=== PATIENT | female | born 1950 | race Caucasian/White ===

== ENCOUNTER → 2016-08-12 | Outpatient (CLI) | payer OTHER, BC ==
[~2016-08-12] MED LIST: APIX1TAB3 PO; ATOR10TA82 PO; CEPH500C2 PO; FLUO20CA35 PO; LEVO88TA3 PO; METO25TA56 PO; MOME50SP5 NAE; MOME6000 NAE; MULT-190 PO; MULT-845 PO; ROSU20TA22 PO; TMB100 PO
--- NOTE | 2016-08-12 16:39 | MAMMOGRAPHY REPORT ---
BILATERAL DIGITAL SCREENING MAMMOGRAM WITH CAD: 08/12/2016 CLINICAL HISTORY: Routine screening. Patient has no complaints. TECHNIQUE: Bilateral CC, MLO and repeat left cc views were obtained. Current study was also evaluate d with a Computer Aided Detection (CAD) system. COMPARISON: Comparison is made to exams dated: 08/12/2015 mammogram, 08/08/2014 mammogram, 08/07/2013 ma mmogram, 08/04/2012 mammogram, 08/04/2011 mammogram, and 07/25/2010 mammogram - [facility] er. BREAST COMPOSITION: There are scattered areas of fibroglandular density in both breasts. FINDINGS: There are a few benign-appearing calcifications in the breasts. The parenchymal pattern is similar to prior exams. No suspicious mass, architectural distortion or cluster of suspicious micro calcifications is seen. IMPRESSION: ACR BI-RADS CATEGORY 1: NEGATIVE There is no mammographic evidence of malignancy. A 1 year screening mammogram is recommended. The pa tient will receive written notification of the results. Approximately 10% of breast cancers are not detected with mammography. A negative mammographic report should not delay biopsy if a clinically suggestive mass is present. Briana Lang M.D. ay/:08/12/2016 14:16:03 Instructional Support Specialist: Sandi HIDALGO(R)(M), [facility] letter sent: Normal 1/2 BI-RADS Code: ACR BI-RADS Category 1: Negative
== END | disposition home or self-care (01) ==
LOC: C.MAMM 12:22
PROVIDERS: ATTEND Family Medicine
DX: Z12.31 Encounter for screening mammogram for malignant neoplasm of breast (principal)

== ENCOUNTER 2016-11-25 07:58 | Inpatient (IN) | payer OTHER, BC ==
[~2016-11-25] VITALS: Ht 165.1 cm; Wt 97.3 kg
[~2016-11-25 07:58] MED LIST changes: -ATOR10TA82 PO; +ATOR10TA88 PO; -CEPH500C2 PO; -LEVO88TA3 PO; -MOME6000 NAE; -ROSU20TA22 PO; -TMB100 PO
[2016-11-25] MEDS ORDERED: ROSU20TA22 PO (08:30)
[2016-11-25] MEDS ORDERED: MOME6000 NAE (08:30)
[2016-11-25] MEDS ORDERED: LEVO88TA3 PO (08:30)
[2016-11-25] MEDS ORDERED: TMB100 PO (08:30)
[2016-11-25] MEDS ORDERED: CEPH500C2 PO (08:30)
--- NOTE | 2016-11-25 08:38 | DIAGNOSTIC IMAGING REPORT ---
CHEST ONE VIEW PORTABLE HISTORY: 66 years-old Female Evaluate Fever/Sepsis acute fever and sepsis. COMPARISON: Chest radiograph 05/02/2013 TECHNIQUE: Portable upright AP view of the chest FINDINGS: Cardiac silhouette is again enlarged. There is atherosclerosis of the aorta. There is no pneumothorax, pleural effusion or focal airspace consolidation. No overt pulmonary edema. Multilevel endplate osteophytosis of the thoracic spine is noted. There is mild convex right curvature of the thoracic spine. IMPRESSION: Cardiomegaly without acute cardiopulmonary process. The above report was generated using voice recognition software. It may contain grammatical, syntax or spelling errors. Electronically signed by: Ricky Zhou M.D. 11/25/2016 8:36 AM Dictated Date/Time: 11/25/2016 8:35 AM
[2016-11-25 08:47] LABS: BASO % 0.2 %; BASO ABS # 0.02 K/uL (0-0.2); COMPLETE YES; EOS % 2.2 %; HEMATOCRIT 39.9 % (37-47); IG% 0.2 %; LYMPH % 20.7 %; LYMPH ABS # 1.88 K/uL (1.2-3.4); MEAN CELL VOLUME 88.1 fL (80-100); MEAN CORPUSCULAR HGB CONC 34.1 g/dl (32-36); MEAN PLATELET VOLUME 9.2 fL (7.4-10.4); MONO % 7.5 %; NEUT % 69.2 %; PLATELET COUNT 238 K/uL (130-400); RED BLOOD COUNT 4.53 M/uL (4.2-5.4); WHITE BLOOD COUNT 9.08 K/uL (4.8-10.8)
[2016-11-25 08:56] LABS: PARTIAL THROMBOPLASTIN RATIO 1.2; PROTHROMBIN TIME (PATIENT) 11.1 SECONDS (9.0-12.0)
[2016-11-25 09:06] LABS: ALT/SGPT 29 U/L (12-78); BLOOD UREA NITROGEN 17 mg/dl (7-18); BUN/CREATININE RATIO 19.2 (10-20); CALCIUM 9.2 mg/dl (8.5-10.1); CARBON DIOXIDE 26 mmol/L (21-32); CHLORIDE 103 mmol/L (98-107); CREATININE 0.88 mg/dl (0.60-1.20); GLUCOSE 170 mg/dl (70-99); POTASSIUM 3.3 mmol/L (3.5-5.1); SODIUM 139 mmol/L (136-145)
[2016-11-25 09:12] LABS: ALKALINE PHOSPHATASE 112 U/L (45-117); AST/SGOT 27 U/L (15-37); CKMB/CK RATIO 1.2 (0-3.0)
[2016-11-25 09:20] VITALS: O2SAT 97; Ht 165.1 cm; Wt 97.3 kg
--- NOTE | 2016-11-25 10:04 | EMERGENCY ROOM VISIT NOTE ---
History Report prepared by Valentine: Nadeem Rousseau Under the Supervision of: Dr. Minh Reina D.O. First contact with patient: 08:06 Chief Complaint: BRADYCARDIA Stated Complaint: A-FIB, SLOW HEART RATE Nursing Triage Summary: Pt reports hx of a.fib. Holter monitor x [address] Morgan last night, called today and told to come in because heart rate is low and stops. Told to come in "to start the procedure for a pacemaker." Denies cp, lightheaded/dizziness. History of Present Illness The patient is a 66 year old female who presents to the Emergency Room with complaints of intermittent bradycardia occurring over the past week. The patient 's husbands states that the patient has a history of A-fib and was put on a halter monitor for the past seven days. The patient has been having issues of a slow heart rate, an her heart was stopping for around 2-3 seconds at a time, and her heart would slow down. She states that she never feels these symptoms. She denies any dizziness or light headedness. The patient has been more tired than usual recently. The patient additionally has a history of a stroke. Cardiology sent the patient in for evaluation. Source of History: patient, spouse/significant other Onset: the past week Position: other (heart) Quality: other (bradycardia) Timing: intermittent Note: Associated symptoms: Tiredness Review of Systems See HPI for pertinent positives & negatives. A total of 10 systems reviewed and were otherwise negative. Past Medical & Surgical Medical Problems: (1) Allergic rhinitis (2) Benign hypertension (3) History of - hysterectomy (4) Radionuclide therapy for hyperthyroidism (5) Rosacea Family History Diabetes mellitus FH: cancer FH: heart disease Hypertension Social History Smoking Status: Never Smoker Alcohol Use: none Drug Use: none Marital Status: Housing Status: lives with family Current/Historical Medications Scheduled Apixaban (Eliquis), 5 MG PO BID Cephalexin Monohydrate (Keflex), 500 MG PO QID Flecainide Acetate (Flecainide Acetate), 50 MG PO BID Fluoxetine (Prozac), 20 MG PO DAILY Levothyroxine Sodium (Levothyroxine Sodium), 88 MCG PO DAILY Metoprolol Tartrate (Lopressor) (Lopressor), 12.5 MG PO BID Mometasone Furoate (Nasal) (Mometasone Furoate), 1 SPRAY ANOOP BID Ocuvite Preservision (Ocuvite Preservision), 1 TAB PO BID Rosuvastatin Calcium (Rosuvastatin Calcium), 20 MG PO DAILY Allergies Coded Allergies: No Known Allergies (Verified , 12/05/12) Physical Exam Vital Signs Date Time Temp Pulse Resp B/P (MAP) Pulse Ox O2 Delivery O2 Flow Rate FiO2 11/25/16 09:20 97 Room Air 11/25/16 09:02 55 18 144/54 97 11/25/16 08:25 60 11/25/16 08:01 37.1 64 18 144/72 96 Room Air Physical Exam CONSTITUTIONAL/VITAL SIGNS: Reviewed / noted above. GENERAL: Non-toxic in appearance. INTEGUMENTARY: Warm, dry, and [place]. HEAD: Normocephalic. EYES: without scleral icterus or trauma. ENT/OROPHARYNX: clear and moist. LYMPHADENOPATHY/NECK: Is supple without lymphadenopathy or meningismus. RESPIRATORY: Lungs clear and equal. CARDIOVASCULAR: Regular rate and rhythm. GI/ABDOMEN: Soft and nontender. No organomegaly or pulsatile mass. No rebound or guarding. Normal bowel sounds. EXTREMITIES: Warm and well perfused. BACK: No CVA tenderness. NEUROLOGICAL: Intact without focal deficits. PSYCHIATRIC: normal affect. MUSCULOSKELETAL: Normally developed with good muscle tone. Medical Decision & Procedures ER Provider Diagnostic Interpretation: Radiology results as stated below per my review and radiologist interpretation: CHEST ONE VIEW PORTABLE HISTORY: 66 years-old Female Evaluate Fever/Sepsis acute fever and sepsis. COMPARISON: Chest radiograph 05/02/2013 TECHNIQUE: Portable upright AP view of the chest FINDINGS: Cardiac silhouette is again enlarged. There is atherosclerosis of the aorta. There is no pneumothorax, pleural effusion or focal airspace consolidation. No overt pulmonary edema. Multilevel endplate osteophytosis of the thoracic spine is noted. There is mild convex right curvature of the thoracic spine. IMPRESSION: Cardiomegaly without acute cardiopulmonary process. The above report was generated using voice recognition software. It may contain grammatical, syntax or spelling errors. Electronically signed by: Ricky Zhou M.D. 11/25/2016 8:36 AM Dictated Date/Time: 11/25/2016 8:35 AM Laboratory Results 11/25/16 08:20 Red Blood Count 4.53, Mean Corpuscular Volume 88.1, Mean Corpuscular Hemoglobin 30.0, Mean Corpuscular Hemoglobin Concent 34.1, Mean Platelet Volume 9.2, Neutrophils (%) (Auto) 69.2, Lymphocytes (%) (Auto) 20.7, Monocytes (%) (Auto) 7.5, Eosinophils (%) (Auto) 2.2, Basophils (%) (Auto) 0.2, Neutrophils # (Auto) 6.28, Lymphocytes # (Auto) 1.88, Monocytes # (Auto) 0.68, Eosinophils # (Auto) 0.20, Basophils # (Auto) 0.02 11/25/16 08:20 Test 11/25/16 08:20 White Blood Count 9.08 K/uL (4.8-10.8) Red Blood Count 4.53 M/uL (4.2-5.4) Hemoglobin 13.6 g/dL (12.0-16.0) Hematocrit 39.9 % (37-47) Mean Corpuscular Volume 88.1 fL (80-100) Mean Corpuscular Hemoglobin 30.0 pg (25-34) Mean Corpuscular Hemoglobin Concent 34.1 g/dl (32-36) Platelet Count 238 K/uL (130-400) Mean Platelet Volume 9.2 fL (7.4-10.4) Neutrophils (%) (Auto) 69.2 % Lymphocytes (%) (Auto) 20.7 % Monocytes (%) (Auto) 7.5 % Eosinophils (%) (Auto) 2.2 % Basophils (%) (Auto) 0.2 % Neutrophils # (Auto) 6.28 K/uL (1.4-6.5) Lymphocytes # (Auto) 1.88 K/uL (1.2-3.4) Monocytes # (Auto) 0.68 K/uL (0.11-0.59) Eosinophils # (Auto) 0.20 K/uL (0-0.5) Basophils # (Auto) 0.02 K/uL (0-0.2) RDW Standard Deviation 45.3 fL (36.4-46.3) RDW Coefficient of Variation 13.9 % (11.5-14.5) Immature Granulocyte % (Auto) 0.2 % Immature Granulocyte # (Auto) 0.02 K/uL (0.00-0.02) Prothrombin Time 11.1 SECONDS (9.0-12.0) Prothromb Time International Ratio 1.0 (0.9-1.1) Activated Partial Thromboplast Time 30.0 SECONDS (21.0-31.0) Partial Thromboplastin Ratio 1.2 Anion Gap 10.0 mmol/L (3-11) Est Creatinine Clear Calc Drug Dose 73.7 ml/min Estimated GFR () 79.9 Estimated GFR (Non- 68.9 BUN/Creatinine Ratio 19.2 (10-20) Calcium Level 9.2 mg/dl (8.5-10.1) Total Bilirubin 0.3 mg/dl (0.2-1) Direct Bilirubin 0.1 mg/dl (0-0.2) Aspartate Amino Transf (AST/SGOT) 27 U/L (15-37) Alanine Aminotransferase (ALT/SGPT) 29 U/L (12-78) Alkaline Phosphatase 112 U/L (45-117) Total Creatine Kinase 85 U/L (26-192) Creatine Kinase MB 1.0 ng/ml (0.5-3.6) Creatine Kinase MB Ratio 1.2 (0-3.0) Troponin I < 0.015 ng/ml (0-0.045) Total Protein 7.9 gm/dl (6.4-8.2) Albumin 3.5 gm/dl (3.4-5.0) Laboratory results as stated above per my review. ECG Indication: bradycardia Rate (beats per minute): 60 Rhythm: normal sinus Findings: no ectopy, other (No acute injury) ED Course 0812: Previous medical records were reviewed. The patient was evaluated in room B3. A complete history and physical examination was performed. 0908: Discussed the patient's case with Ofe Giraldo. The patient will be evaluated for further treatment and disposition. Medical Decision the differential was considered includes acute myocardial infarction, acute coronary syndrome, myocarditis, pericarditis, pericardial effusions /tamponade, esophageal perforation, thoracic aortic dissection, pulmonary embolism, pneumonia, pneumothorax, pancreatitis, shingles, acute cholecystitis, perforated abdominal viscus. This is a 66-year-old female who presents to the ED with a chief complaint of needing a pacemaker. The patient was sent by Dr. Landin. She had an outpatient Holter monitor that showed multiple positives up to 4 seconds. The patient was symptomatically with this. The patient is currently symptomatically. Her vital signs are stable. An EKG shows a normal sinus rhythm. Blood work was unremarkable including normal CBC and chemistry panel. Chest x-ray was negative for acute disease. The patient will be seen by the hospital service for further inpatient evaluation and care. Medication Reconcilliation Current Medication List: was personally reviewed by me Blood Pressure Screening Patient's blood pressure: Elevated blood pressure Managed by the hospitalist Consults Time Called: [id number] Consulting Physician: Ofe Giraldo Returned Call: [phone] Discussed the patient's case with Ofe Giraldo. The patient will be evaluated for further treatment and disposition. Impression Primary Impression: Symptomatic bradycardia Scribe Attestation The scribe's documentation has been prepared under my direction and personally reviewed by me in its entirety. I confirm that the note above accurately reflects all work, treatment, procedures, and medical decision making performed by me. Departure Information Dispostion Being Evaluated By Hospitalist Jos eAngel Guzman M.D. (PCP) Patient Instructions My [facility]
[2016-11-25 11:25] VITALS: O2SAT 97
[2016-11-25 11:28] VITALS: BP 179/84; PULSE 53; TEMP 36.8; O2SAT 97
[2016-11-25] MEDS ORDERED: PNEUMOCOCCAL ADMINISTRATION CHARGE ONE (11:30)
[2016-11-25] MEDS ORDERED: INFLUENZA ADMINISTRATION CHARGE ONE (11:30)
[2016-11-25] MEDS ORDERED: INFLUENZA VACCINE HIGH DOSE 65+ 0.5 ML SYR IM. ONE (11:30)
[2016-11-25] MEDS ORDERED: PNEUMOCOCCAL POLYSACCHARIDES 25 MCG/0.5 ML VIAL/SYR IM. ONE (11:30)
[2016-11-25] MEDS ORDERED: NSS + 20MEQ KCL 1000ML 1,000 ML IV SCH (11:30)
--- NOTE | 2016-11-25 11:42 | HISTORY & PHYSICAL EXAMINATION ---
DATE OF ADMISSION: 11/25/2016 PRIMARY CARE PHYSICIAN: Jose Angel Elizabeth MD CHIEF COMPLAINT: Sent in with an abnormal Holter reading. HISTORY OF PRESENT COMPLAINT: She is a 66-year-old female with significant past medical history including paroxysmal atrial fibrillation, on Eliquis; history of cerebrovascular accident secondary to AFib; hypertension; hyperlipidemia; history of breast disease, status post surgery; and apparently has been complaining of tiredness and fatigue for a while. She was seen by the receivable executive last week and she was put on a Holter to find out bradyarrhythmias that could be the cause for her problem, and Holter reading came back positive for pauses of more than 4 seconds on multiple occasions. From that point, she was sent into the Emergency Room for further evaluation and pacemaker placement. When asking questions, she denies to have any other symptoms except feeling tired and weak all the time. No history of loss of consciousness. No history of fall. No chest pain, palpitations. No fever, chills or rigors. No numbness or tingling in the extremities, and no weakness involving any side of the body. In the ER, she was hemodynamically stable and she was noted to have an EKG that did show sinus rhythm with a rate of 60 per minute and no significant ST-T wave changes, and her labs were unremarkable. PAST MEDICAL HISTORY: Significant for paroxysmal atrial fibrillation, on Eliquis; history of cerebrovascular accident, secondary to atrial fibrillation; hypertension; hyperlipidemia; history of Graves' disease status post surgery, now hypothyroidism; anxiety; nonspecific back pain. PAST SURGICAL HISTORY: Significant for benign breast biopsy, thyroid gland removal in 2013, laminectomy, and also vaginal hysterectomy. FAMILY HISTORY: Significant that mother had esophageal cancer. Father diabetes and heart disorder. Brother had hypertension. SOCIAL HISTORY: She is . She lives with her . She has 2 children. She does not smoke, but she uses alcohol occasionally. ALLERGIES: NKDA. MEDICATIONS: She has been on flecainide 50 mg twice daily, metoprolol 25 mg twice daily, Eliquis 5 mg b.i.d., Keflex 500 mg 4 times daily as directed, Prozac 20 mg daily, Levothyroxine 88 mcg daily, Flonase nasal spray as directed, Ocuvite 1 tablet daily and Crestor 20 mg daily. REVIEW OF SYSTEMS: Other systemic review unremarkable except those mentioned in the history of present complaint. PHYSICAL EXAMINATION: GENERAL: On examination in the Emergency Room, she was not having any acute distress. VITAL SIGNS: Temperature 37.1, pulse of 55 and regular, blood pressure 144/54, saturation 97% on room air. HEENT: Unremarkable. NECK: Supple. No JVD, no bruit. CHEST: Clear to auscultate bilaterally. HEART: S1, S2 regular. ABDOMEN: Soft, benign, nontender, no organomegaly. Bowel sounds present. EXTREMITIES: Negative for any edema. MUSCULOSKELETAL: Did not show any acute arthritis involving any joint. CENTRAL NERVOUS SYSTEM: She was alert, awake, oriented x3. No focal sensory and/or motor deficit appreciated. LABORATORY DATA: Noted today white count was 9.08, H&H was 13.6/39.9, platelet was 238. Sodium 139, potassium 3.3, chloride 103, carbon dioxide 26, BUN 17, creatinine 0.88, random glucose 170. LFTs, troponin unremarkable. Protime INR normal. EKG was in sinus rhythm, rate of 60 per minute, normal axis and no significant ST-T wave changes. Chest x-ray, cardiomegaly without acute cardiopulmonary process. The strips of Holter monitor reviewed, she does have pauses up to more than 4 seconds on multiple locations. ASSESSMENT AND PLAN: 1. Bradyarrhythmia with significant pauses. The patient will be admitted to telemetry unit. A cardiology evaluation and electrophysiology evaluation, and probable pacemaker placement. We will hold her flecainide and metoprolol for now. There is nothing to suggest that she is having an myocardial infarction at this time or acute coronary syndrome. 2. Paroxysmal atrial fibrillation. She has been on flecainide and metoprolol and also on Eliquis. Her flecainide and metoprolol will be on hold in the light of bradyarrhythmia, and she will be evaluated for a pacemaker.She took her Eliquis this morning. We may have to bridge her with heparin depending on the proposed surgery. 3. Hypertension. Blood pressure seems stable at this time. We may have to give additional blood pressure medications as needed to control the blood pressure while in the hospital. 4. Hyperlipidemia. Continue with Crestor. 5. History of Graves' disease, now hypothyroidism. Continue with thyroid replacement. 6. Gastrointestinal prophylaxis with Protonix. 7. Deep venous thrombosis prophylaxis with Eliquis. 8. Code status. She will be full code and further management will depend on clinical course. In my clinical assessment, the beneficiary meets criteria as per CMS for 2 midnight stay in the hospital. DIOMEDES
--- NOTE | 2016-11-25 12:27 | Cardiology Consultation ---
Cardiology Consultation Date of Consultation: Nov 25, 2016. Requesting Physician: Dr. Garner Reason for Consultation: sick sinus syndrome with bradycardia Pt evaluation today including: conversation w/ patient, conversation w/ family , physical exam, lab review, review of studies, review of inpatient medication list History of Present Illness This is a very pleasant 66-year-old woman who has a history of atrial fibrillation dating back to 2012, at that time she had hyperthyroidism. After treatment of her hyperthyroidism she remained in sinus rhythm, therefore anticoagulation was discontinued however she had a presentation with an acute stroke on 05/03/2013. At that time she was not in atrial fibrillation, however it was felt that the stroke was from paroxysmal atrial fibrillation and she has had documented atrial fibrillation since. She also has a history of bradycardia , and is therefore maintained on low-dose metoprolol (metoprolol tartrate 25 mg twice a day). With her paroxysmal atrial fibrillation she has been maintained on flecainide 100 mg twice a day as well and she is on eliquis 5 mg twice a day. According to her she has been having gradually decreasing activities over the last year or so (she is little bit limited due to right leg weakness as well). An evaluation was undertaken which included an echocardiogram on 11/12 which showed normal left ventricular function with mild concentric left ventricular hypertrophy. In addition a 7 day event monitor was applied, this showed periods of atrial fibrillation with a controlled heart rate (averaging 72 bpm) as well as overall bradycardia during sinus rhythm. Her sinus rhythm was as low as 26 bpm, the maximum was only 89 bpm with an average of 55 bpm. In addition she had 55 pauses between 3 seconds and 4.2 seconds. Decreasing her AV benjamin blocking medications is not a good option as she has a well-controlled heart rate when she is in atrial fibrillation currently. She does have ill-defined symptoms of fatigue and not feeling well with exertion which could be rate related, she does not have symptoms of presyncope or syncope. She does not have exertional chest discomfort has had no further stroke symptoms and has had no bleeding on Eliquis. Past Medical/Surgical History (1) Atrial fibrillation (2) Benign hypertension (3) Hyperthyroidism (4) Symptomatic bradycardia Family History Diabetes mellitus FH: cancer FH: heart disease Hypertension Social History Smoking Status: Never Smoker History of Alcohol Use: No Review of Systems Constitutional: + fatigue, No fever, No weight loss, No weakness Respiratory: No cough, No wheezing, No shortness of breath, No dyspnea on exertion Cardiac: + see HPI, No chest pain, No orthopnea, No PND, No edema, No palpitations Abdomen: No pain, No nausea, No vomiting, No diarrhea, No GI bleeding Female : No problem reported Neurologic: + weakness (residual right leg weakness following her stroke), No paralysis, No numbness/tingling, No balance problems Heme: No abnormal bleeding/bruising, No clotting problems Endo: + fatigue Skin: No problem reported All Other Systems: Reviewed and Negative Allergies Coded Allergies: No Known Allergies (Verified , 12/05/12) Medications Current Inpatient Medications Medications (Trade) Dose Ordered Sig/David Route Start Time Stop Time Status Last Admin Dose Admin Potassium Chloride/Sodium Chloride 1,000 ml @ 100 mls/hr Q10H IV 11/25/16 11:30 12/25/16 11:29 11/25/16 11:48 100 MLS/HR Cephalexin Monohydrate (Keflex Cap) 500 mg QID PO 11/25/16 13:00 12/05/16 12:59 Fluoxetine HCl (Prozac Cap) 20 mg DAILY PO 11/26/16 09:00 12/26/16 08:59 Levothyroxine Sodium (Synthroid Tab) 88 mcg DAILYBB PO 11/26/16 06:30 12/26/16 06:29 Multivitamins/ Minerals (Multivitamin W/ Minerals Tab) 1 tab BID PO 11/25/16 21:00 12/25/16 20:59 Rosuvastatin Calcium (Crestor Tab) 20 mg DAILY PO 11/26/16 09:00 12/26/16 08:59 Fluticasone Propionate (Flonase Nasal [place]) 2 sprays BID NA 11/25/16 21:00 12/25/16 20:59 Physical Exam Vital Signs Past 12 Hours Date Time Temp Pulse Resp B/P (MAP) Pulse Ox O2 Delivery O2 Flow Rate FiO2 11/25/16 11:28 36.8 53 18 179/84 (115) 97 Room Air 11/25/16 10:30 54 11/25/16 10:30 55 18 153/66 11/25/16 10:01 52 18 160/86 96 11/25/16 09:20 97 Room Air 11/25/16 09:02 55 18 144/54 97 11/25/16 08:25 60 11/25/16 08:01 37.1 64 18 144/72 96 Room Air Constitutional: General Apperance: heathly-appearing, overweight Level of Distress: NAD Psychiatric: Mental Status: active & alert Head: normocephalic Eyes: EOM: EOMI ENMT: normal ENT inspection, hearing grossly normal Neck: supple, no masses Lungs: Respiratory effort: no dyspnea, good air movement Auscultation: breath sounds normal, no wheezing Cardiovascular: Heart Auscultation: RRR, no murmurs, no rubs, no gallops, bradycardia Peripheral Pulses: Bruits: none appreciated Abdomen: Bowel Sounds: normal Inspection & Palpation: soft, no tenderness, guarding & rebound, no masses Musculoskeletal: pertinent finding (mild right leg weakness) Extremities: no edema Neurologic: Cranial Nerves: grossly intact Sensation: grossly intact Data Laboratory Results: Last 24 Hours Test 11/25/16 08:20 White Blood Count 9.08 K/uL Red Blood Count 4.53 M/uL Hemoglobin 13.6 g/dL Hematocrit 39.9 % Mean Corpuscular Volume 88.1 fL Mean Corpuscular Hemoglobin 30.0 pg Mean Corpuscular Hemoglobin Concent 34.1 g/dl Platelet Count 238 K/uL Mean Platelet Volume 9.2 fL Neutrophils (%) (Auto) 69.2 % Lymphocytes (%) (Auto) 20.7 % Monocytes (%) (Auto) 7.5 % Eosinophils (%) (Auto) 2.2 % Basophils (%) (Auto) 0.2 % Neutrophils # (Auto) 6.28 K/uL Lymphocytes # (Auto) 1.88 K/uL Monocytes # (Auto) 0.68 K/uL Eosinophils # (Auto) 0.20 K/uL Basophils # (Auto) 0.02 K/uL RDW Standard Deviation 45.3 fL RDW Coefficient of Variation 13.9 % Immature Granulocyte % (Auto) 0.2 % Immature Granulocyte # (Auto) 0.02 K/uL Prothrombin Time 11.1 SECONDS Prothromb Time International Ratio 1.0 Activated Partial Thromboplast Time 30.0 SECONDS Partial Thromboplastin Ratio 1.2 Sodium Level 139 mmol/L Potassium Level 3.3 mmol/L Chloride Level 103 mmol/L Carbon Dioxide Level 26 mmol/L Anion Gap 10.0 mmol/L Blood Urea Nitrogen 17 mg/dl Creatinine 0.88 mg/dl Est Creatinine Clear Calc Drug Dose 73.7 ml/min Estimated GFR () 79.9 Estimated GFR (Non- 68.9 BUN/Creatinine Ratio 19.2 Random Glucose 170 mg/dl Calcium Level 9.2 mg/dl Total Bilirubin 0.3 mg/dl Direct Bilirubin 0.1 mg/dl Aspartate Amino Transf (AST/SGOT) 27 U/L Alanine Aminotransferase (ALT/SGPT) 29 U/L Alkaline Phosphatase 112 U/L Total Creatine Kinase 85 U/L Creatine Kinase MB 1.0 ng/ml Creatine Kinase MB Ratio 1.2 Troponin I < 0.015 ng/ml Total Protein 7.9 gm/dl Albumin 3.5 gm/dl EKG: Sinus rhythm at 60 bpm, normal. Assessment & Plan #1. Sick sinus syndrome: She has classic sick sinus syndrome with paroxysmal atrial fibrillation (which she is still having to some extent on her current dose of flecainide) with a well-controlled heart rate on her current medications but significant bradycardia. She has heart rates as low as 26 bpm as well as frequent pauses in excess of 3 seconds. She likely has some symptoms related to this, she is having increasing fatigue over the last year although she is not having presyncope or syncope. She probably should continue with her flecainide and her low-dose metoprolol for rate control and rhythm control. #2. Bradycardia: Although not sure that her symptoms of fatigue are related to bradycardia they certainly could be, and she also has pauses as long as 4.2 seconds. She had 55 pauses in one week between 3 and 4.2 seconds. I think she needs a pacemaker for heart rate support to allow her to use her current medications which she needs for the atrial arrhythmia. #3. Atrial fibrillation: She has relatively well-controlled atrial fibrillation currently, her heart rate is good during the arrhythmia and the episodes tend to be brief (averaging around 3 minutes on her event recorder) with a total burden of less than 1%. A pacemaker will help monitor her atrial arrhythmia and the rate during it, at the moment I would recommend continue flecainide, metoprolol and anticoagulation. With her history of stroke or think we should keep her anticoagulated and she took her Eliquis this morning. I would recommend starting heparin this evening, and continuing that until about 4 hours before her surgery for her pacemaker. I discussed the indications, procedure, risks and alternatives of pacemaker implantation with her and her in detail today. They understand and she is agreeable to proceed. I will therefore schedule her for a dual-chamber pacemaker implantation on Wednesday morning at 8:00 and keep her off of Eliquis until then, with the use of heparin starting this evening and ending at 4 AM on Wednesday. Thank you for allowing me to participate in her care.
[2016-11-25] MEDS: CEPHALEXIN MONOHYDRATE 500 MG CAP PO SCH ×3 (12:47→20:32)
[2016-11-25 15:13] VITALS: BP 125/78; PULSE 86; TEMP 37.3; O2SAT 92
[2016-11-25] MEDS ORDERED: NURSING VERBAL MED ORDER ONE (15:15)
--- NOTE | 2016-11-25 15:21 | CARDIOLOGY CONSULTATION ---
DATE OF CONSULTATION: 11/25/2016 REFERRING PHYSICIAN: Dr. Jacinto Garner. REASON FOR CONSULTATION: Bradycardia, tachybrady syndrome, paroxysmal atrial fibrillation, and a recent phototypesetting equipment monitor demonstrating multiple 4-second pauses. HISTORY OF PRESENT ILLNESS: Ms. Araya is a 66-year-old female who was sent to the Emergency Department by Dr. Morgan today due to an abnormal heart monitor, demonstrating multiple pauses, 45, the longest of which was 4.1 seconds on a recent phototypesetting equipment monitor. He carries a history of paroxysmal atrial fibrillation, maintained in sinus rhythm with flecainide as well as beta victor m therapy. She is noted to have bradycardia in the past. The patient notes chronic fatigue and some exercise intolerance. Denies lightheadedness, dizziness, syncope or near syncope. No chest discomfort or unusual shortness of breath. Her functional capacity has been stable over the past 6 months. No recent medication changes. Offers no other complaints at this time. REVIEW OF SYSTEMS: The pertinent positives noted above. A comprehensive 10-system review is otherwise negative. PAST MEDICAL HISTORY: 1. Paroxysmal atrial fibrillation, initially diagnosed in 2012 in the setting of hyperthyroidism. 2. Hyperthyroidism, status post radioactive thyroid ablation. 3. Cerebrovascular accident in April 2013. At that time, the patient was not on anticoagulation, treated with TPA at [facility] and subsequently prescribed Eliquis. 4. Tachybrady syndrome. 5. Chronic fatigue. 6. Dyslipidemia. 7. Hypertension. 8. Chronic back pain. 9. Anxiety disorder. PAST SURGICAL HISTORY: 1. Radioactive thyroid ablation. 2. Breast biopsy -- benign. 3. Laminectomy. 4. Vaginal hysterectomy. FAMILY HISTORY: Mother with esophageal cancer. Father with heart disorder. Brother with hypertension. No premature CAD or sudden cardiac . SOCIAL HISTORY: The patient is a nonsmoker. She does not use alcohol or illicit drugs. She is and lives with her . ALLERGIES: No known drug allergies. CURRENT OUTPATIENT MEDICATIONS: 1. Prilosec 20 mg daily. 2. Eliquis 5 mg twice daily (the patient took a.m. dose today, 11/25/2016). 3. Flecainide 100 mg every 12 hours. 4. Lopressor 25 mg twice daily. 5. Crestor 20 mg daily. 6. Levoxyl 88 mcg daily. 7. Tums as needed. 8. Vitamin D daily. 9. Nasonex 2 sprays daily. 10. Extra strength Tylenol as needed. ECG on admission demonstrates sinus rhythm, normal ECG. Telemetry demonstrates sinus rhythm, no pauses recorded. LABORATORY DATA: White blood cell count 9.08, hemoglobin is 13.6, and platelet count is 238. Sodium 139, potassium 3.3, chloride is 103, CO2 is 26, BUN is 17, and creatinine 0.88. Troponin is undetectable. INR is 1.0. Chest x-ray performed on admission, cardiomegaly without acute cardiopulmonary process. PHYSICAL EXAMINATION: VITAL SIGNS: Temperature is 36.8 degrees centigrade, pulse 53 beats per minute and regular, respiratory rate is 18 breaths per minute, blood pressure 170/84 and SaO2 is 97% on room air. GENERAL: NAD, awake, alert and oriented x3. HEENT: Mucous membranes moist. No scleral icterus. Conjunctivae pink. NECK: Supple. No JVD. No HJR. No carotid bruit. HEART: Regular with a normal S1 and S2. There is no murmur, rub, or gallop. LUNGS: Clear without rales, rhonchi or wheeze. ABDOMEN: Soft and nontender. No rebound or guarding. Normal bowel sounds. EXTREMITIES: Warm and dry. There is no clubbing, cyanosis, or edema. NEUROLOGIC: Demonstrates no focal motor deficit. Cranial nerves grossly intact. FINAL IMPRESSION: 1. Paroxysmal atrial fibrillation with sick sinus syndrome/tachybrady syndrome with multiple pauses recorded on recent phototypesetting equipment monitor, the longest of which being 4.1 seconds. The patient's symptoms possibly related to chronic bradycardia and chronotropic incompetence including fatigue and some exercise intolerance. No syncope or near syncope. 2. Paroxysmal atrial fibrillation and a history of cerebral vascular accident in 2013. 3. Elevated blood pressure since admission -- recent ambulatory blood pressure readings within normal limits. 4. Dyslipidemia. PLAN AND RECOMMENDATIONS: The patient's Eliquis will be placed on hold. Intravenous heparin will be initiated this evening with plan to continue IV heparin until approximately 4 hours prior to pacemaker implantation. Pacemaker implantation currently scheduled for Wednesday morning. The risks of the procedure were discussed with the patient by glass engraver. Her medications will be continued otherwise as noted above. We will follow blood pressure readings during hospitalization and make medical adjustments as needed. Thank you for allowing me to take part in the care of your patient.
[2016-11-25 15:44] VITALS: BP 143/79; PULSE 52; TEMP 37.2; O2SAT 94
[2016-11-25] MEDS ORDERED: ACETAMINOPHEN 500 MG TAB PO ONE (17:37)
[2016-11-25] MEDS: HEPARIN 25,000 UNIT/500ML D5W 500 ML IV PRN (17:51)
[2016-11-25 19:13] VITALS: BP 144/74; PULSE 54; TEMP 36.9; O2SAT 94
[2016-11-25] MEDS: CEROVITE ADV FORMULA TAB PO SCH (20:32)
[2016-11-25] MEDS: FLUTICASONE PROPIONATE NA SPR 16 GM BTL SCH (20:33)
[2016-11-25] MEDS ORDERED: NON-FORMULARY MEDICATION (Apixaban (Eliquis) 5 MG) PO SCH (21:00)
[2016-11-26] VITALS (9 sets, daily range): BP systolic 138–173; BP diastolic 63–84; PULSE 51–68; TEMP 36.4–36.8; O2SAT 93–96
[2016-11-26] MEDS: ACETAMINOPHEN 500 MG TAB PO SCH ×4 (00:33→22:00)
[2016-11-26 01:06] LABS: PARTIAL THROMBOPLASTIN RATIO 2.9
[2016-11-26] MEDS: HEPARIN 25,000 UNIT/500ML D5W 500 ML IV PRN ×3 (01:14→15:03)
[2016-11-26] MEDS ORDERED: CEFAZOLIN SOD 1000MG/55 ML D5W IV SCH (06:00)
[2016-11-26] MEDS: LEVOTHYROXINE 88 MCG TAB PO SCH (06:02)
[2016-11-26 07:39] LABS: HEMATOCRIT 40.6 % (37-47); MEAN CELL VOLUME 88.1 fL (80-100); MEAN CORPUSCULAR HEMOGLOBIN 28.4 pg (25-34); MEAN CORPUSCULAR HGB CONC 32.3 g/dl (32-36); MEAN PLATELET VOLUME 8.8 fL (7.4-10.4); PLATELET COUNT 192 K/uL (130-400); RED BLOOD COUNT 4.61 M/uL (4.2-5.4); WHITE BLOOD COUNT 7.76 K/uL (4.8-10.8)
[2016-11-26 07:56] LABS: PARTIAL THROMBOPLASTIN RATIO 4.1
[2016-11-26] MEDS: ROSUVASTATIN CALCIUM 20 MG TAB PO SCH (08:19)
[2016-11-26] MEDS: CEROVITE ADV FORMULA TAB PO SCH ×2 (08:19→20:03)
[2016-11-26] MEDS: CEPHALEXIN MONOHYDRATE 500 MG CAP PO SCH ×4 (08:20→20:03)
[2016-11-26] MEDS: FLUTICASONE PROPIONATE NA SPR 16 GM BTL SCH ×2 (08:20→20:03)
[2016-11-26] MEDS: FLUOXETINE HCL 20 MG CAP PO SCH (08:20)
[2016-11-26 13:14] LABS: BUN/CREATININE RATIO 20.8 (10-20); CALCIUM 9.2 mg/dl (8.5-10.1); CREATININE 0.71 mg/dl (0.60-1.20); MAGNESIUM 2.4 mg/dl (1.8-2.4); POTASSIUM 3.9 mmol/L (3.5-5.1)
--- NOTE | 2016-11-26 14:30 | Cardiology Follow-Up ---
Subjective General Date of Service: Nov 26, 2016. Pt evaluation today including: conversation w/ patient, physical exam, chart review, lab review, review of studies, conversation w/ hr shared services consultant, review of inpatient medication list History of Present Illness The patient is a 66 year old female seen in follow-up. Patient feeling well from a cardiovascular perspective. Resting comfortably. Denies chest pain or shortness of breath. Telemetry reviewed. No significant pauses overnight. Minimum heart rate 40 bpm. Offers no complete at this time. Allergies Coded Allergies: No Known Allergies (Verified , 12/05/12) Social History Smoking Status: Never Smoker Hx Tobacco Use In Past Year?: No Hx Alcohol Use - Type And Amou: No Hx Substance Use - Type And Am: No Problem List Medical Problems: (1) Symptomatic bradycardia Status: Chronic Review of Systems Respiratory: No cough, No sputum, No wheezing, No shortness of breath, No dyspnea on exertion, No dyspnea at rest, No hemoptysis Cardiac: No chest pain, No orthopnea, No PND, No edema, No claudication, No palpitations Physical Exam Vital Signs Last Vital Signs Documentation Date Time Temp Pulse Resp B/P (MAP) Pulse Ox O2 Delivery O2 Flow Rate FiO2 11/26/16 13:03 96 Room Air 11/26/16 12:57 36.7 65 18 145/82 (103) Physical Exam Constitutional: General Apperance: heathly-appearing, overweight Level of Distress: NAD Psychiatric: Mental Status: active & alert Head: normocephalic Eyes: EOM: EOMI ENMT: normal ENT inspection, hearing grossly normal Neck: supple, no masses Lungs: Respiratory effort: no dyspnea, good air movement Auscultation: breath sounds normal, no wheezing Cardiovascular: Heart Auscultation: RRR, no murmurs, no rubs, no gallops, bradycardia Peripheral Pulses: Bruits: none appreciated Abdomen: Bowel Sounds: normal Inspection & Palpation: soft, no tenderness, guarding & rebound, no masses Musculoskeletal: pertinent finding (mild right leg weakness) Extremities: no edema Neurologic: Cranial Nerves: grossly intact Sensation: grossly intact Assessment and Plan Assessment and Plan FINAL IMPRESSION: 1. Paroxysmal atrial fibrillation with sick sinus syndrome/tachybrady syndrome. 2. History of cerebral vascular accident in 2013. 3. Elevated blood pressure since admission -- recent ambulatory blood pressure readings within normal limits. 4. Dyslipidemia. PLAN AND RECOMMENDATIONS: Pacemaker implantation in a.m. Restart metoprolol status post pacemaker implantation. Continue IV heparin. Restart Eliquis post pacemaker implantation. Laboratory Results Last 24 Hours Test 11/26/16 00:20 11/26/16 07:24 11/26/16 12:39 Activated Partial Thromboplast Time 75.5 SECONDS 105.3 SECONDS Partial Thromboplastin Ratio 2.9 4.1 White Blood Count 7.76 K/uL Red Blood Count 4.61 M/uL Hemoglobin 13.1 g/dL Hematocrit 40.6 % Mean Corpuscular Volume 88.1 fL Mean Corpuscular Hemoglobin 28.4 pg Mean Corpuscular Hemoglobin Concent 32.3 g/dl RDW Standard Deviation 45.4 fL RDW Coefficient of Variation 14.0 % Platelet Count 192 K/uL Mean Platelet Volume 8.8 fL Sodium Level 139 mmol/L Potassium Level 3.9 mmol/L Chloride Level 104 mmol/L Carbon Dioxide Level 26 mmol/L Anion Gap 9.0 mmol/L Blood Urea Nitrogen 15 mg/dl Creatinine 0.71 mg/dl Est Creatinine Clear Calc Drug Dose 91.1 ml/min Estimated GFR () 103.6 Estimated GFR (Non- 89.4 BUN/Creatinine Ratio 20.8 Random Glucose 137 mg/dl Calcium Level 9.2 mg/dl Magnesium Level 2.4 mg/dl
[2016-11-26 16:02] LABS: PARTIAL THROMBOPLASTIN RATIO 2.3
--- NOTE | 2016-11-26 16:21 | Cardiology Follow-Up ---
Subjective Date of Service: Nov 26, 2016. Pt evaluation today including: conversation w/ patient, conversation w/ family , physical exam, lab review, review of studies, review of inpatient medication list History of Present Illness This is a very pleasant 66-year-old woman who has a history of atrial fibrillation dating back to 2012, at that time she had hyperthyroidism. After treatment of her hyperthyroidism she remained in sinus rhythm, therefore anticoagulation was discontinued however she had a presentation with an acute stroke on 05/03/2013. At that time she was not in atrial fibrillation, however it was felt that the stroke was from paroxysmal atrial fibrillation and she has had documented atrial fibrillation since. She also has a history of bradycardia , and is therefore maintained on low-dose metoprolol (metoprolol tartrate 25 mg twice a day). With her paroxysmal atrial fibrillation she has been maintained on flecainide 100 mg twice a day as well and she is on eliquis 5 mg twice a day. According to her she has been having gradually decreasing activities over the last year or so (she is little bit limited due to right leg weakness as well). An evaluation was undertaken which included an echocardiogram on 11/12 which showed normal left ventricular function with mild concentric left ventricular hypertrophy. In addition a 7 day event monitor was applied, this showed periods of atrial fibrillation with a controlled heart rate (averaging 72 bpm) as well as overall bradycardia during sinus rhythm. Her sinus rhythm was as low as 26 bpm, the maximum was only 89 bpm with an average of 55 bpm. In addition she had 55 pauses between 3 seconds and 4.2 seconds. Decreasing her AV benjamin blocking medications is not a good option as she has a well-controlled heart rate when she is in atrial fibrillation currently. She does have ill-defined symptoms of fatigue and not feeling well with exertion which could be rate related, she does not have symptoms of presyncope or syncope. She does not have exertional chest discomfort has had no further stroke symptoms and has had no bleeding on Eliquis. She was admitted for planned pacemaker implantation, her Eliquis was held and she was started on heparin with her history of stroke felt to be due to atrial arrhythmias. She is currently feeling well, she has no complaints today. Social History Smoking Status: Never Smoker History of Alcohol Use: No Review of Systems Respiratory: No cough, No sputum, No wheezing, No shortness of breath, No dyspnea on exertion, No dyspnea at rest, No hemoptysis Cardiac: No chest pain, No orthopnea, No PND, No edema, No claudication, No palpitations Medications Cardiovascular: Item Value Date Time Rosuvastatin 20 mg 11/26/16 0900 Calcium DAILY/PO 11/26/16 0819 (Crestor Tab) Objective Vital Signs Past 12 Hours Date Time Temp Pulse Resp B/P (MAP) Pulse Ox O2 Delivery O2 Flow Rate FiO2 11/26/16 15:36 36.5 57 18 147/82 (103) 94 Room Air 11/26/16 13:03 96 Room Air 11/26/16 12:57 36.7 65 18 145/82 (103) 96 Room Air 11/26/16 12:38 Room Air 11/26/16 11:16 36.7 54 18 138/77 (97) 93 Room Air 11/26/16 08:15 Room Air 11/26/16 07:27 36.4 54 18 169/77 (107) 96 Room Air Last Recorded Weight-Kilograms: 97.100 Intake & Output 8-Hour Column 11/26/16 11/27/16 11/27/16 16:00 00:00 08:00 Intake Total 350 ml Output Total 200 ml Balance 150 ml 24-Hour Column 11/27/16 08:00 Intake Total 350 ml Output Total 200 ml Balance 150 ml Physical Exam Constitutional: General Apperance: heathly-appearing, overweight Level of Distress: NAD Lungs: Respiratory effort: no dyspnea, good air movement Auscultation: breath sounds normal, no wheezing Cardiovascular: Heart Auscultation: RRR, no murmurs, no rubs, no gallops, bradycardia Peripheral Pulses: Bruits: none appreciated Extremities: no edema Data Laboratory Results: Last 24 Hours Test 11/26/16 00:20 11/26/16 07:24 11/26/16 12:39 11/26/16 15:36 Activated Partial Thromboplast Time 75.5 SECONDS 105.3 SECONDS 59.0 SECONDS Partial Thromboplastin Ratio 2.9 4.1 2.3 White Blood Count 7.76 K/uL Red Blood Count 4.61 M/uL Hemoglobin 13.1 g/dL Hematocrit 40.6 % Mean Corpuscular Volume 88.1 fL Mean Corpuscular Hemoglobin 28.4 pg Mean Corpuscular Hemoglobin Concent 32.3 g/dl RDW Standard Deviation 45.4 fL RDW Coefficient of Variation 14.0 % Platelet Count 192 K/uL Mean Platelet Volume 8.8 fL Sodium Level 139 mmol/L Potassium Level 3.9 mmol/L Chloride Level 104 mmol/L Carbon Dioxide Level 26 mmol/L Anion Gap 9.0 mmol/L Blood Urea Nitrogen 15 mg/dl Creatinine 0.71 mg/dl Est Creatinine Clear Calc Drug Dose 91.1 ml/min Estimated GFR () 103.6 Estimated GFR (Non- 89.4 BUN/Creatinine Ratio 20.8 Random Glucose 137 mg/dl Calcium Level 9.2 mg/dl Magnesium Level 2.4 mg/dl Telemetry reviewed: Sinus rhythm, no significant arrhythmia. Assessment and Plan #1. Sick sinus syndrome: She has classic sick sinus syndrome with paroxysmal atrial fibrillation (which she is still having to some extent on her current dose of flecainide) with a well-controlled heart rate on her current medications but significant bradycardia. She has heart rates as low as 26 bpm as well as frequent pauses in excess of 3 seconds. She likely has some symptoms related to this, she is having increasing fatigue over the last year although she is not having presyncope or syncope. She probably should continue with her flecainide and her low-dose metoprolol for rate control and rhythm control. #2. Bradycardia: Although not sure that her symptoms of fatigue are related to bradycardia they certainly could be, and she also has pauses as long as 4.2 seconds. She had 55 pauses in one week between 3 and 4.2 seconds. I think she needs a pacemaker for heart rate support to allow her to use her current medications which she needs for the atrial arrhythmia. #3. Atrial fibrillation: She has relatively well-controlled atrial fibrillation currently, her heart rate is good during the arrhythmia and the episodes tend to be brief (averaging around 3 minutes on her event recorder) with a total burden of less than 1%. A pacemaker will help monitor her atrial arrhythmia and the rate during it, at the moment I would recommend continue flecainide, metoprolol and anticoagulation. With her history of stroke or think we should keep her anticoagulated and she took her Eliquis this morning. I would recommend starting heparin this evening, and continuing that until about 4 hours before her surgery for her pacemaker. I reviewed the indications, procedure, risks and alternatives of pacemaker implantation with her and her family today. They understand and she is agreeable to proceed. Consent obtained. We will plan on first case tomorrow morning. Thank you for allowing me to participate in her care.
--- NOTE | 2016-11-26 17:56 | Progress Note ---
Internal Med Progress Note Date of Service: Nov 26, 2016. Provider Documentation: SUBJECTIVE: eating lunch afebrile denies chest pain or sob no dizziness feeling tired OBJECTIVE: Vital Signs-as noted below Exam: General-alert and awake. not in distress ENT-normal hearing Neck-no neck masses supple Lungs-cta b/l no wheezing or crackles Heart-s1 and s2 heard bradycardia no murmurs Abdomen-soft bowel sounds present non tender no distension Extremities-no erythema Neuro-alert and awake moves extremities Lab data as noted below. ASSESSMENT & PLAN: . Bradyarrhythmia with significant pauses. T Holding flecainide and metoprolol plan for pacemaker in am. 2. Paroxysmal atrial fibrillation. She has been on flecainide and metoprolol and also on Eliquis all are on hold. On iv heparin. 3. Hypertension. metoprolol on hold will monitor. 4. Hyperlipidemia. Continue with Crestor. 5. History of Graves' disease, now hypothyroidism. On thyroid replacement. 6. Gastrointestinal prophylaxis .Protonix. 7. Deep venous thrombosis prophylaxis iv heparin. 8. Code status. full code DISPOSITION await pace maker placement Vital Signs: Date Time Temp Pulse Resp B/P (MAP) Pulse Ox O2 Delivery O2 Flow Rate FiO2 11/26/16 16:00 Room Air 11/26/16 15:36 36.5 57 18 147/82 (103) 94 Room Air 11/26/16 13:03 96 Room Air 11/26/16 12:57 36.7 65 18 145/82 (103) 96 Room Air 11/26/16 12:38 Room Air 11/26/16 11:16 36.7 54 18 138/77 (97) 93 Room Air 11/26/16 08:15 Room Air 11/26/16 07:27 36.4 54 18 169/77 (107) 96 Room Air 11/26/16 04:00 Room Air 11/26/16 03:56 36.5 51 16 149/63 (91) 96 Room Air 11/26/16 00:51 36.7 53 16 173/83 (113) 94 163/80 (107) 11/26/16 00:00 Room Air 11/25/16 20:00 Room Air 11/25/16 19:13 36.9 54 18 144/74 (97) 94 Room Air Lab Results: Results Past 24 Hours Test 11/26/16 00:20 11/26/16 07:24 11/26/16 12:39 11/26/16 15:36 Range/Units Activated Partial Thromboplast Time 75.5 105.3 59.0 21.0-31.0 SECONDS Partial Thromboplastin Ratio 2.9 4.1 2.3 White Blood Count 7.76 4.8-10.8 K/uL Red Blood Count 4.61 4.2-5.4 M/uL Hemoglobin 13.1 12.0-16.0 g/dL Hematocrit 40.6 37-47 % Mean Corpuscular Volume 88.1 80-100 fL Mean Corpuscular Hemoglobin 28.4 25-34 pg Mean Corpuscular Hemoglobin Concent 32.3 32-36 g/dl RDW Standard Deviation 45.4 36.4-46.3 fL RDW Coefficient of Variation 14.0 11.5-14.5 % Platelet Count 192 130-400 K/uL Mean Platelet Volume 8.8 7.4-10.4 fL Sodium Level 139 136-145 mmol/L Potassium Level 3.9 3.5-5.1 mmol/L Chloride Level 104 98-107 mmol/L Carbon Dioxide Level 26 21-32 mmol/L Anion Gap 9.0 3-11 mmol/L Blood Urea Nitrogen 15 7-18 mg/dl Creatinine 0.71 0.60-1.20 mg/dl Est Creatinine Clear Calc Drug Dose 91.1 ml/min Estimated GFR () 103.6 Estimated GFR (Non- 89.4 BUN/Creatinine Ratio 20.8 10-20 Random Glucose 137 70-99 mg/dl Calcium Level 9.2 8.5-10.1 mg/dl Magnesium Level 2.4 1.8-2.4 mg/dl
[2016-11-27] VITALS (12 sets, daily range): BP systolic 118–155; BP diastolic 71–89; PULSE 58–102; TEMP 36.3–37.2; O2SAT 93–98
[2016-11-27] MEDS ORDERED: LACTATED RINGER'S 1000ML 1,000 ML IV ONE (04:00)
[2016-11-27] MEDS ORDERED: CEFAZOLIN IV 2,000 MG in DEXTROSE 5% 50ML 50 ML IV SCH (06:00)
[2016-11-27] MEDS: ACETAMINOPHEN 500 MG TAB PO SCH ×3 (06:00→22:00)
[2016-11-27] MEDS: LEVOTHYROXINE 88 MCG TAB PO SCH (06:05)
[2016-11-27 06:39] LABS: BASO % 0.1 %; BASO ABS # 0.01 K/uL (0-0.2); COMPLETE YES; EOS % 2.5 %; HEMATOCRIT 41.7 % (37-47); IG% 0.1 %; LYMPH % 31.6 %; LYMPH ABS # 2.77 K/uL (1.2-3.4); MEAN CELL VOLUME 87.8 fL (80-100); MEAN CORPUSCULAR HEMOGLOBIN 28.2 pg (25-34); MEAN CORPUSCULAR HGB CONC 32.1 g/dl (32-36); MEAN PLATELET VOLUME 8.9 fL (7.4-10.4); MONO % 7.8 %; NEUT % 57.9 %; PLATELET COUNT 210 K/uL (130-400); RED BLOOD COUNT 4.75 M/uL (4.2-5.4); WHITE BLOOD COUNT 8.77 K/uL (4.8-10.8)
[2016-11-27 06:49] LABS: PARTIAL THROMBOPLASTIN RATIO 1.3
[2016-11-27 07:07] LABS: CALCIUM 9.2 mg/dl (8.5-10.1); CREATININE 0.72 mg/dl (0.60-1.20); MAGNESIUM 2.4 mg/dl (1.8-2.4); POTASSIUM 3.7 mmol/L (3.5-5.1)
[2016-11-27] MEDS ORDERED: BACITRACIN 50000 UNIT VIAL ONE (07:51)
[2016-11-27] MEDS ORDERED: MIDAZOLAM HCL 5 MG/ML 1 ML VIAL ONE (07:51)
[2016-11-27] MEDS ORDERED: BACITRACIN OINT 0.9 GM PKT ONE (07:51)
[2016-11-27] MEDS ORDERED: FENTANYL CITRATE INJ 50 MCG/1 ML 2 ML VIAL ONE (07:51)
[2016-11-27] MEDS ORDERED: LIDOCAINE HCL 1% 20 ML VIAL ONE (07:51)
--- NOTE | 2016-11-27 08:18 | Cardiology Follow-Up ---
Subjective Date of Service: Nov 27, 2016. Pt evaluation today including: conversation w/ patient, conversation w/ family , physical exam, lab review, review of studies, review of inpatient medication list History of Present Illness This is a very pleasant 66-year-old woman who has a history of atrial fibrillation dating back to 2012, at that time she had hyperthyroidism. After treatment of her hyperthyroidism she remained in sinus rhythm, therefore anticoagulation was discontinued however she had a presentation with an acute stroke on 05/03/2013. At that time she was not in atrial fibrillation, however it was felt that the stroke was from paroxysmal atrial fibrillation and she has had documented atrial fibrillation since. She also has a history of bradycardia , and is therefore maintained on low-dose metoprolol (metoprolol tartrate 25 mg twice a day). With her paroxysmal atrial fibrillation she has been maintained on flecainide 100 mg twice a day as well and she is on eliquis 5 mg twice a day. According to her she has been having gradually decreasing activities over the last year or so (she is little bit limited due to right leg weakness as well). An evaluation was undertaken which included an echocardiogram on 11/12 which showed normal left ventricular function with mild concentric left ventricular hypertrophy. In addition a 7 day event monitor was applied, this showed periods of atrial fibrillation with a controlled heart rate (averaging 72 bpm) as well as overall bradycardia during sinus rhythm. Her sinus rhythm was as low as 26 bpm, the maximum was only 89 bpm with an average of 55 bpm. In addition she had 55 pauses between 3 seconds and 4.2 seconds. Decreasing her AV benjamin blocking medications is not a good option as she has a well-controlled heart rate when she is in atrial fibrillation currently. She does have ill-defined symptoms of fatigue and not feeling well with exertion which could be rate related, she does not have symptoms of presyncope or syncope. She does not have exertional chest discomfort has had no further stroke symptoms and has had no bleeding on Eliquis. She was admitted for planned pacemaker implantation, her Eliquis was held and she was started on heparin with her history of stroke felt to be due to atrial arrhythmias. Her heparin was discontinued early this morning in preparation for pacemaker. She is currently feeling well, she has no complaints today. She has no questions related to the surgery. Social History Smoking Status: Never Smoker History of Alcohol Use: No Review of Systems Respiratory: No cough, No sputum, No wheezing, No shortness of breath, No dyspnea on exertion, No dyspnea at rest, No hemoptysis Cardiac: No chest pain, No orthopnea, No PND, No edema, No claudication, No palpitations Medications Cardiovascular: Item Value Date Time Rosuvastatin 20 mg 11/26/16 0900 Calcium DAILY/PO 11/26/16 0819 (Crestor Tab) Objective Vital Signs Past 12 Hours Date Time Temp Pulse Resp B/P (MAP) Pulse Ox O2 Delivery O2 Flow Rate FiO2 11/27/16 07:02 36.7 61 16 155/89 (111) 98 11/27/16 04:00 Room Air 11/27/16 03:56 36.6 58 16 151/81 (104) 96 Room Air 11/27/16 00:00 Room Air 11/26/16 23:53 36.8 57 20 144/82 (102) 93 Room Air Last Recorded Weight-Kilograms: 96.300 Physical Exam Constitutional: General Apperance: heathly-appearing, overweight Level of Distress: NAD Lungs: Respiratory effort: no dyspnea, good air movement Auscultation: breath sounds normal, no wheezing Cardiovascular: Heart Auscultation: RRR, no murmurs, no rubs, no gallops, bradycardia Peripheral Pulses: Bruits: none appreciated Extremities: no edema Data Laboratory Results: Last 24 Hours Test 11/26/16 12:39 11/26/16 15:36 11/27/16 06:14 Sodium Level 139 mmol/L 138 mmol/L Potassium Level 3.9 mmol/L 3.7 mmol/L Chloride Level 104 mmol/L 104 mmol/L Carbon Dioxide Level 26 mmol/L 28 mmol/L Anion Gap 9.0 mmol/L 6.0 mmol/L Blood Urea Nitrogen 15 mg/dl 14 mg/dl Creatinine 0.71 mg/dl 0.72 mg/dl Est Creatinine Clear Calc Drug Dose 91.1 ml/min 89.4 ml/min Estimated GFR () 103.6 101.9 Estimated GFR (Non- 89.4 87.9 BUN/Creatinine Ratio 20.8 19.0 Random Glucose 137 mg/dl 84 mg/dl Calcium Level 9.2 mg/dl 9.2 mg/dl Magnesium Level 2.4 mg/dl 2.4 mg/dl Activated Partial Thromboplast Time 59.0 SECONDS 33.6 SECONDS Partial Thromboplastin Ratio 2.3 1.3 White Blood Count 8.77 K/uL Red Blood Count 4.75 M/uL Hemoglobin 13.4 g/dL Hematocrit 41.7 % Mean Corpuscular Volume 87.8 fL Mean Corpuscular Hemoglobin 28.2 pg Mean Corpuscular Hemoglobin Concent 32.1 g/dl Platelet Count 210 K/uL Mean Platelet Volume 8.9 fL Neutrophils (%) (Auto) 57.9 % Lymphocytes (%) (Auto) 31.6 % Monocytes (%) (Auto) 7.8 % Eosinophils (%) (Auto) 2.5 % Basophils (%) (Auto) 0.1 % Neutrophils # (Auto) 5.08 K/uL Lymphocytes # (Auto) 2.77 K/uL Monocytes # (Auto) 0.68 K/uL Eosinophils # (Auto) 0.22 K/uL Basophils # (Auto) 0.01 K/uL RDW Standard Deviation 44.8 fL RDW Coefficient of Variation 14.0 % Immature Granulocyte % (Auto) 0.1 % Immature Granulocyte # (Auto) 0.01 K/uL Telemetry reviewed: Sinus rhythm Assessment and Plan #1. Sick sinus syndrome: She has classic sick sinus syndrome with paroxysmal atrial fibrillation (which she is still having to some extent on her current dose of flecainide) with a well-controlled heart rate on her current medications but significant bradycardia. She has heart rates as low as 26 bpm as well as frequent pauses in excess of 3 seconds. She likely has some symptoms related to this, she is having increasing fatigue over the last year although she is not having presyncope or syncope. She probably should continue with her flecainide and her low-dose metoprolol for rate control and rhythm control. #2. Bradycardia: Although not sure that her symptoms of fatigue are related to bradycardia they certainly could be, and she also has pauses as long as 4.2 seconds. She had 55 pauses in one week between 3 and 4.2 seconds. I think she needs a pacemaker for heart rate support to allow her to use her current medications which she needs for the atrial arrhythmia. #3. Atrial fibrillation: She has relatively well-controlled atrial fibrillation currently, her heart rate is good during the arrhythmia and the episodes tend to be brief (averaging around 3 minutes on her event recorder) with a total burden of less than 1%. A pacemaker will help monitor her atrial arrhythmia and the rate during it, at the moment I would recommend continue flecainide, metoprolol and anticoagulation after the pacemaker. We will plan pacemaker this morning, her and her have no questions. Thank you for allowing me to participate in her care.
--- NOTE | 2016-11-27 09:49 | [facility] Operative Report ---
Operative Report Operative Date Nov 27, 2016. Pre-Operative Diagnosis Sick sinus syndrome Post-Operative Diagnosis same Procedure(s) Performed Dual chamber pacemaker implantation Surgeon Dr. Owens Health Support Specialist Surgeon(s) none Estimated Blood Loss 20 cc Findings Good lead position, excellent measurements The heart is rotated and the right ventricular lead appears to be in a somewhat unusual position and the paced complex is little unusual however it appears to be a right ventricular position Specimens None Anesthesia local with sedation Complication(s) None Disposition PCU Description of Procedure After obtaining informed consent for the procedure, the patient was brought to the laboratory and prepped and draped in the standard sterile manner. The left prepectoral region was anesthetized with 1% lidocaine local anesthetic and x- ray dye was injected via the left arm IV site to opacify the left axillary and subclavian vein, once accomplished left axillary venipuncture was performed by percutaneous technique and a guidewire placed through the left subclavian vein into the superior vena cava. The area was further infiltrated with 1% lidocaine local anesthetic and a 5 cm incision was made parallel to the left clavicle and 2 cm below it and carried down to the anterior pectoralis fascia. A pacemaker pocket was formed by blunt dissection anterior to the pectoralis fascia and a bacitracin-soaked sponge (50,000 units in 50 cc normal saline solution) was placed in the pocket. An 8 [place] Medtronic lead introducer was placed over the guidewire into the left subclavian vein, the dilator and guidewire were removed and a bipolar active fixation steroid tipped ventricular lead was advanced through the introducer into the superior vena cava. A guidewire was placed through the introducer and the introducer was stripped from the lead and guidewire. Another 8 [place] Medtronic lead introducer was placed over the guidewire into the left subclavian vein, the dilator and guidewire were removed and a bipolar active fixation steroid tipped atrial lead was advanced through the introducer into the superior vena cava. A guidewire was placed back through the introducer and the introducer was stripped from the lead and guidewire. Using a curved stylette the ventricular lead was advanced through the right ventricular outflow tract into the pulmonary artery and then using a straight stylette was positioned in the right ventricular apex. The screw was extended fixing the lead in position. Pacing and sensing thresholds were evaluated in bipolar configuration and are recorded on the implant data sheet. Using a curved stylette the atrial lead was positioned in the region of the atrial appendage and the screw extended fixing the lead in position. Pacing and sensing thresholds were evaluated in bipolar configuration and are recorded on the implant data sheet. The ventricular lead position appears to be a little more lateral and deep paced complex looked somewhat left ventricular therefore the lead was repositioned, however ended up in the same spot each appears to be right ventricular and a rotated heart. Once the leads were in position they were attached to the anterior pectoralis fascia using 2 sutures of 2-0 silk around each lead collar. The bacitracin- soaked sponge was removed from the pocket, hemostasis was obtained, the pacemaker was attached to the leads and placed in the pocket with the leads coiled beneath it. The incision was closed with a running double subcutaneous closure of 3-0 V-Lock absorbable suture, followed by running subcuticular skin closure of 4-0 V-Lock absorbable suture. Bacitracin ointment was placed on the incision and a pressure dressing applied. I attest to the content of the Intraoperative Record and any orders documented therein. Any exceptions are noted below.
[2016-11-27] MEDS ORDERED: ACETAMINOPHEN 325 MG TAB PO PRN (10:00)
--- NOTE | 2016-11-27 10:01 | Procedure Note ---
Post-Mod Sedation Assessment General Date of Moderate Sedation Nov 27, 2016. Vital Signs: Vital Signs Past 12 Hours Date Time Temp Pulse Resp B/P (MAP) Pulse Ox O2 Delivery O2 Flow Rate FiO2 11/27/16 08:00 98 Room Air 11/27/16 07:02 36.7 61 16 155/89 (111) 98 11/27/16 04:00 Room Air 11/27/16 03:56 36.6 58 16 151/81 (104) 96 Room Air 11/27/16 00:00 Room Air 11/26/16 23:53 36.8 57 20 144/82 (102) 93 Room Air Review - Discharge Criteria Vital Signs Stable: Yes Alert/Oriented/Conversant: Yes Returned to Baseline Mental St: Yes Nausea Absent/Minimal: Yes Pain/Discomfort/Absent/Minimal: Yes Normal/Baseline Respirations: Yes Active Bleeding?: No
[2016-11-27] MEDS: ROSUVASTATIN CALCIUM 20 MG TAB PO SCH (10:22)
[2016-11-27] MEDS: FLUTICASONE PROPIONATE NA SPR 16 GM BTL SCH ×2 (10:22→20:53)
[2016-11-27] MEDS: CEROVITE ADV FORMULA TAB PO SCH ×2 (10:23→20:54)
[2016-11-27] MEDS: FLUOXETINE HCL 20 MG CAP PO SCH (10:23)
[2016-11-27] MEDS ORDERED: PERFLUTREN LIPID MICROSPHERE (DEFINITY) IV ONE (12:18)
--- NOTE | 2016-11-27 12:46 | DIAGNOSTIC IMAGING REPORT ---
CHEST 2 VIEWS ROUTINE CLINICAL HISTORY: 66 years-old Female presenting with s/p PPM . TECHNIQUE: PA and lateral views of the chest were obtained. COMPARISON: 11/25/2016. FINDINGS: Left-sided pacer with leads to the right atrium and right ventricular apex has been placed. Mild cardiac silhouette enlargement. Lungs and pleural spaces clear. Osseous structures normal. Upper abdomen normal. IMPRESSION: 1. Interval placement of left-sided 2-lead pacer. No pneumothorax. Electronically signed by: Miller Waters M.D. 11/27/2016 12:45 PM Dictated Date/Time: 11/27/2016 12:44 PM
[2016-11-27] MEDS: CEFAZOLIN IV 2,000 MG in DEXTROSE 5% 50ML 50 ML IV SCH ×2 (13:30→22:23)
--- NOTE | 2016-11-27 15:19 | Cardiology Follow-Up ---
Cardiology Follow-Up Date of Service Nov 27, 2016. Cardiology Follow-Up Due to concern of her right ventricular lead being incorrectly placed (because of the anatomic location and the unusual paced complex) I had a echo performed postoperatively. The right ventricular lead could not be well visualized, probably due to poor echo windows, but there also appeared to be a posterior pericardial effusion. I did not have a sense that we had perforated but it is always possible. Recheck a pacemaker thresholdsshowed them to be stable, chest x -ray showed lead to be in the expected position. It was difficult to see the lead tip location on the lateral x-ray but I reviewed it in the radiology suite and it is fairly anterior, and appears to be within the right ventricle. She is doing well other than incisional discomfort and has no hypotension. I will follow-up with a limited echo tomorrow morning to follow the effusion. There is no indication for invasive evaluation now.
--- NOTE | 2016-11-27 15:50 | Cardiology Follow-Up ---
Subjective General Date of Service: Nov 27, 2016. Pt evaluation today including: conversation w/ patient, conversation w/ family , physical exam, chart review, lab review, review of studies, conversation w/ weight loss consultant, review of inpatient medication list History of Present Illness The patient is a 66 year old female seen in follow-up post pacemaker implantation. Preliminary review of 2-D transthoracic echo demonstrates posterior loculated pericardial effusion. The images are technically limited, however, there is no obvious evidence of RV compression. Patient remains human dynamically stable. No hypotension. Denies chest pain or shortness of breath. Chest x-ray demonstrates adequate lead placement. Currently resting comfortably without complaints. Allergies Coded Allergies: No Known Allergies (Verified , 12/05/12) Social History Smoking Status: Never Smoker Hx Tobacco Use In Past Year?: No Hx Alcohol Use - Type And Amou: No Hx Substance Use - Type And Am: No Problem List Medical Problems: (1) Symptomatic bradycardia Status: Chronic Review of Systems Respiratory: No cough, No wheezing, No shortness of breath, No dyspnea on exertion, No dyspnea at rest, No hemoptysis Cardiac: No chest pain, No orthopnea, No PND, No edema, No claudication, No palpitations Physical Exam Vital Signs Last Vital Signs Documentation Date Time Temp Pulse Resp B/P (MAP) Pulse Ox O2 Delivery O2 Flow Rate FiO2 11/27/16 14:54 36.6 75 20 143/79 (100) 96 11/27/16 13:31 Room Air Physical Exam Constitutional: General Apperance: heathly-appearing, overweight Level of Distress: NAD Psychiatric: Mental Status: active & alert Head: normocephalic Eyes: EOM: EOMI ENMT: normal ENT inspection, hearing grossly normal Neck: supple, no masses Lungs: Respiratory effort: no dyspnea, good air movement Auscultation: breath sounds normal, no wheezing Cardiovascular: Heart Auscultation: RRR, no murmurs, no rubs, no gallops, bradycardia Peripheral Pulses: Bruits: none appreciated Abdomen: Bowel Sounds: normal Inspection & Palpation: soft, no tenderness, guarding & rebound, no masses Musculoskeletal: pertinent finding (mild right leg weakness) Extremities: no edema Neurologic: Cranial Nerves: grossly intact Sensation: grossly intact Assessment and Plan Assessment and Plan FINAL IMPRESSION: 1. Paroxysmal atrial fibrillation with sick sinus syndrome/tachybrady syndrome s/p dual chamber pacemaker implantation. Post procedural echocardiogram demonstrates pericardial effusion. Repeat pacemaker interrogation demonstrated normal thresholds. Pacemaker lead placement reviewed by locker room supervisor on x-ray. 2. History of cerebral vascular accident in 2013. 3. Elevated blood pressure since admission -- recent ambulatory blood pressure readings within normal limits. 4. Dyslipidemia. PLAN AND RECOMMENDATIONS: Repeat limited 2-D transthoracic echo in AM Plan to restart metoprolol in a.m. pending review of echocardiogram. Hold anticoagulation today. Restart Eliquis when cleared by electrophysiology. Laboratory Results Last 24 Hours Test 11/27/16 06:14 White Blood Count 8.77 K/uL Red Blood Count 4.75 M/uL Hemoglobin 13.4 g/dL Hematocrit 41.7 % Mean Corpuscular Volume 87.8 fL Mean Corpuscular Hemoglobin 28.2 pg Mean Corpuscular Hemoglobin Concent 32.1 g/dl Platelet Count 210 K/uL Mean Platelet Volume 8.9 fL Neutrophils (%) (Auto) 57.9 % Lymphocytes (%) (Auto) 31.6 % Monocytes (%) (Auto) 7.8 % Eosinophils (%) (Auto) 2.5 % Basophils (%) (Auto) 0.1 % Neutrophils # (Auto) 5.08 K/uL Lymphocytes # (Auto) 2.77 K/uL Monocytes # (Auto) 0.68 K/uL Eosinophils # (Auto) 0.22 K/uL Basophils # (Auto) 0.01 K/uL RDW Standard Deviation 44.8 fL RDW Coefficient of Variation 14.0 % Immature Granulocyte % (Auto) 0.1 % Immature Granulocyte # (Auto) 0.01 K/uL Activated Partial Thromboplast Time 33.6 SECONDS Partial Thromboplastin Ratio 1.3 Sodium Level 138 mmol/L Potassium Level 3.7 mmol/L Chloride Level 104 mmol/L Carbon Dioxide Level 28 mmol/L Anion Gap 6.0 mmol/L Blood Urea Nitrogen 14 mg/dl Creatinine 0.72 mg/dl Est Creatinine Clear Calc Drug Dose 89.4 ml/min Estimated GFR () 101.9 Estimated GFR (Non- 87.9 BUN/Creatinine Ratio 19.0 Random Glucose 84 mg/dl Calcium Level 9.2 mg/dl Magnesium Level 2.4 mg/dl
--- NOTE | 2016-11-27 16:46 | ECHOCARDIOGRAM REPORT ---
*NOTICE TO RECEIVING CONSTITUTION PARTY AGENCY This information is strictly Confidential and protected under [place] law. [place] law prohibits you from making any further disclosure of this information unless further disclosure is expressly permitted by the written consent of the person to whom it pertains or is authorized by law. A general authorization for the release of medical or other information is not sufficient for this purpose. Hospital accepts no responsibility if the information is made available to any other person, INCLUDING THE PATIENT. Interpretation Summary * Name: RENE LOPEZ Study Date: 11/27/2016 11:17 AM * Patient Location: [facility]\\N284\S\2 * : 1950 (M/d/yyyy) Gender: Female Height: 65 in * Age: 66 yrs Ethnicity: [place] Weight: 212 lb * Ordering Physician: Travis Owens * Referring Physician: Self, Referred * Performed By: Junior Storm RCS * * Reason For Study: Evaluate for pericardial effusion, S/P Pacemaker Placemaent * BSA: 2.0 m2 * The study was technically adequate. * Compared to prior study, changes are noted. * -- Conclusions -- * Moderate to large loculated posterior pericardial effusion. * There is possible hematoma, mass, or fibrinous debris seen in the pericardial space. * There are no echocardiographic indications of cardiac tamponade. * Normal inferior vena cava size and collapsability with sniff indicates a normal right atrial pressure of 3 mmHg * Ejection Fraction = 60-65%. * The right ventricle is grossly normal size. * There is a pacemaker lead in the right ventricle. * Reccommend serial imaging. Procedure Details * A two-dimensional transthoracic echocardiogram with M-mode and Doppler was performed. * Limited views were obtained. * There were technical limitations due to patient'spoor positioning * A contrast injection of Definity was performed to improve assessment of LV function. * Contrast was injected into an intravenous site in the right arm. * One vial of Definity ultrasound contrast was diluted in normal saline to a total volume of 10 ml. A total of '2' ml of solution was administered during imaging. * Lot # [id number] of Definity utilized for procedure. * Expiration date . * The attending nurse who injected the contrast agent was Omar Hart RN. Left Ventricle * Ejection Fraction = 60-65%. Right Ventricle * The right ventricle is grossly normal size. * There is a pacemaker lead in the right ventricle. Pericardium/Pleural * Moderate to large loculated posterior pericardial effusion. There is possible hematoma, mass, or fibrinous debris seen in the pericardial space. * There are no echocardiographic indications of cardiac tamponade. Great Vessels * Normal inferior vena cava size and collapsability with sniff indicates a normal right atrial pressure of 3 mmHg MMode 2D Measurements and Calculations IVSd 1.0 cm IVSs 1.3 cm LVIDd 4.4 cm LVIDs 2.6 cm LVPWd 0.97 cm LVPWs 1.3 cm IVS/LVPW 1.1 FS 41.5 % EDV(Teich) 86.9 ml ESV(Teich) 23.7 ml EF(Teich) 72.7 % EDV(cubed) 84.2 ml ESV(cubed) 16.8 ml EF(cubed) 80.0 % % IVS thick 24.9 % % LVPW thick 31.9 % LV mass(C)d 147.6 grams LV mass(C)dI 72.8 grams/m\S\2 LV mass(C)s 99.4 grams LV mass(C)sI 49.0 grams/m\S\2 SV(Teich) 63.1 ml SI(Teich) 31.1 ml/m\S\2 SV(cubed) 67.4 ml SI(cubed) 33.2 ml/m\S\2
--- NOTE | 2016-11-27 18:48 | Progress Note ---
Internal Med Progress Note Date of Service: Nov 27, 2016. Provider Documentation: SUBJECTIVE: s/p pacemaker today has pain at procedure site no sob no nausea afebrile OBJECTIVE: Vital Signs-as noted below Exam: General-alert and awake. not in distress ENT-normal hearing Neck-no neck masses supple Lungs-cta b/l no wheezing or crackles Heart-s1 and s2 heard no murmurs s/p pace maker placement-site ok Abdomen-soft bowel sounds present non tender no distension Extremities-no erythema Neuro-alert and awake moves extremities Lab data as noted below. ASSESSMENT & PLAN: . Bradyarrhythmia with significant pauses. T Holding flecainide and metoprolol s/p pace maker today- complicated by small pericardial effusion to f/u with repat echo in am. 2. Paroxysmal atrial fibrillation. She has been on flecainide and metoprolol and also on Eliquis all are on hold. iv heparin on hold 3. Hypertension. metoprolol on hold. cardiology to restart will monitor. 4. Hyperlipidemia. Continue with Crestor. 5. History of Graves' disease, now hypothyroidism. On thyroid replacement. 6. Gastrointestinal prophylaxis .Protonix. 7. Deep venous thrombosis prophylaxis iv heparin. 8. Code status. full code DISPOSITION to be determined Vital Signs: Date Time Temp Pulse Resp B/P (MAP) Pulse Ox O2 Delivery O2 Flow Rate FiO2 11/27/16 16:00 96 Room Air 11/27/16 14:54 36.6 75 20 143/79 (100) 96 11/27/16 13:31 36.6 70 16 145/71 (95) 96 Room Air 11/27/16 12:00 98 Room Air 11/27/16 11:14 36.7 102 20 118/75 (89) 95 11/27/16 10:30 36.7 63 20 146/83 (104) 94 Room Air 11/27/16 10:00 36.3 64 20 145/84 (104) 93 Room Air 11/27/16 09:50 75 16 141/77 (98) 95 Room Air 11/27/16 09:35 76 16 135/77 (96) 95 Room Air 11/27/16 08:00 98 Room Air 11/27/16 07:02 36.7 61 16 155/89 (111) 98 11/27/16 04:00 Room Air 11/27/16 03:56 36.6 58 16 151/81 (104) 96 Room Air 11/27/16 00:00 Room Air 11/26/16 23:53 36.8 57 20 144/82 (102) 93 Room Air 11/26/16 20:00 Room Air 11/26/16 19:44 36.8 68 16 147/84 (105) 96 Room Air Lab Results: Results Past 24 Hours Test 11/27/16 06:14 Range/Units White Blood Count 8.77 4.8-10.8 K/uL Red Blood Count 4.75 4.2-5.4 M/uL Hemoglobin 13.4 12.0-16.0 g/dL Hematocrit 41.7 37-47 % Mean Corpuscular Volume 87.8 80-100 fL Mean Corpuscular Hemoglobin 28.2 25-34 pg Mean Corpuscular Hemoglobin Concent 32.1 32-36 g/dl Platelet Count 210 130-400 K/uL Mean Platelet Volume 8.9 7.4-10.4 fL Neutrophils (%) (Auto) 57.9 % Lymphocytes (%) (Auto) 31.6 % Monocytes (%) (Auto) 7.8 % Eosinophils (%) (Auto) 2.5 % Basophils (%) (Auto) 0.1 % Neutrophils # (Auto) 5.08 1.4-6.5 K/uL Lymphocytes # (Auto) 2.77 1.2-3.4 K/uL Monocytes # (Auto) 0.68 0.11-0.59 K/uL Eosinophils # (Auto) 0.22 0-0.5 K/uL Basophils # (Auto) 0.01 0-0.2 K/uL RDW Standard Deviation 44.8 36.4-46.3 fL RDW Coefficient of Variation 14.0 11.5-14.5 % Immature Granulocyte % (Auto) 0.1 % Immature Granulocyte # (Auto) 0.01 0.00-0.02 K/uL Activated Partial Thromboplast Time 33.6 21.0-31.0 SECONDS Partial Thromboplastin Ratio 1.3 Sodium Level 138 136-145 mmol/L Potassium Level 3.7 3.5-5.1 mmol/L Chloride Level 104 98-107 mmol/L Carbon Dioxide Level 28 21-32 mmol/L Anion Gap 6.0 3-11 mmol/L Blood Urea Nitrogen 14 7-18 mg/dl Creatinine 0.72 0.60-1.20 mg/dl Est Creatinine Clear Calc Drug Dose 89.4 ml/min Estimated GFR () 101.9 Estimated GFR (Non- 87.9 BUN/Creatinine Ratio 19.0 10-20 Random Glucose 84 70-99 mg/dl Calcium Level 9.2 8.5-10.1 mg/dl Magnesium Level 2.4 1.8-2.4 mg/dl
[2016-11-27] MEDS ORDERED: NURSING VERBAL MED ORDER ONE (19:00)
[2016-11-27] MEDS: TRAMADOL HCL 50 MG TAB PO PRN (19:24)
[2016-11-27] MEDS: KETOROLAC TROMETHAMINE 10 MG TAB PO PRN (22:26)
[2016-11-28] VITALS (10 sets, daily range): BP systolic 113–156; BP diastolic 70–83; PULSE 75–88; TEMP 36.8–38.1; O2SAT 93–98
[2016-11-28] MEDS: CEFAZOLIN IV 2,000 MG in DEXTROSE 5% 50ML 50 ML IV SCH ×2 (05:44→21:55)
[2016-11-28] MEDS: ACETAMINOPHEN 500 MG TAB PO SCH ×3 (05:44→22:00)
[2016-11-28] MEDS: LEVOTHYROXINE 88 MCG TAB PO SCH (05:54)
[2016-11-28] MEDS: KETOROLAC TROMETHAMINE 10 MG TAB PO PRN ×3 (05:54→22:28)
[2016-11-28 07:20] LABS: BASO % 0.1 %; BASO ABS # 0.01 K/uL (0-0.2); COMPLETE YES; EOS % 0.1 %; HEMATOCRIT 40.8 % (37-47); IG% 0.3 %; LYMPH % 7.2 %; LYMPH ABS # 1.14 K/uL (1.2-3.4); MEAN CELL VOLUME 86.6 fL (80-100); MEAN CORPUSCULAR HEMOGLOBIN 28.7 pg (25-34); MEAN CORPUSCULAR HGB CONC 33.1 g/dl (32-36); MEAN PLATELET VOLUME 9.3 fL (7.4-10.4); MONO % 9.7 %; NEUT % 82.6 %; PLATELET COUNT 204 K/uL (130-400); RED BLOOD COUNT 4.71 M/uL (4.2-5.4)
[2016-11-28 07:28] LABS: PARTIAL THROMBOPLASTIN RATIO 0.9
[2016-11-28 07:49] LABS: BUN/CREATININE RATIO 24.9 (10-20); CALCIUM 9.2 mg/dl (8.5-10.1); CREATININE 0.76 mg/dl (0.60-1.20); MAGNESIUM 2.3 mg/dl (1.8-2.4); POTASSIUM 3.5 mmol/L (3.5-5.1)
[2016-11-28] MEDS: CEROVITE ADV FORMULA TAB PO SCH ×2 (08:28→21:15)
[2016-11-28] MEDS: ROSUVASTATIN CALCIUM 20 MG TAB PO SCH (08:28)
[2016-11-28] MEDS: FLUTICASONE PROPIONATE NA SPR 16 GM BTL SCH ×2 (08:29→21:15)
[2016-11-28] MEDS: FLUOXETINE HCL 20 MG CAP PO SCH (08:29)
--- NOTE | 2016-11-28 08:38 | Cardiology Follow-Up ---
Subjective Date of Service: Nov 28, 2016. Pt evaluation today including: conversation w/ patient, physical exam, lab review, review of studies, review of inpatient medication list History of Present Illness This is a very pleasant 66-year-old woman who has a history of atrial fibrillation dating back to 2012, at that time she had hyperthyroidism. After treatment of her hyperthyroidism she remained in sinus rhythm, therefore anticoagulation was discontinued however she had a presentation with an acute stroke on 05/03/2013. At that time she was not in atrial fibrillation, however it was felt that the stroke was from paroxysmal atrial fibrillation and she has had documented atrial fibrillation since. She also has a history of bradycardia , and is therefore maintained on low-dose metoprolol (metoprolol tartrate 25 mg twice a day). With her paroxysmal atrial fibrillation she has been maintained on flecainide 100 mg twice a day as well and she is on eliquis 5 mg twice a day. According to her she has been having gradually decreasing activities over the last year or so (she is little bit limited due to right leg weakness as well). An evaluation was undertaken which included an echocardiogram on 11/12 which showed normal left ventricular function with mild concentric left ventricular hypertrophy. In addition a 7 day event monitor was applied, this showed periods of atrial fibrillation with a controlled heart rate (averaging 72 bpm) as well as overall bradycardia during sinus rhythm. Her sinus rhythm was as low as 26 bpm, the maximum was only 89 bpm with an average of 55 bpm. In addition she had 55 pauses between 3 seconds and 4.2 seconds. Decreasing her AV benjamin blocking medications is not a good option as she has a well-controlled heart rate when she is in atrial fibrillation currently. She does have ill-defined symptoms of fatigue and not feeling well with exertion which could be rate related, she does not have symptoms of presyncope or syncope. She does not have exertional chest discomfort has had no further stroke symptoms and has had no bleeding on Eliquis. She was admitted for planned pacemaker implantation, her Eliquis was held and she was started on heparin with her history of stroke felt to be due to atrial arrhythmias. Her heparin was discontinued early yesterday morning in preparation for her pacemaker. Her pacemaker was implanted yesterday, there were no clear complications although the lead appeared to be in a little bit of an unusual position but was confirm such going to be in the right ventricle. She was however noted to have a loculated posterior effusion, possibly new, asymptomatic and not hemodynamically compromising. With this finding we held her anticoagulation and repeated the echocardiogram this morning. She feels well today, she had some incisional discomfort during the night but has no complaints currently. No shortness of breath and no lightheadedness, dizziness or chest discomfort. She is currently feeling well, she has no complaints today. She has no questions related to the surgery. Social History Smoking Status: Never Smoker History of Alcohol Use: No Review of Systems Respiratory: No cough, No wheezing, No shortness of breath, No dyspnea on exertion, No dyspnea at rest, No hemoptysis Cardiac: No chest pain, No orthopnea, No PND, No edema, No claudication, No palpitations Medications Cardiovascular: Item Value Date Time Rosuvastatin 20 mg 11/26/16 0900 Calcium DAILY/PO 11/28/16 0828 (Crestor Tab) Objective Vital Signs Past 12 Hours Date Time Temp Pulse Resp B/P (MAP) Pulse Ox O2 Delivery O2 Flow Rate FiO2 11/28/16 07:43 37.1 88 18 134/75 (94) 94 Room Air 11/28/16 04:00 Room Air 11/28/16 03:16 37.0 75 18 154/70 (98) 94 Room Air 11/28/16 00:00 Room Air 11/27/16 23:46 37.2 92 20 154/80 (104) 93 Room Air Last Recorded Weight-Kilograms: 96.400 Physical Exam Constitutional: General Apperance: heathly-appearing, overweight Level of Distress: NAD Lungs: Respiratory effort: no dyspnea, good air movement Auscultation: breath sounds normal, no wheezing Cardiovascular: Heart Auscultation: RRR, no murmurs, no rubs, no gallops, bradycardia Peripheral Pulses: Bruits: none appreciated Extremities: no edema The incision looks clean and dry, no swelling or bleeding Data Laboratory Results: Last 24 Hours Test 11/28/16 06:55 White Blood Count 15.80 K/uL Red Blood Count 4.71 M/uL Hemoglobin 13.5 g/dL Hematocrit 40.8 % Mean Corpuscular Volume 86.6 fL Mean Corpuscular Hemoglobin 28.7 pg Mean Corpuscular Hemoglobin Concent 33.1 g/dl Platelet Count 204 K/uL Mean Platelet Volume 9.3 fL Neutrophils (%) (Auto) 82.6 % Lymphocytes (%) (Auto) 7.2 % Monocytes (%) (Auto) 9.7 % Eosinophils (%) (Auto) 0.1 % Basophils (%) (Auto) 0.1 % Neutrophils # (Auto) 13.07 K/uL Lymphocytes # (Auto) 1.14 K/uL Monocytes # (Auto) 1.53 K/uL Eosinophils # (Auto) 0.01 K/uL Basophils # (Auto) 0.01 K/uL RDW Standard Deviation 44.2 fL RDW Coefficient of Variation 13.9 % Immature Granulocyte % (Auto) 0.3 % Immature Granulocyte # (Auto) 0.04 K/uL Activated Partial Thromboplast Time 24.3 SECONDS Partial Thromboplastin Ratio 0.9 Sodium Level 136 mmol/L Potassium Level 3.5 mmol/L Chloride Level 101 mmol/L Carbon Dioxide Level 25 mmol/L Anion Gap 10.0 mmol/L Blood Urea Nitrogen 19 mg/dl Creatinine 0.76 mg/dl Est Creatinine Clear Calc Drug Dose 84.8 ml/min Estimated GFR () 95.4 Estimated GFR (Non- 82.3 BUN/Creatinine Ratio 24.9 Random Glucose 122 mg/dl Calcium Level 9.2 mg/dl Magnesium Level 2.3 mg/dl Imaging: Chest x-ray shows good lead position, no pneumothorax by my reading. There appears to be a retained sponge anterior to the pacer. Echocardiogram: Reviewed the echocardiogram as it was being done at the bedside , posterior effusion is still present and to me looks about the same without direct comparison. This will be officially read later. EKG: Sinus rhythm with intact AV conduction, appropriate pacemaker inhibition Telemetry reviewed: SR, no atrial fibrillation Pacemaker evaluation: Excellent pacing and sensing characteristics. Assessment and Plan #1. Sick sinus syndrome: She now has a pacemaker in place for control. #2. Postop day #1: The pacer is working well, the site looks good and she is feeling well. The echocardiogram I reviewed at bedside as it was being done, I believe the posterior fluid is about the same but appears to be pleural not pericardial, no significant pericardial effusion.l that will be officially read later. Unfortunately a sponge was retained and will need to be removed. #3. Atrial fibrillation: She has relatively well-controlled atrial fibrillation , her heart rate is good during the arrhythmia and the episodes tend to be brief (averaging around 3 minutes on her event recorder) with a total burden of less than 1%. We can monitor her rhythm with the pacemaker, she has remained in sinus rhythm in the hospital. We will need to decide on anticoagulation after today's surgery. #4. Retained sponge: This will need to be removed, I discussed this with the patient and her . This will require a small incision through the implant scar to allow removal of the sponge. The risk should be minimal (minimal risk of bleeding, infection rate should be low). She did eat breakfast so we will have to wait about 8 hours, Intal around 4 PM today. I have placed her on the surgical schedule. Surgical consent obtained. Thank you for allowing me to participate in her care.
--- NOTE | 2016-11-28 09:01 | DIAGNOSTIC IMAGING REPORT ---
CHEST 2 VIEWS ROUTINE CLINICAL HISTORY: 66 years-old Female presenting with EXACT TIME ORDERED Evaluate for pneumothorax and lead placement. TECHNIQUE: PA and lateral views of the chest were obtained. COMPARISON: 11/27/2016. FINDINGS: Left-sided pacer with leads to the right atrium and right ventricular apex. Adjacent to the pacer is a radiodense sponge concerning for retained foreign body anterior and inferior to the pacer, which in retrospect was present on the most recent radiograph from yesterday. Atherosclerosis of aortic arch. Cardiac silhouette remains enlarged. Lungs and pleural spaces clear. Osseous structures normal. Upper abdomen normal. IMPRESSION: 1. Findings concerning for retained surgical sponge anterior to the pacer. In retrospect this was present on yesterday's radiograph. 2. No pneumothorax. The report will be called/faxed according to standard departmental protocol. Electronically signed by: Miller Waters M.D. 11/28/2016 8:59 AM Dictated Date/Time: 11/28/2016 8:57 AM
--- NOTE | 2016-11-28 09:52 | ECHOCARDIOGRAM REPORT ---
*NOTICE TO RECEIVING REPUBLICAN AGENCY This information is strictly Confidential and protected under [place] law. [place] law prohibits you from making any further disclosure of this information unless further disclosure is expressly permitted by the written consent of the person to whom it pertains or is authorized by law. A general authorization for the release of medical or other information is not sufficient for this purpose. Hospital accepts no responsibility if the information is made available to any other person, INCLUDING THE PATIENT. Interpretation Summary * Name: RENE LOPEZ Study Date: 11/28/2016 07:44 AM BP: 134/75 mmHg * Patient Location: [facility]\S\N284\S\2 HR: 83 * : 1950 (M/d/yyyy) Gender: Female Height: 65 in * Age: 66 yrs Ethnicity: [place] Weight: 212 lb * Ordering Physician: Travis Owens * Referring Physician: Self, Referred * Performed By: Rocio Omer RDCS * * Reason For Study: FOLLOW UP PERICARDIAL EFFUSION * BSA: 2.0 m2 * -- Conclusions -- * A small to moderate sized circumferential pericardial effusion is noted. * There are no echocardiographic indications of cardiac tamponade. * Small right pleural effusion. * Left ventricular systolic function is normal. * Ejection Fraction = 65-70%. Procedure Details * FOLLOW UP PERICARDIAL EFFUSION Left Ventricle * Left ventricular systolic function is normal. * Ejection Fraction = 65-70%. * The left ventricular wall motion is normal. Pericardium/Pleural * A circumferential pericardial effusion is noted. * There are no echocardiographic indications of cardiac tamponade. * Small right pleural effusion. Great Vessels * Normal inferior vena cava diameter and respiratory variation suggests normal central venous pressure.
[2016-11-28] MEDS ORDERED: METOPROLOL TARTRATE 25 MG TAB PO ONE (11:04)
[2016-11-28] MEDS ORDERED: FLECAINIDE ACETATE 100 MG TAB PO ONE (11:04)
--- NOTE | 2016-11-28 11:59 | CARDIOLOGY PROGRESS NOTE ---
DATE: 11/28/2016 DATE: 11/28/2016 The patient seen and examined. Chart, medications, telemetry reviewed. SUBJECTIVE: The patient notes no complaints other than mild tenderness at the pacemaker insertion site. Telemetry reveals no arrhythmias. Notes no pleuritic pain or chest discomfort. Notes no dizziness or lightheadedness. OBJECTIVE: VITAL SIGNS: Heart rate is 80, blood pressure is 134/75. HEAD, EYES, EARS, NOSE, AND THROAT: Normocephalic, atraumatic. Nares without discharge. Throat was clear. NECK: Supple without thyromegaly or lymphadenopathy. LUNGS: Revealed clear air petty. CARDIOVASCULAR: Regular. There is no S3 gallop. EXTREMITIES: Without cyanosis or clubbing. There is no peripheral edema. Pacemaker site bandaged without drainage. DATA: Reviewed images include x-ray and echocardiogram with notable retained sponge. Pacemaker leads are appropriate. Echocardiogram reveals a small to moderate circumferential pericardial effusion without evidence of tamponade. There is a very small focal right pleural effusion. LABORATORY DATA: White cell count 15.8, sodium is 136, potassium is 3.5, chloride is 101, bicarb 25, BUN is 19, creatinine 0.76. IMPRESSION: A 66-year-old female with issues as follows: 1. Paroxysmal atrial fibrillation without recurrence of arrhythmias, chronically on combination of metoprolol and flecainide. Will resume these medications. 2. Tachybrady syndrome status post pacemaker insertion. The patient to go back today for removal of procedural sponge. No signs or symptoms of complication. 3. Post-procedure pericardial effusion. Clinically stable. RECOMMENDATIONS: Will resume flecainide and metoprolol. Likely resume anticoagulant with Eliquis on Wednesday a.m. Discussed in detail with patient and .
[2016-11-28] MEDS ORDERED: LACTATED RINGER'S 1000ML 1,000 ML IV ONE (12:00)
[2016-11-28] MEDS ORDERED: CEFAZOLIN IV 2,000 MG in DEXTROSE 5% 50ML 50 ML IV SCH (14:00)
[2016-11-28] MEDS ORDERED: LIDOCAINE HCL 1% 20 ML VIAL ONE (15:01)
[2016-11-28] MEDS ORDERED: BACITRACIN OINT 15 GM TUBE ONE (15:02)
[2016-11-28] MEDS ORDERED: BACITRACIN 50000 UNIT VIAL ONE (15:02)
[2016-11-28] MEDS ORDERED: MIDAZOLAM HCL 1 MG/ML 2ML VIAL ONE (15:26)
[2016-11-28] MEDS: TRAMADOL HCL 50 MG TAB PO PRN (15:26)
[2016-11-28] MEDS ORDERED: FENTANYL CITRATE INJ 50 MCG/1 ML 2 ML VIAL ONE (15:27)
[2016-11-28] MEDS ORDERED: FENTANYL CITRATE INJ 50 MCG/1 ML 2 ML VIAL IV PRN (15:45)
[2016-11-28] MEDS ORDERED: ONDANSETRON INJ 2 MG/ML 2 ML VIAL IV PRN (15:45)
[2016-11-28] MEDS ORDERED: PROMETHAZINE HCL INJ 12.5 MG in SODIUM CHLORIDE 0.9% 50ML 50 ML IV PRN (15:45)
[2016-11-28] MEDS ORDERED: ATROPINE SULFATE 0.1 MG/ML 5ML SYR IV PRN (15:45)
[2016-11-28] MEDS ORDERED: MoRPHine SULFATE 10 MG/ML CARP/VIAL IV PRN (15:45)
[2016-11-28] MEDS ORDERED: EpHEDrine SULFATE INJ 50 MG/ML AMP IV PRN (15:45)
[2016-11-28] MEDS ORDERED: METOCLOPRAMIDE HCL INJ 5 MG/ML 2 ML VIAL IV PRN (15:45)
[2016-11-28] MEDS ORDERED: LABETALOL HCL IV 5 MG/ML 20ML IV PRN (15:45)
[2016-11-28] MEDS ORDERED: PHENYLEPHRINE 100MCG/ML 5ML SYR IV PRN (15:45)
[2016-11-28] MEDS ORDERED: PROPOFOL IV EMULSION 10 MG/ML 20 ML VIAL IV ONE (16:37)
[2016-11-28] MEDS ORDERED: ONDANSETRON INJ 2 MG/ML 2 ML VIAL ONE (16:37)
--- NOTE | 2016-11-28 16:57 | [facility] Operative Report ---
Operative Report Operative Date Nov 28, 2016. Pre-Operative Diagnosis Retained sponge and pacemaker pocket Post-Operative Diagnosis same Procedure(s) Performed Removal of retained sponge Surgeon Dr. Owens Bit[employer] Distributor Operator Surgeon(s) none Estimated Blood Loss 3 cc Findings Sponge found anterior to the pacemaker within the pacemaker pocket Specimens Sponge, sent to laboratory Anesthesia local with sedation Complication(s) None Disposition Recovery Room / PACU Description of Procedure After obtaining informed consent for the procedure, the patient was brought to the operating room being NPO for 8 hours after breakfast. She was identified in the OR, sedated and prepped and draped in the standard sterile manner. The area was infiltrated with 1% lidocaine local anesthetic. The pacemaker pocket was opened through the implant incision by cutting the sutures. The area was flushed with a bacitracin solution (50,000 units and 50 cc normal saline solution). A sponge was easily identified anterior to the pacemaker and was removed with a forceps, leaving the pacemaker and leads intact in the pocket. The sponge will be sent to the laboratory. The incision was closed with a running double subcutaneous closure of 3-0 Vicryl followed by running septic or skin closure of 4-0 Vicryl. Bacitracin ointment was placed on incision and a dressing applied. I attest to the content of the Intraoperative Record and any orders documented therein. Any exceptions are noted below.
--- NOTE | 2016-11-28 17:12 | Progress Note ---
Internal Med Progress Note Date of Service: Nov 28, 2016. Provider Documentation: SUBJECTIVE: has some pain at pace maker site afebrile no sob or cough no nausea awaiting procedure to take sponge out OBJECTIVE: Vital Signs-as noted below Exam: General-alert and awake. not in distress ENT-normal hearing Neck-no neck masses supple Lungs-cta b/l no wheezing or crackles Heart-s1 and s2 heard no murmurs s/p pace maker placement-site ok Abdomen-soft bowel sounds present non tender no distension Extremities-no erythema Neuro-alert and awake moves extremities Lab data as noted below. ASSESSMENT & PLAN: . Bradyarrhythmia with significant pauses. T Holding flecainide and metoprolol s/p pace maker today- complicated by small pericardial effusion repeat echo today showed small to moderate pericardial effusion vs pleural effusion plan for OR today to take out sponge stuck near posterior lead appreciate cardiology inputs 2. Paroxysmal atrial fibrillation. She has been on flecainide and metoprolol which were giovanni but restarted today plan rto restart eliquis in am 3. Hypertension. restarted metoprolol on hold. cardiology to restart will monitor. 4. Hyperlipidemia. Continue with Crestor. 5. History of Graves' disease, now hypothyroidism. On thyroid replacement. 6. Gastrointestinal prophylaxis .Protonix. 7. Deep venous thrombosis prophylaxis scds for now 8. Code status. full code DISPOSITION to be determined Vital Signs: Date Time Temp Pulse Resp B/P (MAP) Pulse Ox O2 Delivery O2 Flow Rate FiO2 11/28/16 17:05 80 18 106/72 97 Oxymask 3 11/28/16 16:58 36.7 83 17 113/65 97 Oxymask 3 11/28/16 16:00 38.1 85 16 156/83 (107) 95 Room Air 11/28/16 15:30 38.1 85 18 156/83 96 Room Air 11/28/16 12:00 Room Air 11/28/16 11:54 37.1 78 18 145/81 (102) 96 Room Air 11/28/16 08:00 Room Air 11/28/16 07:43 37.1 88 18 134/75 (94) 94 Room Air 11/28/16 04:00 Room Air 11/28/16 03:16 37.0 75 18 154/70 (98) 94 Room Air 11/28/16 00:00 Room Air 11/27/16 23:46 37.2 92 20 154/80 (104) 93 Room Air 11/27/16 20:15 36.8 77 18 142/79 (100) 94 Room Air 11/27/16 20:00 Room Air Lab Results: Results Past 24 Hours Test 11/28/16 06:55 Range/Units White Blood Count 15.80 4.8-10.8 K/uL Red Blood Count 4.71 4.2-5.4 M/uL Hemoglobin 13.5 12.0-16.0 g/dL Hematocrit 40.8 37-47 % Mean Corpuscular Volume 86.6 80-100 fL Mean Corpuscular Hemoglobin 28.7 25-34 pg Mean Corpuscular Hemoglobin Concent 33.1 32-36 g/dl Platelet Count 204 130-400 K/uL Mean Platelet Volume 9.3 7.4-10.4 fL Neutrophils (%) (Auto) 82.6 % Lymphocytes (%) (Auto) 7.2 % Monocytes (%) (Auto) 9.7 % Eosinophils (%) (Auto) 0.1 % Basophils (%) (Auto) 0.1 % Neutrophils # (Auto) 13.07 1.4-6.5 K/uL Lymphocytes # (Auto) 1.14 1.2-3.4 K/uL Monocytes # (Auto) 1.53 0.11-0.59 K/uL Eosinophils # (Auto) 0.01 0-0.5 K/uL Basophils # (Auto) 0.01 0-0.2 K/uL RDW Standard Deviation 44.2 36.4-46.3 fL RDW Coefficient of Variation 13.9 11.5-14.5 % Immature Granulocyte % (Auto) 0.3 % Immature Granulocyte # (Auto) 0.04 0.00-0.02 K/uL Activated Partial Thromboplast Time 24.3 21.0-31.0 SECONDS Partial Thromboplastin Ratio 0.9 Sodium Level 136 136-145 mmol/L Potassium Level 3.5 3.5-5.1 mmol/L Chloride Level 101 98-107 mmol/L Carbon Dioxide Level 25 21-32 mmol/L Anion Gap 10.0 3-11 mmol/L Blood Urea Nitrogen 19 7-18 mg/dl Creatinine 0.76 0.60-1.20 mg/dl Est Creatinine Clear Calc Drug Dose 84.8 ml/min Estimated GFR () 95.4 Estimated GFR (Non- 82.3 BUN/Creatinine Ratio 24.9 10-20 Random Glucose 122 70-99 mg/dl Calcium Level 9.2 8.5-10.1 mg/dl Magnesium Level 2.3 1.8-2.4 mg/dl
--- NOTE | 2016-11-28 17:17 | Anesthesiology Progress Note ---
Anesthesia Post Op Note Date & Time Nov 28, 2016 at 17:17 Vital Signs Pain Intensity: 0 Vital Signs Past 12 Hours Date Time Temp Pulse Resp B/P (MAP) Pulse Ox O2 Delivery O2 Flow Rate FiO2 11/28/16 17:05 80 18 106/72 97 Oxymask 3 11/28/16 16:58 36.7 83 17 113/65 97 Oxymask 3 11/28/16 16:00 38.1 85 16 156/83 (107) 95 Room Air 11/28/16 15:30 38.1 85 18 156/83 96 Room Air 11/28/16 12:00 Room Air 11/28/16 11:54 37.1 78 18 145/81 (102) 96 Room Air 11/28/16 08:00 Room Air 11/28/16 07:43 37.1 88 18 134/75 (94) 94 Room Air Notes Mental Status: alert / awake / arousable, participated in evaluation Pt Amnestic to Procedure: Yes Nausea / Vomiting: adequately controlled Pain: adequately controlled Airway Patency, RR, SpO2: stable & adequate BP & HR: stable & adequate Hydration State: stable & adequate Anesthetic Complications: no major complications apparent
[2016-11-28] MEDS: FLECAINIDE ACETATE 100 MG TAB PO SCH (21:15)
[2016-11-28] MEDS: METOPROLOL TARTRATE 25 MG TAB PO SCH (21:16)
[2016-11-29] VITALS: O2SAT 93
[2016-11-29 04:00] VITALS: BP 122/75; PULSE 68; TEMP 36.6; O2SAT 97
[2016-11-29] MEDS: ACETAMINOPHEN 500 MG TAB PO SCH ×2 (05:50→14:00)
[2016-11-29] MEDS: CEFAZOLIN IV 2,000 MG in DEXTROSE 5% 50ML 50 ML IV SCH ×2 (05:50→12:55)
[2016-11-29] MEDS: LEVOTHYROXINE 88 MCG TAB PO SCH (05:50)
[2016-11-29] MEDS ORDERED: CEFAZOLIN SOD 1000MG/55 ML D5W IV SCH (06:00)
[2016-11-29 06:22] LABS: BASO % 0.1 %; BASO ABS # 0.01 K/uL (0-0.2); COMPLETE YES; EOS % 1.3 %; HEMATOCRIT 39.7 % (37-47); IG% 0.3 %; LYMPH % 16.2 %; LYMPH ABS # 2.06 K/uL (1.2-3.4); MEAN CELL VOLUME 89.2 fL (80-100); MEAN CORPUSCULAR HEMOGLOBIN 28.8 pg (25-34); MEAN CORPUSCULAR HGB CONC 32.2 g/dl (32-36); MEAN PLATELET VOLUME 9.1 fL (7.4-10.4); MONO % 12.5 %; NEUT % 69.6 %; PLATELET COUNT 172 K/uL (130-400); RED BLOOD COUNT 4.45 M/uL (4.2-5.4); WHITE BLOOD COUNT 12.72 K/uL (4.8-10.8)
[2016-11-29 06:58] LABS: BUN/CREATININE RATIO 26.7 (10-20); CALCIUM 8.9 mg/dl (8.5-10.1); CREATININE 0.72 mg/dl (0.60-1.20); MAGNESIUM 2.5 mg/dl (1.8-2.4); POTASSIUM 4.2 mmol/L (3.5-5.1)
[2016-11-29 07:28] VITALS: BP 129/78; PULSE 79; TEMP 36.9; O2SAT 92
[2016-11-29] MEDS: CEROVITE ADV FORMULA TAB PO SCH (07:51)
[2016-11-29] MEDS: FLUTICASONE PROPIONATE NA SPR 16 GM BTL SCH (07:51)
[2016-11-29] MEDS: FLECAINIDE ACETATE 100 MG TAB PO SCH (07:52)
[2016-11-29] MEDS: ROSUVASTATIN CALCIUM 20 MG TAB PO SCH (07:52)
[2016-11-29] MEDS: FLUOXETINE HCL 20 MG CAP PO SCH (07:53)
[2016-11-29] MEDS: METOPROLOL TARTRATE 25 MG TAB PO SCH (07:53)
[2016-11-29] MEDS: KETOROLAC TROMETHAMINE 10 MG TAB PO PRN (07:54)
--- NOTE | 2016-11-29 07:56 | DIAGNOSTIC IMAGING REPORT ---
CHEST 2 VIEWS ROUTINE HISTORY: 66 years-old Female EXACT TIME ORDERED Evaluate for pneumothorax and lead placement status post placement of a dual-lead left pectoral pacer COMPARISON: Chest radiograph 11/28/2016 TECHNIQUE: Frontal and lateral views of the chest FINDINGS: Previously questioned retained surgical sponge anterior to the pacer device is no longer present. Left subclavian pacer is noted with leads overlying the right atrium and right ventricle. Cardiac silhouette is mildly enlarged without pneumothorax, pleural effusion or focal airspace consolidation. Bones are grossly intact. There is atherosclerosis of the aorta. IMPRESSION: 1. Previously questioned surgical sponge anterior to the left pectoral pacer device is no longer present. 2. No pneumothorax. The above report was generated using voice recognition software. It may contain grammatical, syntax or spelling errors. Electronically signed by: Ricky Zhou M.D. 11/29/2016 7:54 AM Dictated Date/Time: 11/29/2016 7:52 AM
--- NOTE | 2016-11-29 08:57 | ECHOCARDIOGRAM REPORT ---
*NOTICE TO RECEIVING REPUBLICAN AGENCY This information is strictly Confidential and protected under [place] law. [place] law prohibits you from making any further disclosure of this information unless further disclosure is expressly permitted by the written consent of the person to whom it pertains or is authorized by law. A general authorization for the release of medical or other information is not sufficient for this purpose. Hospital accepts no responsibility if the information is made available to any other person, INCLUDING THE PATIENT. Interpretation Summary * Name: RENE LOPEZ Study Date: 11/29/2016 07:17 AM BP: 129/78 mmHg * Patient Location: [facility]\S\N284\S\2 HR: 79 * : 1950 (M/d/yyyy) Gender: Female Height: 65 in * Age: 66 yrs Ethnicity: [place] Weight: 212 lb * Ordering Physician: Chris Huggins * Referring Physician: Self, Referred * Performed By: Rocio Omer RDCS * * Reason For Study: PERICARDIAL EFFUSION, FOLLOW UP * BSA: 2.0 m2 * Compared to prior study, there is no significant change. * -- Conclusions -- * A small to moderate sized circumferential pericardial effusion is noted. * There are no echocardiographic indications of cardiac tamponade. Procedure Details * LIMITED FOR EFFUSION
--- NOTE | 2016-11-29 09:16 | Cardiology Follow-Up ---
Subjective Date of Service: Nov 29, 2016. Pt evaluation today including: conversation w/ patient, physical exam, lab review, review of studies History of Present Illness This is a very pleasant 66-year-old woman who has a history of atrial fibrillation dating back to 2012, at that time she had hyperthyroidism. After treatment of her hyperthyroidism she remained in sinus rhythm, therefore anticoagulation was discontinued however she had a presentation with an acute stroke on 05/03/2013. At that time she was not in atrial fibrillation, however it was felt that the stroke was from paroxysmal atrial fibrillation and she has had documented atrial fibrillation since. She also has a history of bradycardia , and is therefore maintained on low-dose metoprolol (metoprolol tartrate 25 mg twice a day). With her paroxysmal atrial fibrillation she has been maintained on flecainide 100 mg twice a day as well and she is on eliquis 5 mg twice a day. According to her she has been having gradually decreasing activities over the last year or so (she is little bit limited due to right leg weakness as well). An evaluation was undertaken which included an echocardiogram on 11/12 which showed normal left ventricular function with mild concentric left ventricular hypertrophy. In addition a 7 day event monitor was applied, this showed periods of atrial fibrillation with a controlled heart rate (averaging 72 bpm) as well as overall bradycardia during sinus rhythm. Her sinus rhythm was as low as 26 bpm, the maximum was only 89 bpm with an average of 55 bpm. In addition she had 55 pauses between 3 seconds and 4.2 seconds. Decreasing her AV benjamin blocking medications is not a good option as she has a well-controlled heart rate when she is in atrial fibrillation currently. She does have ill-defined symptoms of fatigue and not feeling well with exertion which could be rate related, she does not have symptoms of presyncope or syncope. She does not have exertional chest discomfort has had no further stroke symptoms and has had no bleeding on Eliquis. She was admitted for planned pacemaker implantation, her Eliquis was held and she was started on heparin with her history of stroke felt to be due to atrial arrhythmias. Her heparin was discontinued early yesterday morning in preparation for her pacemaker. Her pacemaker was implanted yesterday, there were no clear complications although the lead appeared to be in a little bit of an unusual position but was confirm such going to be in the right ventricle. She was however noted to have a loculated posterior effusion, possibly new, asymptomatic and not hemodynamically compromising. With this finding we held her anticoagulation and repeated the echocardiogram the next morning with no change. It may be pleural not pericardial. She has remained in SR so we have been holding her Eliquis. She felt well post-operatively, but on CXR yesterday morning had a retained surgical sponge at the pacer site. We removed this yesterday afternoon without difficulty. She feels well today, she had some incisional discomfort during the night but has no complaints currently. No shortness of breath and no lightheadedness, dizziness or chest discomfort. Social History Smoking Status: Never Smoker History of Alcohol Use: No Review of Systems Respiratory: No cough, No wheezing, No shortness of breath, No dyspnea on exertion, No dyspnea at rest, No hemoptysis Cardiac: No chest pain, No orthopnea, No PND, No edema, No claudication, No palpitations Medications Cardiovascular: Item Value Date Time Metoprolol 12.5 mg 11/28/16 2100 Tartrate BID/PO 11/29/16 0753 (Lopressor Tab) Flecainide Acetate 50 mg 11/28/16 2100 (Tambocor Tab) Q12/PO 11/29/16 0752 Objective Vital Signs Past 12 Hours Date Time Temp Pulse Resp B/P (MAP) Pulse Ox O2 Delivery O2 Flow Rate FiO2 11/29/16 07:28 36.9 79 16 129/78 (95) 92 Room Air 11/29/16 04:00 Room Air 11/29/16 04:00 36.6 68 20 122/75 (91) 97 Room Air 11/29/16 00:00 93 Room Air 11/28/16 23:34 36.8 80 18 113/82 (92) 93 Room Air Last Recorded Weight-Kilograms: 97.300 Physical Exam Constitutional: General Apperance: heathly-appearing, overweight Level of Distress: NAD Lungs: Respiratory effort: no dyspnea, good air movement Auscultation: breath sounds normal, no wheezing Cardiovascular: Heart Auscultation: RRR, no murmurs, no rubs, no gallops, bradycardia Peripheral Pulses: Bruits: none appreciated Extremities: no edema The incision looks clean and dry, no swelling or bleeding. Dressing changed. Data Laboratory Results: Last 24 Hours Test 11/29/16 05:40 White Blood Count 12.72 K/uL Red Blood Count 4.45 M/uL Hemoglobin 12.8 g/dL Hematocrit 39.7 % Mean Corpuscular Volume 89.2 fL Mean Corpuscular Hemoglobin 28.8 pg Mean Corpuscular Hemoglobin Concent 32.2 g/dl Platelet Count 172 K/uL Mean Platelet Volume 9.1 fL Neutrophils (%) (Auto) 69.6 % Lymphocytes (%) (Auto) 16.2 % Monocytes (%) (Auto) 12.5 % Eosinophils (%) (Auto) 1.3 % Basophils (%) (Auto) 0.1 % Neutrophils # (Auto) 8.86 K/uL Lymphocytes # (Auto) 2.06 K/uL Monocytes # (Auto) 1.59 K/uL Eosinophils # (Auto) 0.16 K/uL Basophils # (Auto) 0.01 K/uL RDW Standard Deviation 47.2 fL RDW Coefficient of Variation 14.3 % Immature Granulocyte % (Auto) 0.3 % Immature Granulocyte # (Auto) 0.04 K/uL Activated Partial Thromboplast Time 26.4 SECONDS Partial Thromboplastin Ratio 1.0 Sodium Level 135 mmol/L Potassium Level 4.2 mmol/L Chloride Level 101 mmol/L Carbon Dioxide Level 27 mmol/L Anion Gap 7.0 mmol/L Blood Urea Nitrogen 19 mg/dl Creatinine 0.72 mg/dl Est Creatinine Clear Calc Drug Dose 89.9 ml/min Estimated GFR () 101.9 Estimated GFR (Non- 87.9 BUN/Creatinine Ratio 26.7 Random Glucose 87 mg/dl Calcium Level 8.9 mg/dl Magnesium Level 2.5 mg/dl Imaging: CXR shows good lead position and no pneumothorax or sponge. Telemetry reviewed: Sinus rhythm, occasional appropriate pacing. Echocardiogram repeated this morning: By my reading the posterior fusion appears to be a little bit smaller. Official reading pending. Assessment and Plan #1. Sick sinus syndrome: She now has a pacemaker in place for control. She is back on beta blockade. #2. Postop day #1: The surgical site is clean and dry, no hematoma or drainage. #3. Atrial fibrillation: She has relatively well-controlled atrial fibrillation , her heart rate is good during the arrhythmia and the episodes tend to be brief (averaging around 3 minutes on her event recorder) with a total burden of less than 1%. All of this was prior to pacemaker implantation and hospitalization. We can monitor her rhythm with the pacemaker, she has remained in sinus rhythm in the hospital. We will need to decide on anticoagulation, I would opt to wait at least until this evening to restart the Eliquis since she is currently not at risk of stroke since she has not had atrial fibrillation. Thank you for allowing me to participate in her care.
[2016-11-29 11:13] VITALS: BP 117/74; PULSE 61; TEMP 36.9; O2SAT 93
--- NOTE | 2016-11-29 12:30 | PROGRESS NOTE ---
DATE: 11/29/2016 CARDIOLOGY FOLLOWUP NOTE The patient seen and examined. Chart, medications, telemetry reviewed. SUBJECTIVE: Feels well this morning. Notes no pleuritic pain or discomfort. Notes no chest pains, orthopnea, PND or peripheral edema. Pacer and surgical incision sites healing well. Notes no bleeding difficulties. OBJECTIVE: VITAL SIGNS: Heart rate 61, blood pressure is 117/74. Telemetry reveals no arrhythmias. NECK: Thick. There is no jugular venous distention. No carotid bruits. LUNGS: Clear to auscultation. CARDIOVASCULAR: Regular. There is no audible murmur or rub. PMI is nondisplaced. ABDOMEN: Soft, nontender. EXTREMITIES: Without cyanosis or clubbing. There is no peripheral edema. Pacer insertion sites bandaged without drainage. DATA: Echocardiogram demonstrates small to moderate circumferential pericardial effusion without tamponade, normal LV systolic function. LABORATORY STUDIES: Hemoglobin is 12.8. Sodium is 135, potassium is 4.2, chloride is 101, bicarb is 27, BUN is 19, creatinine is 1.72. IMPRESSION: A 66-year-old female with history of paroxysmal atrial fibrillation with tachybrady syndrome, status post pacemaker, postoperative pericardial effusion small to moderate. RECOMMENDATIONS: The patient to resume Eliquis with the evening dosing this evening, may be discharged to home for outpatient followup. We will make arrangements for patient to be seen through [facility] with followup echocardiogram as well as appointment with Dr. Morgan with pacer clinic in the next 1-2 weeks' time, echo in the next 1 week's time, Dr. Morgan in the next month's time. The patient may be discharged to home with instructions as noted. Discussed in detail the patient noted there is room for further increase in antiarrhythmic therapies if her atrial fibrillation would recur. She is agreeable to all plans and will report any new symptoms or sudden changes.
--- NOTE | 2016-11-29 13:55 | Discharge Instructions ---
Discharge Instructions Date of Service Nov 29, 2016. Admission Reason for Admission: Paf, Symptomatic Bradycardia Discharge Discharge Diagnosis / Problem: BRADYARRYTHMIA S/P PACE MAKER Discharge Goals Goal(s): Decrease discomfort, Improve function Activity Recommendations Activity Limitations: per Instructions/Follow-up section Lifting Limitations: no more than 5 pounds (UNTIL SEEN BY CARDIOLOGY) Exercise/Sports Limitations: as tolerated (NO STRENOUS ACTIVITY UNTIL SEEN BY FAMILY DOCTOR/CARDIOLOGY) . Instructions / Follow-Up Instructions / Follow-Up FOLLOWUP WITH FAMILY DOCTOR IN ONE WEEK. ( PATIENT WILL BE CALLED WITH APPOINTMENT). TO FOLLOWUP IN PACE [facility]KER CLINIC IN 1-2 WEEKS WITH FOLLOWUP ECHO. FOLLOWUP WITH CARDIOLOGY IN 3-4 WEEKS. TO RESTART ELIQUIS FROM TODAY EVENING DOSE. Current Hospital Diet Patient's current hospital diet: AHA Diet (Heart Healthy) Discharge Diet Recommended Diet: AHA Diet (Heart Healthy) Procedures Procedures Performed: Removal of Retained Sponge in Pacemaker Pocket Pending Studies Studies pending at discharge: no Medical Emergencies . Who to Call and When: Medical Emergencies: If at any time you feel your situation is an emergency, please call 911 immediately. . Non-Emergent Contact Non-Emergency issues call your: Primary Care Provider . . "Provider Documentation" section prepared by August Lopez. . VTE Core Measure Inpt VTE Proph given/why not?: SCD's
[2016-11-29 14:00] VITALS: BP 117/74; PULSE 61; TEMP 36.9; O2SAT 93
--- NOTE | 2016-11-29 18:26 | Progress Note ---
Internal Med Progress Note Date of Service: Nov 29, 2016. Provider Documentation: SUBJECTIVE: has some pain at pace maker site resting comfortably ambulating ok afebrile no sob ok to go home OBJECTIVE: Vital Signs-as noted below Exam: General-alert and awake. not in distress ENT-normal hearing Neck-no neck masses supple Lungs-cta b/l no wheezing or crackles Heart-s1 and s2 heard no murmurs s/p pace maker placement-site ok Abdomen-soft bowel sounds present non tender no distension Extremities-no erythema Neuro-alert and awake moves extremities Lab data as noted below. ASSESSMENT & PLAN: . Bradyarrhythmia with significant pauses. T initially held flecainide and metoprolol s/p pace maker - complicated by small pericardial effusion repeat echo showed small to moderate pericardial effusion vs pleural effusion was taken to OR to take out sponge stuck near posterior lead showed on CXR on repeat cxr fine appreciate cardiology inputs discharged to f/u with cardiology 2. Paroxysmal atrial fibrillation. She has been on flecainide and metoprolol which were held but restarted today plan to restart eliquis in evening 3. Hypertension. restarted metoprolol 4. Hyperlipidemia. Continue with Crestor. 5. History of Graves' disease, now hypothyroidism. On thyroid replacement. 6. Gastrointestinal prophylaxis .Protonix. Discharged home Vital Signs: Date Time Temp Pulse Resp B/P (MAP) Pulse Ox O2 Delivery O2 Flow Rate FiO2 11/29/16 14:00 36.9 61 18 93 Room Air 11/29/16 12:00 Room Air 11/29/16 11:13 36.9 61 18 117/74 (88) 93 11/29/16 08:00 Room Air 11/29/16 07:28 36.9 79 16 129/78 (95) 92 Room Air 11/29/16 04:00 Room Air 11/29/16 04:00 36.6 68 20 122/75 (91) 97 Room Air 11/29/16 00:00 93 Room Air 11/28/16 23:34 36.8 80 18 113/82 (92) 93 Room Air 11/28/16 20:00 Nasal Cannula 2.0 96 11/28/16 19:16 37.2 82 18 135/76 (95) 98 Nasal Cannula Lab Results: Results Past 24 Hours Test 11/29/16 05:40 Range/Units White Blood Count 12.72 4.8-10.8 K/uL Red Blood Count 4.45 4.2-5.4 M/uL Hemoglobin 12.8 12.0-16.0 g/dL Hematocrit 39.7 37-47 % Mean Corpuscular Volume 89.2 80-100 fL Mean Corpuscular Hemoglobin 28.8 25-34 pg Mean Corpuscular Hemoglobin Concent 32.2 32-36 g/dl Platelet Count 172 130-400 K/uL Mean Platelet Volume 9.1 7.4-10.4 fL Neutrophils (%) (Auto) 69.6 % Lymphocytes (%) (Auto) 16.2 % Monocytes (%) (Auto) 12.5 % Eosinophils (%) (Auto) 1.3 % Basophils (%) (Auto) 0.1 % Neutrophils # (Auto) 8.86 1.4-6.5 K/uL Lymphocytes # (Auto) 2.06 1.2-3.4 K/uL Monocytes # (Auto) 1.59 0.11-0.59 K/uL Eosinophils # (Auto) 0.16 0-0.5 K/uL Basophils # (Auto) 0.01 0-0.2 K/uL RDW Standard Deviation 47.2 36.4-46.3 fL RDW Coefficient of Variation 14.3 11.5-14.5 % Immature Granulocyte % (Auto) 0.3 % Immature Granulocyte # (Auto) 0.04 0.00-0.02 K/uL Activated Partial Thromboplast Time 26.4 21.0-31.0 SECONDS Partial Thromboplastin Ratio 1.0 Sodium Level 135 136-145 mmol/L Potassium Level 4.2 3.5-5.1 mmol/L Chloride Level 101 98-107 mmol/L Carbon Dioxide Level 27 21-32 mmol/L Anion Gap 7.0 3-11 mmol/L Blood Urea Nitrogen 19 7-18 mg/dl Creatinine 0.72 0.60-1.20 mg/dl Est Creatinine Clear Calc Drug Dose 89.9 ml/min Estimated GFR () 101.9 Estimated GFR (Non- 87.9 BUN/Creatinine Ratio 26.7 10-20 Random Glucose 87 70-99 mg/dl Calcium Level 8.9 8.5-10.1 mg/dl Magnesium Level 2.5 1.8-2.4 mg/dl
--- NOTE | 2016-11-29 18:36 | Discharge Summary ---
Discharge Summary Date of Service Nov 29, 2016. Discharge Summary Admission Date: Nov 25, 2016 at 10:13 Discharge Date: Nov 29, 2016 Discharge Disposition: Home Principal Diagnosis: BRADYARRHYTHMIA S/P PACE MAKER Secondary Diagnoses/Problems: paroxysmal atrial fibrillation, on Eliquis; history of cerebrovascular accident, secondary to atrial fibrillation; hypertension; hyperlipidemia; history of Graves' disease status post surgery, now hypothyroidism; anxiety; nonspecific back pain. Procedures: CXR : 1. Findings concerning for retained surgical sponge anterior to the pacer. In retrospect this was present on yesterday's radiograph. 2. No pneumothorax. CXR 11/29/16: 1. Previously questioned surgical sponge anterior to the left pectoral pacer device is no longer present. 2. No pneumothorax. ECHO: * A small to moderate sized circumferential pericardial effusion is noted. * There are no echocardiographic indications of cardiac tamponade. Consultations: CARDIOLOGY EP Medication Reconciliation Continued Medications: Apixaban (Eliquis) 5 Mg Tab 5 MG PO BID Cephalexin Monohydrate (Keflex) 500 Mg Cap 500 MG PO QID STARTED 11/19/16 TO TAKE FOR 10 DAYS Flecainide Acetate (Flecainide Acetate) 100 Mg Tab 50 MG PO BID 1/2 TABLET DOSE Fluoxetine (Prozac) 20 Mg Cap 20 MG PO DAILY, CAP Levothyroxine Sodium (Levothyroxine Sodium) 88 Mcg Tab 88 MCG PO DAILY Metoprolol Tartrate (Lopressor) (Lopressor) 25 Mg Tab 12.5 MG PO BID, TAB Mometasone Furoate (Nasal) (Mometasone Furoate) 50 Mcg/Act Spr 1 SPRAY ANOOP BID Ocuvite Preservision (Ocuvite Preservision) 1 Tab Tab 1 TAB PO BID, TAB Rosuvastatin Calcium (Rosuvastatin Calcium) 20 Mg Tab 20 MG PO DAILY Admission Information HPI (per Admitting provider): She is a 66-year-old female with significant past medical history including paroxysmal atrial fibrillation, on Eliquis; history of cerebrovascular accident secondary to AFib; hypertension; hyperlipidemia; history of breast disease, status post surgery; and apparently has been complaining of tiredness and fatigue for a while. She was seen by the taxation agent last week and she was put on a Holter to find out bradyarrhythmias that could be the cause for her problem, and Holter reading came back positive for pauses of more than 4 seconds on multiple occasions. From that point, she was sent into the Emergency Room for further evaluation and pacemaker placement. When asking questions, she denies to have any other symptoms except feeling tired and weak all the time. No history of loss of consciousness. No history of fall. No chest pain, palpitations. No fever, chills or rigors. No numbness or tingling in the extremities, and no weakness involving any side of the body. In the ER, she was hemodynamically stable and she was noted to have an EKG that did show sinus rhythm with a rate of 60 per minute and no significant ST-T wave changes, and her labs were unremarkable Physical Exam (per Admitting): GENERAL: On examination in the Emergency Room, she was not having any acute distress. VITAL SIGNS: Temperature 37.1, pulse of 55 and regular, blood pressure 144/54, saturation 97% on room air. HEENT: Unremarkable. NECK: Supple. No JVD, no bruit. CHEST: Clear to auscultate bilaterally. HEART: S1, S2 regular. ABDOMEN: Soft, benign, nontender, no organomegaly. Bowel sounds present. EXTREMITIES: Negative for any edema. MUSCULOSKELETAL: Did not show any acute arthritis involving any joint. CENTRAL NERVOUS SYSTEM: She was alert, awake, oriented x3. No focal sensory and/or motor deficit appreciated. Hospital Course . Bradyarrhythmia with significant pauses. T initially held flecainide and metoprolol s/p pace maker - complicated by small pericardial effusion repeat echo showed small to moderate pericardial effusion vs pleural effusion was taken to OR to take out sponge stuck near posterior lead showed on CXR on repeat cxr fine appreciate cardiology inputs discharged to f/u with cardiology 2. Paroxysmal atrial fibrillation. She has been on flecainide and metoprolol which were held but restarted today plan to restart eliquis in evening 3. Hypertension. restarted metoprolol 4. Hyperlipidemia. Continue with Crestor. 5. History of Graves' disease, now hypothyroidism. On thyroid replacement. 6. Gastrointestinal prophylaxis .Protonix. Discharged home Total time spent on discharge = 35MINUTES This includes examination of the patient, discharge planning, medication reconciliation, and communication with other providers. Discharge Instructions Discharge Instructions Date of Service Nov 29, 2016. Admission Reason for Admission: Paf, Symptomatic Bradycardia Discharge Discharge Diagnosis / Problem: BRADYARRYTHMIA S/P PACE MAKER Discharge Goals Goal(s): Decrease discomfort, Improve function Activity Recommendations Activity Limitations: per Instructions/Follow-up section Lifting Limitations: no more than 5 pounds (UNTIL SEEN BY CARDIOLOGY) Exercise/Sports Limitations: as tolerated (NO STRENOUS ACTIVITY UNTIL SEEN BY FAMILY DOCTOR/CARDIOLOGY) . Instructions / Follow-Up Instructions / Follow-Up FOLLOWUP WITH FAMILY DOCTOR IN ONE WEEK. ( PATIENT WILL BE CALLED WITH APPOINTMENT). TO FOLLOWUP IN PACE [facility] CLINIC IN 1-2 WEEKS WITH FOLLOWUP ECHO. FOLLOWUP WITH CARDIOLOGY IN 3-4 WEEKS. TO RESTART ELIQUIS FROM TODAY EVENING DOSE. Current Hospital Diet Patient's current hospital diet: AHA Diet (Heart Healthy) Discharge Diet Recommended Diet: AHA Diet (Heart Healthy) Procedures Procedures Performed: Removal of Retained Sponge in Pacemaker Pocket Pending Studies Studies pending at discharge: no Medical Emergencies . Who to Call and When: Medical Emergencies: If at any time you feel your situation is an emergency, please call 911 immediately. . Non-Emergent Contact Non-Emergency issues call your: Primary Care Provider . . "Provider Documentation" section prepared by August Lopez. . VTE Core Measure Inpt VTE Proph given/why not?: SCD's
== END 2016-11-29 14:47 | disposition home or self-care (01) | DRG 262 ==
LOC: C.EDB 08:00 → C.MED 10:13 → ENRESERV 10:34
PROVIDERS: ADMIT Internal Medicine; ATTEND Internal Medicine
PROC: 02HK0JZ Insertion of Pacemaker Lead into Right Ventricle, Open Approach (ICD-10-PCS; principal; 2016-11-27 08:00)
DX: I49.5 Sick sinus syndrome (principal); T81.590A Other complications of foreign body accidentally left in body following surgical operation, initial encounter; I10 Essential (primary) hypertension; I48.0 Paroxysmal atrial fibrillation; E05.90 Thyrotoxicosis, unspecified without thyrotoxic crisis or storm; E78.5 Hyperlipidemia, unspecified; E03.9 Hypothyroidism, unspecified; R00.1 Bradycardia, unspecified; Z90.710 Acquired absence of both cervix and uterus; Z83.3 Family history of diabetes mellitus; Z80.0 Family history of malignant neoplasm of digestive organs; Z82.49 Family history of ischemic heart disease and other diseases of the circulatory system

== ENCOUNTER 2017-04-02 02:20 | Emergency (ER) | payer OTHER, BC ==
[~2017-04-02] VITALS: Ht 165.1 cm; Wt 99.2 kg
[~2017-04-02 02:20] MED LIST changes: -ATOR10TA88 PO; +CEPH500C2 PO; +LEVO88TA3 PO; -MOME50SP5 NAE; +MOME6000 NAE; -MULT-845 PO; +NITR-5 PO; +ROSU20TA33 PO; +TMB100 PO
[2017-04-02 02:22] VITALS: TEMP 36.9; Ht 165.1 cm; Wt 99.2 kg
[2017-04-02] MEDS ORDERED: SODIUM CHLORIDE 0.9% 1000ML 1,000 ML IV STA (03:28)
[2017-04-02] MEDS ORDERED: SODIUM CHLORIDE 0.9% 500ML 500 ML IV STA (03:28)
[2017-04-02] MEDS ORDERED: MoRPHine SULFATE 4 MG/ML 1 ML CARP\\VIAL IV STA (03:30)
[2017-04-02] MEDS ORDERED: ONDANSETRON INJ 2 MG/ML 2 ML VIAL IV STA (03:30)
[2017-04-02 03:42] LABS: BASO % 0.1 %; BASO ABS # 0.02 K/uL (0-0.2); EOS % 1.4 %; EOS ABS # 0.23 K/uL (0-0.5); HEMATOCRIT 40.1 % (37-47); HEMOGLOBIN 13.2 g/dL (12.0-16.0); IG# 0.05 K/uL (0.00-0.02); LYMPH % 13.1 %; LYMPH ABS # 2.09 K/uL (1.2-3.4); MEAN CELL VOLUME 88.7 fL (80-100); MEAN CORPUSCULAR HEMOGLOBIN 29.2 pg (25-34); MEAN CORPUSCULAR HGB CONC 32.9 g/dl (32-36); MEAN PLATELET VOLUME 8.9 fL (7.4-10.4); MONO % 8.1 %; NEUT ABS # 12.27 K/uL (1.4-6.5); PLATELET COUNT 214 K/uL (130-400); RED CELL DISTRIBUTION WIDTH CV 14.2 % (11.5-14.5); RED CELL DISTRIBUTION WIDTH SD 45.7 fL (36.4-46.3); WHITE BLOOD COUNT 15.96 K/uL (4.8-10.8)
--- NOTE | 2017-04-02 03:58 | EMERGENCY ROOM VISIT NOTE ---
History Report prepared by Valentine: Nadeem Rousseau Under the Supervision of: Dr. Xin Bacon M.D. First contact with patient: 02:49 Chief Complaint: URINARY SYMPTOMS Stated Complaint: UTI, THROBBING PAIN ON RT SIDE History of Present Illness The patient is a 66 year old female who presents to the Emergency Room with complaints of persistent urinary symptoms starting yesterday morning. She currently rates her discomfort as an 8/10 in severity. She states that she was having burning with urination and some bladder pressure. She called her PCP, and she was given Macrobid and started taking it around 1100. The states that an hour later she started having lower back pain which lasted a couple of hours, and then the pain moved into her lower abdomen. The patient additionally states that she has been going to bathroom a lot, though now she has been unable to go. The patient denies any vomiting and fever. She has not had any abdominal surgeries in the past. She is currently on Eliquis for A-fib, and she had a pacemaker put in a couple of years ago. The patient also has a history of a stroke 4 years ago. Source of History: patient Onset: yesterday morning Position: other (global) Symptom Intensity: 8/10 Quality: other (urinary symptoms) Timing: other (persistent) Associated Symptoms: + abdominal pain, + back pain Note: Associated symptoms: Bladder pressure Review of Systems See HPI for pertinent positives & negatives. A total of 10 systems reviewed and were otherwise negative. Past Medical & Surgical Medical Problems: (1) Allergic rhinitis (2) Atrial fibrillation (3) Benign hypertension (4) History of - hysterectomy (5) Hyperthyroidism (6) PAF (paroxysmal atrial fibrillation) (7) Radionuclide therapy for hyperthyroidism (8) Rosacea (9) Symptomatic bradycardia Family History Diabetes mellitus FH: cancer FH: heart disease Hypertension Social History Smoking Status: Never Smoker Alcohol Use: none Drug Use: none Marital Status: Housing Status: lives with family Current/Historical Medications Scheduled Apixaban (Eliquis), 5 MG PO BID Cephalexin Monohydrate (Keflex), 500 MG PO TID Flecainide Acetate (Flecainide Acetate), 100 MG PO DAILY Fluoxetine (Prozac), 20 MG PO DAILY Levothyroxine Sodium (Levothyroxine Sodium), 88 MCG PO DAILY Metoprolol Tartrate (Lopressor) (Lopressor), 25 MG PO BID Mometasone Furoate (Nasal) (Mometasone Furoate), 1 SPRAY ANOOP BID Rosuvastatin Calcium (Rosuvastatin Calcium), 20 MG PO DAILY Allergies Coded Allergies: No Known Allergies (Verified , 04/04/17) Physical Exam Vital Signs Date Time Temp Pulse Resp B/P (MAP) Pulse Ox O2 Delivery O2 Flow Rate FiO2 04/02/17 06:44 61 18 144/70 98 Room Air 04/02/17 04:03 67 18 135/75 95 Room Air 04/02/17 02:22 36.9 82 18 187/88 98 Room Air Physical Exam Vital signs reviewed. General: Well-appearing female, in no significant distress. Obese HEENT: No scleral icterus, PERRLA, neck supple. Atraumatic. Cardiovascular: Regular rate and rhythm, no extra sounds. Pulmonary: Clear to auscultation bilaterally, normal work of breathing. Abdomen: No CVA tenderness. Positive right lower quadrant tenderness. No rebound or guarding. Soft, nondistended, positive bowel sounds. Musculoskeletal: Atraumatic, no peripheral edema. Neurologic: Patient awake alert and oriented x 3. Skin: Warm, dry, no rash Medical Decision & Procedures ER Provider Diagnostic Interpretation: Radiology results as stated below per my review and radiologist interpretation: CT ABDOMEN & PELVIS Without Contrast: No appendicitis, inflammatory changes of bowel or bowel obstruction. No free fluid. No free air. Aorta, liver, spleen, pancreas, gallbladder, and kidneys are unremarkable. Angiomyolipoma without hemorrhage involving the left renal pole laterally measuring 16.5 m. At least a small pericardial effusion. Radiologist: Roel Hernandez M.D. Laboratory Results 04/02/17 03:30 Red Blood Count 4.52, Mean Corpuscular Volume 88.7, Mean Corpuscular Hemoglobin 29.2, Mean Corpuscular Hemoglobin Concent 32.9, Mean Platelet Volume 8.9, Neutrophils (%) (Auto) 77.0, Lymphocytes (%) (Auto) 13.1, Monocytes (%) (Auto) 8.1, Eosinophils (%) (Auto) 1.4, Basophils (%) (Auto) 0.1, Neutrophils # (Auto) 12.27, Lymphocytes # (Auto) 2.09, Monocytes # (Auto) 1.30, Eosinophils # (Auto) 0.23, Basophils # (Auto) 0.02 04/02/17 03:30 Test 04/02/17 03:30 04/02/17 05:20 White Blood Count 15.96 K/uL (4.8-10.8) Red Blood Count 4.52 M/uL (4.2-5.4) Hemoglobin 13.2 g/dL (12.0-16.0) Hematocrit 40.1 % (37-47) Mean Corpuscular Volume 88.7 fL (80-100) Mean Corpuscular Hemoglobin 29.2 pg (25-34) Mean Corpuscular Hemoglobin Concent 32.9 g/dl (32-36) Platelet Count 214 K/uL (130-400) Mean Platelet Volume 8.9 fL (7.4-10.4) Neutrophils (%) (Auto) 77.0 % Lymphocytes (%) (Auto) 13.1 % Monocytes (%) (Auto) 8.1 % Eosinophils (%) (Auto) 1.4 % Basophils (%) (Auto) 0.1 % Neutrophils # (Auto) 12.27 K/uL (1.4-6.5) Lymphocytes # (Auto) 2.09 K/uL (1.2-3.4) Monocytes # (Auto) 1.30 K/uL (0.11-0.59) Eosinophils # (Auto) 0.23 K/uL (0-0.5) Basophils # (Auto) 0.02 K/uL (0-0.2) RDW Standard Deviation 45.7 fL (36.4-46.3) RDW Coefficient of Variation 14.2 % (11.5-14.5) Immature Granulocyte % (Auto) 0.3 % Immature Granulocyte # (Auto) 0.05 K/uL (0.00-0.02) Anion Gap 8.0 mmol/L (3-11) Est Creatinine Clear Calc Drug Dose 82.8 ml/min Estimated GFR () 91.0 Estimated GFR (Non- 78.6 BUN/Creatinine Ratio 29.2 (10-20) Calcium Level 9.0 mg/dl (8.5-10.1) Total Bilirubin 0.3 mg/dl (0.2-1) Direct Bilirubin < 0.1 mg/dl (0-0.2) Aspartate Amino Transf (AST/SGOT) 22 U/L (15-37) Alanine Aminotransferase (ALT/SGPT) 32 U/L (12-78) Alkaline Phosphatase 123 U/L (45-117) Total Protein 7.9 gm/dl (6.4-8.2) Albumin 3.6 gm/dl (3.4-5.0) Urine Color YELLOW Urine Appearance CLEAR (CLEAR) Urine pH 7.0 (4.5-7.5) Urine Specific [place] 1.015 (1.000-1.030) Urine Protein NEG (NEG) Urine Glucose (UA) NEG (NEG) Urine Ketones NEG (NEG) Urine Occult Blood TRACE (NEG) Urine Nitrite NEG (NEG) Urine Bilirubin NEG (NEG) Urine Urobilinogen NEG (NEG) Urine Leukocyte Esterase SMALL (NEG) Urine WBC (Auto) 5-10 /hpf (0-5) Urine RBC (Auto) 5-10 /hpf (0-4) Urine Hyaline Casts (Auto) 0 /lpf (0-5) Urine Epithelial Cells (Auto) 20-30 /lpf (0-5) Urine Bacteria (Auto) NEG (NEG) Date/Time Source Procedure Growth Status 04/02/17 05:20 Urine , Clean Catch Urine Culture - Final MORE THAN THREE TYPES OF ORGANISMS LA... Complete Laboratory results per my review. Medications Administered Medications (Trade) Dose Ordered Sig/David Route Start Time Stop Time Status Last Admin Dose Admin Sodium Chloride 1,000 ml @ 125 mls/hr Q8H STAT IV 04/02/17 03:28 04/02/17 09:38 DC 04/02/17 03:53 125 MLS/HR Sodium Chloride 500 ml @ 999 mls/hr Q31M STAT IV 04/02/17 03:28 04/02/17 03:58 DC 04/02/17 03:53 999 MLS/HR Morphine Sulfate (MoRPHine SULFATE INJ) 4 mg NOW STAT IV 04/02/17 03:30 04/02/17 03:32 DC 04/02/17 03:53 4 MG Ondansetron HCl (Zofran Inj) 4 mg NOW STAT IV 04/02/17 03:30 04/02/17 03:32 DC 04/02/17 03:53 4 MG Ceftriaxone Sodium (Rocephin Inj) 1 gm NOW STAT IV 04/02/17 04:16 04/02/17 04:17 DC 04/02/17 04:50 1 GM ED Course 0249: Past medical records reviewed. The patient was evaluated in room B5. A complete history and physical examination was performed. 0328: Sodium Chloride 500 ml @ 999 mls/hr IV, Sodium Chloride 500 ml @ 999 mls/ hr IV 0330: Zofran mg IV, Morphine Sulfate 4mg IV 0416: Rocephin 1gm IV 0638: Upon reevaluation, the patient appeared to have improvement of his symptoms. I discussed findings with her. She verbalized agreement of the treatment plan. She was discharged home. Medical Decision Differential diagnosis: Etiologies such as renal colic, appendicitis, diverticulitis, mesenteric ischemia, aortic pathology, infections, inflammatory bowel disease, PUD, biliary pathology, UTI, as well as others were entertained. This patient was evaluated and appeared to be in no significant distress. IV access was obtained and laboratory work was drawn. CT scan of the abdomen and pelvis was performed to rule out renal calculus, this study was negative. Patient has taken several doses of Macrobid. The UA is significant for WBCs but is also contaminated with epithelium. This is difficult to interpret due to the several doses of antibiotics at her time. She was given IV ceftriaxone. Laboratory work is fairly unrevealing. She was feeling improved with IV morphine, Zofran and IV hydration. The patient was discharged the to care of her . She was switched from Macrobid to Keflex. UA will be sent for culture. Patient was advised to follow-up with her PCP this week for reevaluation return to the ER for worsening of symptoms or any medical concerns. Medication Reconcilliation Current Medication List: was personally reviewed by me Blood Pressure Screening Patient's blood pressure: Normal blood pressure Impression Primary Impression: Urinary tract infection Scribe Attestation The scribe's documentation has been prepared under my direction and personally reviewed by me in its entirety. I confirm that the note above accurately reflects all work, treatment, procedures, and medical decision making performed by me. Departure Information Dispostion Home / Self-Care Prescriptions Cephalexin Monohydrate (Keflex) 500 Mg Cap 500 MG PO TID, #21 CAP Prov: Xin Bacon M.D. 04/02/17 Referrals Rozick, Jose Angel S.,M.D. (PCP) Forms HOME CARE DOCUMENTATION FORM, IMPORTANT VISIT INFORMATION Patient Instructions My [facility] [place] [facility] Additional Instructions Diagnosis: Dysuria, right flank pain Keflex 500 mg 3 times daily for 5 days. Drink plenty of fluids. Tylenol 650 mg every 6 hours as needed for pain. Follow up with your doctor this week for reevaluation. Return to the ED for worsening of symptoms or any medical concerns.
[2017-04-02 04:06] LABS: ALBUMIN 3.6 gm/dl (3.4-5.0); ALT/SGPT 32 U/L (12-78); AST/SGOT 22 U/L (15-37); BLOOD UREA NITROGEN 23 mg/dl (7-18); CARBON DIOXIDE 27 mmol/L (21-32); CREATININE 0.79 mg/dl (0.60-1.20); GLUCOSE 114 mg/dl (70-99); POTASSIUM 3.5 mmol/L (3.5-5.1); SODIUM 138 mmol/L (136-145)
[2017-04-02 04:08] LABS: ALKALINE PHOSPHATASE 123 U/L (45-117); TOTAL PROTEIN 7.9 gm/dl (6.4-8.2)
[2017-04-02] MEDS ORDERED: CEFTRIAXONE SOD INJ 1 GM ADDVIAL IV STA (04:16)
[2017-04-02 06:44] VITALS: BP 144/70; PULSE 61; O2SAT 98
[2017-04-02] MEDS ORDERED: CEPH500C PO (06:56)
--- NOTE | 2017-04-02 07:51 | DIAGNOSTIC IMAGING REPORT ---
CT SCAN OF THE ABDOMEN AND PELVIS WITHOUT IV CONTRAST CLINICAL HISTORY: Right flank pain. COMPARISON STUDY: No priors. TECHNIQUE: CT scan of the abdomen and pelvis is performed from the lung bases to the proximal femora. Images are reviewed in the axial, sagittal, and coronal planes. IV contrast was not administered for this examination as per the referring clinician. A dose lowering technique was utilized adhering to the principles of ALARA. CT DOSE: 1306.23 mGy.cm FINDINGS: Lung bases: The heart is mildly enlarged and there is a small pericardial effusion. Pacemaker leads are observed. There is a small hiatal hernia. The lung bases are clear. Liver: The unenhanced liver is normal in size, contour, and attenuation. There is no intrahepatic biliary ductal dilatation. Gallbladder: Unremarkable. Spleen: Normal in size and attenuation. Pancreas: The unenhanced pancreas is moderately atrophic and grossly unremarkable. Adrenal glands: Unremarkable. Kidneys: The unenhanced kidneys are atrophic and without hydronephrosis. There are no renal calculi identified. There is no evidence of contour deforming renal mass lesion. A 1.7 cm angiomyolipoma is noted in the interpolar left kidney. Abdominal vasculature: The abdominal aorta is normal in course and caliber noting moderate to advanced atherosclerotic calcification. Bowel: Mild to moderate colonic fecal retention is observed. No bowel obstruction is identified. There are scattered colonic diverticula without CT evidence of acute diverticulitis. The appendix is well-visualized and normal. Peritoneum: There is no intraperitoneal free air or abdominal ascites. There is a small fat-containing umbilical hernia. Lymphadenopathy: None. Pelvic viscera: The bladder is normal as visualized. The uterus is surgically absent. No adnexal lesion is seen. Skeletal structures: The skeletal structures are osteopenic. Mild spondylotic change is noted in the lumbar spine. No lytic or blastic lesions are seen. IMPRESSION: 1. There are no acute infectious or inflammatory findings in the abdomen or pelvis. 2. Cardiomegaly and small pericardial effusion. 3. A 1.7 cm angiomyolipoma is incidentally noted in the left kidney. 4. Additional findings as above. Electronically signed by: Fortunato Cassidy M.D. 04/02/2017 7:49 AM Dictated Date/Time: 04/02/2017 7:45 AM
== END 2017-04-02 07:10 | disposition home or self-care (01) ==
LOC: C.EDB 02:21
DX: N39.0 Urinary tract infection, site not specified (principal); I48.91 Unspecified atrial fibrillation; Z79.01 Long term (current) use of anticoagulants; Z86.73 Personal history of transient ischemic attack (TIA), and cerebral infarction without residual deficits; Z95.0 Presence of cardiac pacemaker; I10 Essential (primary) hypertension; Z90.710 Acquired absence of both cervix and uterus; E05.90 Thyrotoxicosis, unspecified without thyrotoxic crisis or storm; Z83.3 Family history of diabetes mellitus; Z82.49 Family history of ischemic heart disease and other diseases of the circulatory system; Z79.899 Other long term (current) drug therapy; E66.9 Obesity, unspecified; Z68.36 Body mass index [BMI] 36.0-36.9, adult

== ENCOUNTER 2017-04-04 08:01 | Emergency (ER) | payer OTHER, BC ==
[~2017-04-04] VITALS: Ht 165.1 cm; Wt 99.9 kg
[~2017-04-04 08:01] MED LIST changes: +CEPH500C PO; -CEPH500C2 PO; -MULT-190 PO
[2017-04-04 08:07] VITALS: TEMP 37; Ht 165.1 cm; Wt 99.9 kg
[2017-04-04] MEDS ORDERED: SODIUM CHLORIDE 0.9% 1000ML 1,000 ML IV STA (08:56)
[2017-04-04] MEDS ORDERED: MoRPHine SULFATE 4 MG/ML 1 ML CARP\\VIAL IV STA ×2 (08:56→10:31)
[2017-04-04] MEDS ORDERED: ONDANSETRON INJ 2 MG/ML 2 ML VIAL IV STA (08:56)
[2017-04-04 09:26] LABS: BASO % 0.2 %; BASO ABS # 0.02 K/uL (0-0.2); EOS % 4.9 %; EOS ABS # 0.61 K/uL (0-0.5); HEMATOCRIT 39.5 % (37-47); HEMOGLOBIN 13.4 g/dL (12.0-16.0); IG# 0.02 K/uL (0.00-0.02); LYMPH % 13.2 %; LYMPH ABS # 1.65 K/uL (1.2-3.4); MEAN CORPUSCULAR HEMOGLOBIN 29.8 pg (25-34); MEAN CORPUSCULAR HGB CONC 33.9 g/dl (32-36); MEAN PLATELET VOLUME 9.2 fL (7.4-10.4); MONO % 7.7 %; MONO ABS # 0.96 K/uL (0.11-0.59); NEUT % 73.8 %; NEUT ABS # 9.27 K/uL (1.4-6.5); PLATELET COUNT 229 K/uL (130-400); RED CELL DISTRIBUTION WIDTH CV 13.9 % (11.5-14.5); RED CELL DISTRIBUTION WIDTH SD 45.1 fL (36.4-46.3); WHITE BLOOD COUNT 12.53 K/uL (4.8-10.8)
[2017-04-04 09:55] LABS: ALBUMIN 3.4 gm/dl (3.4-5.0); ALKALINE PHOSPHATASE 114 U/L (45-117); ALT/SGPT 29 U/L (12-78); AST/SGOT 25 U/L (15-37); BLOOD UREA NITROGEN 13 mg/dl (7-18); CALCIUM 8.8 mg/dl (8.5-10.1); CARBON DIOXIDE 27 mmol/L (21-32); CREATININE 0.75 mg/dl (0.60-1.20); GLUCOSE 104 mg/dl (70-99); LIPASE 210 U/L (73-393); POTASSIUM 3.8 mmol/L (3.5-5.1); SODIUM 138 mmol/L (136-145); TOTAL PROTEIN 7.8 gm/dl (6.4-8.2)
[2017-04-04] MEDS ORDERED: OPTIRAY 320 IV PRN (11:00)
--- NOTE | 2017-04-04 13:21 | DIAGNOSTIC IMAGING REPORT ---
ABD/PELVIS IV AND ORAL CONT CLINICAL HISTORY: 66 years-old Female presenting with R lower back pain into RLQ; recent NC CT -. TECHNIQUE: Multidetector CT of the abdomen and pelvis was performed after the administration of oral and intravenous contrast. IV contrast: 93 mL of Optiray 320. A dose lowering technique was used consistent with the principles of ALARA (as low as reasonably achievable). COMPARISON: 04/02/2017. CT DOSE (mGy.cm): The estimated cumulative dose is 1456.61 mGy.cm. FINDINGS: Client Development Consultant topogram: Partially visualized 2-lead pacer to the right atrium and right ventricular apex. Cardiomegaly. Lung bases: Minimal basilar opacities, likely atelectasis. Multichamber enlargement of the heart. Small pericardial effusion. No pleural effusion. Liver: Normal morphology. No liver lesion. Patent hepatic vasculature. Biliary: No intrahepatic or extrahepatic biliary ductal dilatation. Normal gallbladder. Pancreas: Mild parenchymal atrophy. Spleen: Normal. Adrenal glands: Normal. Kidneys and ureters: Macroscopic fat containing 1.7 cm lesion in the lateral aspect of the interpolar region of the left kidney, unchanged. No hydronephrosis. No nephrolithiasis. Bladder: Bladder may prolapse below the expected margin of the pelvic floor. This suggests pelvic floor laxity. Pelvic organs: Uterus surgically absent. Normal ovaries. Bowel: Moderate stool burden in the ascending colon and cecum. No bowel obstruction. The appendix is normal. Peritoneal cavity: No free fluid or intraperitoneal gas. Lymph nodes: No enlarged lymph nodes in the abdomen or pelvis. Vasculature: Atherosclerosis of the normal caliber abdominal aorta. IVC patent. Abdominal wall: Normal. Musculoskeletal: Degenerative changes of the spine. Osteopenia. IMPRESSION: 1. No acute intra-abdominal pathology. 2. Constipation evidence by moderate stool burden primarily in the right colon. 3. Pelvic floor laxity evidenced by inferior displacement of the bladder neck. 4. Incidental benign left renal angiomyolipoma. 5. Osteopenia. Electronically signed by: Miller Waters M.D. 04/04/2017 1:19 PM Dictated Date/Time: 04/04/2017 1:14 PM
[2017-04-04] MEDS ORDERED: MAGNESIUM CITRATE 296 ML/BTL PO ONE (14:00)
[2017-04-04 14:06] VITALS: BP 136/79; PULSE 62; O2SAT 92
--- NOTE | 2017-04-06 07:59 | EMERGENCY ROOM VISIT NOTE ---
ED Visit Note First contact with patient: 08:12 Chief Complaint: Abdominal and back pain. History of Present Illness: Ms. Araya is a 66 year-old white female who ambulates into the ED accompanied by her complaining of right lower back and right lower quadrant abdominal pain. Historically patient reports she was seen in this emergency department 2 days ago with similar symptoms; at that time none was found and it was felt that she had a recent passed kidney stone and she had a urinary tract infection and was prescribed Keflex. She reports that since being discharged her pain has returned and is she is not having any relief with her antibiotics. Patient reports approximately one day before her ED visit she was having urinary symptoms with urinary burning and feelings of incomplete voiding. She contacted her PCPs office and was not able to be seen but was diagnosed with urinary tract infection and started on Macrobid. Her pain became worse and that 's when she came to the emergency department to be seen. Currently she is complaining of severe lower right sided lumbar back pain radiating into the right lower quadrant. She describes this as a sharp sensation. She rates her discomfort 8/10. Her pain is nonradiating. Her pain worsens with palpation in the right lower quadrant. She has not identified any alleviating factors related to the pain. She has tried [id number] medications without relief of her discomfort. She reports resolution of her urinary tract symptoms and denies any current associated symptoms. Patient denies fevers, chills, sweats, skin eruptions, skin color changes, upper respiratory tract symptoms, shortness of breath, chest pain, nausea, vomiting, diarrhea, constipation, rectal bleeding, black/tarry stools, urinary symptoms, hematuria, vaginal bleeding, vaginal discharge, genital paresthesias, bowel and bladder dysfunction, lower extremity weakness/numbness/tingling.. Review of Systems: As noted above in history of present illness. All body systems were reviewed and found to be negative as noted above. Past Medical History: Paroxysmal atrial fibrillation, CVA, hypertension, dyslipidemia, unspecified breast disease, tachybradycardia syndrome, status post pacer implantation and hysterectomy. Current Medications: As previously noted, Lopressor, Prozac, Eliquis, mometasone , levothyroxine, flecainide, rosuvastatin. Allergies to Medications: Patient denies. Social History: Patient is not currently employed; she feels safe in her home environment; she denies tobacco use. Physical Examination: Vital Signs: Date Time Temp Pulse Resp B/P (MAP) Pulse Ox O2 Delivery O2 Flow Rate FiO2 04/04/17 14:06 62 16 136/79 92 04/04/17 13:22 64 14 138/64 91 Room Air 04/04/17 11:58 60 16 137/69 92 Room Air 04/04/17 10:55 60 16 158/77 92 Room Air 04/04/17 09:34 58 16 184/83 93 Room Air 04/04/17 08:07 37.0 64 18 167/91 95 Room Air GENERAL: 66-year-old female in mild distress due to pain, nontoxic-appearing, afebrile and hemodynamically stable. NEUROLOGICAL: Awake, alert and oriented to person, place and time. Answering questions appropriately and following commands. Normal gait. Good hand eye coordination. SKIN: Warm, dry and pink. No soft tissue eruptions or trauma noted. HEENT: Atraumatic and normocephalic. PERRLA. Sclera white and conjunctiva pink. Oral cavity moist and pink. Pharynx is nonerythematous or edematous. Speech normal. No lymphadenopathy. Trachea midline. No jugular venous distention. BACK: No tenderness over the bony spine. No tenderness throughout the lumbar paraspinous musculature. No palpable muscle deficits or spasm. No CVA tenderness. THORAX: Lungs sounds are clear to auscultation and equal bilaterally with symmetrical chest wall. No wheezing, rales or rhonchi. No crepitus, tenderness , subcutaneous air or deformities noted. HEART: Regular rate and rhythm. No gallops, rubs or murmurs are appreciated. ABDOMEN: Flat and soft with mild tenderness in the right lower quadrant just superior to McBurney's point. Positive bowel sounds in all quadrants. No guarding, rigidity or organomegaly. EXTREMITIES: Moves all extremities well on command and with purpose. All distal neurovascular statuses are intact and equal bilaterally. ED Course: Patient is assessed as noted above. Laboratory Testing: Test 04/04/17 09:15 Range/Units White Blood Count 12.53 4.8-10.8 K/uL Red Blood Count 4.49 4.2-5.4 M/uL Hemoglobin 13.4 12.0-16.0 g/dL Hematocrit 39.5 37-47 % Mean Corpuscular Volume 88.0 80-100 fL Mean Corpuscular Hemoglobin 29.8 25-34 pg Mean Corpuscular Hemoglobin Concent 33.9 32-36 g/dl Platelet Count 229 130-400 K/uL Mean Platelet Volume 9.2 7.4-10.4 fL Neutrophils (%) (Auto) 73.8 % Lymphocytes (%) (Auto) 13.2 % Monocytes (%) (Auto) 7.7 % Eosinophils (%) (Auto) 4.9 % Basophils (%) (Auto) 0.2 % Neutrophils # (Auto) 9.27 1.4-6.5 K/uL Lymphocytes # (Auto) 1.65 1.2-3.4 K/uL Monocytes # (Auto) 0.96 0.11-0.59 K/uL Eosinophils # (Auto) 0.61 0-0.5 K/uL Basophils # (Auto) 0.02 0-0.2 K/uL RDW Standard Deviation 45.1 36.4-46.3 fL RDW Coefficient of Variation 13.9 11.5-14.5 % Immature Granulocyte % (Auto) 0.2 % Immature Granulocyte # (Auto) 0.02 0.00-0.02 K/uL Urine Color YELLOW Urine Appearance CLEAR CLEAR Urine pH 8.0 4.5-7.5 Urine Specific [place] 1.013 1.000-1.030 Urine Protein NEG NEG Urine Glucose (UA) NEG NEG Urine Ketones NEG NEG Urine Occult Blood 1+ NEG Urine Nitrite NEG NEG Urine Bilirubin NEG NEG Urine Urobilinogen NEG NEG Urine Leukocyte Esterase NEG NEG Urine WBC (Auto) 1-5 0-5 /hpf Urine RBC (Auto) >30 0-4 /hpf Urine Hyaline Casts (Auto) 0 0-5 /lpf Urine Epithelial Cells (Auto) >30 0-5 /lpf Urine Bacteria (Auto) NEG NEG Sodium Level 138 136-145 mmol/L Potassium Level 3.8 3.5-5.1 mmol/L Chloride Level 103 98-107 mmol/L Carbon Dioxide Level 27 21-32 mmol/L Anion Gap 8.0 3-11 mmol/L Blood Urea Nitrogen 13 7-18 mg/dl Creatinine 0.75 0.60-1.20 mg/dl Est Creatinine Clear Calc Drug Dose 87.6 ml/min Estimated GFR () 96.9 Estimated GFR (Non- 83.6 BUN/Creatinine Ratio 17.4 10-20 Random Glucose 104 70-99 mg/dl Calcium Level 8.8 8.5-10.1 mg/dl Total Bilirubin 0.3 0.2-1 mg/dl Direct Bilirubin < 0.1 0-0.2 mg/dl Aspartate Amino Transf (AST/SGOT) 25 15-37 U/L Alanine Aminotransferase (ALT/SGPT) 29 12-78 U/L Alkaline Phosphatase 114 45-117 U/L Total Protein 7.8 6.4-8.2 gm/dl Albumin 3.4 3.4-5.0 gm/dl Lipase 210 73-393 U/L Contrast Abdominal/Pelvic CT: Was reviewed by myself and read by the radiologist showing no acute intra-abdominal abnormalities, moderate stool Mcintosh in the right colon, pelvic floor laxity with evidence of inferior displacement of the bladder neck, incidental benign left renal angiomyolipoma and osteopenia. Patient was hydrated with normal saline and she received a total of 8 mg of morphine IV, 4 mg of Zofran IV. Patient was reassessed multiple times during her stay in the emergency department. Patient's case was reviewed with Dr. Marin; we agreed on diagnostic approach, treatment, disposition and plan. Patient was given a bottle of magnesium citrate for her constipation and instructed for home use. Patient was educated about today's findings and instructed on her treatment plan ; she verbalized understanding and agreement with this plan. Clinical Impression: Right lower quadrant pain. Right lower lumbar back pain. Constipation. Decision-Making: Initially my differential diagnosis I considered appendicitis, constipation, kidney stone, urinary tract infection, perforated viscus and other causes. Disposition: Patient discharged home in stable condition accompanied by her ; prior to departure she was reassessed and subjectively reported she was feeling better and rated her discomfort 3/10. Plan: Patient was encouraged to alternate ibuprofen and acetaminophen as needed for persistent pain every 3 hours. Patient was instructed on magnesium citrate administration per Patient is encouraged to use [id number] stool softeners like Colace at least once a day. Patient was encouraged to eat increase dietary fruits and fibers. Patient was encouraged to follow-up with her PCP on Wednesday. Patient was encouraged return ED for worsening/uncontrolled pain, fevers, bloody stools or any new/concerning symptoms.
== END 2017-04-04 14:06 | disposition home or self-care (01) ==
LOC: C.EDB 08:02 → C.EDA 14:06
DX: R10.31 Right lower quadrant pain (principal); M54.5 Low back pain; K59.00 Constipation, unspecified; I48.0 Paroxysmal atrial fibrillation; I10 Essential (primary) hypertension; E78.5 Hyperlipidemia, unspecified; Z95.0 Presence of cardiac pacemaker; Z79.01 Long term (current) use of anticoagulants; Z86.73 Personal history of transient ischemic attack (TIA), and cerebral infarction without residual deficits

== ENCOUNTER 2024-05-01 22:51 | Inpatient (IN) ==
--- NOTE | 2024-05-01 23:14 | Emergency Department Note ---
Impression & Plan Acute dyspnea, Hypoxia, Acute exacerbation of CHF (congestive heart failure), Elevated brain natriuretic peptide (BNP) level, Elevated troponin, Transaminitis, Coronavirus infection ED Provider Note HISTORY OF PRESENT ILLNESS: Patient is a 73-year-old female presenting with shortness of breath. Patient reports that she has been feeling generally unwell for the last few days. Her has been coughing and she developed a cough productive of white sputum a few days ago. Reports that today she feels like she cannot catch her breath. She does not wear any supplemental oxygen at baseline. Denies any DVT or PE history. She is on Eliquis for history of paroxysmal A-fib and with a pacemaker in place. She reports some substernal chest pain that has been present since this evening. Currently states that the pain is present when she takes a deep breath. Denies any fevers. Denies any history of cardiac stents. She denies any abdominal pain, nausea or vomiting. She reports that this evening she felt like she could not catch her breath. She was found to have saturations in the low 90s with EMS and was started on 15 L nonrebreather. Patient denies any recent antibiotic or steroid use. ROS: as above PHYSICAL EXAM: Constitutional: Patient appears in no acute distress. HENT: Head: Normocephalic and atraumatic. Eyes: EOMI, PERRL Mouth/Throat: Mucous membranes moist. Neck: Trachea midline. Neck supple. Cardiovascular: Paced rhythm. No murmurs, rubs or gallops. Intact distal pulses. Pulmonary/Chest: No respiratory distress. Breath sounds clear and equal bilaterally. No wheezes or rales. Abdominal: Abdomen soft, no tenderness, rebound or guarding. Musculoskeletal: No edema, tenderness or deformity noted. Skin: Warm and dry. No rash, erythema, pallor or cyanosis Psychiatric: Appropriate mood and affect for situation. Neurological: Alert and keenly responsive. CN II-XII grossly intact, moving all extremities equally and fully. MDM: - Vitals signs showed tachypnea. - History obtained via patient. History as above. - Chronic conditions affecting care: paroxysmal Afib - Differential diagnoses include, but are not limited to: Congestive heart failure; acute coronary syndrome; COPD/asthma exacerbation; pulmonary edema; pulmonary embolism; pneumonia; pneumothorax; viral syndrome - Order placed for continuous cardiac monitoring. At this time, monitor showed rate of 75 bpm with paced rhythm, per my interpretation. - External medical records reviewed. Echocardiogram dated 11/29/2016 was reviewed. She is noted to have a small to moderate-sized circumferential pericardial effusion at that time. No indications for cardiac tamponade. - EKG image interpreted by myself showed atrial flutter. Rate 84 bpm. QT 418. No acute ischemic changes. - Laboratory workup interpreted by myself showed slight leukocytosis (WBC 11.17); normal PT/INR; normal procalcitonin; elevated BNP (408); hyperglycemia (glucose 231); hypermagnesemia (Mg 2.6); elevated troponin (20.5); slight transaminitis (AST 59; ALT 60); normal creatinine - Viral respiratory panel positive for coronavirus type NL63 - VBG normal - CXR image reviewed by myself showed pulmonary vascular congestion what appears to be left-sided pleural effusion, per my interpretation. - Patient given 20 mg IV lasix - Given patient's new oxygen requirement, will admit to hospitalist service for further evaluation for potential CHF exacerbation. On review of patient's chart, her last echocardiogram was in 2016. - Discussion was had with shelter case manager about patient's case and need for admission - Hospitalist, Dr. Lopez, consulted for admission - Patient admitted to [facility] hospitalist service for further evaluation and management. ASSESSMENT AND PLAN: Diagnosis: Acute dyspnea; hypoxia; CHF exacerbation; elevated BNP; elevated troponin; transaminitis; coronavirus infection Plan: Admit Past Med/Surg History Problem List (Updated 05/02/24 @ 01:57 by Tayler Lerma MD) Coronavirus infection (Acute) Transaminitis (Acute) Elevated troponin (Acute) Elevated brain natriuretic peptide (BNP) level (Acute) Acute exacerbation of CHF (congestive heart failure) (Acute) Hypoxia (Acute) Acute dyspnea (Acute) Acquired deviated nasal septum Chronic rhinitis Left ankle sprain (Acute) PAF (paroxysmal atrial fibrillation) Surgical History (Updated 01/07/21 @ 14:58 by Aracely Elmore) History of pacemaker History of breast surgery History of hysterectomy Family History (Updated 01/07/21 @ 14:59 by Aracely Elmore) Father Hypertension Heart disease Mother Esophageal cancer Brother Allergies Other No family history of adverse response to anesthesia No family history of bleeding disorder Social History (Updated 11/09/21 @ 15:00 by Aracely Paul Smoking Status: Never smoker Do You Dip or Chew Tobacco: No; Hx Alcohol Use: No Hx Substance Use: No Preferred Language: Marshallese marital status: current occupational status: retired Feels Safe at Home: Yes Allergies Allergies Allergy/AdvReac Type Severity Reaction Status Date / Time No Known Allergies Allergy Verified 04/04/23 19:11 Home Meds Home Medications Medication Instructions Recorded Confirmed acetaminophen 500 mg tablet 500 mg PO Q6H PRN Pain 01/07/21 04/04/23 (Tylenol Extra Strength) apixaban 5 mg tablet 5 mg PO BID 01/07/21 05/02/24 flecainide 100 mg tablet 100 mg PO Q12H 01/07/21 04/04/23 fluoxetine 20 mg capsule 20 mg PO DAILY 01/07/21 05/02/24 levothyroxine 125 mcg capsule 125 mcg PO DAILYBB 01/07/21 05/02/24 metoprolol tartrate 25 mg tablet 25 mg PO BID 01/07/21 04/04/23 metronidazole 0.75 % topical cream 1 applic topical BID 01/07/21 04/04/23 pitavastatin calcium 2 mg tablet 2 mg PO DAILY 01/07/21 04/04/23 (Livalo) calcium carbonate 1,000 mg PO DAILY 04/04/23 04/04/23 cholecalciferol (vitamin D3) 50 50 mcg PO DAILY 04/04/23 04/04/23 mcg (2,000 unit) capsule (Vitamin D3) ezetimibe 10 mg tablet 10 mg PO QAM 04/04/23 05/02/24 losartan 50 mg-hydrochlorothiazide 1 tab PO QAM 04/04/23 05/02/24 12.5 mg tablet mometasone 50 mcg/actuation nasal 2 spray intranasal HS 04/04/23 04/04/23 spray nystatin 100,000 unit/gram topical 1 applic topical TID PRN GROIN AND 04/04/23 04/04/23 powder UNDER BREASTS NEEDED. nystatin-triamcinolone 100,000 1 applic topical BID PRN NEEDED 04/04/23 04/04/23 unit/g-0.1 % topical cream vitamins A,C,R-octc-nahgvp 2,148 1 tab PO BID 04/04/23 04/04/23 mcg-113 mg-45 mg-17.4 mg tablet (PreserVision AREDS) aspirin 81 mg tablet,delayed 81 mg PO QAM 05/02/24 05/02/24 release gabapentin 300 mg capsule 300 mg PO HS 05/02/24 05/02/24 metoprolol succinate 100 mg 100 mg PO QAM 05/02/24 05/02/24 tablet,extended release 24 hr Previous Rx's Medication Instructions Recorded tramadol 50 mg tablet 50 mg PO Q6H PRN pain #20 tabs 07/07/21 Results & Data (ED) Vital Signs Vital Signs - 24 hr 05/01/24 22:43 05/01/24 22:43 05/01/24 22:43 Temperature 36.6 C Temperature Source Oral Pulse Rate 75 Pulse Rate [Right Finger] Pulse Rhythm Irregular Pulse Rhythm [Right Finger] Pulse Strength Normal Pulse Strength [Right Finger] Respiratory Rate 23 Respiratory Effort / Characteristics Non-Labored Spontaneous Non-Labored Spontaneous Respiratory Depth Normal Normal Respiratory Pattern Regular Regular Blood Pressure 162/115 H Blood Pressure [Right Arm] Blood Pressure Mean 130 Blood Pressure Mean [Right Arm] Blood Pressure Position Lying Blood Pressure Position [Right Arm] Pulse Oximetry 96 Oxygen Delivery Method Nasal Cannula Nasal Cannula Oxygen Flow Rate 4 4 Sepsis Recent Fever Within 48 Hours No Sepsis New/Unexplained Change in Mental Status No Sepsis Action Taken by Nursing No Action Required 05/01/24 22:43 05/01/24 22:59 05/01/24 22:59 Temperature 36.6 C Temperature Source Oral Pulse Rate 75 Pulse Rate [Right Finger] 67 63 Pulse Rhythm Pulse Rhythm [Right Finger] Irregular Pulse Strength Pulse Strength [Right Finger] Normal Respiratory Rate 20 25 H 23 Respiratory Effort / Characteristics Non-Labored Spontaneous Non-Labored Spontaneous Respiratory Depth Normal Normal Respiratory Pattern Regular Regular Blood Pressure Blood Pressure [Right Arm] 162/115 H 170/97 H Blood Pressure Mean Blood Pressure Mean [Right Arm] 130 121 Blood Pressure Position Blood Pressure Position [Right Arm] Lying Lying Pulse Oximetry 96 96 92 Oxygen Delivery Method Nasal Cannula Nasal Cannula Nasal Cannula Oxygen Flow Rate 4 4 2 Sepsis Recent Fever Within 48 Hours Sepsis New/Unexplained Change in Mental Status Sepsis Action Taken by Nursing 05/01/24 23:00 Temperature Temperature Source Pulse Rate 77 Pulse Rate [Right Finger] Pulse Rhythm Pulse Rhythm [Right Finger] Pulse Strength Pulse Strength [Right Finger] Respiratory Rate Respiratory Effort / Characteristics Respiratory Depth Respiratory Pattern Blood Pressure Blood Pressure [Right Arm] Blood Pressure Mean Blood Pressure Mean [Right Arm] Blood Pressure Position Blood Pressure Position [Right Arm] Pulse Oximetry Oxygen Delivery Method Oxygen Flow Rate Sepsis Recent Fever Within 48 Hours Sepsis New/Unexplained Change in Mental Status Sepsis Action Taken by Nursing Laboratory Data 05/01/24 22:59 05/02/24 00:20 Lab Results 05/01/24 05/01/24 05/01/24 Range/Units 22:59 23:00 23:45 WBC 11.17 H (4.8-10.8) K/ul RBC 4.95 (4.20-5.40) M/uL Hgb 14.3 (12.0-16.0) g/dl Hct 43.4 (37.0-47.0) % MCV 87.7 (80.0-100.0) fL MCH 28.9 (25.0-34.0) pg MCHC 32.9 (32.0-36.0) g/dL RDW Std Deviation 46.5 H (36.4-46.3) fL RDW Coeff of Rahel 14.5 (11.5-14.5) % Plt Count 272 (130-400) K/uL MPV 10.1 (9.4-12.4) fL Immature Gran % (Auto) 0.4 % Neut % (Auto) 70.4 % Lymph % (Auto) 21.9 % [place] % (Auto) 4.3 % Eos % (Auto) 2.4 % Baso % (Auto) 0.6 % Neut # (Auto) 7.85 H (1.40-6.50) K/uL Lymph # (Auto) 2.45 (1.20-3.40) K/uL [place] # (Auto) 0.48 (0.11-0.59) K/uL Eos # (Auto) 0.27 (0.00-0.50) K/uL Baso # (Auto) 0.07 (0.00-0.20) K/uL Immature Gran # (Auto) 0.05 (0.01-0.20) K/uL PT Cancelled 10.9 INR Cancelled 1.0 VBG pH 7.38 (7.36-7.41) VBG pCO2 42 (38-50) mmHg VBG pO2 54 mmHg VBG HCO3 25 mmol/L VBG O2 Saturation 87.8 % VBG Base Excess -0.4 mEq/L Sodium 139 (136-145) mmol/L Potassium TNP Chloride 104 (98-107) mmol/L Carbon Dioxide 26 (21-32) mmol/L Anion Gap 9 (3-11) BUN 30 H (6-23) mg/dl Creatinine 1.04 (0.6-1.2) mg/dl Est Cr Clr Drug Dosing 58.1 ml/min eGFR 57.11 BUN/Creatinine Ratio 28.8 H (10-20) Glucose 231 H (70-99(Fasting)) mg/dl Calcium 9.1 (8.6-10.3) mg/dl Magnesium 2.6 H (1.7-2.4) mg/dl Total Bilirubin 0.4 (0.2-1.0) mg/dl AST TNP ALT 60 H (7-52) U/L Alkaline Phosphatase 122 H (34-104) U/L Troponin I High Sens 20.5 H (0-14) pg/ml B-Natriuretic Peptide 408 H (0-100) pg/ml Total Protein 7.6 (6.0-8.3) gm/dl Albumin 3.9 (3.4-5.0) gm/dl Globulin 3.7 (2.5-4.0) gm/dl Albumin/Globulin Ratio 1.1 (0.9-2) Procalcitonin (0-0.5) ng/ml Adenovirus (PCR) Not Detected (NotDetected) B. pertussis DNA (PCR) Not Detected (NotDetected) B.parapertussis DNA PCR Not Detected (NotDetected) C. pneumoniae DNA (PCR) Not Detected (NotDetected) Coronavirus OC43 (PCR) Not Detected (NotDetected) Coronavirus HKU1 (PCR) Not Detected (NotDetected) Coronavirus 229E (PCR) Not Detected (NotDetected) SARS-CoV-2 (PCR) Not Detected (NotDetected) Coronavirus NL63 (PCR) DETECTED A (NotDetected) Human Metapneumovir PCR Not Detected (NotDetected) Influenza Type A (PCR) Not Detected (NotDetected) Influenza Type B (PCR) Not Detected (NotDetected) M. pneumoniae (PCR) Not Detected (NotDetected) Parainfluenza 1 (PCR) Not Detected (NotDetected) Parainfluenza 2 (PCR) Not Detected (NotDetected) Parainfluenza 3 (PCR) Not Detected (NotDetected) Parainfluenza 4 (PCR) Not Detected (NotDetected) RSV (PCR) Not Detected (NotDetected) Entero/Rhino (PCR) Not Detected (NotDetected) 05/02/24 05/02/24 Range/Units 00:20 00:39 WBC (4.8-10.8) K/ul RBC (4.20-5.40) M/uL Hgb (12.0-16.0) g/dl Hct (37.0-47.0) % MCV (80.0-100.0) fL MCH (25.0-34.0) pg MCHC (32.0-36.0) g/dL RDW Std Deviation (36.4-46.3) fL RDW Coeff of Rahel (11.5-14.5) % Plt Count (130-400) K/uL MPV (9.4-12.4) fL Immature Gran % (Auto) % Neut % (Auto) % Lymph % (Auto) % [place] % (Auto) % Eos % (Auto) % Baso % (Auto) % Neut # (Auto) (1.40-6.50) K/uL Lymph # (Auto) (1.20-3.40) K/uL [place] # (Auto) (0.11-0.59) K/uL Eos # (Auto) (0.00-0.50) K/uL Baso # (Auto) (0.00-0.20) K/uL Immature Gran # (Auto) (0.01-0.20) K/uL PT INR VBG pH (7.36-7.41) VBG pCO2 (38-50) mmHg VBG pO2 mmHg VBG HCO3 mmol/L VBG O2 Saturation % VBG Base Excess mEq/L Sodium (136-145) mmol/L Potassium 4.0 Chloride (98-107) mmol/L Carbon Dioxide (21-32) mmol/L Anion Gap (3-11) BUN (6-23) mg/dl Creatinine (0.6-1.2) mg/dl Est Cr Clr Drug Dosing ml/min eGFR BUN/Creatinine Ratio (10-20) Glucose (70-99(Fasting)) mg/dl Calcium (8.6-10.3) mg/dl Magnesium (1.7-2.4) mg/dl Total Bilirubin (0.2-1.0) mg/dl AST 59 H ALT (7-52) U/L Alkaline Phosphatase (34-104) U/L Troponin I High Sens (0-14) pg/ml B-Natriuretic Peptide (0-100) pg/ml Total Protein (6.0-8.3) gm/dl Albumin (3.4-5.0) gm/dl Globulin (2.5-4.0) gm/dl Albumin/Globulin Ratio (0.9-2) Procalcitonin < 0.02 (0-0.5) ng/ml Adenovirus (PCR) (NotDetected) B. pertussis DNA (PCR) (NotDetected) B.parapertussis DNA PCR (NotDetected) C. pneumoniae DNA (PCR) (NotDetected) Coronavirus OC43 (PCR) (NotDetected) Coronavirus HKU1 (PCR) (NotDetected) Coronavirus 229E (PCR) (NotDetected) SARS-CoV-2 (PCR) (NotDetected) Coronavirus NL63 (PCR) (NotDetected) Human Metapneumovir PCR (NotDetected) Influenza Type A (PCR) (NotDetected) Influenza Type B (PCR) (NotDetected) M. pneumoniae (PCR) (NotDetected) Parainfluenza 1 (PCR) (NotDetected) Parainfluenza 2 (PCR) (NotDetected) Parainfluenza 3 (PCR) (NotDetected) Parainfluenza 4 (PCR) (NotDetected) RSV (PCR) (NotDetected) Entero/Rhino (PCR) (NotDetected) Administered Medications Discontinued Medications Furosemide (Furosemide Inj 20 Mg/2 Ml Vial) 20 mg IV ONE ONE Stop: 05/02/24 00:37 Last Admin: 05/02/24 01:07 Dose: 20 mg Documented By: PAG Discharge Plan Visit Data Chief Complaint: Shortness of Breath/Dyspnea Stated Complaint: SHORTNESS OF BREATH X FEW DAYS ED Provider: Tayler Lerma Discharge Problem: Acute dyspnea, Hypoxia, Acute exacerbation of CHF (congestive heart failure), Elevated brain natriuretic peptide (BNP) level, Elevated troponin, Transaminitis, Coronavirus infection Forms Stand Alone Forms: [facility] Prescriptions Prescriptions: No Action apixaban 5 mg tablet 5 mg PO BID flecainide 100 mg tablet 100 mg PO Q12H fluoxetine 20 mg capsule 20 mg PO DAILY levothyroxine 125 mcg capsule 125 mcg PO DAILYBB Livalo 2 mg tablet 2 mg PO DAILY metoprolol tartrate 25 mg tablet 25 mg PO BID metronidazole 0.75 % cream 1 applic topical BID acetaminophen [Tylenol Extra Strength] 500 mg tablet 500 mg PO Q6H PRN (Reason: Pain) tramadol 50 mg tablet 50 mg PO Q6H PRN (Reason: pain) Qty: 20 0RF nystatin-triamcinolone [Mycolog II] 100,000-0.1 unit/g-% Cream 1 applic TOPICAL BID PRN (Reason: NEEDED) Rx Instructions: APPLY FOR 2 WEEKS, THEN NEEDED calcium carbonate [Tums 500] 500 mg calcium (1,250 mg) Tablet,Chewable 1,000 mg PO DAILY nystatin 100,000 unit/gram Powder 1 applic TOPICAL TID PRN (Reason: GROIN AND UNDER BREASTS NEEDED.) losartan-hydrochlorothiazide 50-12.5 mg tablet 1 tab PO QAM ezetimibe 10 mg tablet 10 mg PO QAM cholecalciferol (vitamin D3) [Vitamin D3] 50 mcg (2,000 unit) Capsule 50 mcg PO DAILY PreserVision AREDS 2,148 mcg-113 mg-45 mg-17.4mg Tablet 1 tab PO BID Rx Instructions: administer with AM and PM meals mometasone 50 mcg/actuation spray,non-aerosol 2 spray intranasal HS Rx Instructions: administer into each nostril metoprolol succinate 100 mg tablet extended release 24 hr 100 mg PO QAM aspirin [Aspirin Low-Strength] 81 mg Tablet,Delayed Release (Dr/Ec) 81 mg PO QAM gabapentin 300 mg capsule 300 mg PO HS Referrals Referrals: Jose Angel Elizabeth MD [Primary Care Provider] -
[2024-05-01 23:53] LABS: Base Excess VBG -0.4 mEq/L; HCO3 VBG 25 mmol/L; Oxygen Saturation VBG 87.8 %; PCO2 VBG 42 mmHg (38-50); PO2 VBG 54 mmHg; pH VBG 7.38 (7.36-7.41)
[2024-05-02 00:19] LABS: Alanine Aminotransferase 60 U/L (7-52); Albumin Globulin Ratio 1.1 (0.9-2); Albumin Level 3.9 gm/dl (3.4-5.0); Alkaline Phosphatase 122 U/L (34-104); Anion Gap 9 (3-11); BUN Creatinine Ratio 28.8 (10-20); Bilirubin,Total 0.4 mg/dl (0.2-1.0); Blood Urea Nitrogen 30 mg/dl (6-23); Calcium 9.1 mg/dl (8.6-10.3); Carbon Dioxide 26 mmol/L (21-32); Chloride 104 mmol/L (98-107); Creatinine Clr Calc Pharmacy 58.1 ml/min; Globulin 3.7 gm/dl (2.5-4.0); Glucose 231 mg/dl (70-99(Fasting)); Magnesium 2.6 mg/dl (1.7-2.4); Sodium 139 mmol/L (136-145); Total Protein 7.6 gm/dl (6.0-8.3); Troponin I High Sensitivity 20.5 pg/ml (0-14)
[2024-05-02 00:37] LABS: Basophils # (auto) 0.07 K/uL (0.00-0.20); Basophils % (auto) 0.6 %; Eosinophils # (auto) 0.27 K/uL (0.00-0.50); Eosinophils % (auto) 2.4 %; Hematocrit (blood only) 43.4 % (37.0-47.0); Hemoglobin 14.3 g/dl (12.0-16.0); Immature Granulocytes # (auto) 0.05 K/uL (0.01-0.20); Immature Granulocytes % (auto) 0.4 %; Lymphocytes # (auto) 2.45 K/uL (1.20-3.40); Lymphocytes % (auto) 21.9 %; Mean Corpuscular Hemoglobin 28.9 pg (25.0-34.0); Mean Corpuscular Hgb Conc 32.9 g/dL (32.0-36.0); Mean Corpuscular Volume 87.7 fL (80.0-100.0); Mean Platelet Volume 10.1 fL (9.4-12.4); Monocytes # (auto) 0.48 K/uL (0.11-0.59); Monocytes % (auto) 4.3 %; Neutrophils # (auto) 7.85 K/uL (1.40-6.50); Neutrophils % (auto) 70.4 %; Platelet Count 272 K/uL (130-400); RDW Coefficient of Variation 14.5 % (11.5-14.5); RDW Standard Deviation 46.5 fL (36.4-46.3); Red Blood Count 4.95 M/uL (4.20-5.40); White Blood Count 11.17 K/ul (4.8-10.8)
[2024-05-02 00:42] LABS: Adenovirus PCR Not Detected (NotDetected); Bordetella parapertussis PCR Not Detected (NotDetected); Bordetella pertussis PCR Not Detected (NotDetected); Chlamydia pneumoniae PCR Not Detected (NotDetected); Coronavirus 229E PCR Not Detected (NotDetected); Coronavirus CoV-2 (COVID19)PCR Not Detected (NotDetected); Coronavirus HKU1 PCR Not Detected (NotDetected); Coronavirus NL63 PCR DETECTED (NotDetected); Coronavirus OC43PCR Not Detected (NotDetected); Human Metapneumovirus PCR Not Detected (NotDetected); Influenza A PCR Not Detected (NotDetected); Influenza B PCR Not Detected (NotDetected); Mycoplasma pneumoniae PCR Not Detected (NotDetected); Parainfluenza Virus 1 PCR Not Detected (NotDetected); Parainfluenza Virus 2 PCR Not Detected (NotDetected); Parainfluenza Virus 3 PCR Not Detected (NotDetected); Parainfluenza Virus 4 PCR Not Detected (NotDetected); Respiratory Syncytial VirusPCR Not Detected (NotDetected); Rhinovirus/Enterovirus PCR Not Detected (NotDetected)
[2024-05-02] MEDS: FUROSEMIDE INJ 20 MG/2 ML VIAL IV ONE (01:07)
[2024-05-02 01:12] LABS: Prothrombin Time 10.9 Seconds (9.0-12.0)
--- NOTE | 2024-05-02 02:44 | XRay Report ---
Exam(s): XR CXR 1 VIEW EXAM: XR Chest, 1 View CLINICAL HISTORY: Reason for exam: Dyspnea. TECHNIQUE: Frontal view of the chest. COMPARISON: Chest radiograph on 02/18/2024 FINDINGS: Hardware: None. Lungs/pleura: Opacities bilaterally. Heart/mediastinum: Stable enlargement of the cardiac silhouette. Left- sided pacemaker. Atherosclerotic changes of the aorta. Soft tissues: Unremarkable. Bones: No acute fracture. Upper abdomen: Normal. IMPRESSION: Opacities bilaterally may represent pulmonary edema versus infectious/inflammatory process. Electronically signed by: Susan Keane M.D. 05/02/24 02:43 AM
[2024-05-02 03:08] LABS: Appearance Urine Clear (Clear); Bacteria Urine Automated 4+ (None Seen); Bilirubin Urine Negative (Negative); Blood Urine Negative (Negative); Cast Urine Automated 0-2 /lpf (0-2); Color Urine Yellow; Epithelial Cell Urine Auto 0-2 /hpf (0-2); Glucose Urine UA Negative (Negative); Ketones Urine Negative (Negative); Leukocyte Esterase Urine 2+ (Negative); Nitrite Urine Positive (Negative); Protein Urine Negative (Negative); RBC Urine Automated 0-2 /hpf (0-2); Specific Gravity Urine 1.011 (1.000-1.030); Urobilinogen Urine Negative (Negative); WBC Urine Automated 0-5 /hpf (0-5)
--- NOTE | 2024-05-02 05:27 | History & Physical Report ---
Date of Service May 02, 2024 Assessment & Plan (1) SOB (shortness of breath): Plan: 71-year-old female with past med history significant for postsurgical hypothyroidism, hyperlipidemia, paroxysmal atrial fibrillation, tachybradycardia syndrome, status post pacemaker, history of CAD, hypertension, urge incontinence, anxiety state, presents with shortness of breath. Shortness of breath going for last 2 -3 days. Getting progressively worse. Walking few step s making her short of breath. Has cough. Bringing some phlegm. Denies any fevers. No headache. No dizziness. No runny nose or sore throat. No chest pain. No nausea. No abdominal pain. Normal bowel and bladder movements. Appetite is okay. Her oxygen saturations were in low 90s and was placed on 2 L oxygen. Shortness of breath Chest x-ray shows congestion No edema in lower legs BNP 408 Procalcitonin less than 0.02 Received dose of IV Lasix 20 mg in ER Will place on IV Lasix 20 mg twice daily Will follow CT chest Will follow echo Daily weights and I's and O's Telemetry Consult cardio for further recommendation Elevated troponin Initial troponin 20 repeat is 72 Mostly demand ischemia Will follow serial enzymes and echo Acute UTI Placed on Rocephin Will follow cultures Coronavirus NL 63 positive Droplet precautions Postsurgical hypothyroidism On Synthyroid Follow TSH Paroxysmal atrial fibrillation Tachybradycardia syndrome status post pacemaker On dronedarone, metoprolol succinate and Eliquis History of CVA On aspirin, Eliquis and statin Hyperlipidemia On Zetia and statin Hypertension On metoprolol succinate, losartan/hydrochlorothiazide Will monitor Anxiety On fluoxetine DVT prophylaxis On Eliquis Disposition Telemetry Full code History of Present Illness Chief Complaint: Shortness of breath Primary Care Provider: Jose Angel Elizabeth MD 71-year-old female with past med history significant for postsurgical hypothyroidism, hyperlipidemia, paroxysmal atrial fibrillation, tachybradycardia syndrome, status post pacemaker, history of CAD, hypertension, urge incontinence, anxiety state, presents with shortness of breath. Shortness of breath going for last 2 -3 days. Getting progressively worse. Walking few steps making her short of breath. Has cough. Bringing some phlegm. Denies any fevers. No headache. No dizziness. No runny nose or sore throat. No chest pain. No nausea. No abdominal pain. Normal bowel and bladder movements. Appetite is okay. Her oxygen saturations were in low 90s and was placed on 2 L oxygen. Past medical history. As mentioned above. Past surgical history. Breast biopsy. Colonoscopy. Left heart catheterization. Thyroidectomy. Laminectomy. Vaginal hysterectomy. Social history. . No smoking. No alcohol use. No drug use. Family history. Mother had esophageal cancer. Father had diabetes. Heart disorder. Hypertension. Brother has hypertension. Allergies Allergy/AdvReac Type Severity Reaction Status Date / Time No Known Allergies Allergy Verified 05/02/24 02:01 Home Medications Medication Instructions Recorded Confirmed Type apixaban 5 mg tablet 5 mg PO BID 01/07/21 05/02/24 History fluoxetine 20 mg capsule 20 mg PO DAILY 01/07/21 05/02/24 History levothyroxine 125 mcg capsule 125 mcg PO DAILYBB 01/07/21 05/02/24 History metronidazole 0.75 % topical cream 1 applic topical BID 01/07/21 05/02/24 History pitavastatin calcium 2 mg tablet 2 mg PO DAILY 01/07/21 05/02/24 History (Livalo) calcium carbonate 1,000 mg PO DAILY 04/04/23 05/02/24 History cholecalciferol (vitamin D3) 50 50 mcg PO DAILY 04/04/23 05/02/24 History mcg (2,000 unit) capsule (Vitamin D3) ezetimibe 10 mg tablet 10 mg PO QAM 04/04/23 05/02/24 History losartan 50 mg-hydrochlorothiazide 1 tab PO QAM 04/04/23 05/02/24 History 12.5 mg tablet mometasone 50 mcg/actuation nasal 2 spray intranasal HS 04/04/23 05/02/24 History spray nystatin 100,000 unit/gram topical 1 applic topical TID PRN GROIN AND 04/04/23 05/02/24 History powder UNDER BREASTS NEEDED. nystatin-triamcinolone 100,000 1 applic topical BID PRN NEEDED 04/04/23 05/02/24 History unit/g-0.1 % topical cream vitamins A,C,S-qoao-kesyyg 2,148 1 tab PO BID 04/04/23 05/02/24 History mcg-113 mg-45 mg-17.4 mg tablet (PreserVision AREDS) aspirin 81 mg tablet,delayed 81 mg PO QAM 05/02/24 05/02/24 History release dronedarone 400 mg tablet 400 mg PO DAILY 05/02/24 05/02/24 History gabapentin 300 mg capsule 300 mg PO HS 05/02/24 05/02/24 History metoprolol succinate 100 mg 100 mg PO QAM 05/02/24 05/02/24 History tablet,extended release 24 hr Past Med/Surg History Problem List (Updated 05/02/24 @ 12:06 by Lula Liu PA-C) Prolonged QT interval SOB (shortness of breath) Coronavirus infection (Acute) Transaminitis (Acute) Elevated troponin (Acute) Elevated brain natriuretic peptide (BNP) level (Acute) Acute exacerbation of CHF (congestive heart failure) (Acute) Hypoxia (Acute) Acute dyspnea (Acute) Acquired deviated nasal septum Chronic rhinitis Left ankle sprain (Acute) PAF (paroxysmal atrial fibrillation) Surgical History (Updated 01/07/21 @ 14:58 by [place]) History of pacemaker History of breast surgery History of hysterectomy Family History (Updated 01/07/21 @ 14:59 by [place]) Father Hypertension Heart disease Mother Esophageal cancer Brother Allergies Other No family history of adverse response to anesthesia No family history of bleeding disorder Social History (Updated 01/07/21 @ 15:00 by [place]) Smoking Status: Never smoker Do You Dip or Chew Tobacco: No; Hx Alcohol Use: No Hx Substance Use: No Preferred Language: [place] [employer] Specialist Required: No Beliefs That Will Affect Care: None marital status: Current Living Situation: Spouse current occupational status: retired Feels Safe at Home: Yes Assistive Devices: None Review of Systems Review of Systems: All systems reviewed & are unremarkable except as noted in HPI & below Physical Exam Physical Exam: General- Not in distress Head- atraumatic Eyes- PERRL. ENT- oropharynx clear Neck- supple, no JVD. Lungs- clear to auscultation no wheezing or crackles Heart- regular rhythm; no murmur, no gallop. Abdomen- normal bowel sounds, soft, nontender, no distension Extremities- no pretibial edema, no erythema seen Neuro- alert, oriented PERRL, no facial palsy; no dysarthria; moves extremities Results & Data Results & Data Vital Signs (Past 12 Hours) Vital Signs Temp Pulse Pulse Resp BP BP Pulse Ox 05/02/24 04:08 69 19 152/97 H 99 05/02/24 02:51 69 05/02/24 02:43 69 20 152/99 H 97 05/02/24 00:43 80 18 140/101 H 98 05/01/24 23:00 77 05/01/24 22:59 63 23 170/97 H 92 05/01/24 22:59 75 25 H 96 05/01/24 22:43 36.6 C 67 20 162/115 H 96 05/01/24 22:43 05/01/24 22:43 36.6 C 75 23 162/115 H 96 O2 Del Method O2 Flow Rate 05/02/24 04:08 05/02/24 02:51 05/02/24 02:43 Nasal Cannula 2 05/02/24 00:43 Room Air 05/01/24 23:00 05/01/24 22:59 Nasal Cannula 2 05/01/24 22:59 Nasal Cannula 4 05/01/24 22:43 Nasal Cannula 4 05/01/24 22:43 Nasal Cannula 4 05/01/24 22:43 Nasal Cannula 4 Diagnostic Findings Laboratory Results WBC 11.17 K/ul (4.8-10.8) H 05/01/24 22:59 RBC 4.95 M/uL (4.20-5.40) 05/01/24 22:59 Hgb 14.3 g/dl (12.0-16.0) 05/01/24 22:59 Hct 43.4 % (37.0-47.0) 05/01/24 22:59 MCV 87.7 fL (80.0-100.0) 05/01/24 22:59 MCH 28.9 pg (25.0-34.0) 05/01/24 22:59 MCHC 32.9 g/dL (32.0-36.0) 05/01/24 22:59 RDW Std Deviation 46.5 fL (36.4-46.3) H 05/01/24 22:59 RDW Coeff of Rahel 14.5 % (11.5-14.5) 05/01/24 22:59 Plt Count 272 K/uL (130-400) 05/01/24 22:59 MPV 10.1 fL (9.4-12.4) 05/01/24 22:59 Immature Gran % (Auto) 0.4 % 05/01/24 22:59 Neut % (Auto) 70.4 % 05/01/24 22:59 Lymph % (Auto) 21.9 % 05/01/24 22:59 [place] % (Auto) 4.3 % 05/01/24 22:59 Eos % (Auto) 2.4 % 05/01/24 22:59 Baso % (Auto) 0.6 % 05/01/24 22:59 Neut # (Auto) 7.85 K/uL (1.40-6.50) H 05/01/24 22:59 Lymph # (Auto) 2.45 K/uL (1.20-3.40) 05/01/24 22:59 [place] # (Auto) 0.48 K/uL (0.11-0.59) 05/01/24 22:59 Eos # (Auto) 0.27 K/uL (0.00-0.50) 05/01/24 22:59 Baso # (Auto) 0.07 K/uL (0.00-0.20) 05/01/24 22:59 Immature Gran # (Auto) 0.05 K/uL (0.01-0.20) 05/01/24 22:59 PT 10.9 Seconds (9.0-12.0) 05/01/24 23:45 INR 1.0 (0.9-1.1) 05/01/24 23:45 VBG pH 7.38 (7.36-7.41) 05/01/24 23:45 VBG pCO2 42 mmHg (38-50) 05/01/24 23:45 VBG pO2 54 mmHg 05/01/24 23:45 VBG HCO3 25 mmol/L 05/01/24 23:45 VBG O2 Saturation 87.8 % 05/01/24 23:45 VBG Base Excess -0.4 mEq/L 05/01/24 23:45 Sodium 139 mmol/L (136-145) 05/01/24 22:59 Potassium 4.0 mmol/L (3.5-5.1) 05/02/24 00:20 Chloride 104 mmol/L (98-107) 05/01/24 22:59 Carbon Dioxide 26 mmol/L (21-32) 05/01/24 22:59 Anion Gap 9 (3-11) 05/01/24 22:59 BUN 30 mg/dl (6-23) H 05/01/24 22:59 Creatinine 1.04 mg/dl (0.6-1.2) 05/01/24 22:59 Est Cr Clr Drug Dosing 58.1 ml/min 05/01/24 22:59 eGFR 57.11 05/01/24 22:59 BUN/Creatinine Ratio 28.8 (10-20) H 05/01/24 22:59 Glucose 231 mg/dl (70-99(Fasting)) H 05/01/24 22:59 Calcium 9.1 mg/dl (8.6-10.3) 05/01/24 22:59 Magnesium 2.6 mg/dl (1.7-2.4) H 05/01/24 22:59 Total Bilirubin 0.4 mg/dl (0.2-1.0) 05/01/24 22:59 AST 59 U/L (13-39) H 05/02/24 00:20 ALT 60 U/L (7-52) H 05/01/24 22:59 Alkaline Phosphatase 122 U/L (34-104) H 05/01/24 22:59 Troponin I High Sens 72.6 pg/ml (0-14) H* D 05/02/24 01:35 B-Natriuretic Peptide 408 pg/ml (0-100) H 05/01/24 23:00 Total Protein 7.6 gm/dl (6.0-8.3) 05/01/24 22:59 Albumin 3.9 gm/dl (3.4-5.0) 05/01/24 22:59 Globulin 3.7 gm/dl (2.5-4.0) 05/01/24 22:59 Albumin/Globulin Ratio 1.1 (0.9-2) 05/01/24 22:59 Procalcitonin < 0.02 ng/ml (0-0.5) 05/02/24 00:39 Urine Color Yellow 05/02/24 02:55 Urine Appearance Clear (Clear) 05/02/24 02:55 Urine pH 6.0 (4.5-7.5) 05/02/24 02:55 Ur Specific [place] 1.011 (1.000-1.030) 05/02/24 02:55 Urine Protein Negative (Negative) 05/02/24 02:55 Urine Glucose (UA) Negative (Negative) 05/02/24 02:55 Urine Ketones Negative (Negative) 05/02/24 02:55 Urine Blood Negative (Negative) 05/02/24 02:55 Urine Nitrite Positive (Negative) A 05/02/24 02:55 Urine Bilirubin Negative (Negative) 05/02/24 02:55 Urine Urobilinogen Negative (Negative) 05/02/24 02:55 Ur Leukocyte Esterase 2+ (Negative) H 05/02/24 02:55 Urine WBC (Auto) 0-5 /hpf (0-5) 05/02/24 02:55 Urine RBC (Auto) 0-2 /hpf (0-2) 05/02/24 02:55 U Hyaline Cast (Auto) 0-2 /lpf (0-2) 05/02/24 02:55 U Epithel Cells (Auto) 0-2 /hpf (0-2) 05/02/24 02:55 Urine Bacteria (Auto) 4+ (None Seen) H 05/02/24 02:55 Adenovirus (PCR) Not Detected (NotDetected) 05/01/24 23:00 B. pertussis DNA (PCR) Not Detected (NotDetected) 05/01/24 23:00 B.parapertussis DNA PCR Not Detected (NotDetected) 05/01/24 23:00 C. pneumoniae DNA (PCR) Not Detected (NotDetected) 05/01/24 23:00 Coronavirus OC43 (PCR) Not Detected (NotDetected) 05/01/24 23:00 Coronavirus HKU1 (PCR) Not Detected (NotDetected) 05/01/24 23:00 Coronavirus 229E (PCR) Not Detected (NotDetected) 05/01/24 23:00 SARS-CoV-2 (PCR) Not Detected (NotDetected) 05/01/24 23:00 Coronavirus NL63 (PCR) DETECTED (NotDetected) A 05/01/24 23:00 Human Metapneumovir PCR Not Detected (NotDetected) 05/01/24 23:00 Influenza Type A (PCR) Not Detected (NotDetected) 05/01/24 23:00 Influenza Type B (PCR) Not Detected (NotDetected) 05/01/24 23:00 M. pneumoniae (PCR) Not Detected (NotDetected) 05/01/24 23:00 Parainfluenza 1 (PCR) Not Detected (NotDetected) 05/01/24 23:00 Parainfluenza 2 (PCR) Not Detected (NotDetected) 05/01/24 23:00 Parainfluenza 3 (PCR) Not Detected (NotDetected) 05/01/24 23:00 Parainfluenza 4 (PCR) Not Detected (NotDetected) 05/01/24 23:00 RSV (PCR) Not Detected (NotDetected) 05/01/24 23:00 Entero/Rhino (PCR) Not Detected (NotDetected) 05/01/24 23:00 Impressions Chest X-Ray 05/01/24 22:59 Exam(s): XR CXR 1 VIEW EXAM: XR Chest, 1 View CLINICAL HISTORY: Reason for exam: Dyspnea. TECHNIQUE: Frontal view of the chest. COMPARISON: Chest radiograph on 02/18/2024 FINDINGS: Hardware: None. Lungs/pleura: Opacities bilaterally. Heart/mediastinum: Stable enlargement of the cardiac silhouette. Left- sided pacemaker. Atherosclerotic changes of the aorta. Soft tissues: Unremarkable. Bones: No acute fracture. Upper abdomen: Normal. IMPRESSION: Opacities bilaterally may represent pulmonary edema versus infectious/inflammatory process. Electronically signed by: Susan Keane M.D. 05/02/24 02:43 AM ECG Additional Comments: ECG . A flutter with variable A-V block at rate of 84.t wave abnormality in anterolateral leads. qtc 493. Code Status & VTE Plan VTE Prophylaxis Plan VTE Prophylaxis will be ordered: Yes
--- OUTSIDE RECORDS SUMMARY | 2024-05-02 07:06 | External Medical Summary | Summary of Care ---
Author Name Unknown Organization [facility] Address [address] [address] Phone [phone] Care Team Providers Care Forensic Nurse Name Role Phone Jose Angel Elizabeth MD Primary Care Provider [phone] Reason for Visit * Reason Onset Date Comments Health Maintenance 04/14/2024 Encounter Details Date Type Department Care Team (Late st Contact Info) Description 04/14/[address] [facility] [place] [address] [place] [address] Jose Angel Elizabeth MD [address] [place] [address] Health Maintenance Allergies Active Allergy Reactions Criticality Noted Date Comments Statins 01/10/2024 documented as of this encounter (statuses as of 04/14/2024) Medications PRESERVISION AREDS PO TABS 1 tablet 2x daily Ac tive TYLENOL EXTRA STRENGTH 500 MG PO TABS Take by mouth as needed. Active VITAMIN D 2000 UNITS PO CAPS 1 CAPSULE DAILY, follow up with Endocrine for further management 30 Cap 1 02/07/20 14 Active Additional Information Patient taking differently: 2,000 UnitsOralDAILY NOON, Reported on 01/10/2024 TUMS 500 MG PO CHEW 2 tabs daily. 270 Tab 2 03/19/19 15 Active Additional Information Patient taking differently: 500 mgOralDAILY NOON, Reported on 01/10/2024 metroNIDAZOLE 0.75 % External Cream (Metrocream)Indica tions:Rosacea APPLY 2X DAILY AFTER WASHING FACE BUT BEFORE SUNSCREEN (SPF 50+) IN MORNING, THEN MAKEUP ON TOP 45 g 07/17/19 21 Active Nystatin 202879 UNIT/GM External Powder (Nystop)Indication s:Cutaneous candidiasis Apply topically to affected area 3 times a day. Apply to groin and under breast 15 g 5 01/23/20 23 Active Aspirin 81 MG Oral Tablet Chewable (Aspirin 81) Take 1 Tablet by mouth in the morning. Active Mometasone Furoate 50 MCG/ACT Nasal SuspensionIndicati ons:Non-seasonal allergic rhinitis, unspecified trigger Administer 2 Sprays into nostril at bedtime. 51 g 3 06/25/19 24 Active Nystatin-Triamcino lone 884935-0.1 UNIT/GM-% External Cream (Mycolog)Indicatio ns:Cutaneous candidiasis APPLY TOPICALLY TO AFFECTED AREA 2 TIMES A DAY. TO AFFACTED AREA FOR TWO WEEKS. 30 g 1 08/14/19 24 Active Eliquis 5 MG Oral Tablet (Apixaban)Indicati ons:Paroxysmal atrial fibrillation (HCC) TAKE 1 TABLET BY MOUTH TWICE A DAY 60 Tablet 11 11/02/19 24 Active FLUoxetine HCl 20 MG Oral Capsule (PROzac)Indication s:Anxiety state TAKE 1 CAPSULE BY MOUTH EVERY DAY 90 Capsule 2 12/27/19 24 Active Gabapentin 300 MG Oral Capsule (Neurontin)Indicat ions:Displacement of lumbar intervertebral disc without myelopathy Take 1 Capsule by mouth at bedtime. 90 Capsule 3 01/04/20 24 Active Amiodarone HCl 200 MG Oral Tablet (Cordarone)Indicat ions:Paroxysmal atrial fibrillation (HCC) Start 1 tablet by mouth daily with morning meal and increase to 1 tablet by mouth 2 times per day with meals as tolerated after a week 180 Tablet 3 02/21/20 24 Active Pitavastatin Calcium 2 MG Oral Tablet (Livalo)Indication s:Other hyperlipidemia TAKE 1 TABLET BY MOUTH EVERY DAY 90 Tablet 04/10/19 25 Active Ezetimibe 10 MG Oral Tablet (Zetia)Indications :Dyslipidemia, goal LDL below 100 TAKE 1 TABLET BY MOUTH EVERY DAY IN THE MORNING 90 Tablet 3 04/10/19 25 Active Levothyroxine Sodium 125 MCG Oral Tablet (Levoxyl) TAKE 1 TABLET BY MOUTH EVERY DAY AT LEAST 30 MIN BEFORE BREAKFAST OR OTHER MEDICATION 90 Tablet 3 04/10/19 25 Active Metoprolol Succinate ER 100 MG Oral Tablet Extended Release 24 Hour (toPROL XL) TAKE 1 TABLET BY MOUTH EVERY DAY IN THE MORNING 90 Tablet 3 04/10/19 25 Active Losartan Potassium-HCTZ 50-12.5 MG Oral Tablet (Hyzaar)Indication s:HTN, goal below 140/90 TAKE 1 TABLET BY MOUTH EVERY DAY IN THE MORNING 90 Tablet 3 04/10/19 25 Active documented as of this encounter (statuses as of 04/14/2024) Active Problems Problem Noted Date Diagnosed Date Cystocele, midline 04/11/2019 Urinary urgency 04/11/2019 Urinary frequency 04/11/2019 Rosacea 08/09/2018 Hx of nonmelanoma skin cancer 03/23/2018 Overview (03/28/2019): squamous cell carcinoma (L lateral forehead), basal cell carcinoma (R lateral pretibial region, R shoulder 03/20) Chronic anticoagulation 03/23/2017 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 Cardiac pacemaker in situ 12/03/2016 H/O: hysterectomy 08/25/2016 Hyperlipemia 03/05/2016 Postsurgical hypothyroidism 05/28/2014 H/O goiter 03/14/2014 Urge incontinence 02/26/2014 Cerebrovascular disease, arteriosclerotic, post- stroke 09/11/2013 Paroxysmal atrial fibrillation 01/05/2013 H/O Graves' disease 10/13/2012 Disorder of intervertebral disc 09/15/2010 HTN, goal below 140/90 07/02/2010 Anxiety state 09/12/2004 Displacement of lumbar inter vertebral disc without myelopathy 01/11/2001 documented as of this encounter (statuses as of 04/14/2024) Resolved Problems Problem Noted Date Diagnosed Date Resolved Date ADVANCE DIRECTIVE INFORMATION 04/11/2019 01/03/2024 Overview (09/12/2004): No, Advance Directive brochure offered , patient declined. History of stroke 12/04/2016 04/04/2019 Myalgia 06/05/2015 12/04/2016 Graves disease 02/06/2014 03/14/2014 Arterial ischemic stroke, MC A (middle cerebral artery), left, acute 05/22/2013 12/04/2016 Abnormal thyroid function test 01/19/2013 12/04/2016 Other postablative hypothyroidism 10/13/2012 03/14/2014 Hyperthyroidism 12/15/2011 02/27/2014 Allergic rhinitis 12/15/2011 12/04/2016 Obesity, Class II, BMI 35-39 .9, isolated (see actual BMI) 08/12/2009 12/04/2016 Overview (08/12/2009): Per Obesity Protocol, #19 Cervicalgia 09/21/2008 12/04/2016 Spasm of muscle 09/21/2008 12/04/2016 Headache 09/21/2008 12/04/2016 Overview (05/22/2015): ICD-10 update of inactive term Toxic diffuse goiter 06/01/2006 009 Overview (03/29/2008): Resolved per Duplicate Protocol #2. TOX DIF GOITER NO CRISIS 04/21/2006 PAIN IN LIMB, RIGHT ARM 09/12/200408/29 Edema 09/12/2004 12/04/2016 ENTHESOPATHY, LEFT ELBOW 09/12/200407/2016 PAIN IN LIMB, LEFT ARM 09/12/200412/04 PAIN IN LIMB, LEFT ARM 09/12/200412/04 Dermatitis 06/30/2004 12/04/2016 ABN BLOOD CHEMISTRY NEC 04/01/2001 10/07/2016 Nausea 03/29/2001 12/04/2016 Overview (12/22/2016): ICD-10 update of inactive term Abdominal pain, epigastric 03/29/2001 1 SCIATICA, LEFT 09/24/2000 12/04/2016 SPRAIN LUMBOSACRAL 09/24/2000 7 BACKACHE NOS 09/24/2000 12/04/2016 Goiter 03/14/2014 documented as of this encounter (statuses as of 04/14/2024) Immunizations Name Administration Dates Next Due COVID-19 mRNA, LNP-s, No Pre serve, 2-Dose Series (Moderna) 06/03/2020,05/06/2020 Pneumococcal Conjugate Vacc, 13 Valent (Prevnar) 09/22/2017 Pneumococcal Polysaccharide PPV23 (Pneumovax) 11/29/2016 Seasonal Influenza Vac., MDV , IM, 0.5 mL (Fluzone) 11/29/2016,12/12/2013,11/28/2012,12/14,12/30/2010,12/13/2009,03/15/2009 Seasonal Influenza, High Dos e, Trivalent, PF, IM (Fluzone HD) 11/24/2023 Seasonal Influenza, PF, 6 M & above, IM , (FluLaval or Fluzone) 11/08/2019,12/06/2018,01/05/2018,11/29 Seasonal Influenza, Quadriva lent Hd (Fluzone Hd) 12/24/2022,12/19/2021,11/29/2020 Seasonal Influenza, Quadriva lent, No Preserve, IM 12/17/2015,01/04/2015 TD - Tetanus/Diptheria (ADULT) 11/25/2005 TD, Preservative Free 06/18/2021 TDAP, Age 7 and older, IM (Adacel) 06/15/2011 Varicella Zoster Vaccine (Adult) 07/31/2011 Zoster Vaccine Recombinant (Shingrix) 08/09/2018 ,06/01/2018 documented as of this encounter Social History Tobacco Use Types Packs/Day Years Used Date Smoking Tobacco: Never Passive Smoke Exposure: Past Smokeless Tobacco: Never Alcohol Use Standard Drinks/Week Comments Not Currently 0 (1 standard drink = 0.6 oz pur e alcohol) PHQ-2 Answer Date Recorded PHQ Adult Total Score 0 06/25/2023 Hunger Vital Sign Answer Date Recorded Within the past 12 months, y ou worried that your food would run out before you got the money to buy more. Patient declined Within the past 12 months, t he food you bought just didn't last and you didn't have money to get more. Patient declined 10/2023 Childcare Answer Date Recorded Do you feel overwhelmed with taking care of a child, family member or friend? No 07/08/2023 Does your family need help f inding childcare? (Household - for ages 0-17 years) Not on file 07/08/2023 Clothing Answer Date Recorded Have you been unable to get clothing when it was really needed? No 07/08/2023 Is your family able to get c lothes or diapers when needed? (Household - for ages 0-17 years) Not on file 07/08/2023 Personal Safety Answer Date Recorded Do you feel unsafe or have concerns for your saf ety? No 07/08/2023 Do you have concerns for you r family's safety? (Household - for ages 0-17 years) Not on file 07/08/2023 Utilities Answer Date Recorded Do you have trouble paying y our heating, water, or electric bill? No 07/08/2023 Is your family able to pay t he heat, water, or electric bill? (Household - for ages 0-17 years) Not on file 07/08/2023 Does your family have access to good internet? (Household - for ages 0-17 years) Not on file 07/08/2023 Employment Status Answer Date Recorded Are you unemployed or without regular income? No 07/08/2023 Does the household have a merit health rankin source of income? (Household - for ages 0-17 years) Not on file 07/08/2023 Social Connections Answer Date Recorded How often do you feel lonely or isolated from th ose around you? Never 07/08/2023 Financial Resource Strain Answer Date R ecorded Do you have any trouble payi ng for your medications, or do you think you might in the future? No 07/08/2023 Does your family have troubl e paying for medicine? (Household - for ages 0-17 years) Not on file 07/08/2023 Transportation Needs Answer Date Record ed READ ONLY Do you have troubl e getting a ride to medical visits or work? Never True 07/08/2023 Does your family have a hard time getting a ride to doctors visits? (Household - for ages 0-17 years) Not on file 07/08/2023 Has lack of transportation k ept you from medical appointments, meetings, work, or from getting things needed for daily living? Check all that apply. (Adult - for ages 18 years and over) Not on file 07/08/2023 Do you (or your family) have trouble finding or paying for a ride (transportation)? (Household - for ages 0-17 years) Not on file 07/08/2023 Housing Stability Answer Date Recorded Do you currently live in a s helter or have no steady place to sleep at night? No 07/08/2023 READ ONLY Do you think you a re at risk of becoming homeless? No 07/08/2023 Does your family worry about paying for your home or becoming homeless? (Household - for ages 0-17 years) Not on file 0 07/08/2023 Are you homeless or worried that you might be in the future? (Adult - for ages 18 years and over) Not on file Are you (or your family) jackson eless or worried that you might be in the future? (Household - for ages 0-17 years) Not on file Food Insecurity Answer Date Recorded Do you need food for this week? No 07/08/2023 Are you able to get enough f ood for your family? (Household - for ages 0-17 years) Not on file 07/08/2023 Does your family need food t his week? (Household - for ages 0-17 years) Not on file 07/08/2023 Do you always have enough fo od for your family? (Household - for ages 0-17 years) Not on file 07/08/2023 Food Insecurity Answer Date Recorded Within the past 12 months, y ou worried that your food would run out before you got the money to buy more. Patient declined Within the past 12 months, t he food you bought just didn't last and you didn't have money to get more. Patient declined 10/2023 Do you need food for this week? 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 Answer Date of Assessment Author No 02/05/2014 3:04 PM [facility] RN * Are you blind or do you have serious difficulty seeing, even when wearing glasses? Answer Date of Assessment Author No 02/05/2014 3:04 PM [facility] RN * Do you have serious difficulty walking or climbing stairs? (5 years old or older) Answer Date of Assessment Author No 02/05/2014 3:04 PM [facility] RN * Do you have difficulty dressing or bathing? (5 years old or older) Answer Date of Assessment Author No 02/05/2014 3:04 PM [facility] RN * Because of a physical, mental, or emotional condition, do you have difficulty doing errands alone such as visiting a doctors office or shopping? (15 years old or older) Answer Date of Assessment Author No 02/05/2014 3:04 PM [facility] RN documented as of this encounter Mental Status * Because of a physical, mental, or emotional condition, do you have serious difficulty concentrating, remembering, or making decisions? (5 years old or older) Answer Entry Date Author No 02/05/2014 3:04 PM [facility] RN documented in this encounter Miscellaneous Notes * Telephone Encounter - Mere Bryant LPN - 04/14/2024 9:33 AM EST Care Gaps Comprehensive Care Outreach Last Office/Telemedicine Visit: Visit date not found (in office), Visit date not found (telemedicine) Next Office Visit: 07/03/2024 Hemoglobin AIC Results: Lab Results Component Value Date/Time HEMOGLOBIN A1C - [facility] 5.5 11/19/2016 12:10 PM HEMOGLOBIN A1C - [facility] 5.0 12/25/2015 10:26 AM BP Readings from Last 1 Encounters: 01/10/24 144/86 Reviewed Health Maintenance below: Health Maintenance Topic Date Due Adult Wellness Visit Never done COVID-19 Vaccine ( season) 2023 Depression Screening 06/24/2024 GFR 11/23/2024 TSH 02/17/2025 awv Care Gap Outreach Action Taken: [employer] message sent documented in this encounter Plan of Treatment Upcoming Encounters Date Type Department Care Team (Late st Contact Info) Description 05/03/2024 2:30 PM EST Cardiac Studies Cardiology, [facility] [address] [facility] [place] [address] [facility] [address] [facility] [place] [address] 05/03/2024 3:00 PM EST Office Visit Cardiology, [facility] [address] [facility] [place] [address] Delma Casas CRNP [address] [place] [address] 07/03/2024 12:20 PM EDT Office Visit [facility] [place] [address] [place] [phone] Jose Angel Elizabeth MD [address] [place] [address] 08/07/2024 3:30 PM EDT Office Visit Cardiology, [facility] [address] [facility] [place] [address] Maksim Morgan DO [address] [facility] [place] [address] Scheduled Procedures Name Priority Associated Diagnoses Date/Ti me COLONOSCOPY FLEXIBLE PROXIMAL DIAGNOSTIC Recall History of colon polyps Health Maintenance Due Date Last Done Comments Fecal Occult Blood Test 08/14/1996 Sigmoidoscopy 08/14/1996 Adult Wellness Visit 08/14/2017 Cologuard 07/20/2023 07/19/2020, 03/29/2017 COVID-19 Vaccine ( season) 2023 01/14/2021, 06/03/2020, 05/06/2020 Depression Screening 06/24/2024 06/25/2023 GFR 11/23/2024 11/24/2023, 04/29, 01/15/2023, Additional history exists TSH 02/17/2025 02/18/2024, 110 06/2023, 12/18/2022, Additional history exists Mammogram 04/11/2025 04/11/2024, 08/2023, 04/07/2023, Additional history exists Albumin/Creatinine Ratio 06/16/2025 06/16/2022, 08/29 DXA Scan 07/22/2028 07/22/2021, 06/30, 05/11/2011, Additional history exists Colonoscopy 08/19/2030 08/19/2020, 07/31, 05/10/2006 Colorectal Cancer Screening 08/19/2030 DTap/Tdap Vaccines (3 - Td or Tdap) 06/19/2031 06/18/2021, 06/15/2011, 11/25/2005, Additional history exists Pneumococcal Vaccine: 50+ Years Completed 09/22/2017, 11/29/2016 Zoster Vaccines Completed 08/09/2018, 04/2018, 07/31/2011 Influenza Vaccine (FLU shot) Completed , 12/24/2022, 12/19/2021, Additional history exists HPV (Gardasil) Vaccine Aged Out No lo nger eligible based on patient's age to complete this topic Hepatitis B Vaccine Aged Out No longe r eligible based on patient's age to complete this topic MENINGOCOCCAL (MENACTRA/MENVEO) Aged Out No longer eligible based on patient's age to complete this topic Meningitis B Vaccine (Bexsero/Trumemba) Aged Out No longer eligible based on patient's age to complete this topic documented as of this encounter Medical Devices Not on filedocumented as of this encounter Advance Directives * Full Code (Latest Code Status on File) Date Activated Date Inactivated Comments 02/05/2014 12:41 PM 02/06/2014 4:02 PM Question Answer Comments Discussion of Advance Directives occurred with: Not Discussed Does the patient have a Living Will? No Does the patient have Health Care Power of Attor asaf? No * Full Code Date Activated Date Inactivated Comments 02/05/2014 9:23 AM 02/05/2014 12:41 PM Question Answer Comments Discussion of Advance Directives occurred with: Not Discussed Care Teams Forensic Nurse Relationship Specialty Start Date End Date Jose Angel Elizabeth MD PCP - General 03/20/1997 documented as of this encounter
--- OUTSIDE RECORDS SUMMARY | 2024-05-02 07:06 | External Medical Summary | Summary of Care ---
Author Name Unknown Organization [facility] Address [address] [facility] [address] Phone [phone] Care Team Providers Care Sql Manager Name Role Phone Jose Angel Elizabeth MD Primary Care Provider [phone] Encounter Details Date Type Department Care Team (Late st Contact Info) Description 04/13/2024 Orders Only [facility] [address] [place] [address] Jose Angel Elizabeth MD [address] [facility] [place] [address] Allergies Active Allergy Reactions Criticality Noted Date Comments Statins 01/10/2024 documented as of this encounter (statuses as of 04/13/2024) Medications PRESERVISION AREDS PO TABS 1 tablet [...] TOP 45 g 07/17/19 21 Active Nystatin 693238 UNIT/GM External Powder (Nystop)Indication s:Cutaneous candidiasis Apply [...] g 3 06/25/19 24 Active Nystatin-Triamcino lone 868366-0.1 UNIT/GM-% External Cream (Mycolog)Indicatio ns:Cutaneous candidiasis APPLY [...] as of this encounter (statuses as of 04/13/2024) Active Problems Problem Noted Date Diagnosed Date [...] as of this encounter (statuses as of 04/13/2024) Resolved Problems Problem Noted Date Diagnosed Date [...] Dermatitis 06/30/2004 12/04/2016 ABN BLOOD CHEMISTRY NEC 04/01/200107/2016 Nausea 03/29/2001 12/04/2016 Overview (12/22/2016): ICD-10 update of inactive term Abdominal pain, epigastric 03/29/2001 1 SCIATICA, LEFT 09/24/2000 12/04/2016 SPRAIN LUMBOSACRAL 09/24/2000 7 BACKACHE NOS 09/24/2000 12/04/2016 Goiter 03/14/2014 documented as of this encounter (statuses as of 04/13/2024) Immunizations Name Administration Dates Next Due COVID-19 [...] No 07/08/2023 Does the household have a re lar source of income? 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 [address] [facility] [place] [phone] Jose Angel Elizabeth MD [address] [facility] [place] [address] 08/07/2024 3:30 PM EDT Office Visit Cardiology, [facility] [address] [place] [address] Maksim Morgan, [address] [place] [address] Scheduled Procedures Name Priority Associated Diagnoses Date/Ti me COLONOSCOPY FLEXIBLE PROXIMAL DIAGNOSTIC Recall History of colon polyps Health Maintenance Due Date Last Done Comments Fecal Occult Blood Test 08/14/1996 Sigmoidoscopy 08/14/1996 Adult Wellness Visit 08/14/2017 Cologuard 07/20/2023 07/19/2020, 03/29/2017 COVID-19 Vaccine ( season) 2023 01/14/2021, 06/03/2020, 05/06/2020 Depression Screening 06/24/2024 06/25/2023 GFR 11/23/2024 11/24/2023, 04/29, 01/15/2023, Additional history exists TSH 02/17/2025 02/18/2024, 06/2023, 12/18/2022, Additional history exists Mammogram 04/11/2025 04/11/2024, 08/2023, 04/07/2023, Additional history exists Albumin/Creatinine Ratio 06/16/2025 06/16/2022, 08/29 DXA Scan 07/22/2028 07/22/2021, 06/30, 05/11/2011, Additional history exists Colonoscopy 08/19/2030 08/19/2020, 07/31, 05/10/2006 Colorectal Cancer Screening 08/19/2030 DTap/Tdap Vaccines (3 - Td or Tdap) 06/19/2031 06/18/2021, 06/15/2011, 11/25/2005, Additional history exists Pneumococcal Vaccine: 50+ Years Completed 09/22/2017, 11/29/2016 Zoster Vaccines Completed 08/09/2018, 040 04/2018, 07/31/2011 Influenza Vaccine (FLU shot) Completed [...] Not on filedocumented as of this encounter Procedures Procedure Name Priority Date/Time Associated Diagnosis Comments MAMMOGRAM SCREENING BILATERAL Routine 04/11/2024 documented in this encounter Results * MAMMOGRAM SCREENING BILATERAL (04/11/2024) Anatomical Region Laterality Modality Breast Bilateral Other 04/11/2024 Jose Angel Elizabeth MD RAD MAMMOGRAPHY Final Result documented in this encounter Advance Directives * Full Code [...] Directives occurred with: Not Discussed Care Teams Sql Manager Relationship Specialty Start Date End Date Jose Angel Elizabeth MD PCP - General 03/20/1997 documented as of this encounter
--- OUTSIDE RECORDS SUMMARY | 2024-05-02 07:06 | External Medical Summary | Summary of Care ---
Author Name Unknown Organization [facility] Address [address] [address] Phone [phone] Care Team Providers Care Lab Animal Technician Name Role Phone Jose Angel Elizabeth MD Primary Care Provider [phone] Encounter Details Date Type Department Care Team (Late st Contact Info) Description 04/13/2024 Orders Only [facility] [address] [place] [phone] Jose Angel Elizabeth MD [address] [facility] [place] [address] Allergies Active Allergy Reactions Criticality Noted Date Comments Statins 01/10/2024 documented as of this encounter (statuses as of 04/18/2024) Medications PRESERVISION AREDS PO TABS 1 tablet [...] TOP 45 g 07/17/19 21 Active Nystatin 866856 UNIT/GM External Powder (Nystop)Indication s:Cutaneous candidiasis Apply [...] g 3 06/25/19 24 Active Nystatin-Triamcino lone 866530-8.1 UNIT/GM-% External Cream (Mycolog)Indicatio ns:Cutaneous candidiasis APPLY [...] as of this encounter (statuses as of 04/18/2024) Active Problems Problem Noted Date Diagnosed Date [...] as of this encounter (statuses as of 04/18/2024) Resolved Problems Problem Noted Date Diagnosed Date [...] as of this encounter (statuses as of 04/18/2024) Immunizations Name Administration Dates Next Due COVID-19 [...] 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 Repeat one year per usual. documented in this encounter Plan of Treatment Upcoming Encounters Date Type Department Care Team (Late st Contact Info) Description 05/03/2024 2:30 PM EST Cardiac Studies Cardiology, [facility] [address] [facility] [place] [address] [place], [facility] [address] [place] [address] 05/03/2024 3:00 PM EST Office Visit Cardiology, [facility] [address] [place] [address] Delma Casas CRNP [address] [place] [address] [place] [address] 07/03/2024 12:20 PM EDT Office Visit [facility] [place] [address] [place] [phone] Jose Angel Elizabeth MD [address] [place] [address] 08/07/2024 3:30 PM EDT Office Visit Cardiology, [facility] [address] [place] [address] Maksim Morgan DO [address] [place] [address] Scheduled Procedures Name Priority Associated Diagnoses Date/Ti [...] Completed 09/22/2017, 11/29/2016 Zoster Vaccines Completed 08/09/2018, 04/0 04/2018, 07/31/2011 Influenza Vaccine (FLU shot) Completed [...] Directives occurred with: Not Discussed Care Teams Lab Animal Technician Relationship Specialty Start Date End Date Jose Angel Elizabeth MD PCP - General 03/20/1997 documented as of this encounter
[2024-05-02] MEDS ORDERED: ACETAMINOPHEN 325 MG TAB PO PRN (08:34)
[2024-05-02] MEDS ORDERED: NITROGLYCERIN SL 0.4 MG/TAB TAB SL PRN (08:34)
[2024-05-02] MEDS ORDERED: POLYETHYLENE (MIRALAX) 17 GM PACK PO PRN (08:34)
[2024-05-02 09:10] LABS: Basophils # (auto) 0.05 K/uL (0.00-0.20); Basophils % (auto) 0.4 %; Eosinophils # (auto) 0.05 K/uL (0.00-0.50); Eosinophils % (auto) 0.4 %; Hemoglobin 13.4 g/dl (12.0-16.0); Immature Granulocytes # (auto) 0.06 K/uL (0.01-0.20); Immature Granulocytes % (auto) 0.4 %; Lymphocytes # (auto) 2.48 K/uL (1.20-3.40); Lymphocytes % (auto) 18.2 %; Mean Corpuscular Hemoglobin 28.8 pg (25.0-34.0); Mean Corpuscular Hgb Conc 32.7 g/dL (32.0-36.0); Mean Platelet Volume 9.4 fL (9.4-12.4); Monocytes # (auto) 1.24 K/uL (0.11-0.59); Monocytes % (auto) 9.1 %; Neutrophils # (auto) 9.78 K/uL (1.40-6.50); Neutrophils % (auto) 71.5 %; Platelet Count 291 K/uL (130-400); RDW Coefficient of Variation 14.4 % (11.5-14.5); RDW Standard Deviation 46.4 fL (36.4-46.3); Red Blood Count 4.66 M/uL (4.20-5.40); White Blood Count 13.66 K/ul (4.8-10.8)
[2024-05-02 09:29] LABS: BUN Creatinine Ratio 32.5 (10-20); Calcium 8.9 mg/dl (8.6-10.3); Creatinine Clr Calc Pharmacy 72.8 ml/min; Magnesium 2.3 mg/dl (1.7-2.4); Potassium 3.9 mmol/L (3.5-5.1)
--- NOTE | 2024-05-02 09:33 | Cardiology Consultation ---
Date of Consultation May 02, 2024 Assessment & Plan (1) SOB (shortness of breath): (2) Coronavirus infection: (3) Acute exacerbation of CHF (congestive heart failure): (4) PAF (paroxysmal atrial fibrillation): (5) Elevated troponin: (6) Prolonged QT interval: Plan Patient admitted for worsening SOB over the last few days, likely multifactorial. Symptoms associated with respiratory virus, + for coronavirus variant. Pulm vascular congestion noted on chest xray with possible underlying infectious process. Started on IV lasix and antibiotics. Continue furosemide 20 mg IV BID. Monitor I+O's and titrate dose as planned Continue Rocephin for possible UTI and pneumonia. Elevated WBC noted. Update echocardiogram. Elevated troponin at 100 this morning likely demand ischemia due to acute illness/hypoxia/CHF No chest pain She does have more pronounced T wave inversions in anterolateral leads on EKG Await echo. Underlying known CAD per cath in May 2023: Mild, moderate non-obstructive CAD Proximal RCA 60% lesion, iFR was 0.98 (hemodynamically insignificant) Mild disease elsewhere in left coronary system -continue ASA, statin, zetia, metoprolol Persistent atrial fibrillation/flutter, likely dating back to Dec 2023 Device interrogation ordered. Continue Eliquis. Recently changed from Multaq to Amiodarone 200 mg BID. Plan was for future cardioversion Once patient's respiratory status improves, consider inpatient cardioversion. no missed or skipped doses of Eliquis. For now, will hold Amiodarone given prolonged QT interval on EKG. Multaq was ordered incorrectly on admission. Patient has not been taking. This was discontinued. Case discussed with Dr. Gamboa I spent a total of 60 minutes on the date of service in preparation, delivery, and documentation of the care provided to this patient, excluding any time spent in the performance of separately billed services. Lula Liu PA-C Department of Cardiology, [facility] This chart was completed in part utilizing Speech Voice Recognition Software. Grammatical errors, random word insertions, pronoun errors, and incomplete sentences are an occasional consequence of this system due to software limitations, ambient noise, and hardware issues. Any formal questions or concern s about the content, text, or information contained within the body of this dictation should be directly addressed to the provider for clarification. Supervising Physician Co-Signing Physician Notes I have personally performed a history and physical examination on the patient. I have reviewed the advance practitioner's documentation, and I agree with, and take responsibility for the plan of care. 73-year-old female admitted with progressive shortness of breath which is multifactorial secondary to acute coronavirus infection and acute heart failure with reduced ejection fraction. Echocardiogram demonstrating reduced LV systolic function with wall motion abnormalities consistent with stress-induced cardiomyopathy versus multivessel ischemic heart disease. Stress-induced cardiomyopathy favored as patient underwent cardiac catheterization in 2023 demonstrating nonobstructive CAD. Mild troponin elevation consistent with heart failure rather than plaque rupture event.Prolonged QT noted on ECG after nearly 3 months of oral amiodarone 200 mg twice daily. Patient recently transition from Multaq to amiodarone in January due to evidence of persistent atrial fibrillation per pacemaker interrogation. Recommend diuresis with IV furosemide. 20 mg twice daily ordered, however, consider titration to 40 mg twice daily pending clinical response. Follow daily weight, GFR, and electrolytes. Maintain serum potassium greater than 4.0, and magnesium greater than 2.0 per consider addition of spironolactone during hospitalization. Hold amiodarone due to prolonged QT. Continue Toprol-XL 100 mg daily. Consider external direct-current cardioversion later this week when patient has clinically improved from a respiratory/heart failure perspective. Continue losartan, aspirin, and apixaban as ordered. Antibiotics as per internal medicine. Cardiology will continue to follow during hospitalization. Thank you for allowing me to participate in the care of your patient. Maikol Gamboa DO, [facility] I spent a total of 45 minutes on the date of service in preparation, delivery, and documentation of the care provided to this patient, excluding any time spent in the performance of separately billed services. History of Present Illness Reason for Consultation: SOB Requesting Physician: Ofe Lowery Attending Physician: Dr. Gamboa History of Present Illness Patient is a 73 year year old female who presented to [facility] with complaints of worsening SOB. Patient reports worsening cough, SOB over the last few weeks. Last night, patient reports significant dyspnea when ambulating to restroom and came to ER for evaluation. No chest pain reported. Upon arrival, patient tested + for coronavirus variant. Possible pneumonia vs pulm vascular congestion. Started on antibiotics and IV lasix. HS troponin 20 on arrival - increasing to 109 this morning. Patient remains chest pain free. EKG demonstrating T wave inversions in anterolateral leads. Prolonged QT this morning. On admission, multaq was ordered, but review of outpatient meds, this was discontinued in January due to persistent atrial fibrillation noted on device interrogation. Amiodarone was initiated at 200 mg daily for 1 week, then increased to 200 mg BID since Mar 2024. Patient was to have follow up this week in our office for device check and appt to consider future cardioversion. at bedside and reports ongoing SOB for many months, which they attributed to her atrial fibrillation. At time of consult, patient resting in bed comfortably. Notes ongoing cough and SOB. No chest pain. No edema. She has been compliant with Eliquis. no missed doses. History includes: 1. Paroxysmal atrial fibrillation -[id number] score of 5 (age, female, CVA 2, HTN)-- on Eliquis -Previously on flecainide, but stopped due to CAD diagnosis -Transitioned to Multaq but increased afib burden noted on device check in Jan 2024. Transitioned to oral amiodarone 200 mg BID 2. History of embolic stroke secondary to remote atrial fib 3. Sick sinus syndrome/TBS status post dual chamber permanent pacemaker, 11/27/2016 4. Dyspnea on exertion, easy fatigability prompting nuclear stress test April, with suggestion of distal anterior wall, apical ischemia. Underwent cardiac catheterization, [facility] 06/04/[address] Licea, found to have minimal nonobstructive disease in the left coronary system. A 60% mid right coronary artery stenosis was noted which was further assessed with iFR with measurement of 0.98 he was felt to be non hemodynamically significant. The left ventricular end-diastolic pressure at the time of cardiac catheterization was 11 millimeters Hg (normal). 5. Hypertension 6. Dyslipidemia Allergies Allergy/AdvReac Type Severity Reaction Status Date / Time No Known Allergies Allergy Verified 05/02/24 02:01 Home Medications Medication Instructions Recorded Confirmed Type apixaban 5 mg tablet 5 mg PO BID 01/07/21 05/02/24 History fluoxetine 20 mg capsule 20 mg PO DAILY 01/07/21 05/02/24 History levothyroxine 125 mcg capsule 125 mcg PO DAILYBB 01/07/21 05/02/24 History metronidazole 0.75 % topical cream 1 applic topical BID 01/07/21 05/02/24 History pitavastatin calcium 2 mg tablet 2 mg PO DAILY 01/07/21 05/02/24 History (Livalo) calcium carbonate 1,000 mg PO DAILY 04/04/23 05/02/24 History cholecalciferol (vitamin D3) 50 50 mcg PO DAILY 04/04/23 05/02/24 History mcg (2,000 unit) capsule (Vitamin D3) ezetimibe 10 mg tablet 10 mg PO QAM 04/04/23 05/02/24 History losartan 50 mg-hydrochlorothiazide 1 tab PO QAM 04/04/23 05/02/24 History 12.5 mg tablet mometasone 50 mcg/actuation nasal 2 spray intranasal HS 04/04/23 05/02/24 History spray nystatin 100,000 unit/gram topical 1 applic topical TID PRN GROIN AND 04/04/23 05/02/24 History powder UNDER BREASTS NEEDED. nystatin-triamcinolone 100,000 1 applic topical BID PRN NEEDED 04/04/23 05/02/24 History unit/g-0.1 % topical cream vitamins A,C,D-oxed-enfbub 2,148 1 tab PO BID 04/04/23 05/02/24 History mcg-113 mg-45 mg-17.4 mg tablet (PreserVision AREDS) aspirin 81 mg tablet,delayed 81 mg PO QAM 05/02/24 05/02/24 History release dronedarone 400 mg tablet 400 mg PO DAILY 05/02/24 05/02/24 History gabapentin 300 mg capsule 300 mg PO HS 05/02/24 05/02/24 History metoprolol succinate 100 mg 100 mg PO QAM 05/02/24 05/02/24 History tablet,extended release 24 hr Patient History Surgical History (Updated 01/07/21 @ 14:58 by Aracely [employer]) History of pacemaker History of breast surgery History of hysterectomy Family History (Updated 01/07/21 @ 14:59 by Aracely Elmore) Father Hypertension Heart disease Mother Esophageal cancer Brother Allergies Other No family history of adverse response to anesthesia No family history of bleeding disorder Social History (Updated 01/07/21 @ 15:00 by Aracely Elmore) Smoking Status: Never smoker Do You Dip or Chew Tobacco: No; Hx Alcohol Use: No Hx Substance Use: No Preferred Language: Nicaraguan Shop Manager Required: No Beliefs That Will Affect Care: None marital status: Current Living Situation: Spouse current occupational status: retired Feels Safe at Home: Yes Assistive Devices: None Review of Systems 2 Review of Systems: All systems reviewed & are unremarkable except as noted in HPI & below Physical Exam Constitutional: WD/WN, vitals as above no acute distress Neck: + thick neck Respiratory: no labored breathing Auscultation: + diminished lung sounds, + crackles and + rales Cardiovascular: Rate/Rhythm: + irregularly irregular Heart Sounds: no murmur Vessels: + JVD Extremities: no edema Gastrointestinal (Abdomen): normal bowel sounds, soft, nontender, no hepatosplenomegaly Neurologic: PERRL, EOMI, accommodation nl, no face palsy, no dysarthria Psychiatric: A+Ox3, euthymic affect Results & Data Vital Signs (Past 12 Hours) Vital Signs Temp Pulse Pulse Pulse Resp BP BP 05/02/24 08:00 62 25 H 140/96 05/02/24 07:30 72 05/02/24 06:19 65 05/02/24 06:00 65 20 162/110 H 05/02/24 05:31 70 18 176/105 H 05/02/24 04:08 69 19 152/97 H 05/02/24 02:51 69 05/02/24 02:43 69 20 152/99 H 05/02/24 00:43 80 18 140/101 H 05/01/24 23:00 77 05/01/24 22:59 63 23 170/97 H 05/01/24 22:59 75 25 H 05/01/24 22:43 36.6 C 67 20 162/115 H 05/01/24 22:43 05/01/24 22:43 36.6 C 75 23 162/115 H Pulse Ox O2 Del Method O2 Flow Rate 05/02/24 08:00 98 Nasal Cannula 4 05/02/24 07:30 05/02/24 06:19 05/02/24 06:00 98 Nasal Cannula 4.5 05/02/24 05:31 98 Nasal Cannula 4.5 05/02/24 04:08 99 05/02/24 02:51 05/02/24 02:43 97 Nasal Cannula 2 05/02/24 00:43 98 Room Air 05/01/24 23:00 05/01/24 22:59 92 Nasal Cannula 2 05/01/24 22:59 96 Nasal Cannula 4 05/01/24 22:43 96 Nasal Cannula 4 05/01/24 22:43 Nasal Cannula 4 05/01/24 22:43 96 Nasal Cannula 4 Laboratory Results Cardiac Enzymes 05/01/24 05/01/24 05/02/24 Range/Units 22:59 23:00 00:20 AST TNP 59 H Troponin I High Sens 20.5 H (0-14) pg/ml B-Natriuretic Peptide 408 H (0-100) pg/ml 05/02/24 Range/Units 01:35 AST Troponin I High Sens 72.6 H* D (0-14) pg/ml B-Natriuretic Peptide (0-100) pg/ml Coagulation 05/01/24 05/01/24 Range/Units 23:00 23:45 PT Cancelled 10.9 B-Natriuretic Peptide 408 H (0-100) pg/ml CBC 05/01/24 05/02/24 Range/Units 22:59 08:41 WBC 11.17 H 13.66 H (4.8-10.8) K/ul RBC 4.95 4.66 (4.20-5.40) M/uL Hgb 14.3 13.4 (12.0-16.0) g/dl Hct 43.4 41.0 (37.0-47.0) % Plt Count 272 291 (130-400) K/uL Neut # (Auto) 7.85 H 9.78 H (1.40-6.50) K/uL Lymph # (Auto) 2.45 2.48 (1.20-3.40) K/uL [place] # (Auto) 0.48 1.24 H (0.11-0.59) K/uL Eos # (Auto) 0.27 0.05 (0.00-0.50) K/uL Baso # (Auto) 0.07 0.05 (0.00-0.20) K/uL Comprehensive Metabolic Panel 05/01/24 05/02/24 05/02/24 Range/Units 22:59 00:20 08:41 Sodium 139 140 (136-145) mmol/L Potassium TNP 4.0 3.9 Chloride 104 106 (98-107) mmol/L Carbon Dioxide 26 28 (21-32) mmol/L BUN 30 H 27 H (6-23) mg/dl Creatinine 1.04 0.83 (0.6-1.2) mg/dl Glucose 231 H 104 H (70-99(Fasting)) mg/dl Calcium 9.1 8.9 (8.6-10.3) mg/dl AST TNP 59 H ALT 60 H (7-52) U/L Alkaline Phosphatase 122 H (34-104) U/L Total Protein 7.6 (6.0-8.3) gm/dl Albumin 3.9 (3.4-5.0) gm/dl Intake and Output 05/01/24 05/02/24 05/02/24 22:59 06:59 14:59 Other: Weight 106.2 kg 106.2 kg Weight Measurement Method Built in [facility] Built in [facility] Diagnostic Findings Telemetry reviewed: Atrial flutter with variable rates. EKG reviewed form 05/02/24: Atrial flutter with variable AV block T wave abnormality in anterolateral and inferior leads Prolonged QT interval EKG reviewed from 05/01/24: Atrial flutter with variable AV block, rates controlled T wave abnormality in inferior, anterolateral leads T wave abnormality is new compared to outpatient EKGs in 2024 Device interrogation - requested Echo results - pending Laboratory Results WBC 13.66 K/ul (4.8-10.8) H 05/02/24 08:41 RBC 4.66 M/uL (4.20-5.40) 05/02/24 08:41 Hgb 13.4 g/dl (12.0-16.0) 05/02/24 08:41 Hct 41.0 % (37.0-47.0) 05/02/24 08:41 MCV 88.0 fL (80.0-100.0) 05/02/24 08:41 MCH 28.8 pg (25.0-34.0) 05/02/24 08:41 MCHC 32.7 g/dL (32.0-36.0) 05/02/24 08:41 RDW Std Deviation 46.4 fL (36.4-46.3) H 05/02/24 08:41 RDW Coeff of Rahel 14.4 % (11.5-14.5) 05/02/24 08:41 Plt Count 291 K/uL (130-400) 05/02/24 08:41 MPV 9.4 fL (9.4-12.4) 05/02/24 08:41 Immature Gran % (Auto) 0.4 % 05/02/24 08:41 Neut % (Auto) 71.5 % 05/02/24 08:41 Lymph % (Auto) 18.2 % 05/02/24 08:41 [place] % (Auto) 9.1 % 05/02/24 08:41 Eos % (Auto) 0.4 % 05/02/24 08:41 Baso % (Auto) 0.4 % 05/02/24 08:41 Neut # (Auto) 9.78 K/uL (1.40-6.50) H 05/02/24 08:41 Lymph # (Auto) 2.48 K/uL (1.20-3.40) 05/02/24 08:41 [place] # (Auto) 1.24 K/uL (0.11-0.59) H 05/02/24 08:41 Eos # (Auto) 0.05 K/uL (0.00-0.50) 05/02/24 08:41 Baso # (Auto) 0.05 K/uL (0.00-0.20) 05/02/24 08:41 Immature Gran # (Auto) 0.06 K/uL (0.01-0.20) 05/02/24 08:41 PT 10.9 Seconds (9.0-12.0) 05/01/24 23:45 INR 1.0 (0.9-1.1) 05/01/24 23:45 VBG pH 7.38 (7.36-7.41) 05/01/24 23:45 VBG pCO2 42 mmHg (38-50) 05/01/24 23:45 VBG pO2 54 mmHg 05/01/24 23:45 VBG HCO3 25 mmol/L 05/01/24 23:45 VBG O2 Saturation 87.8 % 05/01/24 23:45 VBG Base Excess -0.4 mEq/L 05/01/24 23:45 Sodium 140 mmol/L (136-145) 05/02/24 08:41 Potassium 3.9 mmol/L (3.5-5.1) 05/02/24 08:41 Chloride 106 mmol/L (98-107) 05/02/24 08:41 Carbon Dioxide 28 mmol/L (21-32) 05/02/24 08:41 Anion Gap 6 (3-11) 05/02/24 08:41 BUN 27 mg/dl (6-23) H 05/02/24 08:41 Creatinine 0.83 mg/dl (0.6-1.2) 05/02/24 08:41 Est Cr Clr Drug Dosing 72.8 ml/min 05/02/24 08:41 eGFR 74.85 05/02/24 08:41 BUN/Creatinine Ratio 32.5 (10-20) H 05/02/24 08:41 Glucose 104 mg/dl (70-99(Fasting)) H 05/02/24 08:41 Calcium 8.9 mg/dl (8.6-10.3) 05/02/24 08:41 Magnesium 2.3 mg/dl (1.7-2.4) 05/02/24 08:41 Total Bilirubin 0.4 mg/dl (0.2-1.0) 05/01/24 22:59 AST 59 U/L (13-39) H 05/02/24 00:20 ALT 60 U/L (7-52) H 05/01/24 22:59 Alkaline Phosphatase 122 U/L (34-104) H 05/01/24 22:59 Troponin I High Sens 72.6 pg/ml (0-14) H* D 05/02/24 01:35 B-Natriuretic Peptide 408 pg/ml (0-100) H 05/01/24 23:00 Total Protein 7.6 gm/dl (6.0-8.3) 05/01/24 22:59 Albumin 3.9 gm/dl (3.4-5.0) 05/01/24 22:59 Globulin 3.7 gm/dl (2.5-4.0) 05/01/24 22:59 Albumin/Globulin Ratio 1.1 (0.9-2) 05/01/24 22:59 Procalcitonin < 0.02 ng/ml (0-0.5) 05/02/24 00:39 Urine Color Yellow 05/02/24 02:55 Urine Appearance Clear (Clear) 05/02/24 02:55 Urine pH 6.0 (4.5-7.5) 05/02/24 02:55 Ur Specific [place] 1.011 (1.000-1.030) 05/02/24 02:55 Urine Protein Negative (Negative) 05/02/24 02:55 Urine Glucose (UA) Negative (Negative) 05/02/24 02:55 Urine Ketones Negative (Negative) 05/02/24 02:55 Urine Blood Negative (Negative) 05/02/24 02:55 Urine Nitrite Positive (Negative) A 05/02/24 02:55 Urine Bilirubin Negative (Negative) 05/02/24 02:55 Urine Urobilinogen Negative (Negative) 05/02/24 02:55 Ur Leukocyte Esterase 2+ (Negative) H 05/02/24 02:55 Urine WBC (Auto) 0-5 /hpf (0-5) 05/02/24 02:55 Urine RBC (Auto) 0-2 /hpf (0-2) 05/02/24 02:55 U Hyaline Cast (Auto) 0-2 /lpf (0-2) 05/02/24 02:55 U Epithel Cells (Auto) 0-2 /hpf (0-2) 05/02/24 02:55 Urine Bacteria (Auto) 4+ (None Seen) H 05/02/24 02:55 Adenovirus (PCR) Not Detected (NotDetected) 05/01/24 23:00 B. pertussis DNA (PCR) Not Detected (NotDetected) 05/01/24 23:00 B.parapertussis DNA PCR Not Detected (NotDetected) 05/01/24 23:00 C. pneumoniae DNA (PCR) Not Detected (NotDetected) 05/01/24 23:00 Coronavirus OC43 (PCR) Not Detected (NotDetected) 05/01/24 23:00 Coronavirus HKU1 (PCR) Not Detected (NotDetected) 05/01/24 23:00 Coronavirus 229E (PCR) Not Detected (NotDetected) 05/01/24 23:00 SARS-CoV-2 (PCR) Not Detected (NotDetected) 05/01/24 23:00 Coronavirus NL63 (PCR) DETECTED (NotDetected) A 05/01/24 23:00 Human Metapneumovir PCR Not Detected (NotDetected) 05/01/24 23:00 Influenza Type A (PCR) Not Detected (NotDetected) 05/01/24 23:00 Influenza Type B (PCR) Not Detected (NotDetected) 05/01/24 23:00 M. pneumoniae (PCR) Not Detected (NotDetected) 05/01/24 23:00 Parainfluenza 1 (PCR) Not Detected (NotDetected) 05/01/24 23:00 Parainfluenza 2 (PCR) Not Detected (NotDetected) 05/01/24 23:00 Parainfluenza 3 (PCR) Not Detected (NotDetected) 05/01/24 23:00 Parainfluenza 4 (PCR) Not Detected (NotDetected) 05/01/24 23:00 RSV (PCR) Not Detected (NotDetected) 05/01/24 23:00 Entero/Rhino (PCR) Not Detected (NotDetected) 05/01/24 23:00 Chest X-Ray 05/01/24 22:59 Exam(s): XR CXR 1 VIEW EXAM: XR Chest, 1 View CLINICAL HISTORY: Reason for exam: Dyspnea. TECHNIQUE: Frontal view of the chest. COMPARISON: Chest radiograph on 02/18/2024 FINDINGS: Hardware: None. Lungs/pleura: Opacities bilaterally. Heart/mediastinum: Stable enlargement of the cardiac silhouette. Left- sided pacemaker. Atherosclerotic changes of the aorta. Soft tissues: Unremarkable. Bones: No acute fracture. Upper abdomen: Normal. IMPRESSION: Opacities bilaterally may represent pulmonary edema versus infectious/inflammatory process Electronically signed by: Susan Keane M.D. 05/02/24 02:43 AM Medications Administered Current Inpatient Medications Acetaminophen (Acetaminophen 325 Mg Tab) 650 mg PO Q4H PRN PRN Reason: Pain or Fever Stop: 06/01/24 08:33 Apixaban (Apixaban 5 Mg Tablet) 5 mg PO BID COUNTS INCLUDE 234 BEDS AT THE [facility] Stop: 06/01/24 08:59 Last Admin: 05/02/24 09:47 Dose: 5 mg Aspirin (Aspirin 81 Mg Ectab) 81 mg PO QAM [place] Stop: 06/01/24 08:59 Last Admin: 05/02/24 09:45 Dose: 81 mg Calcium Carbonate (Calcium Carbonate 1250mg Tab) 1 tab PO DAILY [place] Stop: 06/01/24 08:59 Last Admin: 05/02/24 09:45 Dose: 1 tab Doxycycline Hyclate (Doxycycline Hyclate 100 Mg Cap) 100 mg PO BID [place] Stop: 05/07/24 11:59 Ezetimibe (Ezetimibe 10 Mg Tab) 10 mg PO QA [place] Stop: 06/01/24 08:59 Last Admin: 05/02/24 09:45 Dose: 10 mg Fluoxetine HCl (Fluoxetine Hcl 20 Mg Cap) 20 mg PO DAILY [place] Stop: 06/01/24 08:59 Last Admin: 05/02/24 09:47 Dose: 20 mg Fluticasone Propionate (Fluticasone Propionate Na Spr 16 Gm Btl) 2 sprays NA [facility] Stop: 06/01/24 20:59 Furosemide (Furosemide Inj 20 Mg/2 Ml Vial) 20 mg IV BID [place] Stop: 06/01/24 08:59 Last Admin: 05/02/24 09:49 Dose: 20 mg Gabapentin (Gabapentin 300 Mg Cap) 300 mg PO [facility] Stop: 06/01/24 20:59 HCTZ/Losartan Potassium (Losartan/Hctz 50/12.5mg Tab) [facility] Stop: 06/01/24 08:59 Last Admin: 05/02/24 09:45 Dose: 1 tab Ceftriaxone Sodium (Rocephin) 2,000 mg in 50 mls @ 100 mls/hr IV Q24H [place] Stop: 05/07/24 08:59 Last Infusion: 05/02/24 10:30 Dose: Infused Levothyroxine Sodium (Levothyroxine Sodium 125 Mcg Tablet) 125 mcg PO DAILYBB [place] Stop: 06/01/24 08:33 Last Admin: 05/02/24 09:47 Dose: 125 mcg Metoprolol Succinate (Metoprolol Succ 50mg Ext Rel Tab) 100 mg PO [facility] Stop: 06/01/24 08:59 Last Admin: 05/02/24 09:46 Dose: 100 mg Metronidazole (Metronidazole 0.75% Topical Gel 45 Gm Tube) 1 appln TOP BID [place] Stop: 05/12/24 08:59 Last Admin: 05/02/24 09:48 Dose: Not Given Miscellaneous (Pitavastatin Calcium [Livalo]: Order Awaiting Action) 1 each N/A QS COUNTS INCLUDE 234 BEDS AT THE [facility] Stop: 06/01/24 15:59 Multivitamins/Minerals (Cerovite Adv Formula Tab) 1 tab PO BIDM COUNTS INCLUDE 234 BEDS AT THE [facility] Stop: 06/01/24 08:59 Last Admin: 05/02/24 09:45 Dose: 1 tab Nitroglycerin (Nitroglycerin Sl 0.4 Mg/Tab Tab) 0.4 mg SL Q5M PRN PRN Reason: Chest Pain Stop: 06/01/24 08:33 Polyethylene Glycol (Polyethylene (Miralax) 17 Gm Pack) 17 gm PO DAILY PRN PRN Reason: Constipation Stop: 06/01/24 08:33 Vitamin D (Cholecalciferol 25 Mcg (1000 Units) Tab) 50 mcg PO DAILY COUNTS INCLUDE 234 BEDS AT THE [facility] Stop: 06/01/24 08:59 Last Admin: 05/02/24 09:46 Dose: 50 mcg
[2024-05-02 09:38] LABS: Troponin I High Sensitivity 109.6 pg/ml (0-14)
[2024-05-02] MEDS: CALCIUM CARBONATE 1250MG TAB PO SCH (09:45)
[2024-05-02] MEDS: CEROVITE ADV FORMULA TAB PO SCH (09:45)
[2024-05-02] MEDS: ASPIRIN 81 MG ECTAB PO SCH (09:45)
[2024-05-02] MEDS: LOSARTAN/HCTZ 50/12.5MG TAB PO SCH (09:45)
[2024-05-02] MEDS: EZETIMIBE 10 MG TAB PO SCH (09:45)
[2024-05-02] MEDS: METOPROLOL SUCC 50MG EXT REL TAB PO SCH (09:46)
[2024-05-02] MEDS: CHOLECALCIFEROL 25 MCG (1000 UNITS) TAB PO SCH (09:46)
[2024-05-02] MEDS: LEVOTHYROXINE SODIUM 125 MCG TABLET PO SCH (09:47)
[2024-05-02] MEDS: cefTRIAXone SODIUM 2,000 MG/50 ML BAG IV SCH (09:47)
[2024-05-02] MEDS: APIXABAN 5 MG TABLET PO SCH (09:47)
[2024-05-02] MEDS: FLUoxetine HCL 20 MG CAP PO SCH (09:47)
[2024-05-02] MEDS: metroNIDAZOLE 0.75% TOPICAL GEL 45 GM TUBE TOP SCH (09:48)
[2024-05-02] MEDS: FUROSEMIDE INJ 20 MG/2 ML VIAL IV SCH (09:49)
[2024-05-02] MEDS: DRONEDARONE HCL 400 MG TAB PO SCH (09:50)
--- NOTE | 2024-05-02 12:31 | CT Scan Report ---
CT chest diagnostic wo con CT DOSE: 874.77 mGy.cm CLINICAL HISTORY: 73 years-old Female with b/l infiltrates, pneumonia vs CHF. Acute shortness of poncho ath TECHNIQUE: Multiaxial CT images of the chest were performed without contrast. A dose lowering techni que was utilized adhering to the principles of ALARA. COMPARISON: Chest radiograph of same day FINDINGS: No thyroid nodule or lymphadenopathy. Moderate cardiomegaly. Small pericardial effusion. Le ft subclavian pacer. No thoracic aortic aneurysm. Dilated pulmonary artery suggestive of pulmonary ar terial hypertension, 3.5 cm.. And small left with [id number] right pleural effusions. No pneum othorax. Intralobular septal thickening with patchy groundglass opacities. Dependent bibasilar consol idation. There are additional patchy ground glass/consolidative opacities within the right greater th an left lungs. Central airways are patent. No acute upper abdominal abnormality. Unremarkable soft tissues. No acute fracture. IMPRESSION: 1. Cardiomegaly with interstitial pulmonary edema, pericardial and pleural effusions. 2. Additional patchy right greater than left groundglass opacities are suspicious for a superimposed infectious or inflammatory pneumonitis. 3. Findings suggestive of pulmonary arterial hypertension. ACT 112: Negative or not required by law. Electronically signed by: Kervin Zhou M.D. 05/02/2024 12:29 PM
[2024-05-02] MEDS: DOXYCYCLINE HYCLATE 100 MG CAP PO SCH (13:22)
--- NOTE | 2024-05-02 15:55 | Communication Note ---
Date of Service: May 02, 2024 Patient seen and examined at bedside. She is comfortably lying in the bed with her head slightly elevated She reports shortness of breath on minimal exertion She denies fever, chills, chest pain or shortness of breath Her is also at bedside. On physical examination; Constitutional: Alert oriented x 3; not in distress. Respiratory: Bilateral vesicular breath sound Cardiovascular: Regular, no murmur, no edema Vessels: no JVD or carotid bruit Chest: normal inspection of chest Abdomen: normal bowel sounds, soft, nontender, no hepatosplenomegaly Musculoskeletal: no cyanosis or clubbing, extremities motor strength 5/5 Skin: no rashes, warm and dry normal turgor Neurologic: PERRL, EOMI, accommodation nl, no face palsy, no dysarthria CN's II- XI intact bilaterally and moves all extremities Assessment/plan Coronavirus infection Acute CHF Bilateral pleural effusion Stress-induced cardiomyopathy Acute UTI Persistent atrial fibrillation Possible pneumonia Demand ischemia Patient presented with increasing shortness of breath and weakness for several days Coronavirus positive in respiratory viral panel BNP elevated CT chest shows bilateral pulmonary edema along with pleural effusion and patchy infiltrates Urinalysis suggestive of infection Continue antibiotics to cover for UTI and pneumonia; follow-up on culture results. Continue IV diuretics for CHF. Will need repeat chest x-ray after discharge to ensure resolution of the pleural effusion with treatment of CHF Plan for cardioversion in next few days as per cardiology Hold amiodarone given prolonged QTc Continue Eliquis Plan of care discussed with patient's at bedside. Answer questions/queries Full progress note to follow tomorrow Please note the above document was generated using voice recognition software. It may contain grammatical, syntax or spelling errors. Any formal questions or concerns about the content, text or information contained within the body of this dictation should be directly addressed to the provider for clarification
[2024-05-02] MEDS: FLUTICASONE PROPIONATE NA SPR 16 GM BTL SCH (20:07)
[2024-05-02] MEDS: GABAPENTIN 300 MG CAP PO SCH (20:08)
[2024-05-03 07:09] LABS: Basophils # (auto) 0.04 K/uL (0.00-0.20); Basophils % (auto) 0.4 %; Eosinophils # (auto) 0.25 K/uL (0.00-0.50); Eosinophils % (auto) 2.3 %; Hematocrit (blood only) 37.9 % (37.0-47.0); Hemoglobin 12.4 g/dl (12.0-16.0); Immature Granulocytes # (auto) 0.05 K/uL (0.01-0.20); Immature Granulocytes % (auto) 0.5 %; Lymphocytes # (auto) 2.66 K/uL (1.20-3.40); Lymphocytes % (auto) 24.3 %; Mean Corpuscular Hemoglobin 28.6 pg (25.0-34.0); Mean Corpuscular Hgb Conc 32.7 g/dL (32.0-36.0); Mean Corpuscular Volume 87.3 fL (80.0-100.0); Mean Platelet Volume 9.4 fL (9.4-12.4); Monocytes # (auto) 1.02 K/uL (0.11-0.59); Monocytes % (auto) 9.3 %; Neutrophils # (auto) 6.93 K/uL (1.40-6.50); Neutrophils % (auto) 63.2 %; Platelet Count 241 K/uL (130-400); RDW Coefficient of Variation 14.5 % (11.5-14.5); RDW Standard Deviation 46.5 fL (36.4-46.3); Red Blood Count 4.34 M/uL (4.20-5.40); White Blood Count 10.95 K/ul (4.8-10.8)
[2024-05-03 07:19] LABS: BUN Creatinine Ratio 28.2 (10-20); Calcium 9.2 mg/dl (8.6-10.3); Creatinine Clr Calc Pharmacy 57.4 ml/min; Potassium 3.5 mmol/L (3.5-5.1)
--- NOTE | 2024-05-03 11:58 | Cardiology Progress Note ---
Date of Service May 03, 2024 Assessment & Plan (1) SOB (shortness of breath): (2) Coronavirus infection: (3) PAF (paroxysmal atrial fibrillation): (4) Acute heart failure with reduced ejection fraction (HFrEF, <= 40%) and combined systolic and diastolic dysfunction: (5) Stress-induced cardiomyopathy: (6) Persistent atrial fibrillation: Plan 05/02/24 Patient admitted for worsening SOB over the last few days, likely multifactorial. Symptoms associated with respiratory virus, + for coronavirus variant. Pulm vascular congestion noted on chest xray with possible underlying infectious process. Started on IV lasix and antibiotics. Continue furosemide 20 mg IV BID. Monitor I+O's and titrate dose as planned Continue Rocephin for possible UTI and pneumonia. Elevated WBC noted. Update echocardiogram. Elevated troponin at 100 this morning likely demand ischemia due to acute illness/hypoxia/CHF No chest pain She does have more pronounced T wave inversions in anterolateral leads on EKG Await echo. Underlying known CAD per cath in May 2023: Mild, moderate non-obstructive CAD Proximal RCA 60% lesion, iFR was 0.98 (hemodynamically insignificant) Mild disease elsewhere in left coronary system -continue ASA, statin, zetia, metoprolol Persistent atrial fibrillation/flutter, likely dating back to Dec 2023 Device interrogation ordered. Continue Eliquis. Recently changed from Multaq to Amiodarone 200 mg BID. Plan was for future cardioversion Once patient's respiratory status improves, consider inpatient cardioversion. no missed or skipped doses of Eliquis. For now, will hold Amiodarone given prolonged QT interval on EKG. Multaq was ordered incorrectly on admission. Patient has not been taking. This was discontinued. 05/03/24: Patient admitted for worsening SOB, multifactorial. +for Coronavirus and probable pneumonia along with acute HFrEF exacerbation. Evidence of probable stress induced cardiomyopathy on echo with LVEF 35-40% HS troponin only minimally elevated, secondary to type II demand ischemia. Not indicative of ACS She was previously cathed in 05/2023 demonstrating only moderate non obstructive disease within the RCA at 60% (negative FFR). Left coronary arteries were normal. Unlikely CAD is causing her reduced EF. Medical management recommended. Continue aggressive diuresis - Increase furosemide to 40 mg IV BID. Supplement potassium this morning. Consider adding spironolactone pending renal function with diuresis. She has been taking losartan/hctz at home. Will discontinue combination therapy and resume Losartan 50 mg daily for now. Consider Entresto if affordable. Continue ASA, statin. Monitor I+O's. Daily weight with standing scale. In regards to her afib, continue metoprolol for rate control Amio on hold due to prolonged QT interval. Rates are controlled Continue Eliquis for anticoagulation therapy Pacemaker interrogation ordered - discussed with [employer] - will attempt to adjust ATP therapies to convert to NSR Consider future cardioversion once respiratory status is optimized. Continue antibiotics for UTI and probable pneumonia. Case discussed with Dr. Gamboa I spent a total of 35 minutes on the date of service in preparation, delivery, and documentation of the care provided to this patient, excluding any time spent in the performance of separately billed services. Lula Liu PA-C Department of Cardiology, [facility] This chart was completed in part utilizing Speech Voice Recognition Software. Grammatical errors, random word insertions, pronoun errors, and incomplete sentences are an occasional consequence of this system due to software limitations, ambient noise, and hardware issues. Any formal questions or concerns about the content, text, or information contained within the body of this dictation should be directly addressed to the provider for clarification. Admission and Anticipated Discharge Date Admission Date: May 02, 2024 Supervising Physician Co-Signing Physician Notes I have personally performed a history and physical examination on the patient. I have reviewed the advance practitioner's documentation, and I agree with, and take responsibility for the plan of care. 73-year-old female admitted with progressive shortness of breath which is multifactorial secondary to acute coronavirus infection and acute heart failure with reduced ejection fraction. Echocardiogram demonstrating reduced LV systolic function with wall motion abnormalities consistent with stress-induced cardiomyopathy versus multivessel ischemic heart disease. Mild clinical improvement with IV diuresis. Recommendations: * Titrate IV furosemide to 40 mg twice daily * Follow daily weight, GFR, and electrolytes. * Maintain serum potassium greater than 4.0, and magnesium greater than 2.0 * Consider addition of spironolactone during hospitalization. * Hold amiodarone due to prolonged QT. * Continue Toprol-XL 100 mg daily. * Patient appears rate controlled on telemetry. No urgent indication for cardioversion at this time. * Continue losartan, aspirin, and apixaban as ordered. * Antibiotics as per internal medicine. Maikol Gamboa DO [facility] I spent a total of 30 minutes on the date of service in preparation, delivery, and documentation of the care provided to this patient, excluding any time spent in the performance of separately billed services. Subjective Patient resting in bed. at bedside. Patient reports improving SOB since admission. cough also improving. No chest pain. No edema. Review of Systems Review of Systems: All systems reviewed & are unremarkable except as noted in HPI & below Physical Exam Constitutional: WD/WN, vitals as above no acute distress Neck: + thick neck Respiratory: no labored breathing Auscultation: + diminished lung sounds, + crackles and + rales Cardiovascular: Rate/Rhythm: + irregularly irregular Heart Sounds: no murmur Vessels: + JVD Extremities: no edema Gastrointestinal (Abdomen): normal bowel sounds, soft, nontender, no hepatosplenomegaly Neurologic: PERRL, EOMI, accommodation nl, no face palsy, no dysarthria Psychiatric: A+Ox3, euthymic affect Results & Data Vital Signs (Past 12 Hours) Vital Signs Temp Pulse Pulse Pulse Resp BP Pulse Ox 05/03/24 08:00 36.7 C 60 18 128/78 96 05/03/24 06:56 60 05/03/24 02:22 36.7 C 59 L 17 118/78 98 O2 Del Method O2 Flow Rate 05/03/24 08:00 Nasal Cannula 2.0 05/03/24 06:56 05/03/24 02:22 Nasal Cannula 3 Laboratory Results Cardiac Enzymes 05/02/24 05/02/24 Range/Units 14:26 20:09 Troponin I High Sens 79.1 H* D 44.7 H D (0-14) pg/ml CBC 05/03/24 Range/Units 06:26 WBC 10.95 H (4.8-10.8) K/ul RBC 4.34 (4.20-5.40) M/uL Hgb 12.4 (12.0-16.0) g/dl Hct 37.9 (37.0-47.0) % Plt Count 241 (130-400) K/uL Neut # (Auto) 6.93 H (1.40-6.50) K/uL Lymph # (Auto) 2.66 (1.20-3.40) K/uL [place] # (Auto) 1.02 H (0.11-0.59) K/uL Eos # (Auto) 0.25 (0.00-0.50) K/uL Baso # (Auto) 0.04 (0.00-0.20) K/uL Comprehensive Metabolic Panel 05/03/24 Range/Units 06:26 Sodium 138 (136-145) mmol/L Potassium 3.5 (3.5-5.1) mmol/L Chloride 101 (98-107) mmol/L Carbon Dioxide 32 (21-32) mmol/L BUN 29 H (6-23) mg/dl Creatinine 1.03 (0.6-1.2) mg/dl Glucose 89 (70-99(Fasting)) mg/dl Calcium 9.2 (8.6-10.3) mg/dl Intake and Output 05/02/24 05/03/24 05/03/24 22:59 06:59 14:59 Intake Total 50 / 50 Output Total 600 / 600 Balance -600 / -550 50 / 50 Intake: IV 50 / 50 cefTRIAXone SODIUM 2,000 mg In 50 / 50 50 ml @ 100 mls/hr IV Q24H [facility] Rx#:[id number] Output: Urine 600 / 600 Other: # Unmeasured Voids 1 Weight 102.2 kg Weight Measurement Method Built in [facility] Diagnostic Findings Telemetry reviewed: atrial flutter with variable AV block and intermittent ventricular pacing EKG this morning: Atrial flutter with ventricular pacing Echo report reviewed from 05/02/24: LVEF moderately reduced at 35-40% Large wall motion abnormality involving the mid and apical myocardium. Findings represent probable stress-induced cardiomyopathy. Mild to moderate MR No pulm hypertension Medications Administered Current Inpatient Medications Acetaminophen (Acetaminophen 325 Mg Tab) 650 mg PO Q4H PRN PRN Reason: Pain or Fever Stop: 06/01/24 08:33 Apixaban (Apixaban 5 Mg Tablet) 5 mg PO BID [facility] Stop: 06/01/24 08:59 Last Admin: 05/03/24 08:58 Dose: 5 mg Aspirin (Aspirin 81 Mg Ectab) 81 mg PO QAM [facility] Stop: 06/01/24 08:59 Last Admin: 05/03/24 08:57 Dose: 81 mg Calcium Carbonate (Calcium Carbonate 1250mg Tab) 1 tab PO DAILY [facility] Stop: 06/01/24 08:59 Last Admin: 05/03/24 08:59 Dose: 1 tab Doxycycline Hyclate (Doxycycline Hyclate 100 Mg Cap) 100 mg PO BID [facility] Stop: 05/07/24 11:59 Last Admin: 05/03/24 08:57 Dose: 100 mg Ezetimibe (Ezetimibe 10 Mg Tab) 10 mg PO QA [facility] Stop: 06/01/24 08:59 Last Admin: 05/03/24 08:59 Dose: 10 mg Fluoxetine HCl (Fluoxetine Hcl 20 Mg Cap) 20 mg PO DAILY [facility] Stop: 06/01/24 08:59 Last Admin: 05/03/24 09:00 Dose: 20 mg Fluticasone Propionate (Fluticasone Propionate Na Spr 16 Gm Btl) 2 sprays NA [facility] Stop: 06/01/24 20:59 Last Admin: 05/02/24 20:07 Dose: 2 sprays Furosemide (Furosemide 40 Mg/4 Ml Vial) 40 mg IV [id number] [facility] Stop: 06/02/24 13:59 Gabapentin (Gabapentin 300 Mg Cap) 300 mg PO HS [facility] Stop: 06/01/24 20:59 Last Admin: 05/02/24 20:08 Dose: 300 mg Ceftriaxone Sodium (Rocephin) 2,000 mg in 50 mls @ 100 mls/hr IV Q24H [facility] Stop: 05/07/24 08:59 Last Infusion: 05/03/24 09:59 Dose: Infused Levothyroxine Sodium (Levothyroxine Sodium 125 Mcg Tablet) 125 mcg PO DAILYBB [facility] Stop: 06/01/24 08:33 Last Admin: 05/03/24 05:30 Dose: 125 mcg Losartan Potassium (Losartan Potassium 50 Mg Tab) 50 mg PO QAM [facility] Stop: 06/03/24 08:59 Metoprolol Succinate (Metoprolol Succ 50mg Ext Rel Tab) [facility] [facility] Stop: 06/01/24 08:59 Last Admin: 05/03/24 09:00 Dose: 100 mg Metronidazole (Metronidazole 0.75% Topical Gel 45 Gm Tube) 1 appln TOP BID [facility] Stop: 05/12/24 08:59 Last Admin: 05/03/24 09:00 Dose: 1 appln Miscellaneous (Pitavastatin Calcium [Livalo]: Order Awaiting Action) 1 each N/A QS [facility] Stop: 06/01/24 15:59 Last Admin: 05/03/24 08:59 Dose: Not Given Multivitamins/Minerals (Cerovite Adv Formula Tab) 1 tab PO BIDM [facility] Stop: 06/01/24 08:59 Last Admin: 05/03/24 08:57 Dose: 1 tab Nitroglycerin (Nitroglycerin Sl 0.4 Mg/Tab Tab) 0.4 mg SL Q5M PRN PRN Reason: Chest Pain Stop: 06/01/24 08:33 Polyethylene Glycol (Polyethylene (Miralax) 17 Gm Pack) 17 gm PO DAILY PRN PRN Reason: Constipation Stop: 06/01/24 08:33 Potassium Chloride (Potassium Chloride Crtab 20 Meq Tabcr) 20 meq PO NOW STA Stop: 05/03/24 11:46 Vitamin D (Cholecalciferol 25 Mcg (1000 Units) Tab) 50 mcg PO DAILY [facility] Stop: 06/01/24 08:59 Last Admin: 05/03/24 08:58 Dose: 50 mcg
[2024-05-03] MEDS: POTASSIUM CHLORIDE CRTAB 20 MEQ TABCR PO STA (12:43)
[2024-05-03] MEDS: FUROSEMIDE 40 MG/4 ML VIAL IV SCH (12:43)
--- NOTE | 2024-05-03 14:56 | Hospitalist Progress Note ---
Date of Service May 03, 2024 Assessment & Plan (1) SOB (shortness of breath): Plan: 71-year-old female with past med history significant for postsurgical hypothyroidism, hyperlipidemia, paroxysmal atrial fibrillation, tachybradycardia syndrome, status post pacemaker, history of CAD, hypertension, urge incontinence, anxiety state, presents with shortness of breath. Shortness of breath going for last 2 -3 days. Getting progressively worse. Walking few step s making her short of breath. Has cough. Bringing some phlegm. Denies any fevers. No headache. No dizziness. No runny nose or sore throat. No chest pain. No nausea. No abdominal pain. Normal bowel and bladder movements. Appetite is okay. Her oxygen saturations were in low 90s and was placed on 2 L oxygen. Acute heart failure with reduced ejection fraction--POA Likely Takotsubo cardiomyopathy -- Chest CT showed interstitial pulmonary edema, pericardial and pleural effusions --BNP 408 --ECHO: EF 35 to 40%. Large wall motion abnormality involving the mid and apical myocardium with hypokinesis to akinesis of the segments. Mild to moderate mitral regurgitation. Trace tricuspid regurgitation. -- Continue IV Lasix 40 mg twice a day Monitor volume status, electrolytes, renal function Appreciate cardiology input Monitor I's and O's, daily weights Elevated troponin Likely demand ischemia Had cardiac catheterization in May 2023 which showed nonobstructive coronary artery disease Continue aspirin, statin Acute UTI Primary urine culture growing E. coli Empirically on Rocephin Community-acquired pneumonia--POA Coronavirus NL 63 positive --Chest CT:Patchy right greater than left groundglass opacities are suspicious for a superimposed infectious or inflammatory pneumonitis. --Droplet precautions Continue Rocephin, doxycycline Postsurgical hypothyroidism Continue levothyroxine Paroxysmal atrial fibrillation Tachybradycardia syndrome S/P pacemaker Pacemaker interrogation requested Dronedarone--held for now due to prolonged QTc Continue metoprolol On Eliquis for anticoagulation H/O CVA On aspirin, statin Hyperlipidemia On Zetia and statin Hypertension On metoprolol succinate, losartan hydrochlorothiazide held while on IV Lasix Monitor blood pressure Obesity BMI 38.7 Anxiety Disorder continue fluoxetine DVT prophylaxis On Eliquis CODE STATUS Full code Admission and Anticipated Discharge Date Admission Date: May 02, 2024 Subjective Patient is seen and examined at bedside Less cough, dyspnea today Heart rate is controlled Family at bedside Denies any chest pain, dizziness, nausea, vomiting, abdominal pain Review of Systems 2 Review of Systems: All systems reviewed & are unremarkable except as noted in Subjective Physical Exam Physical Exam: Physical Exam: Vitals signs as noted above General Appearance: Obese, no apparent distress Head: normocephalic, Atraumatic Eyes: normal inspection, EOMI Neck: supple, Trachea midline Respiratory/Chest: Normal breath sounds, basal crackles, No accessory muscle use Cardiovascular: Irregularly irregular, No murmur Abdomen/GI:Soft, Non tender, Bowel sounds present Extremities/Musculoskeletal:normal inspection, no edema Neurologic/Psych:AAOX3, grossly no focal neurological deficits Skin: normal color, warm Results & Data Results & Data Vital Signs (Past 12 Hours) Vital Signs Temp Pulse Pulse Resp BP Pulse Ox O2 Del Method 05/03/24 14:19 60 05/03/24 13:03 94 Room Air 05/03/24 12:22 Nasal Cannula 05/03/24 11:56 36.8 C 60 18 134/81 96 Nasal Cannula 05/03/24 08:00 36.7 C 60 18 128/78 96 Nasal Cannula 05/03/24 06:56 60 O2 Flow Rate 05/03/24 14:19 05/03/24 13:03 05/03/24 12:22 2 05/03/24 11:56 2.0 05/03/24 08:00 2.0 05/03/24 06:56 Laboratory Results Short CBC 05/03/24 Range/Units 06:26 WBC 10.95 H (4.8-10.8) K/ul Hgb 12.4 (12.0-16.0) g/dl Hct 37.9 (37.0-47.0) % Plt Count 241 (130-400) K/uL BMP 05/03/24 06:26 Sodium 138 Potassium 3.5 Chloride 101 Carbon Dioxide 32 BUN 29 H Creatinine 1.03 Glucose 89 Calcium 9.2
--- NOTE | 2024-05-03 15:55 | Electrocardiogram Report ---
Test Reason : Blood Pressure : */* mmHG Vent. Rate : 60 BPM Atrial Rate : 71 BPM P-R Int : * ms QRS Dur : 152 ms QT Int : 592 ms P-R-T Axes : * 266 123 degrees QTcB Int : 592 ms Atrial fibrillation with Ventricular-paced rhythm with occasional AV conduction Abnormal ECG When compared with ECG of 02-May-2024 11:08, (unconfirmed) Vent. rate has decreased by 4 bpm Confirmed by Travis Owens ([id number]) on 05/03/2024 3:55:14 PM Referred By: REFERRED SELF Confirmed By: Travis Owens
--- NOTE | 2024-05-03 20:47 | Electrocardiogram Report ---
Test Reason : Blood Pressure : */* mmHG Vent. Rate : 84 BPM Atrial Rate : 234 BPM P-R Int : * ms QRS Dur : 96 ms QT Int : 418 ms P-R-T Axes : * 76 -86 degrees QTcB Int : 493 ms Atrial flutter with variable A-V block T wave abnormality, consider anterolateral ischemia vs "T wave memory" from LBBB Abnormal ECG When compared with ECG of 18-Feb-2024 17:27, Left bundle branch block is no longer Present Confirmed by Travis Owens ([id number]) on 05/03/2024 8:47:06 PM Referred By: REFERRED SELF Confirmed By: Travis Owens
--- NOTE | 2024-05-03 21:04 | Electrocardiogram Report ---
Test Reason : Blood Pressure : */* mmHG Vent. Rate : 64 BPM Atrial Rate : 252 BPM P-R Int : * ms QRS Dur : 92 ms QT Int : 558 ms P-R-T Axes : * 72 243 degrees QTcB Int : 575 ms Atrial flutter with variable A-V block with frequent ventricular-paced complexes and with premature v entricular or aberrantly conducted complexes Prolonged QT Abnormal ECG When compared with ECG of 01-May-2024 22:58, (unconfirmed) Electronic ventricular pacemaker is now evident Confirmed by Travis Owens ([id number]) on 05/03/2024 9:03:41 PM Referred By: REFERRED SELF Confirmed By: Travis Owens
[2024-05-04 07:00] LABS: Hematocrit (blood only) 39.5 % (37.0-47.0); Hemoglobin 13.3 g/dl (12.0-16.0); Mean Corpuscular Hemoglobin 28.9 pg (25.0-34.0); Mean Corpuscular Hgb Conc 33.7 g/dL (32.0-36.0); Mean Corpuscular Volume 85.7 fL (80.0-100.0); Mean Platelet Volume 9.2 fL (9.4-12.4); Platelet Count 255 K/uL (130-400); RDW Coefficient of Variation 14.3 % (11.5-14.5); RDW Standard Deviation 44.6 fL (36.4-46.3); Red Blood Count 4.61 M/uL (4.20-5.40); White Blood Count 11.66 K/ul (4.8-10.8)
[2024-05-04 07:36] LABS: BUN Creatinine Ratio 29.9 (10-20); Calcium 9.6 mg/dl (8.6-10.3); Creatinine Clr Calc Pharmacy 60.8 ml/min; Potassium 3.4 mmol/L (3.5-5.1)
[2024-05-04] MEDS: NYSTATIN POWDER 15GM BTL EXT SCH (08:47)
[2024-05-04] MEDS: LOSARTAN POTASSIUM 50 MG TAB PO SCH (08:49)
[2024-05-04] MEDS: POTASSIUM CHLORIDE CRTAB 20 MEQ TABCR PO SCH (10:29)
--- NOTE | 2024-05-04 13:53 | Cardiology Progress Note ---
Date of Service May 04, 2024 Assessment & Plan (1) SOB (shortness of breath): (2) Coronavirus infection: (3) PAF (paroxysmal atrial fibrillation): (4) Acute heart failure with reduced ejection fraction (HFrEF, <= 40%) and combined systolic and diastolic dysfunction: (5) Stress-induced cardiomyopathy: (6) Persistent atrial fibrillation: Plan 05/02/24 Patient admitted for worsening SOB over the last few days, likely multifactorial. Symptoms associated with respiratory virus, + for coronavirus variant. Pulm vascular congestion noted on chest xray with possible underlying infectious process. Started on IV lasix and antibiotics. Continue furosemide 20 mg IV BID. Monitor I+O's and titrate dose as planned Continue Rocephin for possible UTI and pneumonia. Elevated WBC noted. Update echocardiogram. Elevated troponin at 100 this morning likely demand ischemia due to acute illness/hypoxia/CHF No chest pain She does have more pronounced T wave inversions in anterolateral leads on EKG Await echo. Underlying known CAD per cath in May 2023: Mild, moderate non-obstructive CAD Proximal RCA 60% lesion, iFR was 0.98 (hemodynamically insignificant) Mild disease elsewhere in left coronary system -continue ASA, statin, zetia, metoprolol Persistent atrial fibrillation/flutter, likely dating back to Dec 2023 Device interrogation ordered. Continue Eliquis. Recently changed from Multaq to Amiodarone 200 mg BID. Plan was for future cardioversion Once patient's respiratory status improves, consider inpatient cardioversion. no missed or skipped doses of Eliquis. For now, will hold Amiodarone given prolonged QT interval on EKG. Multaq was ordered incorrectly on admission. Patient has not been taking. This was discontinued. 05/03/24: Patient admitted for worsening SOB, multifactorial. +for Coronavirus and probable pneumonia along with acute HFrEF exacerbation. Evidence of probable stress induced cardiomyopathy on echo with LVEF 35-40% HS troponin only minimally elevated, secondary to type II demand ischemia. Not indicative of ACS She was previously cathed in 05/2023 demonstrating only moderate non obstructive disease within the RCA at 60% (negative FFR). Left coronary arteries were normal. Unlikely CAD is causing her reduced EF. Medical management recommended. Continue aggressive diuresis - Increase furosemide to 40 mg IV BID. Supplement potassium this morning. Consider adding spironolactone pending renal function with diuresis. She has been taking losartan/hctz at home. Will discontinue combination therapy and resume Losartan 50 mg daily for now. Consider Entresto if affordable. Continue ASA, statin. Monitor I+O's. Daily weight with standing scale. In regards to her afib, continue metoprolol for rate control Amio on hold due to prolonged QT interval. Rates are controlled Continue Eliquis for anticoagulation therapy Pacemaker interrogation ordered - discussed with [employer] - will attempt to adjust ATP therapies to convert to NSR Consider future cardioversion once respiratory status is optimized. Continue antibiotics for UTI and probable pneumonia. 05/04/24 Improved respiratory status over the last 24 hours. No longer hypoxic and tolerating RA Good diuresis over the last 24 hours - approx 5 L output measured. Weight trending downward. Stable renal function. Potassium slightly low and supplemented. Add spironolactone 12.5 mg daily Continue furosemide 40 mg IV BID. Monitor I+O's. LVEF reduced likely due to stress induced cardiomyopathy, tachyarrhythmia. HR's improved. Persistent afib noted since Dec. Amiodarone discontinued due to prolonged QT interval. Continue metoprolol succinate 100 mg daily Currently no indication for urgent DCCV. Continue GDMT for cardiomyopathy Continue losartan. Could consider future Entresto Adding spironolactone Continue metoprolol Case discussed with Dr. Gamboa I spent a total of 35 minutes on the date of service in preparation, delivery, and documentation of the care provided to this patient, excluding any time spent in the performance of separately billed services. Lula Liu PA-C Department of Cardiology, [facility] This chart was completed in part utilizing Speech Voice Recognition Software. Grammatical errors, random word insertions, pronoun errors, and incomplete sentences are an occasional consequence of this system due to software limitations, ambient noise, and hardware issues. Any formal questions or concerns about the content, text, or information contained within the body of this dictation should be directly addressed to the provider for clarification. Admission and Anticipated Discharge Date Admission Date: May 02, 2024 Supervising Physician Co-Signing Physician Notes I have personally performed a history and physical examination on the patient. I have reviewed the advance practitioner's documentation, and I agree with, and take responsibility for the plan of care. 73-year-old female admitted with progressive shortness of breath which is multifactorial secondary to acute coronavirus infection and acute heart failure with reduced ejection fraction. Echocardiogram demonstrating reduced LV systolic function with wall motion abnormalities consistent with stress-induced cardiomyopathy versus multivessel ischemic heart disease. Clinically improved today with nearly 3.5 L diuresis overnight.Mild hypokalemia noted. Renal function remains stable. Recommendations: * Continue IV furosemide to 40 mg twice daily * Follow daily weight, GFR, and electrolytes. * Maintain serum potassium greater than 4.0, and magnesium greater than 2.0 * Add low dose spironolactone. * Hold amiodarone due to prolonged QT. * Continue Toprol-XL 100 mg daily. * Patient appears rate controlled on telemetry. No urgent indication for cardioversion at this time. * Continue losartan, aspirin, and apixaban as ordered. * Antibiotics as per internal medicine. Maikol Gamboa DO, [facility] I spent a total of 30 minutes on the date of service in preparation, delivery, and documentation of the care provided to this patient, excluding any time spent in the performance of separately billed services. Subjective Patient with significant diuresis yesterday and thus far today. Improved respiratory status noted. No longer requiring supplemental O2. at bedside. questions answered. Remains in afib, rates controlled.. She voices no acute complaints currently. SOB improving. No chest pain Review of Systems Review of Systems: All systems reviewed & are unremarkable except as noted in HPI & below Physical Exam Constitutional: WD/WN, vitals as above no acute distress Neck: + thick neck Respiratory: no labored breathing Auscultation: + diminished lung sounds, + crackles and + rales Cardiovascular: Rate/Rhythm: + irregularly irregular Heart Sounds: no murmur Vessels: + JVD Extremities: no edema Gastrointestinal (Abdomen): normal bowel sounds, soft, nontender, no hepatosplenomegaly Neurologic: PERRL, EOMI, accommodation nl, no face palsy, no dysarthria Psychiatric: A+Ox3, euthymic affect Results & Data Vital Signs (Past 12 Hours) Vital Signs Temp Pulse Pulse Pulse Resp BP BP 05/04/24 12:00 60 05/04/24 12:00 05/04/24 11:29 106/67 05/04/24 11:27 36.4 C L 60 17 05/04/24 08:07 36.5 C 60 16 135/81 05/04/24 07:04 36.5 C 60 19 128/81 05/04/24 03:47 36.4 C L 60 18 120/75 Pulse Ox O2 Del Method 05/04/24 12:00 05/04/24 12:00 Room Air 05/04/24 11:29 05/04/24 11:27 95 Room Air 05/04/24 08:07 93 Room Air 05/04/24 07:04 94 Room Air 05/04/24 03:47 92 Room Air Laboratory Results CBC 05/04/24 Range/Units 06:16 WBC 11.66 H (4.8-10.8) K/ul RBC 4.61 (4.20-5.40) M/uL Hgb 13.3 (12.0-16.0) g/dl Hct 39.5 (37.0-47.0) % Plt Count 255 (130-400) K/uL Comprehensive Metabolic Panel 05/04/24 Range/Units 06:16 Sodium 139 (136-145) mmol/L Potassium 3.4 L (3.5-5.1) mmol/L Chloride 97 L (98-107) mmol/L Carbon Dioxide 34 H (21-32) mmol/L BUN 29 H (6-23) mg/dl Creatinine 0.97 (0.6-1.2) mg/dl Glucose 88 (70-99(Fasting)) mg/dl Calcium 9.6 (8.6-10.3) mg/dl Intake and Output 05/03/24 05/04/24 05/04/24 22:59 06:59 14:59 Intake Total 50 / 50 Output Total 1100 / 3150 250 / 3150 Balance -1100 / -2160 -250 / -2160 50 / 50 Intake: IV 50 / 50 cefTRIAXone SODIUM 2,000 mg In 50 / 50 50 ml @ 100 mls/hr IV Q24H [facility] Rx#:[id number] Output: Urine 500 / 500 Urine Amount (Catheter) 600 / 2650 250 / 2650 External 600 / 2650 250 / 2650 Other: Weight 101.5 kg Weight Measurement Method Built in [facility] Diagnostic Findings Telemetry reviewed: Atrial flutter with controlled rates, intermittent pacing - rates 60-70 bmp Medications Administered Current Inpatient Medications Acetaminophen (Acetaminophen 325 Mg Tab) 650 mg PO Q4H PRN PRN Reason: Pain or Fever Stop: 06/01/24 08:33 Apixaban (Apixaban 5 Mg Tablet) 5 mg PO BID [facility] Stop: 06/01/24 08:59 Last Admin: 05/04/24 08:50 Dose: 5 mg Aspirin (Aspirin 81 Mg Ectab) 81 mg PO QAM [facility] Stop: 06/01/24 08:59 Last Admin: 05/04/24 08:49 Dose: 81 mg Calcium Carbonate (Calcium Carbonate 1250mg Tab) 1 tab PO DAILY [facility] Stop: 06/01/24 08:59 Last Admin: 05/04/24 08:50 Dose: 1 tab Doxycycline Hyclate (Doxycycline Hyclate 100 Mg Cap) 100 mg PO BID [facility] Stop: 05/07/24 11:59 Last Admin: 05/04/24 08:49 Dose: 100 mg Ezetimibe (Ezetimibe 10 Mg Tab) 10 mg PO QAM [facility] Stop: 06/01/24 08:59 Last Admin: 05/04/24 08:49 Dose: 10 mg Fluoxetine HCl (Fluoxetine Hcl 20 Mg Cap) 20 mg PO DAILY [facility] Stop: 06/01/24 08:59 Last Admin: 05/04/24 08:50 Dose: 20 mg Fluticasone Propionate (Fluticasone Propionate Na Spr 16 Gm Btl) 2 sprays NA HS [facility] Stop: 06/01/24 20:59 Last Admin: 05/03/24 21:07 Dose: 2 sprays Furosemide (Furosemide 40 Mg/4 Ml Vial) 40 mg IV [id number] [facility] Stop: 06/02/24 13:59 Last Admin: 05/04/24 08:49 Dose: 40 mg Gabapentin (Gabapentin 300 Mg Cap) 300 mg PO HS [facility] Stop: 06/01/24 20:59 Last Admin: 05/03/24 21:09 Dose: 300 mg Ceftriaxone Sodium (Rocephin) 2,000 mg in 50 mls @ 100 mls/hr IV Q24H [facility] Stop: 05/07/24 08:59 Last Infusion: 05/04/24 11:38 Dose: Infused Levothyroxine Sodium (Levothyroxine Sodium 125 Mcg Tablet) 125 mcg PO DAILYBB [facility] Stop: 06/01/24 08:33 Last Admin: 05/04/24 08:48 Dose: 125 mcg Losartan Potassium (Losartan Potassium 50 Mg Tab) 50 mg PO QAM [facility] Stop: 06/03/24 08:59 Last Admin: 05/04/24 08:49 Dose: 50 mg Metoprolol Succinate (Metoprolol Succ 50mg Ext Rel Tab) 100 mg PO QAM [facility] Stop: 06/01/24 08:59 Last Admin: 05/04/24 08:50 Dose: 100 mg Metronidazole (Metronidazole 0.75% Topical Gel 45 Gm Tube) 1 appln TOP BID [facility] Stop: 05/12/24 08:59 Last Admin: 05/04/24 08:51 Dose: 1 appln Miscellaneous (Pitavastatin Calcium [Livalo]: Order Awaiting Action) 1 each N/A QS [facility] Stop: 06/01/24 15:59 Last Admin: 05/04/24 03:21 Dose: Not Given Multivitamins/Minerals (Cerovite Adv Formula Tab) 1 tab PO BIDM [facility] Stop: 06/01/24 08:59 Last Admin: 05/04/24 08:50 Dose: 1 tab Nitroglycerin (Nitroglycerin Sl 0.4 Mg/Tab Tab) 0.4 mg SL Q5M PRN PRN Reason: Chest Pain Stop: 06/01/24 08:33 Nystatin (Nystatin Powder 15gm Btl) 1 appln EXT BID [facility] Stop: 06/02/24 21:29 Last Admin: 05/04/24 10:29 Dose: 1 appln Polyethylene Glycol (Polyethylene (Miralax) 17 Gm Pack) 17 gm PO DAILY PRN PRN Reason: Constipation Stop: 06/01/24 08:33 Potassium Chloride (Potassium Chloride Crtab 20 Meq Tabcr) 20 meq PO BID [facility] Stop: 06/03/24 09:14 Last Admin: 05/04/24 10:29 Dose: 20 meq Vitamin D (Cholecalciferol 25 Mcg (1000 Units) Tab) 50 mcg PO DAILY [facility] Stop: 06/01/24 08:59 Last Admin: 05/04/24 08:49 Dose: 50 mcg
--- NOTE | 2024-05-04 15:49 | Hospitalist Progress Note ---
Date of Service May 04, 2024 Assessment & Plan (1) SOB (shortness of breath): Plan: 71-year-old female with past med history significant for postsurgical hypothyroidism, hyperlipidemia, paroxysmal atrial fibrillation, tachybradycardia syndrome, status post pacemaker, history of CAD, hypertension, urge incontinence, anxiety state, presents with shortness of breath. Shortness of breath going for last 2 -3 days. Getting progressively worse. Walking few step s making her short of breath. Has cough. Bringing some phlegm. Denies any fevers. No headache. No dizziness. No runny nose or sore throat. No chest pain. No nausea. No abdominal pain. Normal bowel and bladder movements. Appetite is okay. Her oxygen saturations were in low 90s and was placed on 2 L oxygen. Acute heart failure with reduced ejection fraction--POA Likely Takotsubo cardiomyopathy -- Chest CT showed interstitial pulmonary edema, pericardial and pleural effusions --BNP 408 --ECHO: EF 35 to 40%. Large wall motion abnormality involving the mid and apical myocardium with hypokinesis to akinesis of the segments. Mild to moderate mitral regurgitation. Trace tricuspid regurgitation. -- Continue IV Lasix 40 mg twice a day Monitor volume status, electrolytes, renal function Appreciate cardiology input Monitor I's and O's, daily weights Added Aldactone 12.5 mg daily Continue IV diuresis Hypokalemia Replete and monitor Elevated troponin Likely demand ischemia Had cardiac catheterization in May 2023 which showed nonobstructive coronary artery disease Continue aspirin, statin Acute UTI Urine culture grew E. coli Continue IV Rocephin Community-acquired pneumonia--POA Coronavirus NL 63 positive --Chest CT:Patchy right greater than left groundglass opacities are suspicious for a superimposed infectious or inflammatory pneumonitis. --Droplet precautions Continue Rocephin, doxycycline Postsurgical hypothyroidism Continue levothyroxine Paroxysmal atrial fibrillation Tachybradycardia syndrome S/P pacemaker Pacemaker interrogation requested Dronedarone--held for now due to prolonged QTc Continue metoprolol On Eliquis for anticoagulation H/O CVA On aspirin, statin Hyperlipidemia On Zetia and statin Hypertension On metoprolol succinate, losartan hydrochlorothiazide held while on IV Lasix Monitor blood pressure Obesity BMI 38.7 Anxiety Disorder continue fluoxetine DVT prophylaxis On Eliquis CODE STATUS Full code Admission and Anticipated Discharge Date Admission Date: May 02, 2024 Subjective Patient is seen and examined at bedside Sitting in chair during my encounter this morning States feeling better today Cough, dyspnea improving Family at bedside Saturating well on room air Offers no other complaints today Denies any chest pain, dizziness, nausea, vomiting, abdominal pain Review of Systems Review of Systems: All systems reviewed & are unremarkable except as noted in Subjective Physical Exam Physical Exam: Physical Exam: Vitals signs as noted above General Appearance: Obese, no apparent distress Head: normocephalic, Atraumatic Eyes: normal inspection, EOMI Neck: supple, Trachea midline Respiratory/Chest: Normal breath sounds, basal crackles, No accessory muscle use Cardiovascular: Irregularly irregular, No murmur Abdomen/GI:Soft, Non tender, Bowel sounds present Extremities/Musculoskeletal:normal inspection, no edema Neurologic/Psych:AAOX3, grossly no focal neurological deficits Skin: normal color, warm Results & Data Results & Data Vital Signs (Past 12 Hours) Vital Signs Temp Pulse Pulse Pulse Resp BP BP 05/04/24 15:22 36.5 C 81 19 117/77 05/04/24 15:00 61 05/04/24 12:00 60 05/04/24 12:00 05/04/24 11:29 106/67 05/04/24 11:27 36.4 C L 60 17 05/04/24 08:07 36.5 C 60 16 135/81 05/04/24 07:04 36.5 C 60 19 128/81 05/04/24 03:47 36.4 C L 60 18 120/75 Pulse Ox O2 Del Method 05/04/24 15:22 95 Room Air 05/04/24 15:00 05/04/24 12:00 05/04/24 12:00 Room Air 05/04/24 11:29 05/04/24 11:27 95 Room Air 05/04/24 08:07 93 Room Air 05/04/24 07:04 94 Room Air 05/04/24 03:47 92 Room Air Laboratory Results Short CBC 05/04/24 Range/Units 06:16 WBC 11.66 H (4.8-10.8) K/ul Hgb 13.3 (12.0-16.0) g/dl Hct 39.5 (37.0-47.0) % Plt Count 255 (130-400) K/uL BMP 05/04/24 06:16 Sodium 139 Potassium 3.4 L Chloride 97 L Carbon Dioxide 34 H BUN 29 H Creatinine 0.97 Glucose 88 Calcium 9.6
[2024-05-04] MEDS: SPIRONOLACTONE 12.5 MG TAB PO SCH (17:30)
[2024-05-05 06:48] LABS: Hematocrit (blood only) 41.8 % (37.0-47.0); Hemoglobin 13.8 g/dl (12.0-16.0); Mean Corpuscular Hemoglobin 28.4 pg (25.0-34.0); Mean Platelet Volume 9.1 fL (9.4-12.4); Platelet Count 278 K/uL (130-400); RDW Coefficient of Variation 14.5 % (11.5-14.5); RDW Standard Deviation 45.1 fL (36.4-46.3); Red Blood Count 4.86 M/uL (4.20-5.40); White Blood Count 11.07 K/ul (4.8-10.8)
[2024-05-05 07:05] LABS: BUN Creatinine Ratio 28.2 (10-20); Calcium 9.7 mg/dl (8.6-10.3); Creatinine Clr Calc Pharmacy 56.7 ml/min; Magnesium 2.1 mg/dl (1.7-2.4); Potassium 3.7 mmol/L (3.5-5.1)
--- NOTE | 2024-05-05 11:09 | Cardiology Progress Note ---
Date of Service May 05, 2024 Assessment & Plan (1) Acute heart failure with reduced ejection fraction (HFrEF, <= 40%) and combined systolic and diastolic dysfunction: (2) Coronavirus infection: (3) SOB (shortness of breath): (4) PAF (paroxysmal atrial fibrillation): (5) Stress-induced cardiomyopathy: (6) Persistent atrial fibrillation: Plan 05/02/24 Patient admitted for worsening SOB over the last few days, likely multifactorial. Symptoms associated with respiratory virus, + for coronavirus variant. Pulm vascular congestion noted on chest xray with possible underlying infectious process. Started on IV lasix and antibiotics. Continue furosemide 20 mg IV BID. Monitor I+O's and titrate dose as planned Continue Rocephin for possible UTI and pneumonia. Elevated WBC noted. Update echocardiogram. Elevated troponin at 100 this morning likely demand ischemia due to acute illness/hypoxia/CHF No chest pain She does have more pronounced T wave inversions in anterolateral leads on EKG Await echo. Underlying known CAD per cath in May 2023: Mild, moderate non-obstructive CAD Proximal RCA 60% lesion, iFR was 0.98 (hemodynamically insignificant) Mild disease elsewhere in left coronary system -continue ASA, statin, zetia, metoprolol Persistent atrial fibrillation/flutter, likely dating back to Dec 2023 Device interrogation ordered. Continue Eliquis. Recently changed from Multaq to Amiodarone 200 mg BID. Plan was for future cardioversion Once patient's respiratory status improves, consider inpatient cardioversion. no missed or skipped doses of Eliquis. For now, will hold Amiodarone given prolonged QT interval on EKG. Multaq was ordered incorrectly on admission. Patient has not been taking. This was discontinued. 05/03/24: Patient admitted for worsening SOB, multifactorial. +for Coronavirus and probable pneumonia along with acute HFrEF exacerbation. Evidence of probable stress induced cardiomyopathy on echo with LVEF 35-40% HS troponin only minimally elevated, secondary to type II demand ischemia. Not indicative of ACS She was previously cathed in 05/2023 demonstrating only moderate non obstructive disease within the RCA at 60% (negative FFR). Left coronary arteries were normal. Unlikely CAD is causing her reduced EF. Medical management recommended. Continue aggressive diuresis - Increase furosemide to 40 mg IV BID. Supplement potassium this morning. Consider adding spironolactone pending renal function with diuresis. She has been taking losartan/hctz at home. Will discontinue combination therapy and resume Losartan 50 mg daily for now. Consider Entresto if affordable. Continue ASA, statin. Monitor I+O's. Daily weight with standing scale. In regards to her afib, continue metoprolol for rate control Amio on hold due to prolonged QT interval. Rates are controlled Continue Eliquis for anticoagulation therapy Pacemaker interrogation ordered - discussed with [employer] - will attempt to adjust ATP therapies to convert to NSR Consider future cardioversion once respiratory status is optimized. Continue antibiotics for UTI and probable pneumonia. 05/04/24 Improved respiratory status over the last 24 hours. No longer hypoxic and tolerating RA Good diuresis over the last 24 hours - approx 5 L output measured. Weight trending downward. Stable renal function. Potassium slightly low and supplemented. Add spironolactone 12.5 mg daily Continue furosemide 40 mg IV BID. Monitor I+O's. LVEF reduced likely due to stress induced cardiomyopathy, tachyarrhythmia. HR's improved. Persistent afib noted since Dec. Amiodarone discontinued due to prolonged QT interval. Continue metoprolol succinate 100 mg daily Currently no indication for urgent DCCV. Continue GDMT for cardiomyopathy Continue losartan. Could consider future Entresto Adding spironolactone Continue metoprolol 05/05/24: Ongoing diuresis noted over the last 24 hours. 2.3 L output yesterday. Since admission she is Negative 4.2 L Weight is down from 106 kg to 99.8 kg. Stable renal function and potassium. Continue furosemide 40 mg IV BID today Continue spironolactone 12.5 mg daily (added yesterday) Chronic/persistent atrial flutter noted, rates controlled. Amiodarone discontinued due to prolonged QT interval. Patient has been in persistent afib/flutter since Dec 2023. Ongoing rate/rhythm control to be discussed as outpatient, once respiratory status improves. Continue anticoagulation with Eliquis 5 mg BID Continue metoprolol for rate control. Case discussed with Dr. Gamboa I spent a total of 35 minutes on the date of service in preparation, delivery, and documentation of the care provided to this patient, excluding any time spent in the performance of separately billed services. Lula Liu PA-C Department of Cardiology, [facility] This chart was completed in part utilizing Speech Voice Recognition Software. Grammatical errors, random word insertions, pronoun errors, and incomplete sentences are an occasional consequence of this system due to software limitations, ambient noise, and hardware issues. Any formal questions or concerns about the content, text, or information contained within the body of this dictation should be directly addressed to the provider for clarification. Admission and Anticipated Discharge Date Admission Date: May 02, 2024 Supervising Physician Co-Signing Physician Notes I have personally performed a history and physical examination on the patient. I have reviewed the advance practitioner's documentation, and I agree with, and take responsibility for the plan of care. 73-year-old female admitted with progressive shortness of breath which is multifactorial secondary to acute coronavirus infection and acute heart failure with reduced ejection fraction. Echocardiogram demonstrating reduced LV systolic function with wall motion abnormalities consistent with stress-induced cardiomyopathy versus multivessel ischemic heart disease. Clinically improved today with nearly 2.3 L diuresis over the past 24 hours. Renal function remains stable. Recommendations: * Continue IV furosemide to 40 mg twice daily * Follow daily weight, GFR, and electrolytes. * Maintain serum potassium greater than 4.0, and magnesium greater than 2.0 * Low dose spironolactone added 05/04/2024. * Hold amiodarone due to prolonged QT. * Continue Toprol-XL 100 mg daily. * Patient appears rate controlled on telemetry. No urgent indication for cardioversion at this time. * Continue losartan, aspirin, and apixaban as ordered. * Antibiotics as per internal medicine. Maikol Gamboa DO, [facility] I spent a total of 30 minutes on the date of service in preparation, delivery, and documentation of the care provided to this patient, excluding any time spent in the performance of separately billed services. Subjective Patient resting in bed. Feeling "good" this morning. Notes improvement in her dyspnea with minimal ambulation. Ongoing diuresis reported. No chest pain reported. SOB improving. Intermittent cough. No orthopnea. No edema Review of Systems Review of Systems: All systems reviewed & are unremarkable except as noted in HPI & below Physical Exam Constitutional: WD/WN, vitals as above no acute distress Neck: + thick neck Respiratory: no labored breathing Auscultation: + diminished lung sounds, + crackles and + rales Cardiovascular: Rate/Rhythm: + irregularly irregular Heart Sounds: no murmur Vessels: + JVD Extremities: no edema Gastrointestinal (Abdomen): normal bowel sounds, soft, nontender, no hepatosplenomegaly Neurologic: PERRL, EOMI, accommodation nl, no face palsy, no dysarthria Psychiatric: A+Ox3, euthymic affect Results & Data Vital Signs (Past 12 Hours) Vital Signs Temp Pulse Pulse Pulse Resp BP BP 05/05/24 10:39 05/05/24 07:13 36.4 C L 61 19 170/76 H 05/05/24 07:00 60 05/05/24 03:09 36.4 C L 60 18 138/81 Pulse Ox O2 Del Method 05/05/24 10:39 Room Air 05/05/24 07:13 93 Room Air 05/05/24 07:00 05/05/24 03:09 96 Room Air Laboratory Results CBC 05/05/24 Range/Units 05:55 WBC 11.07 H (4.8-10.8) K/ul RBC 4.86 (4.20-5.40) M/uL Hgb 13.8 (12.0-16.0) g/dl Hct 41.8 (37.0-47.0) % Plt Count 278 (130-400) K/uL Comprehensive Metabolic Panel 05/05/24 Range/Units 05:55 Sodium 139 (136-145) mmol/L Potassium 3.7 (3.5-5.1) mmol/L Chloride 97 L (98-107) mmol/L Carbon Dioxide 34 H (21-32) mmol/L BUN 29 H (6-23) mg/dl Creatinine 1.03 (0.6-1.2) mg/dl Glucose 86 (70-99(Fasting)) mg/dl Calcium 9.7 (8.6-10.3) mg/dl Intake and Output 05/04/24 05/05/24 05/05/24 22:59 06:59 14:59 Intake Total 50 / 50 Output Total 975 / 2375 200 / 2375 Balance -975 / -1605 -200 / -1605 50 / 50 Intake: IV 50 / 50 cefTRIAXone SODIUM 2,000 mg In 50 / 50 50 ml @ 100 mls/hr IV Q24H [facility] Rx#:[id number] Output: Urine Amount (Catheter) 975 / 2375 200 / 2375 External 975 / 2375 200 / 2375 Other: Weight 99.8 kg Weight Measurement Method Standing Scale Diagnostic Findings Telemetry reviewed: Persistent atrial flutter with controlled rates. Medications Administered Current Inpatient Medications Acetaminophen (Acetaminophen 325 Mg Tab) 650 mg PO Q4H PRN PRN Reason: Pain or Fever Stop: 06/01/24 08:33 Apixaban (Apixaban 5 Mg Tablet) 5 mg PO BID [facility] Stop: 06/01/24 08:59 Last Admin: 05/05/24 08:38 Dose: 5 mg Aspirin (Aspirin 81 Mg Ectab) 81 mg PO QAM [facility] Stop: 06/01/24 08:59 Last Admin: 05/05/24 08:37 Dose: 81 mg Calcium Carbonate (Calcium Carbonate 1250mg Tab) 1 tab PO DAILY [facility] Stop: 06/01/24 08:59 Last Admin: 05/05/24 08:38 Dose: 1 tab Doxycycline Hyclate (Doxycycline Hyclate 100 Mg Cap) 100 mg PO BID [facility] Stop: 05/07/24 11:59 Last Admin: 05/05/24 08:38 Dose: 100 mg Ezetimibe (Ezetimibe 10 Mg Tab) 10 mg PO QAM [facility] Stop: 06/01/24 08:59 Last Admin: 05/05/24 08:38 Dose: 10 mg Fluoxetine HCl (Fluoxetine Hcl 20 Mg Cap) 20 mg PO DAILY [facility] Stop: 06/01/24 08:59 Last Admin: 05/05/24 08:38 Dose: 20 mg Fluticasone Propionate (Fluticasone Propionate Na Spr 16 Gm Btl) 2 sprays NA [facility] Stop: 06/01/24 20:59 Last Admin: 05/04/24 21:32 Dose: 2 sprays Furosemide (Furosemide 40 Mg/4 Ml Vial) 40 mg IV [id number] [facility] Stop: 06/02/24 13:59 Last Admin: 05/05/24 08:37 Dose: 40 mg Gabapentin (Gabapentin 300 Mg Cap) 300 mg PO [facility] Stop: 06/01/24 20:59 Last Admin: 05/04/24 21:32 Dose: 300 mg Ceftriaxone Sodium (Rocephin) 2,000 mg in 50 mls @ 100 mls/hr IV Q24H [facility] Stop: 05/07/24 08:59 Last Infusion: 05/05/24 09:27 Dose: Infused Levothyroxine Sodium (Levothyroxine Sodium 125 Mcg Tablet) 125 mcg PO DAILYBB [facility] Stop: 06/01/24 08:33 Last Admin: 05/05/24 07:04 Dose: 125 mcg Losartan Potassium (Losartan Potassium 50 Mg Tab) 50 mg PO QAM [facility] Stop: 06/03/24 08:59 Last Admin: 05/05/24 08:38 Dose: 50 mg Metoprolol Succinate (Metoprolol Succ 50mg Ext Rel Tab) 100 mg PO QAM [facility] Stop: 06/01/24 08:59 Last Admin: 05/05/24 08:38 Dose: 100 mg Metronidazole (Metronidazole 0.75% Topical Gel 45 Gm Tube) 1 appln TOP BID [facility] Stop: 05/12/24 08:59 Last Admin: 05/05/24 08:39 Dose: 1 appln Miscellaneous (Pitavastatin Calcium [Livalo]: Order Awaiting Action) 1 each N/A QS [facility] Stop: 06/01/24 15:59 Last Admin: 05/04/24 23:05 Dose: Not Given Multivitamins/Minerals (Cerovite Adv Formula Tab) 1 tab PO BIDM [facility] Stop: 06/01/24 08:59 Last Admin: 05/05/24 08:38 Dose: 1 tab Nitroglycerin (Nitroglycerin Sl 0.4 Mg/Tab Tab) 0.4 mg SL Q5M PRN PRN Reason: Chest Pain Stop: 06/01/24 08:33 Nystatin (Nystatin Powder 15gm Btl) 1 appln EXT BID [facility] Stop: 06/02/24 21:29 Last Admin: 05/05/24 08:39 Dose: 1 appln Polyethylene Glycol (Polyethylene (Miralax) 17 Gm Pack) 17 gm PO DAILY PRN PRN Reason: Constipation Stop: 06/01/24 08:33 Potassium Chloride (Potassium Chloride Crtab 20 Meq Tabcr) 20 meq PO BID [facility] Stop: 06/03/24 09:14 Last Admin: 05/05/24 08:39 Dose: 20 meq Spironolactone (Spironolactone 12.5 Mg Tab) 12.5 mg PO DAILY [facility] Stop: 06/03/24 13:59 Last Admin: 05/05/24 08:40 Dose: 12.5 mg Vitamin D (Cholecalciferol 25 Mcg (1000 Units) Tab) 50 mcg PO DAILY [facility] Stop: 06/01/24 08:59 Last Admin: 05/05/24 08:37 Dose: 50 mcg
--- NOTE | 2024-05-05 16:24 | Hospitalist Progress Note ---
Date of Service May 05, 2024 Assessment & Plan (1) SOB (shortness of breath): Plan: 71-year-old female with past med history significant for postsurgical hypothyroidism, hyperlipidemia, paroxysmal atrial fibrillation, tachybradycardia syndrome, status post pacemaker, history of CAD, hypertension, urge incontinence, anxiety state, presents with shortness of breath. Shortness of breath going for last 2 -3 days. Getting progressively worse. Walking few step s making her short of breath. Has cough. Bringing some phlegm. Denies any fevers. No headache. No dizziness. No runny nose or sore throat. No chest pain. No nausea. No abdominal pain. Normal bowel and bladder movements. Appetite is okay. Her oxygen saturations were in low 90s and was placed on 2 L oxygen. Acute heart failure with reduced ejection fraction--POA Likely Takotsubo cardiomyopathy -- Chest CT showed interstitial pulmonary edema, pericardial and pleural effusions --BNP 408 --ECHO: EF 35 to 40%. Large wall motion abnormality involving the mid and apical myocardium with hypokinesis to akinesis of the segments. Mild to moderate mitral regurgitation. Trace tricuspid regurgitation. -- Continue IV Lasix 40 mg twice a day Monitor volume status, electrolytes, renal function Appreciate cardiology input Monitor I's and O's, daily weights Added Aldactone 12.5 mg daily Continue IV diuresis Currently no plan for cardioversion PT OT harmeetal Will repeat chest x-ray tomorrow Hypokalemia Replete and monitor Elevated troponin Likely demand ischemia Had cardiac catheterization in May 2023 which showed nonobstructive coronary artery disease Continue aspirin, statin Acute UTI Urine culture grew E. coli Continue IV Rocephin Community-acquired pneumonia--POA Coronavirus NL 63 positive --Chest CT:Patchy right greater than left groundglass opacities are suspicious for a superimposed infectious or inflammatory pneumonitis. --Droplet precautions Continue Rocephin, doxycycline Postsurgical hypothyroidism Continue levothyroxine Paroxysmal atrial fibrillation Tachybradycardia syndrome S/P pacemaker Pacemaker interrogation requested Dronedarone--held for now due to prolonged QTc Continue metoprolol On Eliquis for anticoagulation H/O CVA On aspirin, statin Hyperlipidemia On Zetia and statin Hypertension On metoprolol succinate, losartan hydrochlorothiazide held while on IV Lasix Monitor blood pressure Obesity BMI 38.7 Anxiety Disorder continue fluoxetine DVT prophylaxis On Eliquis CODE STATUS Full code Disposition PT OT prior to discharge Admission and Anticipated Discharge Date Admission Date: May 02, 2024 Subjective Patient is seen and examined at bedside Feels better today Dyspnea with exertion improving Family at bedside No new complaints today Less cough Denies any chest pain, dizziness, nausea, vomiting, abdominal pain Review of Systems Review of Systems: All systems reviewed & are unremarkable except as noted in Subjective Physical Exam Physical Exam: Physical Exam: Vitals signs as noted above General Appearance: Obese, no apparent distress Head: normocephalic, Atraumatic Eyes: normal inspection, EOMI Neck: supple, Trachea midline Respiratory/Chest: Normal breath sounds, basal crackles, No accessory muscle use Cardiovascular: Irregularly irregular, No murmur Abdomen/GI:Soft, Non tender, Bowel sounds present Extremities/Musculoskeletal:normal inspection, no edema Neurologic/Psych:AAOX3, grossly no focal neurological deficits Skin: normal color, warm Results & Data Results & Data Vital Signs (Past 12 Hours) Vital Signs Temp Pulse Pulse Resp BP BP Pulse Ox 05/05/24 16:03 36.8 C 61 19 137/76 95 05/05/24 15:00 60 05/05/24 11:56 36.6 C 64 19 113/64 95 05/05/24 10:39 05/05/24 07:13 36.4 C L 61 19 170/76 H 93 05/05/24 07:00 60 O2 Del Method 05/05/24 16:03 Room Air 05/05/24 15:00 05/05/24 11:56 Room Air 05/05/24 10:39 Room Air 05/05/24 07:13 Room Air 05/05/24 07:00 Laboratory Results Short CBC 05/05/24 Range/Units 05:55 WBC 11.07 H (4.8-10.8) K/ul Hgb 13.8 (12.0-16.0) g/dl Hct 41.8 (37.0-47.0) % Plt Count 278 (130-400) K/uL BMP 05/05/24 05:55 Sodium 139 Potassium 3.7 Chloride 97 L Carbon Dioxide 34 H BUN 29 H Creatinine 1.03 Glucose 86 Calcium 9.7
[2024-05-06 08:37] LABS: BUN Creatinine Ratio 26.1 (10-20); Calcium 9.7 mg/dl (8.6-10.3); Potassium 3.7 mmol/L (3.5-5.1)
--- NOTE | 2024-05-06 09:34 | XRay Report ---
EXAM: XR chest 1V portable CLINICAL HISTORY: Congestive heart failure TECHNIQUE: An X-ray image of the chest is obtained in AP projection. COMPARISON: 05/01/2024 FINDINGS: Pulmonary Parenchyma: Interval improvement of the right lung zone opacities more at the right perihilar region. Interval improvement of the pulmonary hilar vascular congestion and diffuse interstitial thickening. Still seen obliterated left costoprenic angle by pleural effusion. No evidence of right pleural effusion or pleural thickening. Heart and Mediastinum: Stable cardiomegaly and dilated thoracic aorta with atheromatous calcifications. No mediastinal widening or masses. No hilar or mediastinal lymphadenopathy. Pacemaker with electrodes. Bony Thorax: Bony thorax appears intact without fractures or deformities. Soft Tissues: Soft tissues overlying the chest wall are unremarkable. IMPRESSION: 1. Interval improvement of the right lung zone opacities more at the right perihilar region. 2. Interval improvement of the pulmonary hilar vascular congestion and diffuse interstitial thickening. 3. Still seen obliterated left costoprenic angle by pleural effusion. Electronically signed by Gregory Villatoro 05-06-2024 07:49 AM
--- NOTE | 2024-05-06 11:48 | Cardiology Progress Note ---
Date of Service May 06, 2024 Assessment & Plan (1) Acute heart failure with reduced ejection fraction (HFrEF, <= 40%) and combined systolic and diastolic dysfunction: (2) Coronavirus infection: (3) SOB (shortness of breath): (4) PAF (paroxysmal atrial fibrillation): (5) Stress-induced cardiomyopathy: (6) Persistent atrial fibrillation: Plan 05/02/24 Patient admitted for worsening SOB over the last few days, likely multifactorial. Symptoms associated with respiratory virus, + for coronavirus variant. Pulm vascular congestion noted on chest xray with possible underlying infectious process. Started on IV lasix and antibiotics. Continue furosemide 20 mg IV BID. Monitor I+O's and titrate dose as planned Continue Rocephin for possible UTI and pneumonia. Elevated WBC noted. Update echocardiogram. Elevated troponin at 100 this morning likely demand ischemia due to acute illness/hypoxia/CHF No chest pain She does have more pronounced T wave inversions in anterolateral leads on EKG Await echo. Underlying known CAD per cath in May 2023: Mild, moderate non-obstructive CAD Proximal RCA 60% lesion, iFR was 0.98 (hemodynamically insignificant) Mild disease elsewhere in left coronary system -continue ASA, statin, zetia, metoprolol Persistent atrial fibrillation/flutter, likely dating back to Dec 2023 Device interrogation ordered. Continue Eliquis. Recently changed from Multaq to Amiodarone 200 mg BID. Plan was for future cardioversion Once patient's respiratory status improves, consider inpatient cardioversion. no missed or skipped doses of Eliquis. For now, will hold Amiodarone given prolonged QT interval on EKG. Multaq was ordered incorrectly on admission. Patient has not been taking. This was discontinued. 05/03/24: Patient admitted for worsening SOB, multifactorial. +for Coronavirus and probable pneumonia along with acute HFrEF exacerbation. Evidence of probable stress induced cardiomyopathy on echo with LVEF 35-40% HS troponin only minimally elevated, secondary to type II demand ischemia. Not indicative of ACS She was previously cathed in 05/2023 demonstrating only moderate non obstructive disease within the RCA at 60% (negative FFR). Left coronary arteries were normal. Unlikely CAD is causing her reduced EF. Medical management recommended. Continue aggressive diuresis - Increase furosemide to 40 mg IV BID. Supplement potassium this morning. Consider adding spironolactone pending renal function with diuresis. She has been taking losartan/hctz at home. Will discontinue combination therapy and resume Losartan 50 mg daily for now. Consider Entresto if affordable. Continue ASA, statin. Monitor I+O's. Daily weight with standing scale. In regards to her afib, continue metoprolol for rate control Amio on hold due to prolonged QT interval. Rates are controlled Continue Eliquis for anticoagulation therapy Pacemaker interrogation ordered - discussed with [employer] - will attempt to adjust ATP therapies to convert to NSR Consider future cardioversion once respiratory status is optimized. Continue antibiotics for UTI and probable pneumonia. 05/04/24 Improved respiratory status over the last 24 hours. No longer hypoxic and tolerating RA Good diuresis over the last 24 hours - approx 5 L output measured. Weight trending downward. Stable renal function. Potassium slightly low and supplemented. Add spironolactone 12.5 mg daily Continue furosemide 40 mg IV BID. Monitor I+O's. LVEF reduced likely due to stress induced cardiomyopathy, tachyarrhythmia. HR's improved. Persistent afib noted since Dec. Amiodarone discontinued due to prolonged QT interval. Continue metoprolol succinate 100 mg daily Currently no indication for urgent DCCV. Continue GDMT for cardiomyopathy Continue losartan. Could consider future Entresto Adding spironolactone Continue metoprolol 05/05/24: Ongoing diuresis noted over the last 24 hours. 2.3 L output yesterday. Since admission she is Negative 4.2 L Weight is down from 106 kg to 99.8 kg. Stable renal function and potassium. Continue furosemide 40 mg IV BID today Continue spironolactone 12.5 mg daily (added yesterday) Chronic/persistent atrial flutter noted, rates controlled. Amiodarone discontinued due to prolonged QT interval. Patient has been in persistent afib/flutter since Dec 2023. Ongoing rate/rhythm control to be discussed as outpatient, once respiratory status improves. Continue anticoagulation with Eliquis 5 mg BID Continue metoprolol for rate control. 05/06/24: Chest xray this morning with interval improvement in pulm vascular congestion. Has residual left pleural effusion SOB improving. No longer requiring supplemental O2. Continue IV diuresis with furosemide 40 mg IV BID today. Continue spironolactone 12.5 mg daily Stable renal function/electrolytes Chronic/persistent atrial flutter. Rates controlled continue metoprolol and Eliquis Amiodarone discontinue due to prolonged QT and respiratory status. would consider future rate vs rhythm control as outpatient. Reduced LVEF on admission - possibly stress induced cardiomyopathy. Recent cath without obstructive disease in May 2023. No anginal symptoms. Continue GDMT with metoprolol succinate, losartan, spironolactone. Continue ASA and statin. Case discussed with Dr. Corral I spent a total of 30 minutes on the date of service in preparation, delivery, and documentation of the care provided to this patient, excluding any time spent in the performance of separately billed services. Lula Liu PA-C Department of Cardiology, [facility] This chart was completed in part utilizing Speech Voice Recognition Software. Grammatical errors, random word insertions, pronoun errors, and incomplete sentences are an occasional consequence of this system due to software limitations, ambient noise, and hardware issues. Any formal questions or concerns about the content, text, or information contained within the body of this dictation should be directly addressed to the provider for clarification. Admission and Anticipated Discharge Date Admission Date: May 02, 2024 Supervising Physician Co-Signing Physician Notes I have personally performed a history and physical examination on the patient. I have reviewed the advance practitioner's documentation, and I agree with, and take responsibility for the plan of care. 73-year-old female admitted with progressive shortness of breath which is multifactorial secondary to acute coronavirus infection and acute heart failure with reduced ejection fraction. Echocardiogram demonstrating reduced LV systolic function with wall motion abnormalities consistent with stress-induced cardiomyopathy versus multivessel ischemic heart disease. Shortness of breath has improved, lower extremity swelling also is improving Chest x-ray shows improving condition continue with IV lasix I spent a total of 20 minutes on the date of service in preparation, delivery, and documentation of the care provided to this patient, excluding any time spent in the performance of separately billed services. Subjective Patient ambulating in room. SOB improving. No complaints. Ongoing diuresis noted. Tolerating meds. No dizziness. cough improving. Review of Systems 2 Review of Systems: All systems reviewed & are unremarkable except as noted in HPI & below Physical Exam Constitutional: WD/WN, vitals as above no acute distress Neck: + thick neck Respiratory: no labored breathing Auscultation: + diminished lung sounds, + crackles and + rales Cardiovascular: Rate/Rhythm: + irregularly irregular Heart Sounds: no murmur Vessels: no JVD Extremities: no edema Gastrointestinal (Abdomen): normal bowel sounds, soft, nontender, no hepatosplenomegaly Neurologic: PERRL, EOMI, accommodation nl, no face palsy, no dysarthria Psychiatric: A+Ox3, euthymic affect Results & Data Vital Signs (Past 12 Hours) Vital Signs Temp Pulse Resp BP BP Pulse Ox O2 Del Method 05/06/24 11:00 36.6 C 61 18 121/78 96 Room Air 05/06/24 10:54 Room Air 05/06/24 06:57 36.8 C 60 20 120/77 95 Room Air 05/06/24 06:50 127/69 05/06/24 02:34 36.4 C L 56 L 18 121/78 95 Room Air Laboratory Results Comprehensive Metabolic Panel 05/06/24 Range/Units 07:54 Sodium 139 (136-145) mmol/L Potassium 3.7 (3.5-5.1) mmol/L Chloride 95 L (98-107) mmol/L Carbon Dioxide 35 H (21-32) mmol/L BUN 31 H (6-23) mg/dl Creatinine 1.19 (0.6-1.2) mg/dl Glucose 93 (70-99(Fasting)) mg/dl Calcium 9.7 (8.6-10.3) mg/dl Intake and Output 05/05/24 05/06/24 05/06/24 22:59 06:59 14:59 Intake Total 50 / 50 Output Total 700 / 1500 300 / 1500 Balance -700 / -730 -300 / -730 50 / 50 Intake: IV 50 / 50 cefTRIAXone SODIUM 2,000 mg In 50 / 50 50 ml @ 100 mls/hr IV Q24H [facility] Rx#:[id number] Output: Urine 250 / 250 Urine Amount (Catheter) 700 / 1250 50 / 1250 External 700 / 1250 50 / 1250 Other: Weight 99.5 kg Weight Measurement Method Standing Scale Diagnostic Findings Telemetry reviewed: Atrial flutter with intermittent pacing. Chest xray reviewed today: IMPRESSION: 1. Interval improvement of the right lung zone opacities more at the right perihilar region. 2. Interval improvement of the pulmonary hilar vascular congestion and diffuse interstitial thickening. 3. Still seen obliterated left costoprenic angle by pleural effusion. Medications Administered Current Inpatient Medications Acetaminophen (Acetaminophen 325 Mg Tab) 650 mg PO Q4H PRN PRN Reason: Pain or Fever Stop: 06/01/24 08:33 Apixaban (Apixaban 5 Mg Tablet) 5 mg PO BID [facility] Stop: 06/01/24 08:59 Last Admin: 05/06/24 08:55 Dose: 5 mg Aspirin (Aspirin 81 Mg Ectab) 81 mg PO QAM [facility] Stop: 06/01/24 08:59 Last Admin: 05/06/24 08:58 Dose: 81 mg Calcium Carbonate (Calcium Carbonate 1250mg Tab) 1 tab PO DAILY [facility] Stop: 06/01/24 08:59 Last Admin: 05/06/24 08:57 Dose: 1 tab Doxycycline Hyclate (Doxycycline Hyclate 100 Mg Cap) 100 mg PO BID [facility] Stop: 05/07/24 11:59 Last Admin: 05/06/24 08:55 Dose: 100 mg Ezetimibe (Ezetimibe 10 Mg Tab) 10 mg PO QAM [facility] Stop: 06/01/24 08:59 Last Admin: 05/06/24 08:57 Dose: 10 mg Fluoxetine HCl (Fluoxetine Hcl 20 Mg Cap) 20 mg PO DAILY [facility] Stop: 06/01/24 08:59 Last Admin: 05/06/24 08:57 Dose: 20 mg Fluticasone Propionate (Fluticasone Propionate Na Spr 16 Gm Btl) 2 sprays NA HS [facility] Stop: 06/01/24 20:59 Last Admin: 05/05/24 20:16 Dose: 2 sprays Furosemide (Furosemide 40 Mg/4 Ml Vial) 40 mg IV [id number] [facility] Stop: 06/02/24 13:59 Last Admin: 05/06/24 06:40 Dose: 40 mg Gabapentin (Gabapentin 300 Mg Cap) 300 mg PO HS [facility] Stop: 06/01/24 20:59 Last Admin: 05/05/24 20:16 Dose: 300 mg Ceftriaxone Sodium (Rocephin) 2,000 mg in 50 mls @ 100 mls/hr IV Q24H [facility] Stop: 05/07/24 08:59 Last Infusion: 05/06/24 10:33 Dose: Infused Levothyroxine Sodium (Levothyroxine Sodium 125 Mcg Tablet) 125 mcg PO DAILYBB [facility] Stop: 06/01/24 08:33 Last Admin: 05/06/24 05:41 Dose: 125 mcg Losartan Potassium (Losartan Potassium 50 Mg Tab) 50 mg PO QAM [facility] Stop: 06/03/24 08:59 Last Admin: 05/06/24 08:56 Dose: 50 mg Metoprolol Succinate (Metoprolol Succ 50mg Ext Rel Tab) 100 mg PO QAM [facility] Stop: 06/01/24 08:59 Last Admin: 05/06/24 08:56 Dose: 100 mg Metronidazole (Metronidazole 0.75% Topical Gel 45 Gm Tube) 1 appln TOP BID [facility] Stop: 05/12/24 08:59 Last Admin: 05/06/24 08:58 Dose: 1 appln Miscellaneous (Pitavastatin Calcium [Livalo]: Order Awaiting Action) 1 each N/A QS [facility] Stop: 06/01/24 15:59 Last Admin: 05/04/24 23:05 Dose: Not Given Multivitamins/Minerals (Cerovite Adv Formula Tab) 1 tab PO BIDM [facility] Stop: 06/01/24 08:59 Last Admin: 05/06/24 08:57 Dose: 1 tab Nitroglycerin (Nitroglycerin Sl 0.4 Mg/Tab Tab) 0.4 mg SL Q5M PRN PRN Reason: Chest Pain Stop: 06/01/24 08:33 Nystatin (Nystatin Powder 15gm Btl) 1 appln EXT BID [facility] Stop: 06/02/24 21:29 Last Admin: 05/06/24 08:58 Dose: 1 appln Polyethylene Glycol (Polyethylene (Miralax) 17 Gm Pack) 17 gm PO DAILY PRN PRN Reason: Constipation Stop: 06/01/24 08:33 Potassium Chloride (Potassium Chloride Crtab 20 Meq Tabcr) 20 meq PO BID [facility] Stop: 06/03/24 09:14 Last Admin: 05/06/24 09:12 Dose: 20 meq Spironolactone (Spironolactone 12.5 Mg Tab) 12.5 mg PO DAILY [facility] Stop: 06/03/24 13:59 Last Admin: 05/06/24 08:55 Dose: 12.5 mg Vitamin D (Cholecalciferol 25 Mcg (1000 Units) Tab) 50 mcg PO DAILY [facility] Stop: 06/01/24 08:59 Last Admin: 05/06/24 08:57 Dose: 50 mcg
--- NOTE | 2024-05-06 14:17 | Hospitalist Progress Note ---
Date of Service May 06, 2024 Assessment & Plan (1) SOB (shortness of breath): Plan: 71-year-old female with past med history significant for postsurgical hypothyroidism, hyperlipidemia, paroxysmal atrial fibrillation, tachybradycardia syndrome, status post pacemaker, history of CAD, hypertension, urge incontinence, anxiety state, presents with shortness of breath. Shortness of breath going for last 2 -3 days. Getting progressively worse. Walking few step s making her short of breath. Has cough. Bringing some phlegm. Denies any fevers. No headache. No dizziness. No runny nose or sore throat. No chest pain. No nausea. No abdominal pain. Normal bowel and bladder movements. Appetite is okay. Her oxygen saturations were in low 90s and was placed on 2 L oxygen. Acute heart failure with reduced ejection fraction--POA Likely Takotsubo cardiomyopathy -- Chest CT showed interstitial pulmonary edema, pericardial and pleural effusions --BNP 408 --ECHO: EF 35 to 40%. Large wall motion abnormality involving the mid and apical myocardium with hypokinesis to akinesis of the segments. Mild to moderate mitral regurgitation. Trace tricuspid regurgitation. -- Continue IV Lasix 40 mg twice a day Monitor volume status, electrolytes, renal function Appreciate cardiology input Monitor I's and O's, daily weights Added Aldactone 12.5 mg daily Continue IV Lasix Currently no plan for cardioversion PT OT eval Chest x-ray today showed improved volume status Saturating well on room air Continue diuresis per cardiology Hypokalemia Replete and monitor Elevated troponin Likely demand ischemia Had cardiac catheterization in May 2023 which showed nonobstructive coronary artery disease Continue aspirin, statin Acute UTI Urine culture grew E. coli Completed IV Rocephin course Community-acquired pneumonia--POA Coronavirus NL 63 positive --Chest CT:Patchy right greater than left groundglass opacities are suspicious for a superimposed infectious or inflammatory pneumonitis. --Droplet precautions Continue Rocephin, doxycycline>> transition to cefuroxime, doxycycline to complete the course Postsurgical hypothyroidism Continue levothyroxine Paroxysmal atrial fibrillation Tachybradycardia syndrome S/P pacemaker Pacemaker interrogation requested Dronedarone--held for now due to prolonged QTc Continue metoprolol On Eliquis for anticoagulation H/O CVA On aspirin, statin Hyperlipidemia On Zetia and statin Hypertension On metoprolol succinate, losartan hydrochlorothiazide held while on IV Lasix Monitor blood pressure Obesity BMI 38.7 Anxiety Disorder continue fluoxetine DVT prophylaxis On Eliquis CODE STATUS Full code Disposition PT OT prior to discharge Admission and Anticipated Discharge Date Admission Date: May 02, 2024 Subjective Patient is seen and examined at bedside Reports having some dyspnea while ambulating this morning States that she was able to ambulate for longer distance today Chest x-ray showed improved pulmonary edema Cough improving Denies any chest pain, dizziness, nausea, vomiting, abdominal pain Review of Systems Review of Systems: All systems reviewed & are unremarkable except as noted in Subjective Physical Exam Physical Exam: Physical Exam: Vitals signs as noted above General Appearance: Obese, no apparent distress Head: normocephalic, Atraumatic Eyes: normal inspection, EOMI Neck: supple, Trachea midline Respiratory/Chest: Normal breath sounds, basal crackles, No accessory muscle use Cardiovascular: Irregularly irregular, No murmur Abdomen/GI:Soft, Non tender, Bowel sounds present Extremities/Musculoskeletal:normal inspection, no edema Neurologic/Psych:AAOX3, grossly no focal neurological deficits Skin: normal color, warm Results & Data Results & Data Vital Signs (Past 12 Hours) Vital Signs Temp Pulse Pulse Resp BP BP Pulse Ox 05/06/24 13:45 61 05/06/24 11:00 36.6 C 61 18 121/78 96 05/06/24 10:54 05/06/24 06:57 36.8 C 60 20 120/77 95 05/06/24 06:50 127/69 05/06/24 02:34 36.4 C L 56 L 18 121/78 95 O2 Del Method 05/06/24 13:45 05/06/24 11:00 Room Air 05/06/24 10:54 Room Air 05/06/24 06:57 Room Air 05/06/24 06:50 05/06/24 02:34 Room Air Laboratory Results BMP 05/06/24 07:54 Sodium 139 Potassium 3.7 Chloride 95 L Carbon Dioxide 35 H BUN 31 H Creatinine 1.19 Glucose 93 Calcium 9.7
[2024-05-07] MEDS: cefUROXime axetil 500 MG TAB PO SCH (07:58)
[2024-05-07 08:07] LABS: Hematocrit (blood only) 43.1 % (37.0-47.0); Hemoglobin 13.9 g/dl (12.0-16.0); Mean Corpuscular Hemoglobin 28.3 pg (25.0-34.0); Mean Corpuscular Hgb Conc 32.3 g/dL (32.0-36.0); Mean Corpuscular Volume 87.8 fL (80.0-100.0); Mean Platelet Volume 9.1 fL (9.4-12.4); Platelet Count 279 K/uL (130-400); RDW Coefficient of Variation 14.7 % (11.5-14.5); RDW Standard Deviation 46.8 fL (36.4-46.3); Red Blood Count 4.91 M/uL (4.20-5.40); White Blood Count 10.82 K/ul (4.8-10.8)
[2024-05-07 08:21] LABS: BUN Creatinine Ratio 29.6 (10-20); Calcium 9.9 mg/dl (8.6-10.3); Creatinine Clr Calc Pharmacy 53.9 ml/min; Magnesium 2.4 mg/dl (1.7-2.4); Potassium 4.2 mmol/L (3.5-5.1)
--- NOTE | 2024-05-07 13:32 | Cardiology Progress Note ---
Date of Service May 07, 2024 Assessment & Plan (1) Acute heart failure with reduced ejection fraction (HFrEF, <= 40%) and combined systolic and diastolic dysfunction: (2) Coronavirus infection: (3) SOB (shortness of breath): (4) PAF (paroxysmal atrial fibrillation): (5) Stress-induced cardiomyopathy: (6) Persistent atrial fibrillation: Plan 05/02/24 Patient admitted for worsening SOB over the last few days, likely multifactorial. Symptoms associated with respiratory virus, + for coronavirus variant. Pulm vascular congestion noted on chest xray with possible underlying infectious process. Started on IV lasix and antibiotics. Continue furosemide 20 mg IV BID. Monitor I+O's and titrate dose as planned Continue Rocephin for possible UTI and pneumonia. Elevated WBC noted. Update echocardiogram. Elevated troponin at 100 this morning likely demand ischemia due to acute illness/hypoxia/CHF No chest pain She does have more pronounced T wave inversions in anterolateral leads on EKG Await echo. Underlying known CAD per cath in May 2023: Mild, moderate non-obstructive CAD Proximal RCA 60% lesion, iFR was 0.98 (hemodynamically insignificant) Mild disease elsewhere in left coronary system -continue ASA, statin, zetia, metoprolol Persistent atrial fibrillation/flutter, likely dating back to Dec 2023 Device interrogation ordered. Continue Eliquis. Recently changed from Multaq to Amiodarone 200 mg BID. Plan was for future cardioversion Once patient's respiratory status improves, consider inpatient cardioversion. no missed or skipped doses of Eliquis. For now, will hold Amiodarone given prolonged QT interval on EKG. Multaq was ordered incorrectly on admission. Patient has not been taking. This was discontinued. 05/03/24: Patient admitted for worsening SOB, multifactorial. +for Coronavirus and probable pneumonia along with acute HFrEF exacerbation. Evidence of probable stress induced cardiomyopathy on echo with LVEF 35-40% HS troponin only minimally elevated, secondary to type II demand ischemia. Not indicative of ACS She was previously cathed in 05/2023 demonstrating only moderate non obstructive disease within the RCA at 60% (negative FFR). Left coronary arteries were normal. Unlikely CAD is causing her reduced EF. Medical management recommended. Continue aggressive diuresis - Increase furosemide to 40 mg IV BID. Supplement potassium this morning. Consider adding spironolactone pending renal function with diuresis. She has been taking losartan/hctz at home. Will discontinue combination therapy and resume Losartan 50 mg daily for now. Consider Entresto if affordable. Continue ASA, statin. Monitor I+O's. Daily weight with standing scale. In regards to her afib, continue metoprolol for rate control Amio on hold due to prolonged QT interval. Rates are controlled Continue Eliquis for anticoagulation therapy Pacemaker interrogation ordered - discussed with [employer] - will attempt to adjust ATP therapies to convert to NSR Consider future cardioversion once respiratory status is optimized. Continue antibiotics for UTI and probable pneumonia. 05/04/24 Improved respiratory status over the last 24 hours. No longer hypoxic and tolerating RA Good diuresis over the last 24 hours - approx 5 L output measured. Weight trending downward. Stable renal function. Potassium slightly low and supplemented. Add spironolactone 12.5 mg daily Continue furosemide 40 mg IV BID. Monitor I+O's. LVEF reduced likely due to stress induced cardiomyopathy, tachyarrhythmia. HR's improved. Persistent afib noted since Dec. Amiodarone discontinued due to prolonged QT interval. Continue metoprolol succinate 100 mg daily Currently no indication for urgent DCCV. Continue GDMT for cardiomyopathy Continue losartan. Could consider future Entresto Adding spironolactone Continue metoprolol 05/05/24: Ongoing diuresis noted over the last 24 hours. 2.3 L output yesterday. Since admission she is Negative 4.2 L Weight is down from 106 kg to 99.8 kg. Stable renal function and potassium. Continue furosemide 40 mg IV BID today Continue spironolactone 12.5 mg daily (added yesterday) Chronic/persistent atrial flutter noted, rates controlled. Amiodarone discontinued due to prolonged QT interval. Patient has been in persistent afib/flutter since Dec 2023. Ongoing rate/rhythm control to be discussed as outpatient, once respiratory status improves. Continue anticoagulation with Eliquis 5 mg BID Continue metoprolol for rate control. 05/06/24: Chest xray this morning with interval improvement in pulm vascular congestion. Has residual left pleural effusion SOB improving. No longer requiring supplemental O2. Continue IV diuresis with furosemide 40 mg IV BID today. Continue spironolactone 12.5 mg daily Stable renal function/electrolytes Chronic/persistent atrial flutter. Rates controlled continue metoprolol and Eliquis Amiodarone discontinue due to prolonged QT and respiratory status. would consider future rate vs rhythm control as outpatient. Reduced LVEF on admission - possibly stress induced cardiomyopathy. Recent cath without obstructive disease in May 2023. No anginal symptoms. Continue GDMT with metoprolol succinate, losartan, spironolactone. Continue ASA and statin. 05/07/24: Patient continues to improve with IV diuresis. Continue furosemide 40 mg IV BID today. residual small left pleural effusion noted on chest xray yesterday. Hold IV diuretics in AM until re-evaluated and consider transitioning to oral diuretics. Monitor I+O's Stable renal function. Continue spironolactone. New cardiomyopathy noted on admission - possible stress induced, LVEF 35-40%. Consider limited repeat echo in AM for recheck. Cath < 1 year ago without obstructive disease. Patient had no anginal symptoms on admission In regards to afib - persistent since December. Previously flecainide was discontinued due to moderate noon obstructive CAD, failed Multaq. Started on amiodarone in January 2024 with future thoughts of cardioversion. However on admission, her QT interval was prolonged (when not pacing), so amiodarone was stopped. Will need further evaluation for ongoing rate control vs rhythm control. Her rates have been in the 60's during this admission. Her respiratory status was not ideal to consider cardioversion thus far this admission. Continue GDMT with metoprolol succinate, losartan, spironolactone, ASA and statin Case discussed with Dr. Corral I spent a total of 30 minutes on the date of service in preparation, delivery, and documentation of the care provided to this patient, excluding any time spent in the performance of separately billed services. Lula Liu PA-C Department of Cardiology, [facility] This chart was completed in part utilizing Speech Voice Recognition Software. Grammatical errors, random word insertions, pronoun errors, and incomplete sen tences are an occasional consequence of this system due to software limitations, ambient noise, and hardware issues. Any formal questions or concerns about the content, text, or information contained within the body of this dictation should be directly addressed to the provider for clarification. Admission and Anticipated Discharge Date Admission Date: May 02, 2024 Supervising Physician Co-Signing Physician Notes I have personally performed a history and physical examination on the patient. I have reviewed the advance practitioner's documentation, and I agree with, and take responsibility for the plan of care. 73-year-old female admitted with progressive shortness of breath which is multifactorial secondary to acute coronavirus infection and acute heart failure with reduced ejection fraction. Echocardiogram demonstrating reduced LV sy stolic function with wall motion abnormalities consistent with stress-induced cardiomyopathy versus multivessel ischemic heart disease. Amiodarone discontinued because of prolonged QT Shortness of breath has improved, lower extremity swelling also is improving is now off oxygen Send 40 Lasix IV twice daily yesterday and transition to p.o. possibly tomorrow I spent a total of 20 minutes on the date of service in preparation, delivery, and documentation of the care provided to this patient, excluding any time spent in the performance of separately billed services. Subjective Patient resting in chair. SOB continues to improve during admission. Daughter at bedside. Patient has been starting to ambulate in hallways with nursing staff. SOB greatly improved from admission. No longer requiring supplemental O2. Ongoing diuresis noted. Tolerating medications. Review of Systems Review of Systems: All systems reviewed & are unremarkable except as noted in HPI & below Physical Exam Constitutional: WD/WN, vitals as above no acute distress Neck: + thick neck Respiratory: no labored breathing Auscultation: + diminished lung sounds, + crackles and + rales Cardiovascular: Rate/Rhythm: + irregularly irregular Heart Sounds: no murmur Vessels: no JVD Extremities: no edema Gastrointestinal (Abdomen): normal bowel sounds, soft, nontender, no hepatosplenomegaly Neurologic: PERRL, EOMI, accommodation nl, no face palsy, no dysarthria Psychiatric: A+Ox3, euthymic affect Results & Data Vital Signs (Past 12 Hours) Vital Signs Temp Pulse Pulse Resp BP Pulse Ox O2 Del Method 05/07/24 11:13 Room Air 05/07/24 10:51 36.8 C 60 20 112/71 96 Room Air 05/07/24 10:20 61 05/07/24 07:00 36.6 C 61 18 130/74 97 Room Air 05/07/24 04:04 37.0 C 69 18 132/78 96 Room Air 05/07/24 03:33 36.4 C L 61 18 105/70 97 Room Air Laboratory Results CBC 05/07/24 Range/Units 07:45 WBC 10.82 H (4.8-10.8) K/ul RBC 4.91 (4.20-5.40) M/uL Hgb 13.9 (12.0-16.0) g/dl Hct 43.1 (37.0-47.0) % Plt Count 279 (130-400) K/uL Comprehensive Metabolic Panel 05/07/24 Range/Units 07:45 Sodium 137 (136-145) mmol/L Potassium 4.2 (3.5-5.1) mmol/L Chloride 98 (98-107) mmol/L Carbon Dioxide 33 H (21-32) mmol/L BUN 32 H (6-23) mg/dl Creatinine 1.08 (0.6-1.2) mg/dl Glucose 93 (70-99(Fasting)) mg/dl Calcium 9.9 (8.6-10.3) mg/dl Intake and Output 05/06/24 05/07/24 05/07/24 21:59 06:59 14:59 Intake Total Output Total Balance Intake: Oral Output: Urine Urine Amount (Catheter) External Other: Weight Weight Measurement Method Diagnostic Findings Telemetry reviewed: persistent atrial flutter with controlled rate, intermittent ventricular pacing. Chest xray yesterday reviewed: IMPRESSION: 1. Interval improvement of the right lung zone opacities more at the right perihilar region. 2. Interval improvement of the pulmonary hilar vascular congestion and diffuse interstitial thickening. 3. Still seen obliterated left costoprenic angle by pleural effusion. Medications Administered Current Inpatient Medications Acetaminophen (Acetaminophen 325 Mg Tab) 650 mg PO Q4H PRN PRN Reason: Pain or Fever Stop: 06/01/24 08:33 Apixaban (Apixaban 5 Mg Tablet) 5 mg PO BID [facility] Stop: 06/01/24 08:59 Last Admin: 05/07/24 07:57 Dose: 5 mg Aspirin (Aspirin 81 Mg Ectab) 81 mg PO QAM [facility] Stop: 06/01/24 08:59 Last Admin: 05/07/24 07:55 Dose: 81 mg Calcium Carbonate (Calcium Carbonate 1250mg Tab) 1 tab PO DAILY [facility] Stop: 06/01/24 08:59 Last Admin: 05/07/24 07:55 Dose: 1 tab Cefuroxime Axetil (Cefuroxime Axetil 500 Mg Tab) 500 mg PO BID [facility] Stop: 05/09/24 08:59 Last Admin: 05/07/24 07:58 Dose: 500 mg Doxycycline Hyclate (Doxycycline Hyclate 100 Mg Cap) 100 mg PO BID [facility] Stop: 05/08/24 23:00 Last Admin: 05/07/24 07:56 Dose: 100 mg Ezetimibe (Ezetimibe 10 Mg Tab) 10 mg PO QAM [facility] Stop: 06/01/24 08:59 Last Admin: 05/07/24 07:55 Dose: 10 mg Fluoxetine HCl (Fluoxetine Hcl 20 Mg Cap) 20 mg PO DAILY [facility] Stop: 06/01/24 08:59 Last Admin: 05/07/24 07:57 Dose: 20 mg Fluticasone Propionate (Fluticasone Propionate Na Spr 16 Gm Btl) 2 sprays NA HS [facility] Stop: 06/01/24 20:59 Last Admin: 05/06/24 21:10 Dose: 2 sprays Furosemide (Furosemide 40 Mg/4 Ml Vial) 40 mg IV [id number] [facility] Stop: 06/02/24 13:59 Last Admin: 05/07/24 08:02 Dose: 40 mg Gabapentin (Gabapentin 300 Mg Cap) 300 mg PO HS [facility] Stop: 06/01/24 20:59 Last Admin: 05/06/24 21:10 Dose: 300 mg Levothyroxine Sodium (Levothyroxine Sodium 125 Mcg Tablet) 125 mcg PO DAILYBB [facility] Stop: 06/01/24 08:33 Last Admin: 05/07/24 06:21 Dose: 125 mcg Losartan Potassium (Losartan Potassium 50 Mg Tab) 50 mg PO QAM [facility] Stop: 06/03/24 08:59 Last Admin: 05/07/24 07:57 Dose: 50 mg Metoprolol Succinate (Metoprolol Succ 50mg Ext Rel Tab) 100 mg PO QAM [facility] Stop: 06/01/24 08:59 Last Admin: 05/07/24 07:55 Dose: 100 mg Metronidazole (Metronidazole 0.75% Topical Gel 45 Gm Tube) 1 appln TOP BID [facility] Stop: 05/12/24 08:59 Last Admin: 05/07/24 07:57 Dose: 1 appln Miscellaneous (Pitavastatin Calcium [Livalo]: Order Awaiting Action) 1 each N/A QS [facility] Stop: 06/01/24 15:59 Last Admin: 05/06/24 21:07 Dose: Not Given Multivitamins/Minerals (Cerovite Adv Formula Tab) 1 tab PO BIDM [facility] Stop: 06/01/24 08:59 Last Admin: 05/07/24 07:55 Dose: 1 tab Nitroglycerin (Nitroglycerin Sl 0.4 Mg/Tab Tab) 0.4 mg SL Q5M PRN PRN Reason: Chest Pain Stop: 06/01/24 08:33 Nystatin (Nystatin Powder 15gm Btl) 1 appln EXT BID [facility] Stop: 06/02/24 21:29 Last Admin: 05/07/24 07:57 Dose: 1 appln Polyethylene Glycol (Polyethylene (Miralax) 17 Gm Pack) 17 gm PO DAILY PRN PRN Reason: Constipation Stop: 06/01/24 08:33 Potassium Chloride (Potassium Chloride Crtab 20 Meq Tabcr) 20 meq PO BID [facility] Stop: 06/03/24 09:14 Last Admin: 05/07/24 07:56 Dose: 20 meq Spironolactone (Spironolactone 12.5 Mg Tab) 12.5 mg PO DAILY [facility] Stop: 06/03/24 13:59 Last Admin: 05/07/24 07:58 Dose: 12.5 mg Vitamin D (Cholecalciferol 25 Mcg (1000 Units) Tab) 50 mcg PO DAILY [facility] Stop: 06/01/24 08:59 Last Admin: 05/07/24 07:55 Dose: 50 mcg
--- NOTE | 2024-05-07 14:23 | Hospitalist Progress Note ---
Date of Service May 07, 2024 Assessment & Plan (1) SOB (shortness of breath): Plan: 71-year-old female with past med history significant for postsurgical hypothyroidism, hyperlipidemia, paroxysmal atrial fibrillation, tachybradycardia syndrome, status post pacemaker, history of CAD, hypertension, urge incontinence, anxiety state, presents with shortness of breath. Shortness of breath going for last 2 -3 days. Getting progressively worse. Walking few step s making her short of breath. Has cough. Bringing some phlegm. Denies any fevers. No headache. No dizziness. No runny nose or sore throat. No chest pain. No nausea. No abdominal pain. Normal bowel and bladder movements. Appetite is okay. Her oxygen saturations were in low 90s and was placed on 2 L oxygen. Acute heart failure with reduced ejection fraction--POA Likely Takotsubo cardiomyopathy -- Chest CT showed interstitial pulmonary edema, pericardial and pleural effusions --BNP 408 --ECHO: EF 35 to 40%. Large wall motion abnormality involving the mid and apical myocardium with hypokinesis to akinesis of the segments. Mild to moderate mitral regurgitation. Trace tricuspid regurgitation. -- Continue IV Lasix 40 mg twice a day Monitor volume status, electrolytes, renal function Appreciate cardiology input Monitor I's and O's, daily weights Added Aldactone 12.5 mg daily Continue IV Lasix Currently no plan for cardioversion PT OT eval Volume status improved Likely to be transition to oral diuretics tomorrow May need repeat echo Hypokalemia Replete and monitor Elevated troponin Likely demand ischemia Had cardiac catheterization in May 2023 which showed nonobstructive coronary artery disease Continue aspirin, statin Acute UTI Urine culture grew E. coli Completed IV Rocephin course Community-acquired pneumonia--POA Coronavirus NL 63 positive --Chest CT:Patchy right greater than left groundglass opacities are suspicious for a superimposed infectious or inflammatory pneumonitis. --Droplet precautions Continue Rocephin, doxycycline>> transition to cefuroxime, doxycycline to complete the course Postsurgical hypothyroidism Continue levothyroxine Paroxysmal atrial fibrillation Tachybradycardia syndrome S/P pacemaker Pacemaker interrogation requested Dronedarone--held for now due to prolonged QTc Continue metoprolol On Eliquis for anticoagulation H/O CVA On aspirin, statin Hyperlipidemia On Zetia and statin Hypertension On metoprolol succinate, losartan hydrochlorothiazide held while on IV Lasix Monitor blood pressure Obesity BMI 38.7 Anxiety Disorder continue fluoxetine DVT prophylaxis On Eliquis CODE STATUS Full code Disposition PT recommends home with home health Admission and Anticipated Discharge Date Admission Date: May 02, 2024 Subjective Patient is seen and examined at bedside States feeling tired today Dyspnea on exertion improved No significant cough today Saturating well on room air Denies any chest pain, dizziness, nausea, vomiting, abdominal pain Review of Systems Review of Systems: All systems reviewed & are unremarkable except as noted in Subjective Physical Exam Physical Exam: Physical Exam: Vitals signs as noted above General Appearance: Obese, no apparent distress Head: normocephalic, Atraumatic Eyes: normal inspection, EOMI Neck: supple, Trachea midline Respiratory/Chest: Normal breath sounds, basal crackles, No accessory muscle use Cardiovascular: Irregularly irregular, No murmur Abdomen/GI:Soft, Non tender, Bowel sounds present Extremities/Musculoskeletal:normal inspection, no edema Neurologic/Psych:AAOX3, grossly no focal neurological deficits Skin: normal color, warm Results & Data Results & Data Vital Signs (Past 12 Hours) Vital Signs Temp Pulse Pulse Resp BP Pulse Ox O2 Del Method 05/07/24 11:13 Room Air 05/07/24 10:51 36.8 C 60 20 112/71 96 Room Air 05/07/24 10:20 61 05/07/24 07:00 36.6 C 61 18 130/74 97 Room Air 05/07/24 04:04 37.0 C 69 18 132/78 96 Room Air 05/07/24 03:33 36.4 C L 61 18 105/70 97 Room Air Laboratory Results Short CBC 05/07/24 Range/Units 07:45 WBC 10.82 H (4.8-10.8) K/ul Hgb 13.9 (12.0-16.0) g/dl Hct 43.1 (37.0-47.0) % Plt Count 279 (130-400) K/uL BMP 05/07/24 07:45 Sodium 137 Potassium 4.2 Chloride 98 Carbon Dioxide 33 H BUN 32 H Creatinine 1.08 Glucose 93 Calcium 9.9
[2024-05-08 07:23] LABS: BUN Creatinine Ratio 29.8 (10-20); Calcium 9.6 mg/dl (8.6-10.3); Creatinine Clr Calc Pharmacy 48.2 ml/min; Potassium 4.4 mmol/L (3.5-5.1)
[2024-05-08] MEDS: TORSEMIDE 20 MG TAB PO SCH (11:51)
--- NOTE | 2024-05-08 13:22 | Cardiology Progress Note ---
Date of Service May 08, 2024 Assessment & Plan (1) Acute heart failure with reduced ejection fraction (HFrEF, <= 40%) and combined systolic and diastolic dysfunction: (2) Coronavirus infection: (3) SOB (shortness of breath): (4) PAF (paroxysmal atrial fibrillation): (5) Stress-induced cardiomyopathy: (6) Persistent atrial fibrillation: Plan New cardiomyopathy noted on admission - possible stress induced, LVEF 35-40%, Cath < 1 year ago without obstructive disease. Patient had no anginal symptoms on admission In regards to afib - persistent since December. Previously flecainide was discontinued due to moderate noon obstructive CAD, failed Multaq. Started on amiodarone in January 2024 with future thoughts of cardioversion. However on admission, her QT interval was prolonged (when not pacing), so amiodarone was stopped. Will need further evaluation for ongoing rate control vs rhythm control. Her rates have been in the 60's during this admission. Her respiratory status was not ideal to consider cardioversion thus far this admission. Cardiac catheterization performed in May, with moderate nonobstructive disease including a 60% RCA lesion that was felt to not be hemodynamically significant with iFR of 0.98. Mild disease elsewhere. I have my doubts that this would have progressed to the degree that would cause the current decline in LVEF. Repeat limited echocardiogram performed 05/08/2024 with ongoing moderate left ventricular systolic function. Abnormal septal motion consistent with right ventricular pacemaker activation observed, however the relative sparing of the basal segments is still considered to be consistent with possible stress-induced cardiomyopathy (left apical ballooning pattern/Takotsubo pattern). Patient describes recent dyspnea consistent with CHF but not adi angina. Decline in LVEF related to elevated synchrony from increased RV pacing, device interrogation revealed 76% ventricular pacing over the last 3 months and the patient has been in a persistent atrial fibrillation since December, after flecainide had been discontinued, Multaq was ineffective. Amiodarone added in January,, discontinued this admission due to concerns of prolonged QT interval. Stress-induced cardiomyopathy related to non-COVID coronavirus or E. coli UTI considered. Patient completed a course of IV Rocephin for UTI and is to complete a course of cefuroxime and doxycycline for suspected underlying post coronavirus pneumonia. Creatinine is trended up slightly today. Transition IV furosemide to oral torsemide 20 mg daily. Continue GDMT with metoprolol succinate, spironolactone, ASA and statin. --Hold losartan 05/09/2024 pending reassessment of renal function and blood pressure with considerations to transition the patient to Entresto. --Continue Eliquis for DVT/stroke prophylaxis. Remain in hospital today. Findings discussed at length with patient and at bedside. Maksim Morgan DO Department of Cardiology, [facility] This chart was completed in part utilizing Speech Voice Recognition Software. Grammatical errors, random word insertions, pronoun errors, and incomplete sentences are an occasional consequence of this system due to software limitations, ambient noise, and hardware issues. Any formal questions or concerns about the content, text, or information contained within the body of this dictation should be directly addressed to the provider for clarification. Admission and Anticipated Discharge Date Admission Date: May 02, 2024 Subjective Patient is seen in cardiology follow up. She denies chest discomfort. Shortness of breath not back to prior baseline but improved. No cough or rhinorrhea reported. Patient well-known to the undersigned is a care for her and her as an outpatient. Physical Exam Physical Exam: Temp Pulse Resp BP Pulse Ox O2 Del Method O2 Flow Rate 36.6 C 60 18 127/80 96 Room Air 2 05/08/24 10:40 05/08/24 10:49 05/08/24 10:40 05/08/24 10:40 05/08/24 10:40 05/08/24 10:49 05/03/24 12:22 Constitutional: WD/WN, vitals as above no acute distress Neck: + thick neck Respiratory: no labored breathing Auscultation: + diminished lung sounds, + crackles and + rales Cardiovascular: Rate/Rhythm: + irregularly irregular Heart Sounds: no murmur Vessels: no JVD Extremities: no edema Gastrointestinal (Abdomen): normal bowel sounds, soft, nontender, no hepatosplenomegaly Neurologic: PERRL, EOMI, accommodation nl, no face palsy, no dysarthria Psychiatric: A+Ox3, euthymic affect Results & Data Vital Signs (Past 12 Hours) Vital Signs Temp Pulse Pulse Resp BP BP Pulse Ox 05/08/24 10:49 60 05/08/24 10:49 05/08/24 10:40 36.6 C 65 18 127/80 96 05/08/24 07:00 36.6 C 60 18 122/86 96 05/08/24 02:44 36.9 C 63 20 123/82 96 O2 Del Method 05/08/24 10:49 05/08/24 10:49 Room Air 05/08/24 10:40 Room Air 05/08/24 07:00 Room Air 05/08/24 02:44 Room Air Laboratory Results Comprehensive Metabolic Panel 05/08/24 Range/Units 06:37 Sodium 137 (136-145) mmol/L Potassium 4.4 (3.5-5.1) mmol/L Chloride 100 (98-107) mmol/L Carbon Dioxide 31 (21-32) mmol/L BUN 36 H (6-23) mg/dl Creatinine 1.21 H (0.6-1.2) mg/dl Glucose 90 (70-99(Fasting)) mg/dl Calcium 9.6 (8.6-10.3) mg/dl Intake and Output 05/07/24 05/08/24 05/08/24 22:59 06:59 14:59 Intake Total 300 / 750 100 / 750 Balance 300 / 250 100 / 250 Intake: Oral 300 / 750 100 / 750 Other: Weight 99.5 kg Weight Measurement Method Built in [facility] Diagnostic Findings Summary of transthoracic echocardiogram performed 05/08/2024: A focused study was performed per provider request for reassessment of left ventricular systolic function and pleural effusion. Limited goal-directed views were therefore obtained. There is dyssynchronous septal motion consistent with right ventricular pacemaker activation. There is a large wall motion abnormality involving the mid and apical myocardium with hypokinesis to akinesis of the segments and relative sparing of the basal segments. Left ventricular systolic function is moderately reduced. Left Ventricular Ejection Fraction = 35-40%. Compared to the images obtained at the time of the previous study dated 05/23, the left ventricular wall motion and ejection fraction are relatively unchanged. The pericardial effusion is unchanged. There has been interval improvement/resolution of the previously noted left pleural effusion.
--- NOTE | 2024-05-08 13:34 | Hospitalist Progress Note ---
Date of Service May 08, 2024 Assessment & Plan (1) SOB (shortness of breath): Plan: 71-year-old female with past med history significant for postsurgical hypothyroidism, hyperlipidemia, paroxysmal atrial fibrillation, tachybradycardia syndrome, status post pacemaker, history of CAD, hypertension, urge incontinence, anxiety state, presents with shortness of breath. Shortness of breath going for last 2 -3 days. Getting progressively worse. Walking few maria d ps making her short of breath. Has cough. Bringing some phlegm. Denies any fevers. No headache. No dizziness. No runny nose or sore throat. No chest pain. No nausea. No abdominal pain. Normal bowel and bladder movements. Appetite is okay. Her oxygen saturations were in low 90s and was placed on 2 L oxygen. Acute heart failure with reduced ejection fraction--POA Likely Takotsubo cardiomyopathy -- Chest CT showed interstitial pulmonary edema, pericardial and pleural effusions --BNP 408 --ECHO: EF 35 to 40%. Large wall motion abnormality involving the mid and apical myocardium with hypokinesis to akinesis of the segments. Mild to moderate mitral regurgitation. Trace tricuspid regurgitation. -- Continue IV Lasix 40 mg twice a day Appreciate cardiology input Monitor I's and O's, daily weights Added Aldactone 12.5 mg daily Continue IV Lasix>> transition to torsemide 20 mg daily Volume status improved Repeat echo today showed EF 35 to 40%. Losartan held, likely to be transition to Entresto Noted rising creatinine to 1.2 today Monitor volume status, renal function Hypokalemia Replete and monitor Elevated troponin Likely demand ischemia Had cardiac catheterization in May 2023 which showed nonobstructive coronary artery disease Continue aspirin, statin Acute UTI Urine culture grew E. coli Completed IV Rocephin course Community-acquired pneumonia--POA Coronavirus NL 63 positive --Chest CT:Patchy right greater than left groundglass opacities are suspicious for a superimposed infectious or inflammatory pneumonitis. --Droplet precautions Continue Rocephin, doxycycline>> transition to cefuroxime, doxycycline to complete the course Will complete antibiotic course today Postsurgical hypothyroidism Continue levothyroxine Paroxysmal atrial fibrillation Tachybradycardia syndrome S/P pacemaker Pacemaker interrogation requested Dronedarone--held for now due to prolonged QTc Continue metoprolol On Eliquis for anticoagulation H/O CVA On aspirin, statin Hyperlipidemia On Zetia and statin Hypertension On metoprolol succinate HCTZ discontinued Losartan held as above Monitor blood pressure Obesity BMI 38.7 Anxiety Disorder continue fluoxetine DVT prophylaxis On Eliquis CODE STATUS Full code Disposition PT recommends home with home health Admission and Anticipated Discharge Date Admission Date: May 02, 2024 Subjective Patient is seen and examined at bedside Subjectively feels better today Was able to ambulate with no significant exertion No new complaints today Denies any chest pain, dizziness, nausea, vomiting, abdominal pain Review of Systems Review of Systems: All systems reviewed & are unremarkable except as noted in Subjective Physical Exam Physical Exam: Physical Exam: Vitals signs as noted above General Appearance: Obese, no apparent distress Head: normocephalic, Atraumatic Eyes: normal inspection, EOMI Neck: supple, Trachea midline Respiratory/Chest: Normal breath sounds, basal crackles, No accessory muscle use Cardiovascular: Irregularly irregular, No murmur Abdomen/GI:Soft, Non tender, Bowel sounds present Extremities/Musculoskeletal:normal inspection, no edema Neurologic/Psych:AAOX3, grossly no focal neurological deficits Skin: normal color, warm Results & Data Results & Data Vital Signs (Past 12 Hours) Vital Signs Temp Pulse Pulse Resp BP BP Pulse Ox 05/08/24 10:49 60 05/08/24 10:49 05/08/24 10:40 36.6 C 65 18 127/80 96 05/08/24 07:00 36.6 C 60 18 122/86 96 05/08/24 02:44 36.9 C 63 20 123/82 96 O2 Del Method 05/08/24 10:49 05/08/24 10:49 Room Air 05/08/24 10:40 Room Air 05/08/24 07:00 Room Air 05/08/24 02:44 Room Air Laboratory Results [facility] 05/08/24 06:37 Sodium 137 Potassium 4.4 Chloride 100 Carbon Dioxide 31 BUN 36 H Creatinine 1.21 H Glucose 90 Calcium 9.6
[2024-05-09 06:43] LABS: Hematocrit (blood only) 41.6 % (37.0-47.0); Hemoglobin 13.4 g/dl (12.0-16.0); Mean Corpuscular Hemoglobin 28.3 pg (25.0-34.0); Mean Corpuscular Hgb Conc 32.2 g/dL (32.0-36.0); Mean Corpuscular Volume 87.9 fL (80.0-100.0); Mean Platelet Volume 9.1 fL (9.4-12.4); Platelet Count 290 K/uL (130-400); RDW Coefficient of Variation 14.5 % (11.5-14.5); RDW Standard Deviation 46.6 fL (36.4-46.3); Red Blood Count 4.73 M/uL (4.20-5.40); White Blood Count 11.28 K/ul (4.8-10.8)
[2024-05-09 07:05] LABS: BUN Creatinine Ratio 31.1 (10-20); Calcium 9.4 mg/dl (8.6-10.3); Creatinine Clr Calc Pharmacy 44.1 ml/min; Potassium 3.7 mmol/L (3.5-5.1)
[2024-05-09 09:06] VITALS: RESP 18
--- NOTE | 2024-05-09 10:30 | Cardiology Progress Note ---
Date of Service May 09, 2024 Assessment & Plan (1) Acute heart failure with reduced ejection fraction (HFrEF, <= 40%) and combined systolic and diastolic dysfunction: (2) Coronavirus infection: (3) SOB (shortness of breath): (4) Stress-induced cardiomyopathy: (5) Persistent atrial fibrillation: (6) Pericardial effusion: Plan New cardiomyopathy noted on admission - possible stress induced, LVEF 35-40%, Cath < 1 year ago without obstructive disease. Patient had no anginal symptoms on admission In regards to afib - persistent since December. Previously flecainide was discontinued due to moderate noon obstructive CAD, failed Multaq. Started on amiodarone in January 2024 with future thoughts of cardioversion. However on admission, her QT interval was prolonged (when not pacing), so amiodarone was stopped. Will need further evaluation for ongoing rate control vs rhythm control. Her rates have been in the 60's during this admission. Her respiratory status was not ideal to consider cardioversion thus far this admission. Cardiac catheterization performed in May, with moderate nonobstructive disease including a 60% RCA lesion that was felt to not be hemodynamically significant with iFR of 0.98. Mild disease elsewhere. I have my doubts that this would have progressed to the degree that would cause the current decline in LVEF. Repeat limited echocardiogram performed 05/08/2024 with ongoing moderate left ventricular systolic function. Abnormal septal motion consistent with right ventricular pacemaker activation observed, however the relative sparing of the basal segments is still considered to be consistent with possible stress-induced cardiomyopathy (left apical ballooning pattern/Takotsubo pattern). Patient describes recent dyspnea consistent with CHF but not adi angina. Decline in LVEF related to elevated synchrony from increased RV pacing, device interrogation revealed 76% ventricular pacing over the last 3 months and the patient has been in a persistent atrial fibrillation since December, after flecainide had been discontinued, Multaq was ineffective. Amiodarone added in January,, discontinued this admission due to concerns of prolonged QT interval. Stress-induced cardiomyopathy related to non-COVID coronavirus or E. coli UTI considered. Patient completed a course of IV Rocephin for UTI and is to complete a course of cefuroxime and doxycycline for suspected underlying post coronavirus pneumonia. Creatinine is trended up slightly today. Transition IV furosemide to oral torsemide 20 mg daily. Continue GDMT with metoprolol succinate, spironolactone, ASA and statin. --Resume Losartan. --Consider transition to Entresto as outpatient if renal function stable. --Continue Eliquis for DVT/stroke prophylaxis. Stable for discharge from cardiology standpoint. Will arrange outpatient cardiology follow up within a month. Maksim Morgan DO Department of Cardiology, [facility] This chart was completed in part utilizing Speech Voice Recognition Software. Grammatical errors, random word insertions, pronoun errors, and incomplete sentences are an occasional consequence of this system due to software limitations, ambient noise, and hardware issues. Any formal questions or concerns about the content, text, or information contained within the body of this dictation should be directly addressed to the provider for clarification. Admission and Anticipated Discharge Date Admission Date: May 02, 2024 Subjective Patient seen in cardiology follow up. Denies chest pain or shortness of breath. Telemetry reveals underlying rate controlled atrial fibrillation with ventricular pacing. Physical Exam Physical Exam: Temp Pulse Resp BP Pulse Ox O2 Del Method O2 Flow Rate 37.1 C 60 18 121/72 96 Room Air 2 05/09/24 02:41 05/09/24 09:05 05/09/24 09:05 05/09/24 09:05 05/09/24 09:05 05/09/24 09:05 05/03/24 12:22 Constitutional: WD/WN, vitals as above no acute distress Neck: + thick neck Respiratory: no labored breathing Auscultation: + diminished lung sounds, + crackles and + rales Cardiovascular: Rate/Rhythm: + irregularly irregular Heart Sounds: no murmur Vessels: no JVD Extremities: no edema Gastrointestinal (Abdomen): normal bowel sounds, soft, nontender, no hepatosplenomegaly Neurologic: PERRL, EOMI, accommodation nl, no face palsy, no dysarthria Psychiatric: A+Ox3, euthymic affect Results & Data Vital Signs (Past 12 Hours) Vital Signs Temp Pulse Pulse Pulse Resp BP Pulse Ox 05/09/24 09:05 60 18 121/72 96 05/09/24 02:41 37.1 C 65 16 113/78 96 05/08/24 23:14 60 05/08/24 22:57 36.7 C 72 18 114/76 95 05/08/24 22:55 O2 Del Method 05/09/24 09:05 Room Air 05/09/24 02:41 Room Air 05/08/24 23:14 05/08/24 22:57 Room Air 05/08/24 22:55 Room Air Laboratory Results CBC 05/09/24 Range/Units 06:25 WBC 11.28 H (4.8-10.8) K/ul RBC 4.73 (4.20-5.40) M/uL Hgb 13.4 (12.0-16.0) g/dl Hct 41.6 (37.0-47.0) % Plt Count 290 (130-400) K/uL Comprehensive Metabolic Panel 05/09/24 Range/Units 06:25 Sodium 138 (136-145) mmol/L Potassium 3.7 (3.5-5.1) mmol/L Chloride 99 (98-107) mmol/L Carbon Dioxide 31 (21-32) mmol/L BUN 41 H (6-23) mg/dl Creatinine 1.32 H (0.6-1.2) mg/dl Glucose 98 (70-99(Fasting)) mg/dl Calcium 9.4 (8.6-10.3) mg/dl Intake and Output 05/08/24 05/09/24 05/09/24 22:59 06:59 14:59 Intake Total 200 / 850 200 / 850 Balance 200 / 850 200 / 850 Intake: Oral 200 / 850 200 / 850 Other: Weight 99.4 kg
[2024-05-09 11:37] VITALS: TEMP 98.4; O2SAT 97
--- NOTE | 2024-05-09 12:03 | Hospitalist Progress Note ---
Date of Service May 09, 2024 Assessment & Plan (1) SOB (shortness of breath): Plan: 71-year-old female with past med history significant for postsurgical hypothyroidism, hyperlipidemia, paroxysmal atrial fibrillation, tachybradycardia syndrome, status post pacemaker, history of CAD, hypertension, urge incontinence, anxiety state, presents with shortness of breath. Shortness of breath going for last 2 -3 days. Getting progressively worse. Walking few maria d ps making her short of breath. Has cough. Bringing some phlegm. Denies any fevers. No headache. No dizziness. No runny nose or sore throat. No chest pain. No nausea. No abdominal pain. Normal bowel and bladder movements. Appetite is okay. Her oxygen saturations were in low 90s and was placed on 2 L oxygen. Acute heart failure with reduced ejection fraction--POA Likely Takotsubo cardiomyopathy -- Chest CT showed interstitial pulmonary edema, pericardial and pleural effusions --BNP 408 --ECHO: EF 35 to 40%. Large wall motion abnormality involving the mid and apical myocardium with hypokinesis to akinesis of the segments. Mild to moderate mitral regurgitation. Trace tricuspid regurgitation. -- Continue IV Lasix 40 mg twice a day Appreciate cardiology input Monitor I's and O's, daily weights Added Aldactone 12.5 mg daily Continue IV Lasix>> transition to torsemide 20 mg daily Volume status improved Repeat echo today showed EF 35 to 40%. Resume the losartan, plan to transition to Entresto as outpatient Monitor volume status, renal function Needs follow-up with cardiology on discharge Plan to be discharged home today Hypokalemia Replete and monitor Elevated troponin Likely demand ischemia Had cardiac catheterization in May 2023 which showed nonobstructive coronary artery disease Continue aspirin, statin Acute UTI Urine culture grew E. coli Completed IV Rocephin course Community-acquired pneumonia--POA Coronavirus NL 63 positive --Chest CT:Patchy right greater than left groundglass opacities are suspicious for a superimposed infectious or inflammatory pneumonitis. --Droplet precautions Continue Rocephin, doxycycline>> transition to cefuroxime, doxycycline Completed antibiotic course Postsurgical hypothyroidism Continue levothyroxine Paroxysmal atrial fibrillation Tachybradycardia syndrome S/P pacemaker Pacemaker interrogation requested Dronedarone--held for now due to prolonged QTc Continue metoprolol On Eliquis for anticoagulation H/O CVA On aspirin, statin Hyperlipidemia On Zetia and statin Hypertension On metoprolol succinate HCTZ discontinued Losartan held as above Monitor blood pressure Obesity BMI 38.7 Anxiety Disorder continue fluoxetine DVT prophylaxis On Eliquis CODE STATUS Full code Disposition PT recommends home with home health Admission and Anticipated Discharge Date Admission Date: May 02, 2024 Subjective Patient is seen and examined at bedside No new complaints Eager to get discharged Discussed with cardiology today Denies any chest pain, dizziness, nausea, vomiting, abdominal pain Plan to discharge home today Review of Systems Review of Systems: All systems reviewed & are unremarkable except as noted in Subjective Physical Exam Physical Exam: Physical Exam: Vitals signs as noted above General Appearance: Obese, no apparent distress Head: normocephalic, Atraumatic Eyes: normal inspection, EOMI Neck: supple, Trachea midline Respiratory/Chest: Normal breath sounds, basal crackles, No accessory muscle use Cardiovascular: Irregularly irregular, No murmur Abdomen/GI:Soft, Non tender, Bowel sounds present Extremities/Musculoskeletal:normal inspection, no edema Neurologic/Psych:AAOX3, grossly no focal neurological deficits Skin: normal color, warm Results & Data Results & Data Vital Signs (Past 12 Hours) Vital Signs Temp Pulse Pulse Pulse Resp BP Pulse Ox 05/09/24 11:36 36.9 C 62 18 115/74 97 05/09/24 10:00 60 05/09/24 09:05 60 18 121/72 96 05/09/24 02:41 37.1 C 65 16 113/78 96 O2 Del Method 05/09/24 11:36 Room Air 05/09/24 10:00 05/09/24 09:05 Room Air 05/09/24 02:41 Room Air Laboratory Results Short CBC 05/09/24 Range/Units 06:25 WBC 11.28 H (4.8-10.8) K/ul Hgb 13.4 (12.0-16.0) g/dl Hct 41.6 (37.0-47.0) % Plt Count 290 (130-400) K/uL BMP 05/09/24 06:25 Sodium 138 Potassium 3.7 Chloride 99 Carbon Dioxide 31 BUN 41 H Creatinine 1.32 H Glucose 98 Calcium 9.4
--- NOTE | 2024-05-09 12:24 | Discharge Summary ---
Date of Service May 09, 2024 Admission HPI Per Admitting Provider 71-year-old female with past med history significant for postsurgical hypothyroidism, hyperlipidemia, paroxysmal atrial fibrillation, tachybradycardia syndrome, status post pacemaker, history of CAD, hypertension, urge incontinence, anxiety state, presents with shortness of breath. Shortness of breath going for last 2 -3 days. Getting progressively worse. Walking few steps making her short of breath. Has cough. Bringing some phlegm. Denies any fevers. No headache. No dizziness. No runny nose or sore throat. No chest pain. No nausea. No abdominal pain. Normal bowel and bladder movements. Appetite is okay. Her oxygen saturations were in low 90s and was placed on 2 L oxygen. Past medical history. As mentioned above. Past surgical history. Breast biopsy. Colonoscopy. Left heart catheterizati on. Thyroidectomy. Laminectomy. Vaginal hysterectomy. Social history. . No smoking. No alcohol use. No drug use. Family history. Mother had esophageal cancer. Father had diabetes. Heart disorder. Hypertension. Brother has hypertension. Admission Exam Per Admitting Provider General- Not in distress Head- atraumatic Eyes- PERRL. ENT- oropharynx clear Neck- supple, no JVD. Lungs- clear to auscultation no wheezing or crackles Heart- regular rhythm; no murmur, no gallop. Abdomen- normal bowel sounds, soft, nontender, no distension Extremities- no pretibial edema, no erythema seen Neuro- alert, oriented PERRL, no facial palsy; no dysarthria; moves extremities Principal Diagnosis Acute heart failure with reduced ejection fraction Likely Takotsubo cardiomyopathy Urinary tract infection Community-acquired pneumonia Discharge Data Allergies Allergy/AdvReac Type Severity Reaction Status Date / Time No Known Allergies Allergy Verified 05/02/24 02:01 Consultations 05/02/24 01:15 ED Decision to Admit Stat 05/02/24 08:34 Consult Cardiology Routine Procedures Performed Laboratory Results WBC 11.28 K/ul (4.8-10.8) H 05/09/24 06:25 RBC 4.73 M/uL (4.20-5.40) 05/09/24 06:25 Hgb 13.4 g/dl (12.0-16.0) 05/09/24 06:25 Hct 41.6 % (37.0-47.0) 05/09/24 06:25 MCV 87.9 fL (80.0-100.0) 05/09/24 06: MCH 28.3 pg (25.0-34.0) 05/09/24 06: MCHC 32.2 g/dL (32.0-36.0) 05/09/24 06: RDW Std Deviation 46.6 fL (36.4-46.3) H 05/09/24 06: RDW Coeff of Rahel 14.5 % (11.5-14.5) 05/09/24 06: Plt Count 290 K/uL (130-400) 05/09/24 06: MPV 9.1 fL (9.4-12.4) L 05/09/24 06: Immature Gran % (Auto) 0.5 % 05/03/24 06: Neut % (Auto) 63.2 % 05/03/24 06:26 Lymph % (Auto) 24.3 % 05/03/24 06:26 [place] % (Auto) 9.3 % 05/03/24 06:26 Eos % (Auto) 2.3 % 05/03/24 06:26 Baso % (Auto) 0.4 % 05/03/24 06:26 Neut # (Auto) 6.93 K/uL (1.40-6.50) H 05/03/24 06:26 Lymph # (Auto) 2.66 K/uL (1.20-3.40) 05/03/24 06:26 [place] # (Auto) 1.02 K/uL (0.11-0.59) H 05/03/24 06:26 Eos # (Auto) 0.25 K/uL (0.00-0.50) 05/03/24 06:26 Baso # (Auto) 0.04 K/uL (0.00-0.20) 05/03/24 06:26 Immature Gran # (Auto) 0.05 K/uL (0.01-0.20) 05/03/24 06:26 PT 10.9 Seconds (9.0-12.0) 05/01/24 23:45 INR 1.0 (0.9-1.1) 05/01/24 23:45 VBG pH 7.38 (7.36-7.41) 05/01/24 23:45 VBG pCO2 42 mmHg (38-50) 05/01/24 23:45 VBG pO2 54 mmHg 05/01/24 23:45 VBG HCO3 25 mmol/L 05/01/24 23:45 VBG O2 Saturation 87.8 % 05/01/24 23:45 VBG Base Excess -0.4 mEq/L 05/01/24 23:45 Sodium 138 mmol/L (136-145) 05/09/24 06:25 Potassium 3.7 mmol/L (3.5-5.1) 05/09/24 06:25 Chloride 99 mmol/L (98-107) 05/09/24 06:25 Carbon Dioxide 31 mmol/L (21-32) 05/09/24 06:25 Anion Gap 8 (3-11) 05/09/24 06:25 BUN 41 mg/dl (6-23) H 05/09/24 06:25 Creatinine 1.32 mg/dl (0.6-1.2) H 05/09/24 06:25 Est Cr Clr Drug Dosing 44.1 ml/min 05/09/24 06:25 eGFR 42.90 05/09/24 06:25 BUN/Creatinine Ratio 31.1 (10-20) H 05/09/24 06:25 Glucose 98 mg/dl (70-99(Fasting)) 05/09/24 06:25 Calcium 9.4 mg/dl (8.6-10.3) 05/09/24 06:25 Magnesium 2.4 mg/dl (1.7-2.4) 05/07/24 07:45 Total Bilirubin 0.4 mg/dl (0.2-1.0) 05/01/24 22:59 AST 59 U/L (13-39) H 05/02/24 00:20 ALT 60 U/L (7-52) H 05/01/24 22:59 Alkaline Phosphatase 122 U/L (34-104) H 05/01/24 22:59 Troponin I High Sens 44.7 pg/ml (0-14) H D 05/02/24 20:09 B-Natriuretic Peptide 408 pg/ml (0-100) H 05/01/24 23:00 Total Protein 7.6 gm/dl (6.0-8.3) 05/01/24 22:59 Albumin 3.9 gm/dl (3.4-5.0) 05/01/24 22:59 Globulin 3.7 gm/dl (2.5-4.0) 05/01/24 22:59 Albumin/Globulin Ratio 1.1 (0.9-2) 05/01/24 22:59 Procalcitonin 0.06 ng/ml (0-0.5) 05/04/24 06:16 Urine Color Yellow 05/02/24 02:55 Urine Appearance Clear (Clear) 05/02/24 02:55 Urine pH 6.0 (4.5-7.5) 05/02/24 02:55 Ur Specific [place] 1.011 (1.000-1.030) 05/02/24 02:55 Urine Protein Negative (Negative) 05/02/24 02:55 Urine Glucose (UA) Negative (Negative) 05/02/24 02:55 Urine Ketones Negative (Negative) 05/02/24 02:55 Urine Blood Negative (Negative) 05/02/24 02:55 Urine Nitrite Positive (Negative) A 05/02/24 02:55 Urine Bilirubin Negative (Negative) 05/02/24 02:55 Urine Urobilinogen Negative (Negative) 05/02/24 02:55 Ur Leukocyte Esterase 2+ (Negative) H 05/02/24 02:55 Urine WBC (Auto) 0-5 /hpf (0-5) 05/02/24 02:55 Urine RBC (Auto) 0-2 /hpf (0-2) 05/02/24 02:55 U Hyaline Cast (Auto) 0-2 /lpf (0-2) 05/02/24 02:55 U Epithel Cells (Auto) 0-2 /hpf (0-2) 05/02/24 02:55 Urine Bacteria (Auto) 4+ (None Seen) H 05/02/24 02:55 Adenovirus (PCR) Not Detected (NotDetected) 05/01/24 23:00 B. pertussis DNA (PCR) Not Detected (NotDetected) 05/01/24 23:00 B.parapertussis DNA PCR Not Detected (NotDetected) 05/01/24 23:00 C. pneumoniae DNA (PCR) Not Detected (NotDetected) 05/01/24 23:00 Coronavirus OC43 (PCR) Not Detected (NotDetected) 05/01/24 23:00 Coronavirus HKU1 (PCR) Not Detected (NotDetected) 05/01/24 23:00 Coronavirus 229E (PCR) Not Detected (NotDetected) 05/01/24 23:00 SARS-CoV-2 (PCR) Not Detected (NotDetected) 05/01/24 23:00 Coronavirus NL63 (PCR) DETECTED (NotDetected) A 05/01/24 23:00 Human Metapneumovir PCR Not Detected (NotDetected) 05/01/24 23:00 Influenza Type A (PCR) Not Detected (NotDetected) 05/01/24 23:00 Influenza Type B (PCR) Not Detected (NotDetected) 05/01/24 23:00 M. pneumoniae (PCR) Not Detected (NotDetected) 05/01/24 23:00 Parainfluenza 1 (PCR) Not Detected (NotDetected) 05/01/24 23:00 Parainfluenza 2 (PCR) Not Detected (NotDetected) 05/01/24 23:00 Parainfluenza 3 (PCR) Not Detected (NotDetected) 05/01/24 23:00 Parainfluenza 4 (PCR) Not Detected (NotDetected) 05/01/24 23:00 RSV (PCR) Not Detected (NotDetected) 05/01/24 23:00 Entero/Rhino (PCR) Not Detected (NotDetected) 05/01/24 23:[address] 05/02/24 11:46 CT chest diagnostic wo con CT DOSE: 874.77 mGy.cm CLINICAL HISTORY: 73 years-old Female with b/l infiltrates, pneumonia vs CHF. Acute shortness of breath TECHNIQUE: Multiaxial CT images of the chest were performed without contrast. A dose lowering technique was utilized adhering to the principles of ALARA. COMPARISON: Chest radiograph of same day FINDINGS: No thyroid nodule or lymphadenopathy. Moderate cardiomegaly. Small pericardial effusion. Left subclavian pacer. No thoracic aortic aneurysm. Dilated pulmonary artery suggestive of pulmonary arterial hypertension, 3.5 cm.. And small left with [id number] right pleural effusions. No pneumothorax. Intralobular septal thickening with patchy groundglass opacities. Dependent bibasilar consolidation. There are additional patchy ground glass/consolidative opacities within the right greater than left lungs. Central airways are patent. No acute upper abdominal abnormality. Unremarkable soft tissues. No acute fracture. IMPRESSION: 1. Cardiomegaly with interstitial pulmonary edema, pericardial and pleural effusions. 2. Additional patchy right greater than left groundglass opacities are suspicious for a superimposed infectious or inflammatory pneumonitis. 3. Findings suggestive of pulmonary arterial hypertension. ACT 112: Negative or not required by law. Electronically signed by: Kervin Zhou M.D. 05/02/2024 12:29 PM Chest X-Ray 05/06/24 07:00 EXAM: XR chest 1V portable CLINICAL HISTORY: Congestive heart failure TECHNIQUE: An X-ray image of the chest is obtained in AP projection. COMPARISON: 05/01/2024 FINDINGS: Pulmonary Parenchyma: Interval improvement of the right lung zone opacities more at the right perihilar region. Interval improvement of the pulmonary hilar vascular congestion and diffuse interstitial thickening. Still seen obliterated left costoprenic angle by pleural effusion. No evidence of right pleural effusion or pleural thickening. Heart and Mediastinum: Stable cardiomegaly and dilated thoracic aorta with atheromatous calcifications. No mediastinal widening or masses. No hilar or mediastinal lymphadenopathy. Pacemaker with electrodes. Bony Thorax: Bony thorax appears intact without fractures or deformities. Soft Tissues: Soft tissues overlying the chest wall are unremarkable. IMPRESSION: 1. Interval improvement of the right lung zone opacities more at the right perihilar region. 2. Interval improvement of the pulmonary hilar vascular congestion and diffuse interstitial thickening. 3. Still seen obliterated left costoprenic angle by pleural effusion. Electronically signed by Gregory Villatoro 05-06-2024 07:49 AM Ordered Studies 05/02/24 11:46 CT chest diagnostic wo con Routine Hospital Course (1) SOB (shortness of breath): 71-year-old female with past med history significant for postsurgical hypothyroidism, hyperlipidemia, paroxysmal atrial fibrillation, tachybradycardia syndrome, status post pacemaker, history of CAD, hypertension, urge incontinence, anxiety state, presents with shortness of breath. Shortness of breath going for last 2 -3 days. Getting progressively worse. Walking few steps making her short of breath. Has cough. Bringing some phlegm. Denies any fevers. No headache. No dizziness. No runny nose or sore throat. No chest pain. No nausea. No abdominal pain. Normal bowel and bladder movements. Appetite is okay. Her oxygen saturations were in low 90s and was placed on 2 L oxygen. Acute heart failure with reduced ejection fraction--POA Likely Takotsubo cardiomyopathy -- Chest CT showed interstitial pulmonary edema, pericardial and pleural effusions --BNP 408 --ECHO: EF 35 to 40%. Large wall motion abnormality involving the mid and apical myocardium with hypokinesis to akinesis of the segments. Mild to moderate mitral regurgitation. Trace tricuspid regurgitation. -- Continue IV Lasix 40 mg twice a day Appreciate cardiology input Monitor I's and O's, daily weights Added Aldactone 12.5 mg daily Continue IV Lasix>> transition to torsemide 20 mg daily Volume status improved Repeat echo today showed EF 35 to 40%. Resume the losartan, plan to transition to Entresto as outpatient Monitor volume status, renal function Needs follow-up with cardiology on discharge Plan to be discharged home today Hypokalemia Replete and monitor Elevated troponin Likely demand ischemia Had cardiac catheterization in May 2023 which showed nonobstructive coronary a rtery disease Continue aspirin, statin Acute UTI Urine culture grew E. coli Completed IV Rocephin course Community-acquired pneumonia--POA Coronavirus NL 63 positive --Chest CT:Patchy right greater than left groundglass opacities are suspicious for a superimposed infectious or inflammatory pneumonitis. --Droplet precautions Continue Rocephin, doxycycline>> transition to cefuroxime, doxycycline Completed antibiotic course Postsurgical hypothyroidism Continue levothyroxine Paroxysmal atrial fibrillation Tachybradycardia syndrome S/P pacemaker Pacemaker interrogation requested Dronedarone--held for now due to prolonged QTc Continue metoprolol On Eliquis for anticoagulation H/O CVA On aspirin, statin Hyperlipidemia On Zetia and statin Hypertension On metoprolol succinate HCTZ discontinued Losartan held as above Monitor blood pressure Obesity BMI 38.7 Anxiety Disorder continue fluoxetine DVT prophylaxis On Eliquis CODE STATUS Full code Disposition PT recommends home with home health Total Time Total Time Spent Total Time Spent (In Minutes): 54 minutes Discharge Plan Discharge Items Patient Disposition: Home - Home Health Services Reason For Visit: CHF, UTI Discharge Diagnosis: Acute heart failure with reduced ejection fraction Likely Takotsubo cardiomyopathy Urinary tract infection Community-acquired pneumonia Activity: Per Instructions section Exercise/Sports: Gradually increase as tolerated Non-emergency contact: Primary Care Provider and Technology Development Intern Call non-emergency contact if: you have any medication questions, your symptoms worsen, your pain is concerning for you and you have a fever Follow-up/Referrals: Jose Angel Elizabeth MD [Primary Care Provider] - (Date & Time 05/15/2024 3:00 PM Provider: Jose Angel Elizabeth MD [facility], [facility] ) Diet: Heart Healthy Addtl Attending Provider Instructions: Follow-up with your primary care physician on 05/15/2024 3:00 PM Follow-up with your tool adjuster as advised -- Get blood work(basic metabolic panel) in 1 week to monitor your renal function and electrolytes. -- Please review medication list provided on discharge for medication changes as instructed. Seek immediate medical attention if your symptoms reoccur or worsen Please call if you have any questions or problems. You can reach a [facility] hospitalist on duty at [facility] 24 hours a day by calling [phone] Call your Primary Care doctor if any of the following symptoms or problems start or get worse: * Shortness of breath or difficulty breathing * Wake up at night short of breath * Chest pain * Cough * Swelling of your hands, feet, or legs * More fatigued or tired with your normal activity * Palpitations - sudden fast heart beats WEIGHT * Weigh yourself every morning after using the bathroom. * Use the same scale. * Wear the same amount of clothing. * Write your weight down on a chart. * Call your Primary Care doctor if you gain more than 2-3 pounds in 1-2 days. MEDICATIONS * Use this discharge instruction sheet for medication instructions. * Take your medications at the time your doctor ordered. * Do not skip a dose of your medicines. * If you miss a dose of medicine, take it as soon as possible, but DO NOT DOUBLE A DOSE. * Read your medicine information when you get home. * Know all of the side effects of your medicine. If in doubt, ask your pharmacist * Call your Primary Care doctor's office if you have any side effects. * Be sure all of your doctors know what medicine and herbs you take (including cold, flu, and herbal medicine). Take the following with you to your follow-up doctor appointments: * Weight Chart * Medication List * List of questions Do not drink excessive alcohol, beer or wine. Pending Studies at Discharge: No Stand-Alone Forms: [facility], Smoking Cessation Medications and DC Order Prescriptions: New losartan 50 mg Tablet 50 mg PO QAM Qty: 30 1RF spironolactone 25 mg Tablet 12.5 mg PO DAILY Qty: 30 0RF torsemide 20 mg Tablet 20 mg PO QAM Qty: 30 1RF Continued apixaban 5 mg tablet 5 mg PO BID fluoxetine 20 mg capsule 20 mg PO DAILY levothyroxine 125 mcg capsule 125 mcg PO DAILYBB Livalo 2 mg tablet 2 mg PO DAILY metronidazole 0.75 % cream 1 applic topical BID Rx Instructions: APPLY 2X DAILY AFTER WASHING FACE BUT BEFORE SUNSCREEN (SPF 50 +) IN MORNING THEN MAKEUP ON TOP nystatin-triamcinolone [Mycolog II] 100,000-0.1 unit/g-% Cream 1 applic TOPICAL BID PRN (Reason: NEEDED) Rx Instructions: APPLY FOR 2 WEEKS, THEN NEEDED calcium carbonate [Tums 500] 500 mg calcium (1,250 mg) Tablet,Chewable 1,000 mg PO DAILY nystatin 100,000 unit/gram Powder 1 applic TOPICAL TID PRN (Reason: GROIN AND UNDER BREASTS NEEDED.) ezetimibe 10 mg tablet 10 mg PO QAM cholecalciferol (vitamin D3) [Vitamin D3] 50 mcg (2,000 unit) Capsule 50 mcg PO DAILY PreserVision AREDS 2,148 mcg-113 mg-45 mg-17.4mg Tablet 1 tab PO BID Rx Instructions: administer with AM and PM meals mometasone 50 mcg/actuation spray,non-aerosol 2 spray intranasal HS Rx Instructions: administer into each nostril metoprolol succinate 100 mg tablet extended release 24 hr 100 mg PO QAM aspirin [Aspirin Low-Strength] 81 mg Tablet,Delayed Release (Dr/Ec) 81 mg PO QAM gabapentin 300 mg capsule 300 mg PO HS Held dronedarone 400 mg Tablet 400 mg PO DAILY Hold Instructions: Until further recommendations from your tool adjuster Rx Instructions: must administer with a meal/food Discontinued losartan-hydrochlorothiazide 50-12.5 mg tablet 1 tab PO QAM Discharge Orders: Discharge Order (Routine); Ordered 05/09/24 Ordered By: Alvaro Spencer Admission Data Admit Date/Time: 05/02/24 05:11 Attending Provider: Alvaro Spencer Admit Provider: August Lopez Primary Care Provider: Jose Angel Elizabeth Other Providers: August Lopez; Maikol Gamboa
[2024-05-09 12:30] VITALS: BP 127/80; PULSE 65
== END 2024-05-09 13:16 | disposition home or self-care (01) | DRG 291 ==
LOC: ED 22:51 → SUATTDRO 05-02 05:11 → EDINP 05-02 05:11 → 2S 05-02 19:58